=== PATIENT | male | born 1950 | race Caucasian/White ===

== ENCOUNTER 2016-10-14 19:43 | Emergency (ER) | payer MEDICARE, OTHER | END 2016-10-14 21:34 | disposition left against medical advice (07) | LOC: ED 19:43 | DX: R10.9 Unspecified abdominal pain (principal); Z53.21 Procedure and treatment not carried out due to patient leaving prior to being seen by health care provider ==

== ENCOUNTER 2017-05-28 14:59 | Inpatient (IN) | payer MEDICARE, OTHER ==
--- OUTSIDE RECORDS SUMMARY | 2017-05-28 15:23 | XMS REPORT ---
:1950 External Reference #:[id number] Author Organization [facility] Address [address] [address] Phone [phone] Care Team Providers Name Role Phone Savage Oates MD Primary Care Physician Unavailable Payers Type Date Identification Numbers Payment Provider Subscriber Medicare Primary Policy Number: [id number] Medicare Spencer Francisco PayID: [id number] [address] [place] [address] [facility] Part [facility] Policy Number: [id number] [facility] Spencer Francisco [address] [place] [address] Problems Description No Information Family History Date Family Member(s) Problem(s) Comments Father due to Lung Cancer () Mother due to Pancreatic Cancer () Siblings 1 1 sister Social History Type Date Description Comments Marital Status Lives With Occupation Retired Cigarette Use Former Cigarette Smoker Smoked 1 ppd for 20 years ETOH Use Occasionally consumes alcohol Smoking Patient is a former smoker Recreational Drug Use Denies Drug Use Daily Caffeine Consumes on average 2 cups of regular coffee per day Daily Caffeine Consumes on average 3 cups of hot tea per day Exercise Type/Frequency Exercises rarely Allergies, Adverse Reactions, Alerts Description No Information Medications Medication Date Status Form Strength Qnty SIG Indications Ordering Provider Prednisone 05/27/19 Active TBPK 10mg (21) 30units 4 tabs J20.9 Dayna 18 day#1, 3 MD Nas tabs day#2, 2 tabs day#3, 1 tab for 7 days, 1/2 tab for 10 days Cefaclor ER 05/27/19 Active Tablets ER 500mg 14tabs 1 by J20.9 Dayna 18 12HR mouth MD Nas twice a day Vital Signs Date Vital Result Comment 05/26/2017 Height 72 inches 6'0" Weight 327.00 lb Heart Rate 84 /min BP Systolic Sitting 122 mmHg BP Diastolic Sitting 70 mmHg Respiratory Rate 14 /min O2 % BldC Oximetry 95 % BMI (Body Mass Index) 44.3 kg/m2 Neck Circumference in inches 18.25 Results Test Date Test Result H/L Range Note Order 05/26/2017 6 Minute Walk <pending> Procedures Date CPT Code Description Status 05/26/2017 40217 Pulmonary Stress Test Simple Completed 04/09/2017 58374 Colonoscopy Flexible W/Biopsy Completed 04/09/2017 87952 Endoscopy Upper GI Biopsy Completed 04/09/2017 Colonoscopy Completed Plan of Care Future Appointment(s):06/04/2017 9:15 am - Dayna Lovell MD [facility]05/26/2017 - Dayna Lovell, MDR05 CoughNew Labs:Alpha 1 Antitrypsin A1aNew Xrays:Chest PA & Lat 2 VWSFollow up:2 ngnkkN06.9 Acute bronchitis, unspecifiedNew Medication:Prednisone 10 mg (21)Cefaclor ER 500 mgK21.0 Gastro-esophageal reflux disease with txqzqoscjehS47.01 Morbid (severe) obesity due to excess zmzapnlaN68.10 Acute frontal sinusitis, unspecified
[2017-05-28] MEDS ORDERED: Cefepime(*) 2 GM in NS 0.9% 50 ML* 50 ML IVPB ONE (15:34)
[2017-05-28] MEDS ORDERED: NS 0.9% 1000 ML* 1,000 ML IV ONE (15:34)
[2017-05-28 16:05] LABS: ABS Basophils 0 10^3/ul (0-0.2); ABS Eosinophils 0.1 10^3/ul (0-0.6); ABS Lymphocytes 0.5 10^3/ul (1.0-4.8); ABS Monocytes 0.5 10^3/ul (0-0.8); ABS Neutrophils 7.5 10^3/ul (1.5-7.7); ABS Nucleated RBC 0 10^3/ul; Hematocrit 41 % (42-52); Hemoglobin 13.4 g/dl (14.0-18.0); Lymphocyte % 5.7 % (25-47); Mean Corpuscular HGB Conc 33 g/dl (31-36); Mean Corpuscular Hemoglobin 28 pg (27-31); Mean Corpuscular Volume 85 fL (80-94); Mean Platelet Volume 10 um3 (7.4-10.4); Nucleated Red Blood Cells % 0; Platelet Count 157 10^3/ul (150-450); Red Blood Count 4.78 10^6/ul (4.0-5.4); Red Cell Distribution Width 16 % (10.5-15); White Blood Count 8.6 10^3/ul (3.5-10.8)
[2017-05-28] MEDS ORDERED: Cefepime 2 GM in Dextrose(*) 2 GM/50 ML BAG IV ONE (16:30)
[2017-05-28 16:33] LABS: EGFR Non-African American 72.3 (>60)
--- NOTE | 2017-05-28 17:31 | RAD ---
INDICATION: Shortness of breath. COMPARISON: Comparison is made with the prior study from May 26, 2017. TECHNIQUE: A portable view of the chest was obtained. FINDINGS: The heart is within normal limits in size. There are small patchy infiltrates present in the mid and lower lung pope. No pleural effusion is seen. IMPRESSION: SMALL BILATERAL INFILTRATES SIMILAR TO THE PRIOR STUDY.
[2017-05-28 17:46] LABS: Urine Appearance Clear; Urine Blood Negative (Negative); Urine Color Yellow; Urine Ketones Trace (Negative); Urine Protein Negative (Negative); Urine Specific Gravity 1.018 (1.010-1.030); Urine Urobilinogen Negative (Negative)
[2017-05-28] MEDS ORDERED: Dextrose 50% Syringe 50 ML* 25 GM/50 ML SYRINGE IV PUSH PRN (18:11)
[2017-05-28] MEDS ORDERED: methylPREDNISolone 125 MG* 2 ML VIAL IV ONE (18:12)
[2017-05-28] MEDS ORDERED: methylPREDNISolone 125 MG* 2 ML VIAL ONE (18:38)
[2017-05-28] MEDS ORDERED: Insulin LISPRO* 1 UNITS UNIT SUBCUT ONE (18:39)
[2017-05-28] MEDS: Insulin LISPRO* 1 UNITS UNIT SUBCUT SCH ×2 (18:40→23:02)
[2017-05-28] MEDS ORDERED: Albuterol/Ipratropium NEB.SOL* Albuterol 2.5 MG/Ipratropium 0.5 MG 3 ML ONE (20:17)
[2017-05-28] MEDS: Albuterol/Ipratropium NEB.SOL* Albuterol 2.5 MG/Ipratropium 0.5 MG 3 ML INH SCH (20:25)
[2017-05-28] MEDS: Mometasone/Formoter 100/5 MDI INH SCH (21:02)
--- NOTE | 2017-05-28 22:59 | HP ---
CC: Keon Miller MD; Savage Oates MD* ADMISSION HISTORY AND PHYSICAL: DATE OF ADMISSION: 05/28/17 PRIMARY CARE PROVIDER: Savage Oates MD MILK PROCESSING WORKER: Dayna Lovell MD ATTENDING PHYSICIAN: Keon Miller MD* (dictated by Ousmane Boland NP ). CHIEF COMPLAINT: Shortness of breath. HISTORY OF PRESENT ILLNESS: This is a very pleasant 66-year-old male patient, who has recently become a patient of Dr. Dayna Lovell for some ongoing shortness of breath. He had been seeing Dr. Oates, his primary care doctor , who had placed him on some antibiotics and did a chest x-ray for some chest congestion and cough that was persistent with intermittent shortness of breath. Based on his examination and chest x-ray at that time as is little over a month ago, he was sent to Dr. Lovell for additional treatment from Pulmonology. He saw Dr. Lovell several times, most recently just a few days ago. She placed him on cefaclor and continued him on Symbicort and albuterol for his continuing shortness of breath and it looked like he had some bilateral bibasilar infiltrates on his left chest x-ray. However, as of last 3 days, the patient's shortness of breath has been getting progressively worse and he feels that the initial treatment and antibiotics are not working and he, in his own words, is saying, "I feel pretty sick." The patient is saying he is getting winded and dyspneic with mild exertion and also has some increased work of breathing now at rest. Upon examination in the emergency department, he was found to likely be in exacerbation of COPD. He is complaining of continued shortness of breath and wheezing. He received cefepime 2 g in the ER and was referred for admission. PAST MEDICAL HISTORY: Significant for hypertension, atrial fibrillation with ablation last year, also had filter at the time of ablation, insulin dependent diabetes mellitus, hypothyroidism, hyperlipidemia, hypertension, and now with new diagnosis of COPD. PAST SURGICAL HISTORY: Lumbar laminectomy in 2012, lumbar I and D evacuation of hematoma in 2014, sinus surgery and again his ablation and filter insertion. MEDICATIONS AT HOME: Include: 1. Prednisone 20 mg daily. 2. Baby aspirin 81 mg daily. 3. Xyzal 5 mg daily. 4. Lipitor 80 mg daily. 5. Lisinopril 20 mg every other day. 6. Omeprazole 40 mg daily. 7. Levemir 20 units subcu daily. 8. Levothyroxine 100 mcg daily. 9. Cialis 5 mg as needed daily. 10. Glucophage 1000 mg p.o. daily. 11. Albuterol 2.5 mg 4 times daily inhaled. 12. Trulicity 1.5 mg subcu weekly. 13. Meloxicam 50 mg p.o. daily. 14. Symbicort 80/4.5 two times a day. 15. Also was on cefaclor 500 mg 2 times a day. ALLERGIES: He has allergies to ACETAMINOPHEN and HYDROCODONE, which causes rash. FAMILY HISTORY: Noncontributory. SOCIAL HISTORY: The patient has a remote history of smoking. He quit back in the s, but had smoked for approximately 20 years. 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 He is currently retired, lives at home with his . He denies any alcohol use or abuse. Denies any illicit drug use. REVIEW OF SYSTEMS: The patient again is complaining of some increased shortness of breath and wheeze. Denies any fever, fatigue or chills. Does state he has some general malaise, has no headache. No chest pain, no nausea or vomiting. No abdominal pains, no urinary complaints. Has chronic back pain ; however, he is at his baseline and no further constitutional complaints. PHYSICAL EXAMINATION GENERAL: The patient is awake and alert, well appearing, well nourished. VITAL SIGNS: Currently, blood pressure 157/76, heart rate 82, respiratory rate 18, O2 saturation 95% on 2 L, temperature is 98.5. HEENT: The patient is atraumatic, normocephalic. PERRLA with nonicteric sclerae. NECK: Supple, nontender. No thyromegaly appreciated. No JVD noted. LUNGS: Are very coarse throughout. He has an audible inspiratory and expiratory wheeze, coarse at the bases with some scattered rhonchi and very tight, not moving a lot of air, has a poor inspiratory effort. CARDIOVASCULAR: S1, S2 are present. Rate and rhythm are regular. No murmurs, gallops, or rubs noted. He has regular sinus rhythm on telemetry with no ectopy. ABDOMEN: Soft and nontender, very obese. Positive bowel sounds noted. : Deferred. MUSCULOSKELETAL: There is no clubbing and no cyanosis. He does have bilateral lower extremity edema at baseline. +2 distal pulses palpable and he has a steady gait unassisted. NEUROLOGIC: He is grossly intact with no focal deficits. PSYCHIATRIC: He is calm, cooperative and appropriate. IMPRESSION: This is a 66-year-old male patient with recent diagnosis of chronic obstructive pulmonary disease who has failed outpatient treatment for chronic obstructive pulmonary disease exacerbation, now presenting for inpatient management. PLAN: The patient has been admitted to inpatient medical services: 1. COPD. Failed outpatient treatment. 2. History of atrial fibrillation with ablation. 3. Hypertension. 4. Hyperlipidemia. 5. Hypothyroidism. 6. Insulin dependent diabetes mellitus with hyperglycemia. For the COPD exacerbation, the patient has already received cefepime 2 g. We will continue this q.12 hours. We have added albuterol treatments in the form of DuoNeb to be given every 6 hours. We will continue him on his Symbicort. I started him on 125 mg of Solu-Medrol. He should receive 40 mg q.8 hours thereafter and again continue with breathing treatments as needed. He is currently on 2 L of supplemental oxygen with good effect. We will keep him on this at least for the next 24 hours and then assess his respiratory function off oxygen. For his history of AFib and ablation, he is currently on baby aspirin, not on anticoagulation, because he received his filter. He will be monitored on telemetry in any case. Hypertension, we will continue his lisinopril. For his hyperlipidemia, continue his Lipitor daily, continue Synthroid at 100 mcg, his normal daily dose. We will continue his Levemir 20 mg daily; however, I added lispro sliding scale given that he will now be on steroids and his sugars will likely be elevated. For DVT prophylaxis, the patient is awake and ambulatory. I will order GILBERTO stockings and he can ambulate ad jayna. I feel the GILBERTO stockings will also help his bilateral lower extremity edema, which is his baseline. He said normally the swelling goes down when his feet are up. So, GILBERTO stocking should also help with his lower extremity edema. The patient is a full code. He can have a consistent carbohydrate diet, heart healthy. And also his , who is at the bedside, is his medical healthcare proxy. Again, the patient is full code. Rest of the patient's course is to be determined by further diagnostics, laboratories and any other input from other providers as warranted during this admission. I feel if the patient is not starting to feel better in the next 24 hours, then a Pulmonology consult with Dr. Lovell may be warranted. However, in any case, we will continue to treat him for this exacerbation and if he is continuing to get better, I would suggest having records sent to Dr. Lovell's office at discharge. So, she is informed of this current stay. TIME SPENT: I spent approximately 60 minutes on this admission, face to face with the patient and his , and also reviewing the chart and implementing the plan of care. This plan is being discussed with Dr. Miller, who is in agreement with the plan. OUSMANE BOLAND NP [id number]/[facility] #: [id number] [facility] HOSPITALEliot
[2017-05-29] MEDS: Albuterol/Ipratropium NEB.SOL* Albuterol 2.5 MG/Ipratropium 0.5 MG 3 ML INH SCH ×4 (00:35→19:31)
[2017-05-29] MEDS: methylPREDNISolone SOD 40 MG* 1 ML VIAL IV SCH ×3 (02:35→17:26)
[2017-05-29] MEDS: traMADol TAB* 50 MG PO PRN (03:00)
[2017-05-29] MEDS: Cefepime 2 GM in Dextrose(*) 2 GM/50 ML BAG IV SCH ×2 (04:29→16:40)
[2017-05-29] MEDS: Levothyroxine TAB* 100 MCG TAB PO SCH (05:04)
[2017-05-29 07:06] LABS: ABS Basophils 0 10^3/ul (0-0.2); ABS Eosinophils 0 10^3/ul (0-0.6); ABS Lymphocytes 0.5 10^3/ul (1.0-4.8); ABS Monocytes 0.2 10^3/ul (0-0.8); ABS Neutrophils 10.8 10^3/ul (1.5-7.7); ABS Nucleated RBC 0 10^3/ul; Eosinophil % 0 % (0-6); Hematocrit 41 % (42-52); Hemoglobin 13.5 g/dl (14.0-18.0); Lymphocyte % 4.5 % (25-47); Mean Corpuscular HGB Conc 33 g/dl (31-36); Mean Corpuscular Hemoglobin 28 pg (27-31); Mean Corpuscular Volume 85 fL (80-94); Mean Platelet Volume 10 um3 (7.4-10.4); Nucleated Red Blood Cells % 0; Platelet Count 158 10^3/ul (150-450); Red Blood Count 4.84 10^6/ul (4.0-5.4); Red Cell Distribution Width 16 % (10.5-15); White Blood Count 11.6 10^3/ul (3.5-10.8)
[2017-05-29 07:09] LABS: EGFR Non-African American 83.4 (>60)
[2017-05-29] MEDS: Mometasone/Formoter 100/5 MDI INH SCH ×2 (07:23→19:31)
[2017-05-29] MEDS: Atorvastatin* 80 MG TAB PO SCH (08:55)
[2017-05-29] MEDS: Omeprazole CAP* 20 MG PO SCH (08:55)
[2017-05-29] MEDS: Aspirin EC Low Dose* 81 MG TAB.EC PO SCH (08:55)
[2017-05-29] MEDS: Insulin LISPRO* 1 UNITS UNIT SUBCUT SCH ×4 (08:55→21:10)
[2017-05-29] MEDS ORDERED: Insulin GLARGINE(*) 1 UNITS UNIT SUBCUT SCH (09:00)
--- NOTE | 2017-05-29 09:32 | PN ---
Subjective Date of Service: 05/29/17 Interval History: Patient seen and examined at bedside. Denies fever, chills, N/V/D. Pt states that he continues to have shortness of breath above his baseline, but reports mild improvement since admission. Per his he has been treated with ABX and steroids x 3 outpatient in the last few weeks. Per his he has always had LE edema when traveling (this is located at his ankles) but recently he has had increased LE edema. He doesn't sleep on his back, so he isn't sure if he can lay flat. Pt noted to have some difficulty talking due to shortness of breath with talking. Tele: Sinus rhythm - sinus tach, rate 90-110's Family History: Unchanged from Admission Social History: Unchanged from Admission Past Medical History: Unchanged from Admission Objective Active Medications: Albuterol/Ipratropium (Duoneb (Albuterol 2.5 Mg/Ipratropium 0.5 Mg)) 1 neb INH Q6H GABE Aspirin (Aspirin Ec Low Dose*) 81 mg PO DAILY GABE Atorvastatin Calcium (Lipitor*) 80 mg PO DAILY GABE Dextrose (D50w Syringe 50 Ml*) 12.5 gm IV PUSH .FOR FS < 60 - SS PRN Reason: FS < 60 Cefepime HCl (Maxipime 2 Gm In Dextrose Duplex (*)) 2 gm in 50 mls @ 100 mls/ hr IV Q12H GABE Insulin Glargine (Lantus(*)) 20 units SUBCUT DAILY GABE Insulin Human Lispro (Humalog*) 0 units SUBCUT ACHS GABE Levothyroxine Sodium (Synthroid Tab*) 100 mcg PO 0600 GABE Lisinopril (Prinivil Tab*) 20 mg PO EVERY OTHER DAY GABE Methylprednisolone Sodium Succinate (Solu-Medrol 40 Mg) 40 mg IV Q8H GABE Mometasone Furoate/Formoterol Fumar (Dulera 100/5 Mdi*) 1 puff INH BID GABE Omeprazole (Prilosec Cap*) 40 mg PO DAILY GABE Tramadol HCl (Ultram*) 50 mg PO Q6H PRN Reason: PAIN Vital Signs - 8 hr 05/29/17 05/29/17 05/29/17 03:00 03:13 03:27 Temperature 97.3 F Pulse Rate 92 Respiratory 20 16 Rate Blood Pressure 160/78 145/76 (mmHg) O2 Sat by Pulse 94 Oximetry 05/29/17 05/29/17 05/29/17 07:15 07:16 07:33 Temperature 97.4 F Pulse Rate 91 90 Respiratory 20 18 Rate Blood Pressure 172/87 (mmHg) O2 Sat by Pulse 96 93 Oximetry 05/29/17 08:04 Temperature Pulse Rate 102 Respiratory Rate Blood Pressure 158/76 (mmHg) O2 Sat by Pulse Oximetry Oxygen Devices in Use Now: Nasal Cannula - 2L Appearance: NAD, sitting up on the side of the bed Respiratory: Symmetrical Chest Expansion and Respiratory Effort, Clear to Auscultation - , diminished with few crackles noted in bilateral bases Cardiovascular: NL Sounds; No Murmurs; No JVD, RRR - , tachy Abdominal: NL Sounds; No Tenderness; No Distention Extremities: - - Mild bilateral LE edema Neurological: Alert and Oriented x 3, NL Muscle Strength and Tone Lines/Tubes/Other Access: Clean, Dry and Intact Peripheral IV - site benign Nutrition: Taking PO's Result Diagrams: 05/29/17 06:40 05/29/17 06:40 Assess/Plan/Problems-Billing Assessment: Mr. Francisco is a 66 yo male with PMH significant for HTN, Afib s/p ablation, DM , hypothyroidism, HLD, and COPD who presented to the emergency room with complaints of increased shortness of breath. - Patient Problems (1) Shortness of breath Code(s): R06.02 - SHORTNESS OF BREATH SNOMED Code(s): 766552999 Comment: - Pt with crackles in bases and LE edema (will check echo to eval for possibilty of CHF) - Mild leukocytosis (suspect secondary to steroids) - Supplemental oxygen as needed - Will check a chest CT to further eval lungs (2) COPD exacerbation Code(s): J44.1 - CHRONIC OBSTRUCTIVE PULMONARY DISEASE W (ACUTE) EXACERBATION SNOMED Code(s): 862664338 Comment: - No wheezing on exam - Continue around the clock duonebs, cefepime and solu-medrol (3) History of atrial fibrillation Code(s): Z86.79 - PERSONAL HISTORY OF OTHER DISEASES OF THE CIRCULATORY SYSTEM SNOMED Code(s): 178730737 Comment: - S/P ablation - Continue ASA (4) HTN (hypertension) Code(s): I10 - ESSENTIAL (PRIMARY) HYPERTENSION SNOMED Code(s): 88505949 Comment: - SBP 130-170's - Will increase home Lisinopril to daily (from everyother day) (5) HLD (hyperlipidemia) Code(s): E78.5 - HYPERLIPIDEMIA, UNSPECIFIED SNOMED Code(s): 92347102 Comment: - Continue atorvastatin (6) Hypothyroid Code(s): E03.9 - HYPOTHYROIDISM, UNSPECIFIED SNOMED Code(s): 90097690 Comment: - Continue levothyroxine (7) Diabetes mellitus Code(s): E11.9 - TYPE 2 DIABETES MELLITUS WITHOUT COMPLICATIONS SNOMED Code(s) : 74230119 Comment: - Glucose 180-260's - Continue Lantus and Lispro SS (8) DVT prophylaxis Code(s): JAX6737 - SNOMED Code(s): 131949685 Comment: - TEDs and ambulate (9) Full code status Code(s): Z78.9 - OTHER SPECIFIED HEALTH STATUS SNOMED Code(s): 502583073 Status and Disposition: Inpatient. Discharge to home when medically stable.
--- NOTE | 2017-05-29 15:41 | RAD ---
INDICATION: Short of breath COMPARISON: Chest x-ray May 28, 2017 TECHNIQUE: Axial source images were obtained from the thoracic inlet to the hemidiaphragms. Coronal and sagittal reconstructed images were acquired. The visualized neck to include the thyroid appear normal. Chest wall: There are no acute abnormalities of the bony thorax or chest wall. There is no supraclavicular, infraclavicular, or axillary lymphadenopathy. Lungs : There are no pulmonary parenchymal masses or infiltrates. There is minimal linear change at both lung bases most consistent with platelike atelectasis. The pulmonary interstitium appears normal. There are no endobronchial lesions. Cardiomediastinal structures: The heart is normal in size. There is no pericardial effusion. There is no evidence of aortic aneurysm or dissection. There are postsurgical changes in the left atrium with history of a atrial closure device. The pulmonary vessels appear normal. There is no mediastinal or hilar adenopathy. The esophagus appears normal. Pleura : There are no pleural-based masses or effusions. Other: There are no acute or significant CT findings of the visualized upper abdomen. IMPRESSION: NO ACTIVE DISEASE. LUNGS CLEAR.
--- NOTE | 2017-05-29 16:26 | ECHO ---
Patient: JENNI HERNANDEZ [facility] Rec#: [id number] : 1950 Date: 05/29/2017 Age: 66y Weight: kg / NaN lbs Sex: M Room#: 418-02 Admit Date#: 05/28/2017 Type: Inpatient Referring: Alissa Perez NP Reading: Michele Ruiz DO Event Attendant: Afshan Kohler RN RDCS CC: Savage Oates MD CC: TIBURCIO TAYLOR Transthoracic Echocardiogram Indication: SOB, lower extremity edema BP: 158/76 HR: 88 Rhythm: NSR Findings History: A. fib S/P ablation and Watchman device, HTN, HLD, DM, hypothyroidism, COPD, obesity Technical Comments: The study quality is fair. The study is technically limited due to patient body habitus. The study is technically limited due to the patient's history of COPD. Completed at 1415. Left Ventricle: The left ventricular chamber size is normal. Mild concentric left ventricular hypertrophy is observed. Global left ventricular wall motion and contractility are within normal limits. There is normal left ventricular systolic function. The estimated ejection fraction is greater than 65%. Equivocal diastolic filling pattern. Left Atrium: The left atrium is mildly dilated. Right Ventricle: The right ventricular chamber size and systolic function are within normal limits. Right Atrium: The right atrium is mildly dilated. Aortic Valve: The aortic valve is trileaflet. The aortic valve leaflets are mildly thickened. There is aortic annular calcification.that is mild There is no evidence of aortic regurgitation. There is no evidence of aortic stenosis. Mitral Valve: Mild mitral annular calcification present. The mitral valve leaflets are mildly thickened. There is a trace of mitral regurgitation. There is no evidence of mitral stenosis. Tricuspid Valve: The tricuspid valve leaflets are normal. There is trace tricuspid regurgitation. Unable to estimate the right ventricular systolic pressure. There is no tricuspid stenosis. Pulmonic Valve: The pulmonic valve structure is not well visualized. There is a trace pulmonic regurgitation. There is no pulmonic stenosis. Pericardium: There is no significant pericardial effusion. Aorta: There is no dilatation of the ascending aorta. The aortic arch is not well visualized. There is mild dilatation of the aortic root. Pulmonary Artery: The main pulmonary artery is not well visualized. Venous: The inferior vena cava is dilated. There is a greater than 50% respiratory change in the inferior vena cava dimension. Conclusions The left ventricular chamber size is normal. Mild concentric left ventricular hypertrophy is observed. There is normal left ventricular systolic function. The estimated ejection fraction is 65-70% The left atrium is mildly dilated. The right ventricular chamber size and systolic function are within normal limits. No significant valvular abnormalities noted. Unable to estimate the right ventricular systolic pressure. No prior transthoracic echocardiogram reports available for comparison at time of interpretation. Measurements Name Value Normal Range RVDdMajor (2D) 4 cm (2.2 - 4.4) RVAW (2D) 0.9 cm (0.2 - 0.5) RAd ISD 4CH 5.5 cm (3.4 - 4.9) RA (A4C)W 4.3 cm (2.9 - 4.6) IVSd (2D) 1.3 cm (0.6 - 1) LVPWd (2D) 1.1 cm (0.6 - 1) LVIDd (2D) 4.5 cm (3.6 - 5.4) LVIDs (2D) 3 cm - LV FS (2D) 33 % (25 - 45) Aortic Annulus 2 cm (1.4 - 2.6) Ao root diameter (2D) 3.6 cm (2.1 - 3.5) Ascending Ao 3.5 cm (2.1 - 3.4) LA dimension (AP) 2D 4.5 cm (2.3 - 3.8) LAd ISD 4CH 5.7 cm (2.9 - 5.3) LA ISD 4CH W 4.1 cm (2.5 - 4.5) Name Value Normal Range LA ESV SP 4CH (A/L) 47 ml - LA ESV SP 2CH (A/L) 79 ml - LA ESV BP (A/L) 66 ml - LA ESV BP (A/L) index 25.4 ml/m2 - LA ESV SP 4CH (MOD) 44 ml - LA ESV SP 2CH (MOD) 77 ml - Name Value Normal Range MV E-wave Vmax 1.1 m/sec - MV deceleration time 220 msec - MV A-wave Vmax 0.48 m/sec - MV E:A ratio 2.3 ratio - LV septal e' Vmax 0.09 m/sec - LV lateral e' Vmax 0.1 m/sec - LV E:e' septal ratio 12.2 ratio - LV E:e' lateral ratio 11 ratio - Name Value Normal Range AV Vmax 1.8 m/sec - AV VTI 34.9 cm - AV peak gradient 12.3 mmHg - AV mean gradient 6.6 mmHg - LVOT Vmax 1.2 m/sec - LVOT VTI 25.3 cm - LVOT peak gradient 5.7 mmHg - LVOT mean gradient 2.5 mmHg - Name Value Normal Range MV Vmax 1.4 m/sec - MV VTI 31.4 cm - MV peak gradient 7.8 mmHg - MV mean gradient 4.1 mmHg - MV PHT 69 msec - MVA (PHT) 3.2 cm2 - Name Value Normal Range IVC diameter 2.4 cm - Name Value Normal Range PV Vmax 1.1 m/sec -
--- NOTE | 2017-05-29 17:48 | ED ---
Kai Garcia Angela, scribed for Shawn Rodríguez MD on 05/28/17 at 1521 . Shortness of Breath - HPI Summary HPI Summary: This pt is a 66 y/o male presenting to [facility] c/o cough and SOB for a couple of weeks now. He notes he has had a fever and chest pain from coughing. Pt reports he had a chest XR a couple of weeks ago and was diagnosed with bronchitis. Pt was placed on steroids and azithromycin for 3 days. He notes that 2 days ago he followed up with Dr. Lovell, brick catcher, and placed him on cefaclor and prednisone. Dr. Lovell called him today and told him that he might have pneumonia and should come to the ED. - History of Current Complaint Chief Complaint: EDChestPainROMI Time Seen by Provider: 05/28/17 15:15 Hx Obtained From: Patient Onset/Duration: Lasting Days, Still Present Timing: Constant Dyspnea At: Rest Aggrevating Factors: Nothing Alleviating Factors: Nothing Associated Signs & Symptoms: Cough (Productive), Chest Pain w/Cough, Fever - Allergy/Home Medications Allergies/Adverse Reactions: Allergies Allergy/AdvReac Type Severity Reaction Status Date / Time acetaminophen [From Gustine] Allergy Rash And Verified 05/08/17 12:01 Itching hydrocodone [From Gustine] Allergy Rash And Verified 05/08/17 12:01 Itching Home Medications: Home Medications Albuterol 2.5MG/3ML (0.083%)* [Ventolin 2.5 MG/3 ML NEB.GREY*] 2.5 mg INH QID [History Confirmed 05/28/17] Aspirin EC Low Dose* [Ecotrin EC Low Dose 81 MG*] 81 mg PO DAILY 05/28/17 [ History Confirmed 05/28/17] Budesonide/Formote 80/4.5(NF) [Symbicort 80/4.5 (NF)] 1 spray PO BID 05/28/17 [ History Confirmed 05/28/17] Cefaclor 500 mg PO BID 05/28/17 [History Confirmed 05/28/17] Lisinopril TAB* [Prinivil TAB*] 20 mg PO EVERY OTHER DAY 05/28/17 [History Confirmed 05/28/17] Meloxicam(NF) [Mobic(NF)] 15 mg PO DAILY 05/28/17 [History Confirmed 05/28/17] Omeprazole CAP* [Prilosec CAP* 20 MG] 40 mg PO DAILY 05/28/17 [History Confirmed 05/28/17] Tadalafil (Nf) [Cialis (NF)] 5 mg PO DAILY PRN 05/28/17 [History Confirmed 05/28] predniSONE TAB* [Deltasone TAB*] 20 mg PO DAILY 05/28/17 [History Confirmed ] PMH/Surg Hx/FS Hx/Imm Hx Endocrine/Hematology History: Reports: Hx Diabetes, Hx Thyroid Disease Cardiovascular History: Reports: Hx Hypercholesterolemia, Hx Hypertension Denies: Hx Pacemaker/ICD Respiratory History: Reports: Other Respiratory Problems/Disorders - PT HAD VIRAL INFECTION IN LUNGS IN 2004 GI History: Reports: Hx Gastroesophageal Reflux Disease History: Reports: Hx Benign Prostatic Hyperplasia Denies: Hx Renal Disease Musculoskeletal History: Reports: Hx Back Problems Sensory History: Denies: Hx Hearing Aid Neurological History: Reports: Other Neuro Impairments/Disorders - PAIN CLINIC PT Psychiatric History: Denies: Hx Panic Disorder - Cancer History Cancer Type, 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 HEART ABLASION [place] 2016. WATCHMAN FILTER (ATRIAL APPENDAGE CLOSURE DEVICE) PLACED 09/10/16- PER MRI SAFETY- CONDITIONAL 6- 3T OR LESS, MAX SPATIAL GRADIENT OF 720 GAUSS/CM. RIGHT KNEE [place] 2001 Infectious Disease History: No Infectious Disease History: Denies: Traveled Outside the [place] in Last 30 Days - Family History Family History: Father: malignant neoplasm of respiratory system. Mother: Malignant tumor of lung - Social History Alcohol Use: None Substance Use Type: Reports: None Hx Tobacco Use: Yes Smoking Status (MU): Never Smoked Tobacco Have You Smoked in the Last Year: No Review of Systems Positive: Fever Eyes: Negative ENT: Negative Positive: Chest Pain Positive: Shortness Of Breath, Cough Skin: Negative Neurological: Negative All Other Systems Reviewed And Are Negative: Yes Physical Exam - Summary Physical Exam Summary: VITAL SIGNS: Reviewed. GENERAL: Patient is a well-developed and nourished male who is lying comfortable in the stretcher. Patient is not in any acute respiratory distress. Pt looks debilitated. HEAD AND FACE: No signs of trauma. No ecchymosis, hematomas or skull depressions. No sinus tenderness. EYES: PERRLA, EOMI x 2, No injected conjunctiva, no nystagmus. EARS: Hearing grossly intact. Ear canals and tympanic membranes are within normal limits. MOUTH: Oropharynx within normal limits. Dry oral mucosa. NECK: Supple, trachea is midline, no adenopathy, no JVD, no carotid bruit, no c- spine tenderness, neck with full ROM. CHEST: Symmetric, no tenderness at palpation LUNGS: Right sided crackles. CVS: Regular rate and rhythm, S1 and S2 present, no murmurs or gallops appreciated. ABDOMEN: Soft, non-tender. No signs of distention. No rebound no guarding, and no masses palpated. Bowel sounds are normal. EXTREMITIES: FROM in all major joints, no edema, no cyanosis or clubbing. NEURO: Alert and oriented x 3. No acute neurological deficits. Speech is normal and follows commands. SKIN: Dry and warm Triage Information Reviewed: Yes Vital Signs On Initial Exam: Initial Vitals Temp Pulse Resp BP Pulse Ox 98.5 F 88 20 166/73 94 05/28/17 15:04 05/28/17 15:04 05/28/17 15:04 05/28/17 15:04 05/28/17 15:04 Vital Signs Reviewed: Yes Diagnostics - Vital Signs Vital Signs Temp Pulse Resp BP Pulse Ox 05/28/17 15:04 98.5 F 88 20 166/73 94 - Laboratory Lab Results: Lab Results 05/28/17 05/28/17 05/28/17 Range/Units 15:45 15:45 15:45 WBC 8.6 (3.5-10.8) 10^3/ul RBC 4.78 (4.0-5.4) 10^6/ul Hgb 13.4 L (14.0-18.0) g/dl Hct 41 L (42-52) % MCV 85 (80-94) fL MCH 28 (27-31) pg MCHC 33 (31-36) g/dl RDW 16 H (10.5-15) % Plt Count 157 (150-450) 10^3/ul MPV 10 (7.4-10.4) um3 Neut % (Auto) 87.5 H (38-83) % Lymph % (Auto) 5.7 L (25-47) % [place] % (Auto) 5.3 (0-7) % Eos % (Auto) 1.0 (0-6) % Baso % (Auto) 0.5 (0-2) % Absolute Neuts (auto) 7.5 (1.5-7.7) 10^3/ul Absolute Lymphs (auto) 0.5 L (1.0-4.8) 10^3/ul Absolute Monos (auto) 0.5 (0-0.8) 10^3/ul Absolute Eos (auto) 0.1 (0-0.6) 10^3/ul Absolute Basos (auto) 0 (0-0.2) 10^3/ul Absolute Nucleated RBC 0 10^3/ul Nucleated RBC % 0 Sodium 136 (133-145) mmol/L Potassium 4.5 (3.5-5.0) mmol/L Chloride 105 (101-111) mmol/L Carbon Dioxide 23 (22-32) mmol/L Anion Gap 8 (2-11) mmol/L BUN 26 H (6-24) mg/dL Creatinine 1.03 (0.67-1.17) mg/dL Est GFR ( Amer) 92.9 (>60) Est GFR (Non-Af Amer) 72.3 (>60) BUN/Creatinine Ratio 25.2 H (8-20) Glucose 243 H (70-100) mg/dL Lactic Acid (0.5-2.0) mmol/L Calcium 8.9 (8.6-10.3) mg/dL Total Bilirubin 0.40 (0.2-1.0) mg/dL AST 20 (13-39) U/L ALT 25 (7-52) U/L Alkaline Phosphatase 56 (34-104) U/L Total Creatine Kinase 175 (10-223) U/L Troponin I 0.00 (<0.04) ng/mL C-Reactive Protein 5.46 H (< 5.00) mg/L B-Natriuretic Peptide 17 ( - 100) pg/mL Total Protein 6.5 (6.4-8.9) g/dL Albumin 3.7 (3.2-5.2) g/dL Globulin 2.8 (2-4) g/dL Albumin/Globulin Ratio 1.3 (1-3) Urine Color Urine Appearance Urine pH (5-9) Ur Specific [place] (1.010-1.030) Urine Protein (Negative) Urine Ketones (Negative) Urine Blood (Negative) Urine Nitrate (Negative) Urine Bilirubin (Negative) Urine Urobilinogen (Negative) Ur Leukocyte Esterase (Negative) Urine Glucose (Negative) Urine Ascorbic Acid (Negative) 05/28/17 05/28/17 Range/Units 15:45 17:36 WBC (3.5-10.8) 10^3/ul RBC (4.0-5.4) 10^6/ul Hgb (14.0-18.0) g/dl Hct (42-52) % MCV (80-94) fL MCH (27-31) pg MCHC (31-36) g/dl RDW (10.5-15) % Plt Count (150-450) 10^3/ul MPV (7.4-10.4) um3 Neut % (Auto) (38-83) % Lymph % (Auto) (25-47) % [place] % (Auto) (0-7) % Eos % (Auto) (0-6) % Baso % (Auto) (0-2) % Absolute Neuts (auto) (1.5-7.7) 10^3/ul Absolute Lymphs (auto) (1.0-4.8) 10^3/ul Absolute Monos (auto) (0-0.8) 10^3/ul Absolute Eos (auto) (0-0.6) 10^3/ul Absolute Basos (auto) (0-0.2) 10^3/ul Absolute Nucleated RBC 10^3/ul Nucleated RBC % Sodium (133-145) mmol/L Potassium (3.5-5.0) mmol/L Chloride (101-111) mmol/L Carbon Dioxide (22-32) mmol/L Anion Gap (2-11) mmol/L BUN (6-24) mg/dL Creatinine (0.67-1.17) mg/dL Est GFR ( Amer) (>60) Est GFR (Non-Af Amer) (>60) BUN/Creatinine Ratio (8-20) Glucose (70-100) mg/dL Lactic Acid 1.8 (0.5-2.0) mmol/L Calcium (8.6-10.3) mg/dL Total Bilirubin (0.2-1.0) mg/dL AST (13-39) U/L ALT (7-52) U/L Alkaline Phosphatase (34-104) U/L Total Creatine Kinase (10-223) U/L Troponin I (<0.04) ng/mL C-Reactive Protein (< 5.00) mg/L B-Natriuretic Peptide ( - 100) pg/mL Total Protein (6.4-8.9) g/dL Albumin (3.2-5.2) g/dL Globulin (2-4) g/dL Albumin/Globulin Ratio (1-3) Urine Color Yellow Urine Appearance Clear Urine pH 6.0 (5-9) Ur Specific [place] 1.018 (1.010-1.030) Urine Protein Negative (Negative) Urine Ketones Trace A (Negative) Urine Blood Negative (Negative) Urine Nitrate Negative (Negative) Urine Bilirubin Negative (Negative) Urine Urobilinogen Negative (Negative) Ur Leukocyte Esterase Negative (Negative) Urine Glucose 3+(>=500 mg/dl) A (Negative) Urine Ascorbic Acid * A (Negative) Result Diagrams: 05/29/17 06:40 05/29/17 06:40 Lab Statement: Any lab studies that have been ordered have been reviewed, and results considered in the medical decision making process. - EKG 15:03 Cardiac Rate: NL EKG Rhythm: Sinus Rhythm - at 83 bpm EKG Interpretation: No ST elevations. Course/Dx - Course Assessment/Plan: This pt is a 66 y/o male presenting to [facility] c/o cough and SOB for a couple of weeks now. He notes he has had a fever and chest pain from coughing. Pt reports he had a chest XR a couple of weeks ago and was diagnosed with bronchitis. Pt was placed on steroids and azithromycin for 3 days. He notes that 2 days ago he followed up with Dr. Lovell, brick catcher, and placed him on cefaclor and prednisone. Dr. Lovell called him today and told him that he might have pneumonia and should come to the ED. Test results without any significant abnormalities except for slight anemia, BUN of 26, possibly secondary to dehydration, glucose of 243, CRP of 5.46. Urinalysis is negative for UTI. Chest XR was done 2 days ago. Chest XR: Mild patchy alveolar consolidation at the bilateral lung bases may represent subsegmental atelectasis of bronchopneumonia. Since the pt is failing to outpatient antibiotics x2, I discussed the pts case with Dr. Miller, hospitalist, who accepted the pt for IV antibiotics. Pt is hemodynamically stable, alert and oriented x3. I discussed all the findings and test results with the patient. Patient was instructed to return to the emergency room immediately if any of the symptoms return or worsens. Plan of care was discussed with the patient and understands and agrees. All questions were answered at patient satisfaction. There were no further complaints or concerns - Diagnoses Differential Diagnosis/HQI/PQRI: Positive: Asthma, Bronchitis, CHF, Chest Wall Pain, COPD Exacerbation, Pneumonia Provider Diagnoses: Pneumonia - Physician Notifications Discussed Care of Patient With: Keon Miller Instructed by Provider To: Other - I discussed pt care with Dr. Miller, hospitalist, who has agreed to admit the pt. Discharge - Discharge Plan Condition: Stable Disposition: ADMITTED TO [facility] The documentation as recorded by the Kai ray Angela accurately reflects the service I personally performed and the decisions made by , Shawn Rodríguez MD.
[2017-05-29] MEDS: DOXYcycline IV* 100 MG in NS 0.9% 250 ML* 250 ML IVPB SCH (21:30)
[2017-05-30] MEDS: Albuterol/Ipratropium NEB.SOL* Albuterol 2.5 MG/Ipratropium 0.5 MG 3 ML INH SCH ×4 (01:00→19:10)
[2017-05-30] MEDS: methylPREDNISolone SOD 40 MG* 1 ML VIAL IV SCH ×3 (03:03→17:03)
[2017-05-30] MEDS: Levothyroxine TAB* 100 MCG TAB PO SCH (06:29)
[2017-05-30 07:02] LABS: ABS Basophils 0 10^3/ul (0-0.2); ABS Eosinophils 0 10^3/ul (0-0.6); ABS Lymphocytes 0.6 10^3/ul (1.0-4.8); ABS Monocytes 0.7 10^3/ul (0-0.8); ABS Neutrophils 14.3 10^3/ul (1.5-7.7); ABS Nucleated RBC 0 10^3/ul; Eosinophil % 0 % (0-6); Hematocrit 41 % (42-52); Mean Corpuscular HGB Conc 34 g/dl (31-36); Mean Corpuscular Hemoglobin 28 pg (27-31); Mean Corpuscular Volume 84 fL (80-94); Mean Platelet Volume 10 um3 (7.4-10.4); Nucleated Red Blood Cells % 0; Platelet Count 185 10^3/ul (150-450); Red Blood Count 4.96 10^6/ul (4.0-5.4); Red Cell Distribution Width 16 % (10.5-15); White Blood Count 15.6 10^3/ul (3.5-10.8)
[2017-05-30] MEDS: Mometasone/Formoter 100/5 MDI INH SCH ×2 (07:23→19:11)
--- NOTE | 2017-05-30 08:21 | PN ---
Subjective Date of Service: 05/30/17 Interval History: Patient seen and examined at bedside. Denies fever, chills, chest discomfort, N/ V/D. Pt states that his shortness of breath is improving, but not yet to his baseline. Tele: Sinus rhythm, rate 80-90's. Family History: Unchanged from Admission Social History: Unchanged from Admission Past Medical History: Unchanged from Admission Objective Active Medications: Albuterol/Ipratropium (Duoneb (Albuterol 2.5 Mg/Ipratropium 0.5 Mg)) 1 neb INH Q6H GABE Aspirin (Aspirin Ec Low Dose*) 81 mg PO DAILY GABE Atorvastatin Calcium (Lipitor*) 80 mg PO DAILY GABE Dextrose (D50w Syringe 50 Ml*) 12.5 gm IV PUSH .FOR FS < 60 - SS PRN Reason: FS < 60 Doxycycline Hyclate 100 mg/ (Sodium Chloride) 250 mls @ 250 mls/hr IVPB Q12H GABE Insulin Glargine (Lantus(*)) 20 units SUBCUT DAILY GABE Insulin Human Lispro (Humalog*) 0 units SUBCUT ACHS GABE Levothyroxine Sodium (Synthroid Tab*) 100 mcg PO 0600 GABE Lisinopril (Prinivil Tab*) 20 mg PO DAILY GABE Methylprednisolone Sodium Succinate (Solu-Medrol 40 Mg) 40 mg IV Q8H GABE Mometasone Furoate/Formoterol Fumar (Dulera 100/5 Mdi*) 1 puff INH BID GABE Omeprazole (Prilosec Cap*) 40 mg PO DAILY GABE Tramadol HCl (Ultram*) 50 mg PO Q6H PRN Reason: PAIN Vital Signs - 8 hr 05/30/17 05/30/17 05/30/17 03:09 07:23 07:33 Temperature 97.6 F 98.5 F Pulse Rate 70 72 77 Respiratory 20 14 17 Rate Blood Pressure 138/72 160/75 (mmHg) O2 Sat by Pulse 95 93 94 Oximetry Oxygen Devices in Use Now: Nasal Cannula - 2 L Appearance: NAD, laying in bed Ears/Nose/Mouth/Throat: Mucous Membranes Moist Respiratory: Symmetrical Chest Expansion and Respiratory Effort, Clear to Auscultation - , diminished Cardiovascular: NL Sounds; No Murmurs; No JVD, RRR Abdominal: NL Sounds; No Tenderness; No Distention Extremities: No Edema Skin: No Rash or Ulcers Neurological: Alert and Oriented x 3, NL Muscle Strength and Tone Lines/Tubes/Other Access: Clean, Dry and Intact Peripheral IV - site benign Nutrition: Taking PO's Result Diagrams: 05/30/17 06:53 05/29/17 06:40 Additional Lab and Data: . Assess/Plan/Problems-Billing Assessment: Mr. Francisco is a 66 yo male with PMH significant for HTN, Afib s/p ablation, DM , hypothyroidism, HLD, and COPD who presented to the emergency room with complaints of increased shortness of breath. - Patient Problems (1) Shortness of breath Code(s): R06.02 - SHORTNESS OF BREATH SNOMED Code(s): 091271123 Comment: - Suspect secondary to COPD exacerbation - Echo, no signs of heart failure - CT chest, clear lungs - D dimer < 200 - Mild leukocytosis (suspect secondary to steroids) - Supplemental oxygen as needed (2) COPD exacerbation Code(s): J44.1 - CHRONIC OBSTRUCTIVE PULMONARY DISEASE W (ACUTE) EXACERBATION SNOMED Code(s): 240412540 Comment: - Afebrile, leukocytosis, continues to have shortness of breath increased above his baseline - No wheezing on exam - Continue around the clock duonebs, doxycycline and solu-medrol (consider changing to PO in the AM) (3) History of atrial fibrillation Code(s): Z86.79 - PERSONAL HISTORY OF OTHER DISEASES OF THE CIRCULATORY SYSTEM SNOMED Code(s): 456780687 Comment: - S/P ablation - Continue ASA (4) HTN (hypertension) Code(s): I10 - ESSENTIAL (PRIMARY) HYPERTENSION SNOMED Code(s): 96895703 Comment: - SBP 130-160's - Continue Lisinopril (increased to daily from everyother day) (5) HLD (hyperlipidemia) Code(s): E78.5 - HYPERLIPIDEMIA, UNSPECIFIED SNOMED Code(s): 38157514 Comment: - Continue atorvastatin (6) Hypothyroid Code(s): E03.9 - HYPOTHYROIDISM, UNSPECIFIED SNOMED Code(s): 75239024 Comment: - Continue levothyroxine (7) Diabetes mellitus Code(s): E11.9 - TYPE 2 DIABETES MELLITUS WITHOUT COMPLICATIONS SNOMED Code(s) : 94513720 Comment: - Glucose 280-340's - Continue Lantus (increase to 30 units) and Lispro SS (8) DVT prophylaxis Code(s): AYK1048 - SNOMED Code(s): 507166056 Comment: - TEDs and ambulate (9) Full code status Code(s): Z78.9 - OTHER SPECIFIED HEALTH STATUS SNOMED Code(s): 600157775 Status and Disposition: Inpatient. Discharge to home when medically stable, suspect in 1-2 days.
[2017-05-30] MEDS ORDERED: Saline NASAL SPRAY 0.65%* BTL BOTH NARES PRN (08:41)
[2017-05-30] MEDS ORDERED: Analgesic BALM* 114 GM TOPICAL PRN (08:42)
[2017-05-30] MEDS ORDERED: Lisinopril TAB* 10 MG PO SCH (09:00)
[2017-05-30] MEDS: Omeprazole CAP* 20 MG PO SCH (09:14)
[2017-05-30] MEDS: Aspirin EC Low Dose* 81 MG TAB.EC PO SCH (09:14)
[2017-05-30] MEDS: Lisinopril TAB* 10 MG PO SCH (09:14)
[2017-05-30] MEDS: Insulin LISPRO* 1 UNITS UNIT SUBCUT SCH ×4 (09:15→21:15)
[2017-05-30] MEDS: Insulin GLARGINE(*) 1 UNITS UNIT SUBCUT SCH (09:15)
[2017-05-30] MEDS: Atorvastatin* 80 MG TAB PO SCH (09:16)
[2017-05-30] MEDS: traMADol TAB* 50 MG PO PRN (09:22)
[2017-05-30] MEDS: DOXYcycline IV* 100 MG in NS 0.9% 250 ML* 250 ML IVPB SCH ×2 (09:23→21:21)
[2017-05-30] MEDS ORDERED: Polyethylene Glycol 3350* 17 GM PACKET PO PRN (11:18)
[2017-05-31] MEDS: Albuterol/Ipratropium NEB.SOL* Albuterol 2.5 MG/Ipratropium 0.5 MG 3 ML INH SCH ×4 (01:00→19:37)
[2017-05-31] MEDS: methylPREDNISolone SOD 40 MG* 1 ML VIAL IV SCH ×2 (02:01→08:28)
[2017-05-31] MEDS: Levothyroxine TAB* 100 MCG TAB PO SCH (05:40)
[2017-05-31 05:47] LABS: ABS Basophils 0 10^3/ul (0-0.2); ABS Eosinophils 0 10^3/ul (0-0.6); ABS Lymphocytes 0.9 10^3/ul (1.0-4.8); ABS Monocytes 0.8 10^3/ul (0-0.8); ABS Neutrophils 13.8 10^3/ul (1.5-7.7); ABS Nucleated RBC 0 10^3/ul; Eosinophil % 0 % (0-6); Hematocrit 40 % (42-52); Hemoglobin 13.4 g/dl (14.0-18.0); Mean Corpuscular HGB Conc 34 g/dl (31-36); Mean Corpuscular Hemoglobin 28 pg (27-31); Mean Corpuscular Volume 84 fL (80-94); Mean Platelet Volume 10 um3 (7.4-10.4); Nucleated Red Blood Cells % 0; Platelet Count 173 10^3/ul (150-450); Red Blood Count 4.75 10^6/ul (4.0-5.4); Red Cell Distribution Width 16 % (10.5-15); White Blood Count 15.5 10^3/ul (3.5-10.8)
[2017-05-31] MEDS: Mometasone/Formoter 100/5 MDI INH SCH ×2 (07:13→19:38)
[2017-05-31] MEDS: Insulin GLARGINE(*) 1 UNITS UNIT SUBCUT SCH (08:25)
[2017-05-31] MEDS: Insulin LISPRO* 1 UNITS UNIT SUBCUT SCH ×4 (08:25→20:42)
[2017-05-31] MEDS: Aspirin EC Low Dose* 81 MG TAB.EC PO SCH (08:27)
[2017-05-31] MEDS: Lisinopril TAB* 10 MG PO SCH (08:27)
[2017-05-31] MEDS: Omeprazole CAP* 20 MG PO SCH (08:27)
[2017-05-31] MEDS: Atorvastatin* 80 MG TAB PO SCH (08:28)
[2017-05-31] MEDS: DOXYcycline IV* 100 MG in NS 0.9% 250 ML* 250 ML IVPB SCH ×2 (09:25→21:01)
--- NOTE | 2017-05-31 11:32 | PN ---
Subjective Date of Service: 05/31/17 Interval History: Patient seen and examined at bedside. Denies fever, chills, chest discomfort, N/ V/D. Pt continues to have shortness of breath increased above his baseline, but over all feels like his breathing is improving slowly. He was able to ambulate in the halls without difficulty yesterday, and was encouraged to keep ambulating in the halls today. Tele: Sinus rhythm, rate 80-90's Family History: Unchanged from Admission Social History: Unchanged from Admission Past Medical History: Unchanged from Admission Objective Active Medications: Albuterol/Ipratropium (Duoneb (Albuterol 2.5 Mg/Ipratropium 0.5 Mg)) 1 neb INH Q6H GABE Aspirin (Aspirin Ec Low Dose*) 81 mg PO DAILY GABE Atorvastatin Calcium (Lipitor*) 80 mg PO DAILY GABE Dextrose (D50w Syringe 50 Ml*) 12.5 gm IV PUSH .FOR FS < 60 - SS PRN Reason: FS < 60 Doxycycline Hyclate 100 mg/ (Sodium Chloride) 250 mls @ 250 mls/hr IVPB Q12H GABE Insulin Glargine (Lantus(*)) 30 units SUBCUT DAILY GABE Insulin Human Lispro (Humalog*) 0 units SUBCUT ACHS GABE Levothyroxine Sodium (Synthroid Tab*) 100 mcg PO 0600 GABE Lisinopril (Prinivil Tab*) 20 mg PO DAILY GABE Methylprednisolone Sodium Succinate (Solu-Medrol 40 Mg) 40 mg IV Q8H GABE Mometasone Furoate/Formoterol Fumar (Dulera 100/5 Mdi*) 1 puff INH BID GABE Multi-Ingredient Liniment/Rub (Rosalio Santana*) 1 applic TOPICAL TID PRN Reason: PAIN - BACK Omeprazole (Prilosec Cap*) 40 mg PO DAILY GABE Polyethylene Glycol/Electrolytes (Miralax*) 17 gm PO DAILY PRN Reason: CONSTIPATION Sodium Chloride (Sodium Chloride 0.65% Nasal [place]*) 1 spray BOTH NARES Q4H PRN Reason: CONGESTION Tramadol HCl (Ultram*) 50 mg PO Q6H PRN Reason: PAIN Vital Signs - 8 hr 05/31/17 05/31/17 07:14 07:45 Temperature 98.1 F Pulse Rate 72 81 Respiratory 14 20 Rate Blood Pressure 150/58 (mmHg) O2 Sat by Pulse 94 92 Oximetry Oxygen Devices in Use Now: None Appearance: NAD, laying in bed Respiratory: Symmetrical Chest Expansion and Respiratory Effort, Clear to Auscultation - , diminished Cardiovascular: NL Sounds; No Murmurs; No JVD, RRR Abdominal: NL Sounds; No Tenderness; No Distention Extremities: No Edema Skin: No Rash or Ulcers Neurological: Alert and Oriented x 3, NL Muscle Strength and Tone Lines/Tubes/Other Access: Clean, Dry and Intact Peripheral IV - site benign Nutrition: Taking PO's Result Diagrams: 05/31/17 05:15 05/29/17 06:40 Additional Lab and Data: . Assess/Plan/Problems-Billing Assessment: Mr. Francisco is a 66 yo male with PMH significant for HTN, Afib s/p ablation, DM , hypothyroidism, HLD, and COPD who presented to the emergency room with complaints of increased shortness of breath. - Patient Problems (1) Shortness of breath Code(s): R06.02 - SHORTNESS OF BREATH SNOMED Code(s): 788098581 Comment: - Suspect secondary to COPD exacerbation - Echo, no signs of heart failure - CT chest, clear lungs - D dimer < 200 - Mild leukocytosis (suspect secondary to steroids) - Supplemental oxygen as needed (2) COPD exacerbation Code(s): J44.1 - CHRONIC OBSTRUCTIVE PULMONARY DISEASE W (ACUTE) EXACERBATION SNOMED Code(s): 755617988 Comment: - Afebrile, leukocytosis, continues to have shortness of breath increased above his baseline - No wheezing on exam - Continue around the clock duonebs, doxycycline and solu-medrol (change to PO in the AM) (3) History of atrial fibrillation Code(s): Z86.79 - PERSONAL HISTORY OF OTHER DISEASES OF THE CIRCULATORY SYSTEM SNOMED Code(s): 878663362 Comment: - S/P ablation - Continue ASA (4) HTN (hypertension) Code(s): I10 - ESSENTIAL (PRIMARY) HYPERTENSION SNOMED Code(s): 51722280 Comment: - SBP 140-160's - Continue Lisinopril (increased to daily from everyother day) - Will start amlodipine (5) HLD (hyperlipidemia) Code(s): E78.5 - HYPERLIPIDEMIA, UNSPECIFIED SNOMED Code(s): 56562473 Comment: - Continue atorvastatin (6) Hypothyroid Code(s): E03.9 - HYPOTHYROIDISM, UNSPECIFIED SNOMED Code(s): 43935398 Comment: - Continue levothyroxine (7) Diabetes mellitus Code(s): E11.9 - TYPE 2 DIABETES MELLITUS WITHOUT COMPLICATIONS SNOMED Code(s) : 76442150 Comment: - Glucose 180-300's - Continue Lantus (increased to 30 units) and Lispro SS (8) DVT prophylaxis Code(s): LIS6126 - SNOMED Code(s): 414300033 Comment: - TEDs and ambulate (9) Full code status Code(s): Z78.9 - OTHER SPECIFIED HEALTH STATUS SNOMED Code(s): 366276479 Status and Disposition: Inpatient. Discharge to home when medically stable, suspect in 1-2 days.
[2017-05-31] MEDS: amLODIPine TAB* 5 MG PO SCH (16:08)
[2017-06-01] MEDS: Albuterol/Ipratropium NEB.SOL* Albuterol 2.5 MG/Ipratropium 0.5 MG 3 ML INH SCH ×2 (02:53→08:01)
[2017-06-01] MEDS: Levothyroxine TAB* 100 MCG TAB PO SCH (05:08)
[2017-06-01] MEDS: Mometasone/Formoter 100/5 MDI INH SCH (08:03)
[2017-06-01] MEDS: Insulin LISPRO* 1 UNITS UNIT SUBCUT SCH (08:36)
[2017-06-01] MEDS: Insulin GLARGINE(*) 1 UNITS UNIT SUBCUT SCH (08:36)
[2017-06-01] MEDS: Atorvastatin* 80 MG TAB PO SCH (08:37)
[2017-06-01] MEDS: Omeprazole CAP* 20 MG PO SCH (08:37)
[2017-06-01] MEDS: Lisinopril TAB* 10 MG PO SCH (08:37)
[2017-06-01] MEDS: amLODIPine TAB* 5 MG PO SCH (08:37)
[2017-06-01] MEDS: Aspirin EC Low Dose* 81 MG TAB.EC PO SCH (08:37)
[2017-06-01] MEDS: DOXYcycline IV* 100 MG in NS 0.9% 250 ML* 250 ML IVPB SCH (08:57)
[2017-06-01] MEDS ORDERED: predniSONE TAB* 50 MG PO SCH (09:00)
--- NOTE | 2017-06-01 09:47 | PN ---
Subjective Date of Service: 06/01/17 Interval History: Patient seen and examined at bedside. Denies fever, chills, shortness of breath (above baseline), chest discomfort, N/V/D. Family History: Unchanged from Admission Social History: Unchanged from Admission Past Medical History: Unchanged from Admission Objective Active Medications: Albuterol/Ipratropium (Duoneb (Albuterol 2.5 Mg/Ipratropium 0.5 Mg)) 1 neb INH Q6H [facility] Amlodipine Besylate (Norvasc Tab*) 5 mg PO DAILY [facility] Aspirin (Aspirin Ec Low Dose*) 81 mg PO DAILY [facility] Atorvastatin Calcium (Lipitor*) 80 mg PO DAILY [facility] Dextrose (D50w Syringe 50 Ml*) 12.5 gm IV PUSH .FOR FS < 60 - SS PRN Reason: FS < 60 Doxycycline Hyclate 100 mg/ (Sodium Chloride) 250 mls @ 250 mls/hr IVPB Q12H [facility] Insulin Glargine (Lantus(*)) 30 units SUBCUT DAILY [facility] Insulin Human Lispro (Humalog*) 0 units SUBCUT ACHS [facility] Levothyroxine Sodium (Synthroid Tab*) 100 mcg PO 0600 [facility] Lisinopril (Prinivil Tab*) 20 mg PO DAILY [facility] Mometasone Furoate/Formoterol Fumar (Dulera 100/5 Mdi*) 1 puff INH BID [facility] Multi-Ingredient Liniment/Rub (Rosalio Santana*) 1 applic TOPICAL TID PRN Reason: PAIN - BACK Omeprazole (Prilosec Cap*) 40 mg PO DAILY [facility] Polyethylene Glycol/Electrolytes (Miralax*) 17 gm PO DAILY PRN Reason: CONSTIPATION Prednisone (Deltasone Tab*) 50 mg PO DAILY [facility] Sodium Chloride (Sodium Chloride 0.65% Nasal [place]*) 1 spray BOTH NARES Q4H PRN Reason: CONGESTION Tramadol HCl (Ultram*) 50 mg PO Q6H PRN Reason: PAIN Vital Signs - 8 hr 06/01/17 06/01/17 06/01/17 03:14 07:21 08:00 Temperature 97.8 F 98.0 F Pulse Rate 67 67 66 Respiratory 16 18 Rate Blood Pressure 139/68 154/78 (mmHg) O2 Sat by Pulse 97 94 94 Oximetry Oxygen Devices in Use Now: None Appearance: NAD, laying in bed Ears/Nose/Mouth/Throat: Mucous Membranes Moist Respiratory: Symmetrical Chest Expansion and Respiratory Effort, - - Lung sounds with few scattered rhonchi and minimal exp wheezing Cardiovascular: NL Sounds; No Murmurs; No JVD, RRR Abdominal: NL Sounds; No Tenderness; No Distention Extremities: - - Trace bilateral LE edema Skin: No Rash or Ulcers Neurological: Alert and Oriented x 3, NL Muscle Strength and Tone Lines/Tubes/Other Access: Clean, Dry and Intact Peripheral IV - site benign Nutrition: Taking PO's Result Diagrams: 05/31/17 05:15 05/29/17 06:40 Additional Lab and Data: . Microbiology and Other Data: Microbiology 05/31/17 13:55 Gram Stain - Final Sputum Expectorated Assess/Plan/Problems-Billing Assessment: Mr. Francisco is a 66 yo male with PMH significant for HTN, Afib s/p ablation, DM , hypothyroidism, HLD, and COPD who presented to the emergency room with complaints of increased shortness of breath. - Patient Problems (1) Shortness of breath Code(s): R06.02 - SHORTNESS OF BREATH SNOMED Code(s): 104849252 Comment: - Suspect secondary to COPD exacerbation - Echo, no signs of heart failure - CT chest, clear lungs - D dimer < 200 - Mild leukocytosis (suspect secondary to steroids) (2) COPD exacerbation Code(s): J44.1 - CHRONIC OBSTRUCTIVE PULMONARY DISEASE W (ACUTE) EXACERBATION SNOMED Code(s): 498123736 Comment: - Afebrile, leukocytosis, continues to have shortness of breath increased above his baseline - No wheezing on exam - Continue duonebs, doxycycline and prednisone (3) History of atrial fibrillation Code(s): Z86.79 - PERSONAL HISTORY OF OTHER DISEASES OF THE CIRCULATORY SYSTEM SNOMED Code(s): 871260844 Comment: - S/P ablation - Continue ASA (4) HTN (hypertension) Code(s): I10 - ESSENTIAL (PRIMARY) HYPERTENSION SNOMED Code(s): 88664718 Comment: - SBP 130-150's - Continue Lisinopril (increased to daily from everyother day) and amlodipine (5) HLD (hyperlipidemia) Code(s): E78.5 - HYPERLIPIDEMIA, UNSPECIFIED SNOMED Code(s): 58587620 Comment: - Continue atorvastatin (6) Hypothyroid Code(s): E03.9 - HYPOTHYROIDISM, UNSPECIFIED SNOMED Code(s): 80834961 Comment: - Continue levothyroxine (7) Diabetes mellitus Code(s): E11.9 - TYPE 2 DIABETES MELLITUS WITHOUT COMPLICATIONS SNOMED Code(s) : 17633045 Comment: - Glucose 140-320's - Continue Lantus, resume Trulicity and metformin (8) DVT prophylaxis Code(s): ZAQ1878 - SNOMED Code(s): 749620588 Comment: - TEDs and ambulate (9) Full code status Code(s): Z78.9 - OTHER SPECIFIED HEALTH STATUS SNOMED Code(s): 577022989 Status and Disposition: Inpatient. Stable for discharge to home.
[2017-06-01 11:38] VITALS: BP 142/81
--- NOTE | 2017-06-02 17:02 | DS ---
CC: Savage Oates MD; Dayna Lovell MD * DISCHARGE SUMMARY: DATE OF ADMISSION: 05/28/17 DATE OF DISCHARGE: 06/01/17 ATTENDING PHYSICIAN: Ulices Jason MD * (dictated by Riley Carias NP) PRIMARY CARE PROVIDER: Savage Oates MD PRIMARY DIAGNOSES: 1. Chronic obstructive pulmonary disease exacerbation. 2. Hypertension. 3. Shortness of breath, improved. 4. Acute respiratory failure with hypoxia, resolved. SECONDARY DIAGNOSES: 1. Atrial fibrillation. 2. Hyperlipidemia. 3. Hypothyroidism. 4. Diabetes mellitus. STUDIES WHILE IN THE HOSPITAL: Chest x-ray on 05/28/17. Radiologist Impression : Small bilateral infiltrates similar to prior study. Chest CT on 05/29/17. Radiologist Impression: No active disease. Lungs clear. Transthoracic echocardiogram on 05/29/17. [employer]'s conclusion: The left ventricular chamber size is normal. Mild concentric left ventricular hypertrophy is observed. There is normal left ventricular systolic function. The estimated ejection fraction is 65% to 70%. The left atrium is mildly dilated. The right ventricular chamber size and systolic function are within normal limits. No significant valvular abnormalities noted. Unable to estimate the right ventricular systolic pressure. No prior transthoracic echocardiogram reports available for comparison at the time of interpretation. DISCHARGE MEDICATIONS: New home medications: 1. Doxycycline 100 mg oral twice daily for 4 more days to complete a 7-day course. 2. Amlodipine 5 mg oral daily. Continued home medications: 1. Trulicity 1.5 mg subcutaneous weekly. 2. Metformin 1000 mg oral daily. 3. Levothyroxine 100 mcg oral daily. 4. Levemir insulin 28 units subcutaneous daily. 5. Xyzal 5 mg oral daily. 6. Atorvastatin 80 mg oral daily. 7. Meloxicam 15 mg oral daily. 8. Cialis 5 mg oral daily as needed for erectile dysfunction. 9. Omeprazole 40 mg oral daily. 10. Lisinopril 20 mg oral daily. 11. Aspirin 81 mg oral daily. 12. Symbicort 80/4.5 mg 1 puff inhalation twice daily. Changed home medication: Prednisone. The patient placed back on a taper of 50 mg oral daily for 2 days, followed by 40 mg oral daily for 3 days, followed by 30 mg oral for 3 days, followed by 20 mg oral daily for 3 days, followed by 10 mg oral daily for 3 days and then stop. Discontinued home medication: Cefaclor. HISTORY OF PRESENT ILLNESS/HOSPITAL COURSE: Mr. Francisco is a 66-year-old male with past medical history significant for hypertension, atrial fibrillation, status post ablation and filter placement at the time of ablation, diabetes mellitus, hypothyroidism, hyperlipidemia, new diagnosis of COPD who has been following Dr. Oates, his primary care provider and Dr. Lovell with Pulmonology. The patient had recently been on several courses of antibiotics and steroids. After he had a chest x-ray showing concern for chest congestion and a cough that was persistent with intermittent shortness of breath, the patient was then referred to Dr. Lovell for additional pulmonary treatment. The patient was seen in followup and placed him on cefaclor and continued on Symbicort and albuterol for shortness of breath. It looks like he had small bilateral bibasilar infiltrates on his chest x-ray. Over the 3 days prior to the patient's presentation his shortness of breath had been progressively worse and the patient was "feeling pretty sick." He was getting winded and feeling dyspneic with minimal exertion and had increased work of breathing at rest, so he presented to the emergency room for further evaluation. While in the emergency room, the patient continued to have shortness of breath, was noted to have expiratory wheezing, he was started on cefepime 2 g. He had a chest x-ray showing small bilateral infiltrates and the hospitalists were asked to evaluate the patient for admission. During the patient's hospitalization, he was treated for COPD exacerbation initially with cefepime. This was changed to doxycycline. He received 3 days of doxycycline IV. He initially was requiring oxygen supplement and was able to be weaned off from oxygen. Due to his complaints of shortness of breath, he underwent a CT of his chest that showed clear lungs. He had a D-dimer that was less than 200 and it was felt that there was a low likelihood of him having PE. He had an echo as his reported that he was having lower extremity swelling in addition to his shortness of breath. There were no significant findings with this. He was noted to be hypertensive. It was unclear whether he was actually hypertensive or if an ill fitting blood pressure cuff was being used. He had his lisinopril increased from every other day at home to daily and will have the addition of amlodipine added. During his stay, he had his Trulicity and metformin held, and his Lantus was adjusted to better control his glucoses. The patient was ambulating and feeling much better. Mr. Francisco is stable for discharge to home. Vital signs are as follows: Temperature 97.8, heart rate 80, respiratory rate 18, O2 sat 94% on room air, blood pressure 142/81. DISCHARGE PLAN: Mr. Francisco will be discharged to home. Activity as tolerated. He should be on a consistent carb, heart-healthy diet. In regards to his COPD exacerbation, he has been continued on a prednisone taper. He has been asked to take 50 mg for 2 days, followed by 40 mg for 3 days , 30 mg for 3 days, 20 mg for 3 days, 10 mg for 3 days and then stop. He will be continued on doxycycline for 4 more days to complete a 7-day course. He has been asked to follow up with Dr. Lovell. He already has an appointment on at 06/04/17 at 9:15 a.m. He has been asked to follow up with his primary care provider, Dr. Oates. His office was not open today and the patient has been asked to call tomorrow to set up a followup appointment in the next 3 to 5 days. In regards to his hypertension, his lisinopril has been increased from every other day to daily and he has been initiated on amlodipine. The patient's glucoses have been elevated during his stay. I suspect this is secondary to his steroid use. I have adjusted him back to his home medications and I have asked him to call Dr. Oates's office if his glucoses are persistently greater than 250 as he may need his Levemir further increased. We continued on nebulizers as needed and been encouraged to call Dr. Lovell or Dr. Oates's office if he is needing them more than every 4 to 6 hours. The patient has been asked to return to the emergency room for any chest pain, shortness of breath. This is a summarized report of a complex medical history and hospital stay. For further details, please see the entire medical record. Time for this discharge was approximately 50 minutes, greater than half of that was spent with the patient and on speaker phone with his discussing discharge plans and instructions. CONDITION ON DISCHARGE: Stable. RILEY HENRY, FUEL YARD OPERATOR [id number]/[facility] #: [id number] [facility]ot
== END 2017-06-01 11:40 | disposition home or self-care (01) | DRG 189 ==
LOC: ED 14:59 → MED 18:04
PROVIDERS: ADMIT Internal Medicine; ATTEND Internal Medicine
DX: J96.01 Acute respiratory failure with hypoxia (principal); E11.65 Type 2 diabetes mellitus with hyperglycemia; I48.91 Unspecified atrial fibrillation; J44.1 Chronic obstructive pulmonary disease with (acute) exacerbation; Z68.41 Body mass index [BMI] 40.0-44.9, adult; I10 Essential (primary) hypertension; E78.5 Hyperlipidemia, unspecified; E03.9 Hypothyroidism, unspecified; E66.01 Morbid (severe) obesity due to excess calories; R60.0 Localized edema; D72.828 Other elevated white blood cell count; Z79.84 Long term (current) use of oral hypoglycemic drugs; Z79.82 Long term (current) use of aspirin; Z79.4 Long term (current) use of insulin; Z79.899 Other long term (current) drug therapy; Z88.6 Allergy status to analgesic agent; Z88.5 Allergy status to narcotic agent; Z87.891 Personal history of nicotine dependence
CPT/HCPCS: 36415; 71045; 71046; 71250; 80048; 80053; 81003; 82550; 82947; 83605; 83880; 84484; 85025; 85379; 86140; 87040; 87070; 87205; 93005; 93306; 94640; 94760; 99284; A9270-GY; J0692; J2920; J2930; J7512

== ENCOUNTER 2017-12-17 09:41 | Observation (INO) | payer MEDICARE, OTHER ==
[~2017-12-17 09:41] MED LIST: Buffered Lidocaine 0.9% SYRIN* 5 ML/SYR SYRINGE INTRADERM ONE; Famotidine IV* 10 MG/ML 2 ML (20 mg) IV ONE; Vancomycin per Pharmacy* NOTE FOLLOW UP PRN; Vancomycin(*) 2,000 MG in NS 0.9% 500 ML* 500 ML IVPB ONE
[2017-12-17] MEDS ORDERED: Dexamethasone IV* 4 MG/ML 1 ML (4 MG) ONE (09:50)
[2017-12-17] MEDS ORDERED: KETAMINE HCL* 50 MG/ML 10 ML VIAL ONE (09:50)
[2017-12-17] MEDS ORDERED: Cisatracurium* 2 MG/ML MDV 5 ML ONE (09:50)
[2017-12-17] MEDS ORDERED: Phenylephrine INJ* 10 MG/ML 1 ML VIAL (10 MG) ONE (09:50)
[2017-12-17] MEDS ORDERED: Ondansetron INJ* 2 MG/ML VIAL ONE ×2 (09:50→18:37)
[2017-12-17] MEDS ORDERED: Lidocaine 2% PF * 5 ML VIAL ONE (09:50)
[2017-12-17] MEDS ORDERED: Midazolam* 1 MG/ML 5 ML VIAL (5 MG) ONE (09:50)
[2017-12-17] MEDS ORDERED: fentaNYL* 50 MCG/ML 5 ML VIAL (250 MCG VIAL) ONE (09:50)
[2017-12-17] MEDS ORDERED: Propofol* 10 MG/ML 20 ML BTL IV PUSH ONE (09:50)
[2017-12-17] MEDS ORDERED: Buffered Lidocaine 0.9% SYRIN* 5 ML/SYR SYRINGE ONE (09:56)
[2017-12-17] MEDS ORDERED: Famotidine IV* 10 MG/ML 2 ML (20 mg) ONE (09:56)
[2017-12-17] MEDS ORDERED: ceFAZolin 2 GM in NS PREMIX(*) 2 GM/100 ML BAG IVPB ONE (09:57)
[2017-12-17] MEDS ORDERED: Thrombin 5,000 UNITS* 1 APPLIC KIT - topical use - TOPICAL ONE ×2 (11:38→11:44)
[2017-12-17] MEDS ORDERED: Bacitracin IV* 50,000 UNITS INJ ONE (11:38)
[2017-12-17] MEDS ORDERED: Lidocaine 1% MPF wEPI 200,000* 30 ML SDV ONE (11:38)
[2017-12-17] MEDS ORDERED: VASOPRESSIN 20 UNITS/ML 1 ML VIAL ONE (13:05)
[2017-12-17] MEDS ORDERED: Rocuronium* 10 MG/ML VIAL ONE (13:23)
[2017-12-17] MEDS ORDERED: fentaNYL* 50 MCG/ML 2 ML VIAL (100 MCG VIAL) ONE ×2 (15:00→16:49)
[2017-12-17] MEDS ORDERED: Esmolol* 10 MG/ML 10 ML (100 mg) ONE (15:09)
[2017-12-17] MEDS ORDERED: Ondansetron INJ* 2 MG/ML VIAL IV PRN ×2 (15:11→15:50)
[2017-12-17] MEDS ORDERED: Naloxone* 0.4 MG/ML 1 ML VIAL IV PRN (15:11)
[2017-12-17] MEDS ORDERED: Magnesium Hydroxide LIQ* 30 ML UDC PO PRN (15:50)
[2017-12-17] MEDS: fentaNYL* 50 MCG/ML 2 ML VIAL (100 MCG VIAL) IV PRN ×2 (16:50→17:11)
[2017-12-17] MEDS: Insulin LISPRO* 1 UNITS UNIT SUBCUT SCH ×2 (20:16→22:01)
[2017-12-17] MEDS: Atorvastatin* 80 MG TAB PO SCH (20:35)
[2017-12-17] MEDS: Terazosin CAP* 5 MG PO SCH (20:35)
[2017-12-17] MEDS: Omeprazole CAP* 20 MG PO SCH (20:36)
[2017-12-17] MEDS: oxyCODONE TAB* 5 MG TAB PO PRN (20:51)
[2017-12-17] MEDS ORDERED: Insulin GLARGINE(*) 1 UNITS UNIT SUBCUT SCH (21:00)
--- NOTE | 2017-12-17 21:13 | RAD ---
INDICATION: Right L3-L4 decompressive lumbar laminectomy COMPARISONS: None relevant TECHNIQUE: Fluoroscopy was provided for a surgical procedure. Total fluoroscopy time is: 20.6 seconds FINDINGS: Spot images demonstrate metallic probe over L3 and L4 counting from L5 as the last lumbar type vertebral body. IMPRESSION: FLUOROSCOPY WAS PROVIDED FOR A SURGICAL PROCEDURE CPT II Codes: G9500
--- NOTE | 2017-12-17 22:30 | CONS ---
CC: Dr. Oates * CONSULTATION REPORT: DATE OF CONSULT: 12/17/17 PRIMARY CARE PHYSICIAN: Dr. Oates. CONSULTATION REQUESTED BY: Dr. Ta, Neurosurgery. REASON FOR CONSULT: Medical co-management. SOURCE OF INFORMATION: History obtained from interview with the patient, review of past medical records including medical clearance note from Dr. Ruiz. RELIABILITY: Excellent. HISTORY OF PRESENT ILLNESS: This is a 67-year-old gentleman with past medical history includes insulin-dependent type 2 diabetes; atrial fibrillation, status post ablation and WATCHMAN device in 2017, underwent a L3-L4 decompression on the right today with Dr. Ta, was uncomplicated per report. The patient was seen in the PACU. He was interactive; however, still lethargic postprocedure. He is able to interact with this author, confirmed his medication list. We did correct his Lantus to be taken in the evening and he confirmed he takes Trulicity weekly on Saturdays. He denies any shortness of breath, chest pain, nausea, vomiting at this time. He does have pain in his back, although it is not inhibiting him from falling asleep, which he wakes from easily. The patient is obese. Denies any past medical history of obstructive sleep apnea and has never used a CPAP. PAST MEDICAL HISTORY: Includes hypothyroidism; hypertension; hyperlipidemia; GERD; type 2 diabetes, on insulin; back pain; does have history of an abnormal EKG; atrial fibrillation, status post ablation and WATCHMAN filter. PAST SURGICAL HISTORY: He has history of tonsillectomy, sinus surgery, laminectomy in 2012, drainage for hematoma, skin cancer of his left nose, atrial fibrillation in 2016 as well as the WATCHMAN device in 2017. MEDICATIONS: Home medications confirmed: 1. Levothyroxine 100 mcg daily. 2. Lisinopril 20 mg daily. 3. Atorvastatin 80 mg daily. 4. Omeprazole 40 mg daily. 5. Levemir 20 units at night. 6. Trulicity 1.5 mg weekly on Thursday. 7. Metformin 1000 mg daily. 8. Terazosin 5 mg daily. 9. Amlodipine 5 mg daily. ALLERGIES: To ACETAMINOPHEN, HYDROCODONE, and METOPROLOL. FAMILY HISTORY: Father, lung cancer and mother, pancreatic cancer. SOCIAL HISTORY: He is retired. He is a former smoker, smoked 1 pack a day for 20 years. Alcohol is occasional. REVIEW OF SYSTEMS: Negative for all systems reviewed except for back pain as indicated above. PHYSICAL EXAM: Blood pressure when seen by this author 113/86, heart rate is 91 , respiratory rate is 13, and he is 96% on 3 L oxygen. Obese, lying at 20 degrees, wakes easily, falls back asleep easily. His oropharynx is clear. He has moist mucous membranes. Sclerae are anicteric. He has non-elevated JVD. He has irregularly irregular heart rate. No murmurs, rubs, or gallops. His lungs are clear. His abdomen is soft, nontender, and nondistended. Extremities were warm and well perfused. No clubbing, cyanosis, or edema. He is alert and oriented x3. His cranial nerves II through XII were intact. DIAGNOSTIC STUDIES/LAB DATA: Data reviewed. No labs from today for review. ASSESSMENT AND PLAN: This is a 67-year-old man postop day 0 L3-L4 decompression on the right with past medical history of type 2 diabetes, hypertension, atrial fibrillation. 1. Postop day 0 L3-L4 decompression. Care per primary team. DVT prophylaxis per primary team. Pain management per primary team. 2. Type 2 diabetes. We will initiate half dose Lantus this evening at 10 units. Fingerstick glucose q.a.c. and h.s. We will increase Lantus tomorrow based on preprandial fingerstick in the morning as well as food consumption. Maintain sliding scale insulin for coverage and tight control in the hospital. Based on BMP in the morning which I will check, we will start metformin assuming kidney function is unchanged. 3. Hypertension. Restarting lisinopril. Holding amlodipine, we will restart as able tomorrow. 4. Atrial fibrillation. Currently in atrial fibrillation. Has WATCHMAN device. Takes aspirin. Aspirin held for procedure. We will restart when okay by Neurosurgery. 5. Hyperlipidemia. Continue atorvastatin. 6. DVT prophylaxis: Per primary team. We will continue to follow. [id number]/[facility] #: [id number] [facility]ot
[2017-12-18] MEDS: oxyCODONE TAB* 5 MG TAB PO PRN ×3 (03:18→14:02)
[2017-12-18 05:48] LABS: EGFR Non-African American 38.6 (>60)
[2017-12-18] MEDS ORDERED: Levothyroxine TAB* 100 MCG TAB PO SCH (06:00)
--- NOTE | 2017-12-18 08:32 | OP ---
DATE OF OPERATION: 12/17/17 DATE OF : 50 SURGEON: Salma Ta MD SENIOR BIOSTATISTICIAN: JEFFREY Hooker. Case was done with the assistance of a surgical PA because of the complexity of the case. ANESTHESIA: General. 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 OPERATIVE PROCEDURE: The patient underwent a minimally invasive right-sided approach L3-4 minimally invasive bilateral decompressive laminectomy. ESTIMATED BLOOD LOSS: 75 cc. COMPLICATIONS: None. 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 The patient was found to have MRI finding consistent with disease at L3-4 with significant stenosis. After failing conservative modalities, he was offered the option of surgical intervention. After explaining expectations, limitations, possible complications of the procedure with complications including, but not limited to bleeding, infection, risk of injury to adjacent structures, coma, paralysis, , need for additional procedures, anesthesia risks, stroke, blindness, cancer, instability, hardware failure, spinal fluid leak, anesthesia risk, need for additional procedures in the future, the patient was agreeable to proceed with surgery. Informed consent was obtained. The same was discussed with his , who also was in agreement. It was understood that his condition may not improve, in fact, can get worse after surgery and he may need to have additional procedure in the future. They also understood that operative plan may be modified according to the intraoperative findings and conditions. DESCRIPTION OF PROCEDURE: The patient was brought to the operating room and was placed under general anesthesia by the anesthesia team. He was carefully positioned prone on Leo frame on the Nolan table and all bony prominences were meticulously padded. His skin was prepped and draped in a standard fashion. After appropriate surgical pause and patient identification, a small right paramedian incision was marked in the skin over the L3-4 disk space with the use of intraoperative fluoroscopic imaging. The skin incision site was infiltrated with local anesthetic and a #10 surgical blade was used to incise the skin. The incision was carried down to the dorsal fascia with Bovie cautery and the dorsal fascia was gently divided until it was divided in the midline. Over a series of dilators, the tubular METRx retractor system was introduced into the field and after meticulous dissection, the removal of abundant scar tissue in right amairani- lamina of L3, the pars as well as the spinous process was identified. Bilateral laminectomy of L3 was performed with the use of high-speed drill and Kerrison punches after carefully dissecting the inferior edge of the L3 lamina from the previous surgical site and the existing scar tissue, significant amount of stenosis was identified as expected from the preoperative imaging. After careful dissection, the ligamentum flavum was gently dissected with the use of Kerrison punches. Attention was brought to the lower part of the L3-4 disk space. Significant amount of scar tissue was encountered and was carefully dissected from the mid bony edges and a partial medial facetectomy was performed bilaterally in order to decompress the thecal sac. At the end of the procedure, thecal sac was found to be free of any pressure phenomenon, while the foramina was found to be extremely patent as assessed by Mart instrument. Foraminotomy was well performed on the right side at the L3 and L4 nerve roots and at the end of the procedure, the foramina was found to be patent, as well as they were noted to be free of any . After copious irrigation and confirmation of meticulous hemostasis and meticulous inspection, the tubular retractor was gently removed and the wound was closed by layers with 0 interrupted Vicryl sutures to approximate the dorsal fascia and 2-0 inverted interrupted Vicryl sutures were used to approximate the subcutaneous tissue while the skin was covered with Dermabond. The patient was then turned supine, was extubated and was transferred to the Recovery in excellent condition. The case was done with assistance of surgical PA because of the complexity of the case. [id number]/[facility] #: [id number] ERINN
[2017-12-18] MEDS ORDERED: Lisinopril TAB* 10 MG PO SCH ×3 (09:00→21:00)
[2017-12-18] MEDS ORDERED: Atenolol TAB* 25 MG PO SCH (09:00)
[2017-12-18] MEDS: Insulin LISPRO* 1 UNITS UNIT SUBCUT SCH ×3 (10:13→17:50)
[2017-12-18 12:24] VITALS: BP 108/52
--- NOTE | 2017-12-18 13:28 | PN ---
Progress Note - Progress Note Date of Service: 12/18/17 SOAP: Subjective: []Patient was seen earlier. No events ON. Tolerated procedure well yesterday. Tolerates po well, ambulates, voids. Preop RLE pain resolved, preop LLE numbness resolved, preop Rt L5 distribution numbness resolved, Rt S1 distribution numbness is 50% improved. Wants to go home. Objective: []VSS, Afebrile Wound s,c,d AAOx3, INGRID, CN II-XII grossly intact Motor 5/5 all extremities Sensory grossly intact to light touch except decreased sensation Rt S1 ( improved c/w preop per patient) Assessment: []67 yom POD#1 Rt MIS L3-4 decopressive laminectomy Plan: []Monitor VS, Neurochecks Encourage ambulation. Dc today DC instructions were given. Diane Ta MD
--- NOTE | 2017-12-18 15:34 | PN ---
Subjective Date of Service: 12/18/17 Interval History: Feels well. No CP, SOB, N/V, pain Objective Active Medications: Atenolol (Tenormin Tab*) 25 mg PO QAM [facility] Last Admin: 12/18/17 10:13 Dose: 25 mg Atorvastatin Calcium (Lipitor*) 80 mg PO QPM [facility] Last Admin: 12/17/17 20:35 Dose: 80 mg Lactated Ringer's (Lactated Ringers 1000 Ml Bag*) 1,000 mls @ 200 mls/hr IV PER RATE [facility] Last Admin: 12/18/17 14:07 Dose: 200 mls/hr Insulin Glargine (Lantus(*)) 10 units SUBCUT Q24H [facility] Last Admin: 12/17/17 22:02 Dose: 10 unit Insulin Human Lispro (Humalog*) 0 units SUBCUT ACHS [facility]; Protocol Last Admin: 12/18/17 14:03 Dose: 3 unit Levothyroxine Sodium (Synthroid Tab*) 100 mcg PO 0600 [facility] Last Admin: 12/18/17 05:57 Dose: 100 mcg Lisinopril (Prinivil Tab*) 20 mg PO BEDTIME [facility] Magnesium Hydroxide (Milk Of Magnesia Liq*) 30 ml PO DAILY PRN PRN Reason: CONSTIPATION Omeprazole (Prilosec Cap*) 40 mg PO QPM [facility] Last Admin: 12/17/17 20:36 Dose: 40 mg Ondansetron HCl (Zofran Inj*) 4 mg IV Q6H PRN PRN Reason: NAUSEA/VOMITING Oxycodone HCl (Roxycodone Tab*) 10 mg PO Q4H PRN PRN Reason: marked pain Last Admin: 12/18/17 14:02 Dose: 10 mg Terazosin HCl (Hytrin Cap*) 5 mg PO QPM [facility] Last Admin: 12/17/17 20:35 Dose: 5 mg Vital Signs - 8 hr 12/18/17 12/18/17 12/18/17 10:12 11:16 12:20 Temperature 97.7 F Pulse Rate 101 Respiratory 16 16 16 Rate Blood Pressure 108/52 (mmHg) O2 Sat by Pulse 95 Oximetry 12/18/17 14:02 Temperature Pulse Rate Respiratory 16 Rate Blood Pressure (mmHg) O2 Sat by Pulse Oximetry Oxygen Devices in Use Now: None Appearance: sitting in chair, NAD Eyes: No Scleral Icterus, PERRLA Ears/Nose/Mouth/Throat: NL Teeth, Lips, Gums Respiratory: Symmetrical Chest Expansion and Respiratory Effort Cardiovascular: RRR Abdominal: NL Sounds; No Tenderness; No Distention Neurological: Alert and Oriented x 3 Result Diagrams: 12/18/17 05:11 Assess/Plan/Problems-Billing Assessment: 67 yo M POD 1 L3-4 decompression - Patient Problems (1) Acute kidney injury Comment: Bolus 1 L LR prior to discharge BMP in 1 week (ordered) hold ACEi (updated) low dose lantus (ordered) (2) Atrial fibrillation Comment: resume ASA when approved by primary team (3) Diabetes mellitus Comment: discharge on lower dose lantus hold metformin with ESA (4) HTN (hypertension) Comment: hold ACEi on d/c with ESA
[2017-12-18] MEDS: Atorvastatin* 80 MG TAB PO SCH (17:50)
[2017-12-18] MEDS: Terazosin CAP* 5 MG PO SCH (17:50)
[2017-12-18] MEDS: Omeprazole CAP* 20 MG PO SCH (17:50)
--- NOTE | 2017-12-19 05:56 | DS ---
DISCHARGE SUMMARY: DATE OF ADMISSION: 12/17/17 DATE OF DISCHARGE: 12/18/17 ADMISSION DIAGNOSES: 1. Degenerative disk disease. 2. Lumbar stenosis. DISCHARGE DIAGNOSES: 1. Degenerative disk disease. 2. Lumbar stenosis. PROCEDURE: The patient underwent minimally invasive right-sided approach L3-4 bilateral decompressive laminectomy. DISPOSITION: Home. CONDITION AT THE TIME OF DISCHARGE: Good. SUMMARY: The patient is a pleasant 67-year-old gentleman with history of prior laminectomies, complicated with wound infection with MRSA in [place], requiring Hemovac placement, with recurrent complaints of back pain radiating to the right lower extremity and episodes of neurogenic claudication. The patient was found to have adjacent level disease at L3-4 with significant stenosis. After failing conservative treatment options, he was offered the option of surgical intervention for a minimally invasive L3-4 decompressive laminectomy from right side approach. The patient underwent the above procedure. He tolerated the procedure well and was able to be transferred to the floor. On the first post-operative day, he reported that his back pain has significantly improved. He had complete resolution of his preoperative right lower extremity pain while his preoperative left lower extremity numbness had completely resolved and preoperative right lower extremity numbness was significantly improved. The patient was able to tolerate p.o. well. He was ambulating, voiding, and he was felt to be ready to be discharged home. The patient was also followed by Internal Medicine because of history of heart problems and comorbidities such as morbid obesity. Full instructions given to the patient. [id number] #: [id number] MTDD
== END 2017-12-18 17:49 | disposition home or self-care (01) ==
LOC: OR 09:41 → SSU 18:46
PROVIDERS: ADMIT Neurological Surgery; ATTEND Internal Medicine
PROC: 01NB0ZZ Release Lumbar Nerve, Open Approach (ICD-10-PCS; principal; 2017-12-17 11:00)
DX: M51.16 Intervertebral disc disorders with radiculopathy, lumbar region (principal); M48.061 Spinal stenosis, lumbar region without neurogenic claudication; Z88.8 Allergy status to other drugs, medicaments and biological substances; N17.9 Acute kidney failure, unspecified; E78.5 Hyperlipidemia, unspecified; I10 Essential (primary) hypertension; E11.9 Type 2 diabetes mellitus without complications; Z79.4 Long term (current) use of insulin; Z79.899 Other long term (current) drug therapy
CPT/HCPCS: 36415; 76001; 80048; 96374; 96375; A9270-GY; G0378; J0690; J1100; J2001; J2250; J2405; J2704; J3010; J3370

== ENCOUNTER 2018-01-23 00:02 | Emergency (ER) | payer MEDICARE, OTHER ==
--- OUTSIDE RECORDS SUMMARY | 2018-01-23 00:13 | XMS REPORT ---
:1950 External Reference #:[id number] Author Organization [facility] Address [address] [place] [address] [place] [address] Phone [phone] Care Team Providers Name Role Phone Savage Oates MD Primary Care Physician Unavailable Payers Type Date Identification Numbers Payment Provider Subscriber Medicare Primary Policy Number: [id number] Medicare Spencer Francisco PayID: [id number] [address] [place] [address] Medigap Part B Expires: 2017 Policy Number: [id number] Medicare Spencer Francisco PayID: [id number] [address] [place] [address] Medigap Part B Policy Number: [id number] [facility] Spencer Francisco [address] [place] [address] Problems Date Description Provider Status Onset: 08/11/2017 Lumbosacral spondylosis without Salma Ta MD Active myelopathy Onset: 08/11/2017 Low back pain Salma Ta MD Active Onset: 08/26/2017 Obesity Salma Ta MD Active Onset: 10/06/2017 Neurogenic claudication Salma Ta MD Active co-occurrent and due to spinal stenosis of lumbar region Family History Date Family Member(s) Problem(s) Comments [...] of regular coffee per day Daily Caffeine Couple Cold Tea Daily Caffeine Consumes on average 1 cup of hot tea per day Exercise Type/Frequency Exercises rarely Allergies, Adverse Reactions, Alerts Date Description Reaction Status Severity Comments 06/04/2017 [place] rash active 10/30/2017 Metoprolol rash and difficulty breathing active Medications Medication Date Status Form Strength Qnty SIG Indications Ordering Provider Oxycodone-Acetam 12/29 Active Tablets 5-325mg 30tab 1-2 by Z48.89 Vassilios inophen s mouth every Dimopoulos 4-6 hours , as needed for pain. Atenolol 10/22 Active Tablets 25mg 30tab 1/2 by I48.0 Michele S. /2017 s mouth every Ruiz, day FACC Furosemide 10/22 Active Tablets 20mg 90tab Take a I48.0 Michele S. /2017 s water pill DO Joseph (furosemide FACC or lasix) today, tomorrow and then start taking, Thursday, Thursday and Thursday. Levothyroxine Active Tablets 100mcg 1 by mouth Unknown Sodium /0000 every day Atorvastatin Active Tablets 80mg 1 by mouth Unknown Calcium /0000 every day Omeprazole Active Capsules 40mg 1 by mouth Unknown /0000 DR every day Levemir Active Solution 100Unit/M 12 units Unknown /0000 L once daily Trulicity Active Solution 1.5mg/0.5 inject Unknown /0000 Pen-Inject ML subcutaneou sly weekly Terazosin HCL Active Capsules 5mg Take 1 Unknown /0000 Capsule By Mouth Every Day Sudafed Active Tablets 30mg 1 by mouth Unknown Congestion /0000 twice a day Ibuprofen Active Tablets 200mg 4 by mouth Unknown /0000 every 8 hours as needed Sinus Pressure + Active Tablets 5-325mg as needed Unknown Pain /0000 Loratadine Active Capsules 10mg once a day Unknown /0000 for allergies as needed Metoprolol 10/22 Hx Tablets ER 25mg 90tab 1 by mouth I48.0 Michele S. Succinate ER /2017 24HR s every day DO Joseph - FACC 10/14 Atenolol 10/21 Hx Tablets 25mg 30tab 1 by mouth I48.0 Michele S. /2018 s every day DO Modesto Ruiz [facility] 10/22 Metoprolol 10/05 Hx Tablets ER 25mg 30tab 1 by mouth I48.0 Michele S. Succinate 24HR s every day DO Modesto Ruiz [facility] 10/21 Prednisone 05/26 Hx TBPK 10mg (21) 30uni 4 tabs J20.9 ts day#1, 3 MD Nas - tabs day#2, 08/11 2 tabs /2017 day#3, 1 tab for 7 days, 1/2 tab for 10 days (will be finnished 06/15) Cefaclor ER 05/26 Hx Tablets ER 500mg 14tab 1 by mouth J20.9 12HR s twice a day MD Nas - 07/19 Aspirin Low Dose Hx Tablets DR 81mg 1 by mouth Unknown /0000 every day - 10/04 Lisinopril Hx Tablets 20mg 1 by mouth Unknown /0000 every day - 12/29 Cialis Hx Tablets 5mg 1 by mouth Unknown /0000 every day - 07/19 Levocetirizine Hx Tablets 5mg 1 by mouth Unknown Dihydrochloride /0000 every day - 10/04 Metoprolol Hx Tablets 50mg 1 by mouth Unknown Tartrate /0000 twice a day - 07/19 Meloxicam Hx Tablets 15mg 1 by mouth Unknown /0000 every day - 10/04 Metformin HCL Hx Tablets 1000mg 1 by mouth Unknown /0000 a day - 12/29 Albuterol Hx Nebulizer (2.5mg/3M 1 vial via Unknown Sulfate /0000 L) 0.083% nebulizer 4 - times daily 07/19 as needed Ventolin HFA Hx Aerosol 108(90Bas 2 puffs by Unknown /0000 e) mouth four - mcg/Act times a day 08/11 as needed Doxycycline Hx Capsules 100mg Take 1 Unknown Hyclate /0000 Capsule By - Mouth Two 08/11 Times Daily Amlodipine Hx Tablets 5mg Take 1 Unknown Besylate /0000 Tablet By - Mouth Every /2017 Amlodipine 00 Hx Tablets 5mg Take 1 Unknown Besylate /0000 Tablet By - Mouth Every Medications Administered in Office Medication Date Status Form Strength Qnty SIG Indications Ordering Provider Inj, Administered Injection Libby Regadenoson, 018 [place], 0.1 MG M.D. Technetium TC Administered Injection Michele S. 99M 018 Ruiz, DO Tetrofosmin, FACC Per Unit Dose Up To 40 Millicuries Technetium TC Administered Injection Michele S. 99M 018 Ruiz, DO Tetrofosmin, FACC Per Unit Dose Up To 40 Millicuries Vital Signs Date Vital Result Comment 12/29/2017 Height 72 inches 6'0" Weight 320.00 lb BP Systolic Sitting 130 mmHg BP Diastolic Sitting 78 mmHg Body Temperature 98.0 F Pain Level 5 BMI (Body Mass Index) 43.4 kg/m2 11/24/2017 Height 72 inches 6'0" Weight 320.00 lb BP Systolic Sitting 136 mmHg BP Diastolic Sitting 84 mmHg Pain Level 8 BMI (Body Mass Index) 43.4 kg/m2 10/30/2017 Height 72 inches 6'0" Weight 326.00 lb w/ shoes Heart Rate 72 /min BP Systolic Sitting 118 mmHg lue lg cuff BP Diastolic Sitting 72 mmHg lue lg cuff BP Systolic Standing 101 mmHg lue lg cuff BP Diastolic Standing 62 mmHg lue lg cuff Respiratory Rate 20 /min BMI (Body Mass Index) 44.2 kg/m2 Ejection Fraction >65% echo 05/29/17 10/22/2017 Height 72 inches 6'0" Weight 331.00 lb Heart Rate 104 /min BP Systolic Sitting 124 mmHg Lue large cuff BP Diastolic Sitting 84 mmHg Lue large cuff BP Systolic Standing 118 mmHg Lue BP Diastolic Standing 84 mmHg Lue Respiratory Rate 18 /min BMI (Body Mass Index) 44.9 kg/m2 Ejection Fraction 65% 05/29/17 10/06/2017 Height 72 inches 6'0" Weight 337.00 lb BP Systolic Sitting 138 mmHg BP Diastolic Sitting 82 mmHg Pain Level 8 BMI (Body Mass Index) 45.7 kg/m2 2017 Height 72 inches 6'0" Weight 337.00 lb w/ shoes Heart Rate 78 /min BP Systolic Sitting 124 mmHg rue lrg cuff BP Diastolic Sitting 78 mmHg rue lrg cuff BP Systolic Standing 128 mmHg rue lrg cuff BP Diastolic Standing 86 mmHg rue lrg cuff Respiratory Rate 24 /min BMI (Body Mass Index) 45.7 kg/m2 Ejection Fraction 65-70% Echo 05/29/17 08/26/2017 Height 72 inches 6'0" Weight 323.00 lb BP Systolic Sitting 140 mmHg lg BP Diastolic Sitting 70 mmHg lg Pain Level 7 BMI (Body Mass Index) 43.8 kg/m2 08/11/2017 Height 72 inches 6'0" Weight 323.00 lb BP Systolic Sitting 140 mmHg BP Diastolic Sitting 78 mmHg Pain Level 6 BMI (Body Mass Index) 43.8 kg/m2 07/20/2017 Height 72 inches 6'0" Weight 323.38 lb Heart Rate 72 /min BP Systolic Sitting 130 mmHg Lue large cuff BP Diastolic Sitting 70 mmHg Lue large cuff Respiratory Rate 12 /min O2 % BldC Oximetry 96 % On Ra BMI (Body Mass Index) 43.9 kg/m2 06/04/2017 Height 72 inches 6'0" Heart Rate 84 /min BP Systolic Sitting 122 mmHg BP Diastolic Sitting 70 mmHg Respiratory Rate 14 /min O2 % BldC Oximetry 94 % 05/26/2017 Height 72 inches 6'0" Weight 327.00 lb Heart Rate 84 /min BP Systolic Sitting 122 mmHg BP Diastolic Sitting 70 mmHg Respiratory Rate 14 /min O2 % BldC Oximetry 95 % BMI (Body Mass Index) 44.3 kg/m2 Neck Circumference in inches 18.25 Results Test Date Test Result H/L Range Note Laboratory test finding 12/17/2017 Point of Care 164 mg/dL High 70-100 1 Glucose Laboratory test finding 12/17/2017 Point of Care 113 mg/dL High 70-100 2 Glucose CBC No Diff 12/10/2017 White Blood Count 9.6 10^3/uL 3.5-10.8 Red Blood Count 5.03 10^6/uL 4.00-5.40 Hemoglobin 14.4 g/dL 14.0-18.0 Hematocrit 43 % 42-52 Mean Corpuscular Volume 85 fL 80-94 Mean Corpuscular Hemoglobin 29 pg 27-31 Mean Corpuscular HGB Conc 34 g/dL 31-36 Red Cell Distribution Width 15 % 10.5-15 Platelet Count 167 10^3/uL 150-450 Mean Platelet Volume 10.0 um3 7.4-10.4 Inr/Protime 12/10/2017 Inr 1.06 High 0.77-1.02 Laboratory test finding 12/10/2017 Partial Thrombo Time 31.8 seconds 26.0 -36.3 PTT Basic Metabolic Panel 12/10/2017 Sodium 139 mmol/L 135-145 Potassium 4.5 mmol/L 3.5-5.0 Chloride 107 mmol/L 101-111 Co2 Carbon Dioxide 26 mmol/L 22-32 Anion Gap 6 mmol/L 2-11 Glucose 121 mg/dL High 70-100 Blood Urea Nitrogen 24 mg/dL 6-24 Creatinine 1.01 mg/dL 0.67-1.17 BUN/Creatinine Ratio 23.8 High 8-20 Calcium 9.0 mg/dL 8.6-10.3 Egfr Non- 73.7 >60 Egfr 89.2 >60 3 Type & Screen 12/10/2017 Patient Blood Type A Positive Antibody Screen NEGATIVE Urinalysis Profile 12/10/2017 Urine Color Yellow Urine Appearance Clear Urine Specific [place] 1.014 1.010-1.030 Urine pH 6.0 5-9 Urine Urobilinogen Negative Negative Urine Ketones Negative Negative Urine Protein Negative Negative Urine Leukocytes Negative Negative Urine Blood Negative Negative * * Negative 4 Urine Nitrite Negative Negative Urine Bilirubin Negative Negative Urine Glucose Negative Negative Basic Metabolic Panel 10/28/2017 Sodium 141 mmol/L 135-145 Potassium 4.4 mmol/L 3.5-5.0 Chloride 107 mmol/L 101-111 Co2 Carbon Dioxide 28 mmol/L 22-32 Anion Gap 6 mmol/L 2-11 Glucose 115 mg/dL High 70-100 Blood Urea Nitrogen 26 mg/dL High 6-24 Creatinine 1.17 mg/dL 0.67-1.17 BUN/Creatinine Ratio 22.2 High 8-20 Calcium 8.6 mg/dL 8.6-10.3 Egfr Non- 62.2 >60 Egfr 75.2 >60 5 Urinalysis Profile 10/08/2017 Urine Color Yellow Urine Appearance Clear Urine Specific [place] 1.027 1.010-1.030 Urine pH 5.0 5-9 Urine Urobilinogen Negative Negative Urine Ketones Negative Negative Urine Protein Negative Negative Urine Leukocytes Negative Negative Urine Blood Negative Negative * * Negative 6 Urine Nitrite Negative Negative Urine Bilirubin Negative Negative Urine Glucose Negative Negative Type & Screen 10/08/2017 Patient Blood Type A Positive 7 Antibody Screen NEGATIVE 7 Laboratory test finding 10/08/2017 TSH (Thyroid Stim 1.55 mcIU/mL 0.34- 5.60 7, 8 Horm) Basic Metabolic Panel 10/08/2017 Sodium 141 mmol/L 135-145 7 Potassium 4.3 mmol/L 3.5-5.0 7 Chloride 108 mmol/L 101-111 7 Co2 Carbon Dioxide 25 mmol/L 22-32 7 Anion Gap 8 mmol/L 2-11 7 Glucose 115 mg/dL High 70-100 7 Blood Urea Nitrogen 23 mg/dL 6-24 7 Creatinine 1.05 mg/dL 0.67-1.17 7 BUN/Creatinine Ratio 21.9 High 8-20 7 Calcium 9.0 mg/dL 8.6-10.3 7 Egfr Non- 70.5 >60 7 Egfr 85.2 >60 7, 9 CBC No Diff 10/08/2017 White Blood Count 8.9 10^3/uL 3.5-10.8 7 Red Blood Count 4.59 10^6/uL 4.00-5.40 7 Hemoglobin 13.2 g/dL Low 14.0-18.0 7 Hematocrit 40 % Low 42-52 7 Mean Corpuscular Volume 86 fL 80-94 7 Mean Corpuscular Hemoglobin 29 pg 27-31 7 Mean Corpuscular HGB Conc 33 g/dL 31-36 7 Red Cell Distribution Width 15 % 10.5-15 7 Platelet Count 161 10^3/uL 150-450 7 Mean Platelet Volume 10.3 um3 7.4-10.4 7 Laboratory test 10/08/2017 Partial Thrombo 32.9 seconds 26.0-36.3 7, 10 finding Time PTT Inr/Protime 10/08/2017 Inr 1.05 High 0.77-1.02 7 Order 05/26/2017 6 Minute Walk <pending> 1 Community Engagement Leader: [id number] 2 Community Engagement Leader: [id number] 3 Because ethnic data is not always readily available, this report includes an eGFR for both -Americans and non- Americans. The National Kidney Disease Education Program (NKDEP) does not endorse the use of the MDRD equation for patients that are not between the ages of 18 and 70, are , have extremes of body size, muscle mass, or nutritional status, or are non- or non-. According to the National Kidney Foundation, irrespective of diagnosis, the stage of the disease is based on the level of kidney function: Stage Description GFR(mL/min/1.73 m(2)) 1 Kidney damage with normal or decreased GFR 90 2 Kidney damage with mild decrease in GFR 60-89 3 Moderate decrease in GFR 30-59 4 Severe decrease in GFR 15-29 5 Kidney failure <15 (or dialysis) 4 *Ascorbic acid is present which may interfere with detection of blood. 5 Because ethnic data is not always readily available, this report includes an eGFR for both -Americans and non- Americans. The National Kidney Disease Education Program (NKDEP) does not endorse the use of the MDRD equation for patients that are not between the ages of 18 and 70, are , have extremes of body size, muscle mass, or nutritional status, or are non- or non-. According to the National Kidney Foundation, irrespective of diagnosis, the stage of the disease is based on the level of kidney function: Stage Description GFR(mL/min/1.73 m(2)) 1 Kidney damage with normal or decreased GFR 90 2 Kidney damage with mild decrease in GFR 60-89 3 Moderate decrease in GFR 30-59 4 Severe decrease in GFR 15-29 5 Kidney failure <15 (or dialysis) 6 *Ascorbic acid is present which may interfere with detection of blood. 7 AA 10/15 8 10/15 9 Because ethnic data is not always readily available, this report includes an eGFR for both -Americans and non- Americans. The National Kidney Disease Education Program (NKDEP) does not endorse the use of the MDRD equation for patients that are not between the ages of 18 and 70, are , have extremes of body size, muscle mass, or nutritional status, or are non- or non-. According to the National Kidney Foundation, irrespective of diagnosis, the stage of the disease is based on the level of kidney function: Stage Description GFR(mL/min/1.73 m(2)) 1 Kidney damage with normal or decreased GFR 90 2 Kidney damage with mild decrease in GFR 60-89 3 Moderate decrease in GFR 30-59 4 Severe decrease in GFR 15-29 5 Kidney failure <15 (or dialysis) 10 AA 8/2 Procedures Date CPT Code Description Status 12/17/2017 11758 Garcia/Facet/Foraminotomy;Vertebral Segment; Lumbar Completed 12/17/2017 32552 Garcia/Facet/Foraminotomy;Vertebral Segment; Lumbar Completed 10/27/2017 70536 Holter Monitor Review (24 hr)dr christina & interp only Completed 10/26/2017 10803 ECG Monitor/Recording W/Visual Superimposition Scanning Completed 10/22/2017 77499 EKG Tracing & Interpretation Completed 10/08/2017 78832 Myocardial Perfusion Imaging Tomographic (Spect) Completed Multiple Studies 10/06/2017 62390 Stress Test Completed 10/06/2017 39372 Myocardial Perfusion Imaging Tomographic (Spect) Completed Multiple Studies 05/29/2017 62798 ECHO Transthorasic Realtime 2D W Doppler & Color Flow Completed Hosp 05/26/2017 61073 Pulmonary Stress Test Simple Completed 05/26/2017 60860 Pulmonary Stress Testing, Inc Measurement Heart Rate, Completed Oximetry 04/09/2017 51290 Colonoscopy Flexible W/Biopsy Completed 04/09/2017 65617 Endoscopy Upper GI Biopsy Completed 04/09/2017 Colonoscopy Completed Encounters Type Date Location Provider CPT E/M Dx Office Visit 11/24/2017 [facility] 8[address]34 M48.062 11:30a Of Timoteo Ta MD Office Visit 10/30/2017 [facility] [place] [address] I50.32 11:40a [employer] AT [facility] I48.0 Z01.810 E66.8 I10 E78.5 F17.201 E11.9 Office Visit 10/22/2017 2:20p [facility] [place] [address] I48.0 [facility] I50.9 E66.8 I10 J45.998 F17.201 E78.5 E11.9 Office Visit 2017 2:20p [facility] Michele Ruiz, 76173 Z01.810 [facility] I10 E11.9 E78.5 I48.0 E66.8 F17.201 J44.9 M48.062 Office Visit 08/26/2017 9:00a [facility] 51950 M47.26 Of Timoteo Ta MD E66.8 M48.061 Office Visit 08/11/2017 11:30a [facility] [address]70 M47.26 Of [facility] MD [place] M54.5 M48.061 Office Visit 07/20/2017 10:45a [facility] [place] [address] J41.0 Services Of [facility] J32.9 E66.01 K21.0 Office Visit 06/04/2017 9:15a [facility] [place] [address] J20.9 Services [facility] J01.90 R49.0 E66.01 K21.0 Office Visit 06/01/2017 11:10a [facility] Alissaantonia Williamson, 52654 J44.1 [facility] I10 E11.9 Z79.4 Office Visit 05/31/2017 11:08a [facility] Alissa Teri, 06286 J44.1 [facility] E11.9 I10 Z79.4 Office Visit 05/30/2017 11:08a [facility] Alissa Teri, 85497 J44.1 [facility] E11.9 I10 Z79.4 Office Visit 05/29/2017 11:07a [facility] Alissa Teri, 28895 J44.1 [facility] E11.9 I10 Z79.4 Office Visit 05/28/2017 11:06a [facility] Emely Chavez 81185 J44.1 Hospitalists [facility] E11.9 I10 Z79.4 Office Visit 05/26/2017 7:00a [facility] [place] [address] R05 Services [facility] J20.9 K21.0 E66.01 J01.10 Plan of Care Future Appointment(s):02/02/2018 2:30 pm - Salma Ta MD at [facility]02/02/2018 8:20 am - Michele Ruiz DO [facility] at [facility]07/21/2018 9:15 am - Dayna Lovell MD at [facility]12/29/2017 - Salma Ta MDZ48.89 Encounter for other specified surgical aftercareNew Medication:Oxycodone-Acetaminophen 5- 325 mgFollow up:RV in one weekM48.062 Spinal stenosis, lumbar region with neurogenic claudication
[2018-01-23] MEDS ORDERED: Ondansetron INJ* 2 MG/ML VIAL IV ONE (01:09)
[2018-01-23] MEDS ORDERED: NS 0.9% 1000 ML* 1,000 ML IV ONE (01:09)
[2018-01-23] MEDS ORDERED: Morphine VIAL* 4 MG/ML VIAL (1 ml vial) IV PRN (01:09)
--- NOTE | 2018-01-23 01:13 | ED ---
Abdominal Pain/Male - HPI Summary HPI Summary: This patient is a 67 year old M presenting to [facility] accompanied by with a chief complaint of constant LUQ abd pain radiating across abdomen that began upon waking prior to arrival. The patient rates the pain 10/10 in severity. Symptoms aggravated by nothing. Symptoms alleviated by nothing. Patient denies back pain. - History of Current Complaint Chief Complaint: EDAbdPain Stated Complaint: LF ABD PAIN Time Seen by Provider: 01/23/18 00:48 Hx Obtained From: Patient Onset/Duration: Sudden Onset, Lasting Hours, Still Present Timing: Constant Severity Initially: Severe Severity Currently: Severe Pain Intensity: 10 Pain Scale Used: 0-10 Numeric Location: Discrete At: LUQ Radiates: Yes Radiates to: Other - Across abdomen Aggravating Factor(s): Nothing Alleviating Factor(s): Nothing Associated Signs And Symptoms: Negative: Back Pain - Allergies/Home Medications Allergies/Adverse Reactions: Allergies Allergy/AdvReac Type Severity Reaction Status Date / Time acetaminophen [From [facility]] Allergy Severe Rash And Verified 12/17/17 10:07 Itching hydrocodone [From [facility]] Allergy Severe Rash And Verified 12/17/17 10:07 Itching metoprolol Allergy DIFFICULTY Verified 12/17/17 10:07 BREATHING, RASH, FEET SWELLING PMH/Surg Hx/FS Hx/Imm Hx Previously Healthy: No Endocrine/Hematology History: Reports: Hx Diabetes, Hx Thyroid Disease Denies: Hx Bone Marrow Disease, Hx Sickle Cell Disease, Hx Anemia Cardiovascular History: Reports: Hx Hypercholesterolemia, Hx Hypertension, Other Cardiovascular Problems/Disorders - HX OF A-FIB, CARDIAC ABLATION 2016, FOLLOWED BY DR IBARRA Denies: Hx Pacemaker/ICD Respiratory History: Reports: Hx Asthma - when little and then went away, Other Respiratory Problems/Disorders - PT HAD VIRAL INFECTION IN LUNGS IN 2004 Denies: Hx Chronic Obstructive Pulmonary Disease (COPD) - never told copd or emphysema GI History: Reports: Hx Gastroesophageal Reflux Disease, Other GI Disorders - OBESITY History: Reports: Hx Benign Prostatic Hyperplasia Denies: Hx Renal Disease Musculoskeletal History: Reports: Hx Back Problems, Other Musculoskeletal History - SPONDYLOSIS WITH RADICULOPATHY, CHRONIC LUMBAR PAIN Denies: Hx Scoliosis Sensory History: Reports: Hx Contacts or Glasses Denies: Hx Cataracts, Hx Glaucoma, Hx Hearing Aid Opthamlomology History: Reports: Hx Contacts or Glasses Denies: Hx Cataracts, Hx Glaucoma Neurological History: Reports: Other Neuro Impairments/Disorders - PAIN CLINIC PT Psychiatric History: Denies: Hx Panic Disorder - Cancer History Cancer Type, 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 HEART ABLASION [place] 2016. WATCHMAN FILTER (ATRIAL APPENDAGE CLOSURE DEVICE) PLACED 09/10/16- PER MRI SAFETY- CONDITIONAL 6- 3T OR LESS, MAX SPATIAL GRADIENT OF 720 GAUSS/CM. RIGHT KNEE [place] 2001 Hx Anesthesia Reactions: No Infectious Disease History: No Infectious Disease History: Denies: Traveled Outside the [place] in Last 30 Days - Family History Known Family History: Positive: Other Family History: Father: malignant neoplasm of respiratory system. Mother: Malignant tumor of lung - Social History Occupation: Retired Lives: With Family Alcohol Use: None Alcohol Amount: 1 DRINK PER MONTH Hx Substance Use: No Substance Use Type: Reports: None Hx Tobacco Use: Yes Smoking Status (MU): Unknown if Ever Smoked Type: Cigarettes Amount Used/How Often: 1 PPD FOR 25 YRS Length of Time of Smoking/Using Tobacco: 25 YRS Have You Smoked in the Last Year: No Review of Systems Positive: Abdominal Pain Positive: Other - Negative back pain All Other Systems Reviewed And Are Negative: Yes Physical Exam - Summary Physical Exam Summary: VITAL SIGNS: Reviewed. GENERAL: Patient is a well-developed and nourished male who is lying comfortable in the stretcher. Patient is not in any acute respiratory distress. HEAD AND FACE: No signs of trauma. No ecchymosis, hematomas or skull depressions. No sinus tenderness. EYES: PERRLA, EOMI x 2, No injected conjunctiva, no nystagmus. EARS: Hearing grossly intact. Ear canals and tympanic membranes are within normal limits. MOUTH: Oropharynx within normal limits. NECK: Supple, trachea is midline, no adenopathy, no JVD, no carotid bruit, no c- spine tenderness, neck with full ROM. CHEST: Symmetric, no tenderness at palpation LUNGS: Clear to auscultation bilaterally. No wheezing or crackles. CVS: Regular rate and rhythm, S1 and S2 present, no murmurs or gallops appreciated. ABDOMEN: Soft. Tenderness over the LUQ. No signs of distention. No rebound no guarding, and no masses palpated. Bowel sounds are normal. EXTREMITIES: FROM in all major joints, no edema, no cyanosis or clubbing. NEURO: Alert and oriented x 3. No acute neurological deficits. Speech is normal and follows commands. SKIN: Dry and warm Triage Information Reviewed: Yes Vital Signs On Initial Exam: Initial Vitals Temp Pulse Resp BP Pulse Ox 97 F 86 20 136/92 95 01/23/18 00:03 01/23/18 00:03 01/23/18 00:03 01/23/18 00:03 01/23/18 00:03 Vital Signs Reviewed: Yes Diagnostics - Vital Signs Vital Signs Temp Pulse Resp BP Pulse Ox 01/23/18 00:28 92 96 01/23/18 00:03 97 F 86 20 136/92 95 - Laboratory Result Diagrams: 01/23/18 01:18 01/23/18 01:18 Lab Statement: Any lab studies that have been ordered have been reviewed, and results considered in the medical decision making process. - CT CT Abdomen and Pelvis CT Interpretation Completed By: Radiologist Summary of CT Findings: CT abdomen and pelvis reveals, per radiologist, no acute findings. ED physician has reviewed this radiology report. Re-Evaluation - Re-Evaluation First Eval Re-Evaluation Time: 03:30 Change: Unchanged Comment: Discussed results and plan of care with patient Second Eval Re-Evaluation Time: 04:41 Change: Improved Abdominal Pain Fem Course/Dx - Course Course Of Treatment: This patient is a 67 year old M [place] [facility] [place] by with a chief complaint of constant LUQ abd pain radiating across abdomen that began upon waking prior to arrival. Physical Exam Findings: Tenderness over the LUQ. CT abdomen and pelvis reveals, per radiologist, no acute findings. Bloodwork and UA obtained. In the ED course the patient was given contrast, morphine, fluids, and Zofran. Did review lab and CT results with him. They do seem to be normal. Pt still has LUQ tenderness, not as bad as when he came in. I am not sure what the reason for his pain. It could be musculoskeletal. Patient has been advised to return to the emergency department for new or worsening symptoms .Patient will be discharged with follow up from PCP. The patient is agreeable with this plan. - Diagnoses Provider Diagnoses: Abdominal pain Discharge - Sign-Out/Discharge Documenting (check all that apply): Patient Departure - Discharge home - Discharge Plan Condition: Stable Disposition: HOME Patient Education Materials: Abdominal Pain (ED) Referrals: Savage Oates MD [Primary Care Provider] - 3 Days Additional Instructions: RETURN TO THE EMERGENCY DEPARTMENT FOR NEW OR WORSENING SYMPTOMS - Attestation Statements Document Initiated by Scribe: Yes Documenting Scribe: Mary Ellen Donaldson Provider For Whom Scribe is Documenting (Include Credential): Dr. Bossman Garnica MD Scribe Attestation: IMary Ellen, scribed for Dr. Bossman Garnica MD on 01/23/18 at 0445.
[2018-01-23 01:30] LABS: ABS Basophils 0.1 10^3/ul (0-0.2); ABS Eosinophils 0.3 10^3/ul (0-0.6); ABS Lymphocytes 2.1 10^3/ul (1.0-4.8); ABS Monocytes 0.7 10^3/ul (0-0.8); ABS Neutrophils 6.7 10^3/ul (1.5-7.7); ABS Nucleated RBC 0 10^3/ul; Eosinophil % 2.6 % (0-6); Hematocrit 40 % (42-52); Hemoglobin 13.4 g/dl (14.0-18.0); Lymphocyte % 21.7 % (25-47); Mean Corpuscular HGB Conc 34 g/dl (31-36); Mean Corpuscular Hemoglobin 29 pg (27-31); Mean Corpuscular Volume 85 fL (80-94); Mean Platelet Volume 9.8 fL (7.4-10.4); Nucleated Red Blood Cells % 0.1; Platelet Count 149 10^3/ul (150-450); Red Blood Count 4.66 10^6/ul (4.00-5.40); Red Cell Distribution Width 15 % (10.5-15); White Blood Count 9.9 10^3/ul (3.5-10.8)
[2018-01-23 01:39] LABS: INR 1.05 (0.77-1.02)
[2018-01-23 01:48] LABS: EGFR Non-African American 58.7 (>60)
[2018-01-23] MEDS ORDERED: Iodixanol* (CONTRAST) 320 MG/ML 100 ML SDV IV ONE (01:57)
[2018-01-23 03:47] LABS: Urine Appearance Cloudy; Urine Blood Negative (Negative); Urine Color Yellow; Urine Ketones Negative (Negative); Urine Protein Negative (Negative); Urine Specific Gravity 1.025 (1.010-1.030); Urine Urobilinogen Negative (Negative)
[2018-01-23 05:13] VITALS: BP 124/94
== END 2018-01-23 05:10 | disposition home or self-care (01) ==
LOC: ED 00:02
DX: R10.12 Left upper quadrant pain (principal); Z88.6 Allergy status to analgesic agent; Z88.5 Allergy status to narcotic agent; Z88.8 Allergy status to other drugs, medicaments and biological substances; Z87.891 Personal history of nicotine dependence
CPT/HCPCS: 36415; 74177; 80053; 81003; 82150; 83605; 83690; 83735; 85025; 85610; 85730; 86140; 96374; 96375; 99283; J2270; J2405; Q9967

== ENCOUNTER 2018-04-26 13:43 | Emergency (ER) | payer MEDICARE, OTHER ==
--- OUTSIDE RECORDS SUMMARY | 2018-04-26 13:49 | XMS REPORT | Continuity of Care Document ---
:1950 External Reference #:[id number] Author Name Ronny Jimenez DO Address [address] [place] [address] [place] [address] Care Team Providers Name Role Phone Savage Oates MD Care Team Information Dial Polisher Unavailable Savage Oates MD Primary Care Physician Unavailable Payers Type Date Identification Numbers Payment Provider Subscriber Policy Number: [id number] Medicare Jenni Francisco PayID: [id number] [facility] [address] [place] [address] Policy Number: [id number] [facility] Alicia Jenni Francisco PayID: [id number] Advance Directives Description No Information Available Problems Date Description Provider Status Onset: 03/31/2018 Srinivasan's esophagus Sheree Caldera PA-C Active Onset: 01/22/2017 Long-term current use of insulin LAKSHMI Bolaños Active Onset: 01/22/2017 Atrial fibrillation Sheree Caldera PA-C Active Onset: 01/22/2017 Family history of malignant Sheree Caldera PA-C Active neoplasm of gastrointestinal tract Onset: 01/22/2017 History of polyp of colon Sheree Caldera PA-C Active Onset: 01/22/2017 Screening for malignant neoplasm LAKSHMI Bolaños Active of colon Family History Date Family Member(s) Problem(s) Comments Father Colon Cancer Mother Colon Cancer Maternal Grandmother Colon Cancer Aunt Colon Cancer Social History Type Date Description Comments Sex Unknown ETOH Use Occasionally consumes alcohol Tobacco Use Start: Unknown Patient has never smoked Smoking Status Reviewed: 03/31/18 Patient has never smoked Allergies, Adverse Reactions, Alerts Description No Known Drug Allergies Medications Medication Date Status Form Strength Qnty SIG Indications Ordering Provider Cialis 0000/ Active Tablets 5mg Unknown 0000 Omeprazole / Active Capsules DR 40mg 1 cap by Unknown 0000 mouth daily 30 minutes before a meal Atenolol / Active Tablets 25mg Take 1/2 Unknown 0000 Tablet By Mouth Every Day Atorvastatin / Active Tablets 80mg Take 1 Unknown Calcium 0000 Tablet By Mouth Every Day Levemir / Active Solution 100Unit/M Inject 10 Unknown Flextouch 0000 Pen-Inject L Units Under The Skin Every Morning Levothyroxine / Active Tablets 100mcg Take 1 Unknown Sodium 0000 Tablet By Mouth Every Day Terazosin HCL / Active Capsules 5mg Take 1 Unknown 0000 Capsule By Mouth Every Day Tadalafil / Active Tablets 5mg Take 1 Unknown 0000 Tablet By Mouth Every Day as Needed Ozempic / Active Solution 0.25or start Unknown 0000 Pen-Inject 0.5 0.25mg mg/Dose once weekly for 2 weeks, then increase to 0.5mg once weekly Flonase Allergy / Active Suspension 50mcg/Act 2 sprays Unknown Relief 0000 twice a day until better. Peg 01/22/ Hx Solution Rec 240gm 4000m use as Sheree 3350/Electrolyt 2016 - l directed L. es 03/31/ Verenice 2019 , FACUNDO Clopidogrel / Hx Tablets 75mg Unknown Bisulfate 0000 - 2016 Invokamet XR / Hx Tablets ER 150-1000m Unknown 0000 - 24HR g 2018 Trulicity / Hx Solution 1.5mg/0.5 Unknown 0000 - Pen-Inject ML 2018 Clopidogrel 00/ Hx Tablets 75mg Unknown Bisulfate 0000 - 2016 Clopidogrel /00/ Hx Tablets 75mg Unknown Bisulfate 0000 - 2018 Toujeo Solostar / Hx Solution 300Unit/M Unknown 0000 - Pen-Inject L 2018 Proctozone-HC / Hx Cream 2.5% Apply A Unknown 0000 - Thin Layer To The 2019 Affected Area(S) Topically 2 To 4 Times A Day Immunizations Description No Information Available Vital Signs Date Vital Result Comment 03/31/2018 11:19am Height 71 inches 5'11" Weight 323.00 lb BP Systolic 148 mmHg BP Diastolic 90 mmHg Heart Rate 101 /min BMI (Body Mass Index) 45.0 kg/m2 01/22/2017 9:36am Height 71 inches 5'11" Weight 308.00 lb BP Systolic 126 mmHg BP Diastolic 90 mmHg Heart Rate 74 /min BMI (Body Mass Index) 43.0 kg/m2 Results Test Date Facility Test Result H/L Range Note Laboratory [place] 04/06/2018 [facility] [place]ULT 1 finding Interface Order BELOW Laboratory test 04/06/2018 [facility] 120 mg/dL High 70-100 2 finding Glucose Laboratory test 04/09/2017 [facility] [place] SEE RESULT 3 finding BELOW Laboratory test 04/09/2017 [facility] SEE RESULT 4 finding Interface Order BELOW 1 SEE RESULT BELOW Name: JENNI FRANCISCO : [address]: Ronny Jimenez DO Acct: [id number] Unit: [id number] AGE: 67 Location: ENDO Re04/06/18 SEX: M Status: DEP REF SPEC: [id number] BHUPENDRA: 04/06/18- SUBM DR: Ronny Jimenez DO REQ: [id number] RECD: 04/06/180 STATUS: KENNETH DINH DR: Savage Oates MD PC _ ORDERED: LEVEL 4/3 FINAL DIAGNOSIS 1. Stomach, biopsy: -- Fundic gland polyp. 2. Esophagus, at 45 cm, biopsy: -- Benign columnar-type mucosa with chronic inflammation. -- Intestinal metaplasia is absent. -- Dysplasia is absent. 3. Esophagus, at 44 cm, biopsy: -- Benign columnar-type mucosa with chronic inflammation. -- Intestinal metaplasia is absent. -- Dysplasia is absent. 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 The specimen is received in formalin labeled, Biopsy Gastric Polyps, and consists of a 0.5 x 0.2 by up to 0.2 cm bowman-pink irregular soft tissue fragment which is submitted entirely in one cassette. CONTINUED ON NEXT PAGE DEPARTMENT OF PATHOLOGY, [address] [place] [address] Jasmeet Ann M.D. Director [facility] # [id number] RUN DATE: 04/07/18 [facility] LAB LIVE PAGE 2 Patient: JENNI FRANCISCO [id number] (Continued) GROSS DESCRIPTION (Continued) 2. The specimen is received in formalin labeled, Biopsy Srinivasan's at 45 cm , and consists of a 0.7 x 0.5 by up to 0.2 cm aggregate of bowman-pink irregular soft tissue fragments which is submitted entirely in one cassette. 3. The specimen is received in formalin labeled, Biopsy Srinivasan's at 44 cm , and consists of a 0.3 x 0.2 x 0.1 cm bowman-pink irregular soft tissue fragment which is submitted entirely in one cassette. Signed by and Reported on: Sera Merino MD 04/07/18 1058 END OF REPORT DEPARTMENT OF PATHOLOGY, [address] [place] [address] Jasmeet Ann M.D. Director [facility] # [id number] 2 Capsule Filling Machine Operator: [id number] 3 SEE RESULT BELOW Name: JENNI FRANCISCO : [address]: Jennifer Whitfield DO Acct: [id number] Unit: [id number] AGE: 66 Location: [facility] Re04/09/17 SEX: M Status: REG REF SPEC: [id number] BHUPENDRA: 04/09/[address] [facility] [address]: Jennifer Whitfield DO REQ: [id number] RECD: 04/09/17 STATUS: BREN DINH DR: Savage Oates MD PC _ SOURCE: GAS ANTRUM SPDESC: ORDERED: Clotest Procedure Result Reported Site Clotest Final 04/10/17746 ML Clotest Negative * ML - MAIN LAB ([facility]) . END OF REPORT * ML=Testing performed at Main Lab DEPARTMENT OF PATHOLOGY, [address] [place] [address] Jasmeet Ann M.D. Director [facility] # [id number] 4 SEE RESULT BELOW Name: JENNI FRANCISCO : [address]: Jennifer Whitfield DO Acct: [id number] Unit: [id number] AGE: 66 Location: ENDO Re04/09/17 SEX: M Status: REG REF SPEC: [id number] BHUPENDRA: 04/09/17-[address] [facility] [address]: Jennifer Whitfield DO REQ: [id number] RECD: 04/09/17 STATUS: KENNETH DINH DR: Savage Oates MD PC _ ORDERED: LEVEL 4/4 FINAL DIAGNOSIS 1. Duodenum, biopsy: -- Benign small intestinal mucosa with no significant pathologic abnormalities. -- No evidence of villous blunting or increased intraepithelial lymphocytes. 2. Stomach, antrum and body, biopsy: -- Body-type gastric mucosa with mild chronic gastritis; see comment. 3. Gastroesophageal junction, biopsy: -- Squamous and columnar mucosa with chronic inflammation and intestinal metaplasia. -- Dysplasia is absent. 4. Colon, sigmoid, biopsy: -- Hyperplastic polyp. COMMENT: An H. pylori immunohistochemical stain is pending for specimen 2 and the results will be reported in an addendum. CLINICAL HISTORY Screening/Surveillance for malignancy in asymptomatic patient. 66 year old male with family history of colon cancer (mother and father, paternal); personal history of several tubular adenomas POST-OPERATIVE DIAGNOSIS Irregular Z-line at 45 cm with biopsy; minimal antral gastric tissue with biopsy; normal duodenum with biopsy; normal mid and proximal with biopsy. EGD ? fair prep ( less than 5 mm polyps may have been missed); four 3 mm sessile sigmoid polyps; sigmoid diverticulosis; small non-bleeding internal hemorrhoids. Conclusions/Plan: Follow-up pathology; on proton pump inhibitor daily; enhanced prep on next visit CONTINUED ON NEXT PAGE * ML=Testing performed at Main Lab DEPARTMENT OF PATHOLOGY, [address] [place] [address] Jasmeet Ann M.D. Director [facility] # [id number] RUN DATE: 04/10/17 [facility] LAB LIVE PAGE 2 Patient: JENNI FRANCISCO [id number] (Continued) GROSS DESCRIPTION (Continued) GROSS DESCRIPTION 1. The specimen is received in formalin labeled, Duodenal Biopsies, and consists of two bowman-pink irregular soft tissue fragments measuring 0.3 x 0.2 x 0.1 cm and 0.8 x 0.1 x 0.1 cm which are submitted entirely in one cassette. 2. The specimen is received in formalin labeled, Gastric Antrum/Body, and consists of two obwman irregular soft tissue fragments averaging 0.5 x 0.2 x 0.1 cm which are submitted entirely in one cassette. 3. The specimen is received in formalin labeled, Esophagogastric Junction, and consists of two bowman-pink irregular soft tissue fragments averaging 0.3 x 0.2 x 0.1 cm which are submitted entirely in one cassette. 4. The specimen is received in formalin labeled, Sigmoid Colon Polyp, and consists of a 0.8 x 0.6 by up to 0.2 cm aggregate of bowman-pink irregular to polypoid soft tissue fragments which is submitted entirely in one cassette. Signed (signature on file) Sera Merino MD 1356 END OF REPORT * ML=Testing performed at Main Lab DEPARTMENT OF PATHOLOGY, [address] [place] [address] Jasmeet Ann M.D. Director [facility] # [id number] SEE RESULT BELOW Name: JENNI FRANCISCO : [address]: Jennifer Whitfield DO Acct: [id number] Unit: [id number] AGE: 66 Location: ENDO Re04/09/17 SEX: M Status: REG REF SPEC: [id number] BHUPENDRA: 04/09/17-[address] [facility] [address]: Jennifer Whitfield DO REQ: [id number] RECD: 04/09/17 STATUS: KENNETH DINH DR: Savage Oates MD PC _ ORDERED: LEVEL 4/4, IMMUNO-FIRST Addendum: An immunohistochemical stain for Helicobacter pylori-like organisms was performed with appropriate controls on parts 2 and is negative. Addendum Signed (signature on file) Jasmeet Ann MD 1602 FINAL DIAGNOSIS 1. Duodenum, biopsy: -- Benign small intestinal mucosa with no significant pathologic abnormalities. -- No evidence of villous blunting or increased intraepithelial lymphocytes. 2. Stomach, antrum and body, biopsy: -- Body-type gastric mucosa with mild chronic gastritis; see comment. 3. Gastroesophageal junction, biopsy: -- Squamous and columnar mucosa with chronic inflammation and intestinal metaplasia. -- Dysplasia is absent. 4. Colon, sigmoid, biopsy: -- Hyperplastic polyp. COMMENT: An H. pylori immunohistochemical stain is pending for specimen 2 and the results will be reported in an addendum. CLINICAL HISTORY Screening/Surveillance for malignancy in asymptomatic patient. 66 year old male with family history of colon cancer (mother and father, paternal); personal history of several tubular adenomas CONTINUED ON NEXT PAGE * ML=Testing performed at Main Lab DEPARTMENT OF PATHOLOGY, [address] [place] [address] Jasmeet Ann M.D. Director [facility] # [id number] RUN DATE: 04/13/17 [facility] LAB LIVE PAGE 2 Patient: JENNI FRANCISCO [id number] (Continued) POST-OPERATIVE DIAGNOSIS (Continued) POST-OPERATIVE DIAGNOSIS Irregular Z-line at 45 cm with biopsy; minimal antral gastric tissue with biopsy; normal duodenum with biopsy; normal mid and proximal with biopsy. EGD ? fair prep ( less than 5 mm polyps may have been missed); four 3 mm sessile sigmoid polyps; sigmoid diverticulosis; small non-bleeding internal hemorrhoids. Conclusions/Plan: Follow-up pathology; on proton pump inhibitor daily; enhanced prep on next visit GROSS DESCRIPTION 1. The specimen is received in formalin labeled, Duodenal Biopsies, and consists of two bowman-pink irregular soft tissue fragments measuring 0.3 x 0.2 x 0.1 cm and 0.8 x 0.1 x 0.1 cm which are submitted entirely in one cassette. 2. The specimen is received in formalin labeled, Gastric Antrum/Body, and consists of two bowman irregular soft tissue fragments averaging 0.5 x 0.2 x 0.1 cm which are submitted entirely in one cassette. 3. The specimen is received in formalin labeled, Esophagogastric Junction, and consists of two bowman-pink irregular soft tissue fragments averaging 0.3 x 0.2 x 0.1 cm which are submitted entirely in one cassette. 4. The specimen is received in formalin labeled, Sigmoid Colon Polyp, and consists of a 0.8 x 0.6 by up to 0.2 cm aggregate of bowman-pink irregular to polypoid soft tissue fragments which is submitted entirely in one cassette. Signed (signature on file) Sera Merino MD 1356 END OF REPORT * ML=Testing performed at Main Lab DEPARTMENT OF PATHOLOGY, [address] [place] [address] Jasmeet Ann M.D. Director [facility] # [id number] Procedures Description No Information Available Encounters Type Date Location Provider Dx Diagnosis Office Visit 01/22/2017 Gastroenterology Sheree Tolentino K21.9 Gastro- esophageal 9:[facility] FACUNDO Caldera reflux disease without esophagitis Z12.11 Encounter for screening for malignant neoplasm of colon E11.9 Type 2 diabetes mellitus without complications Z86.010 Personal history of colonic polyps Z80.0 Family history of malignant neoplasm of digestive organs I48.91 Unspecified atrial fibrillation Z79.4 group home (current) use of insulin Plan of Treatment No Information Available
--- OUTSIDE RECORDS SUMMARY | 2018-04-26 13:49 | XMS REPORT | Continuity of Care Document ---
:1950 External Reference #:[id number] Author Name Sheree Caldera PA-C Address [address] [place] [address] Unavailable [place] [id number] Care Team Providers Name Role Phone Savage Oates MD Care Team Information Senior Controller Unavailable Savage Oates MD Primary Care Physician Unavailable Payers Type Date Identification Numbers Payment Provider Subscriber Policy Number: [id number] Medicare Spencer Francisco PayID: [id number] [facility] [address] [place] [address] Policy Number: [id number] [facility] Spencer Francisco PayID: [id number] Advance Directives Description No Information Available Problems [...] Form Strength Qnty SIG Indications Ordering Provider Radha 00/00/ Active Tablets 5mg Unknown 0000 Omeprazole / [...] Unknown 0000 - Pen-Inject ML 2018 Clopidogrel /00/ Hx Tablets 75mg Unknown Bisulfate [...] Test Result H/L Range Note Laboratory test 04/09/2017 [facility] [place]otest SEE RESULT 1 finding BELOW Laboratory test 04/09/2017 [facility] Surgical SEE RESULT 2 finding Interface Order BELOW 1 SEE RESULT BELOW Name: SPENCER FRANCISCO : [address]: Jennifer Whitfield DO Acct: [id number] Unit: [id number] AGE: 66 Location: ENDO Re04/09/17 SEX: M Status: REG REF SPEC: [id number] BHUPENDRA: 04/09/[address] [facility] [address]: Jennifer Whitfield DO REQ: [id number] RECD: 04/09/17 STATUS: BREN DINH DR: Savage Oates MD PC _ SOURCE: GAS ANTRUM SPDESC: ORDERED: Clotest Procedure Result Reported Site Clotest Final 04/10/17- 47 ML Clotest Negative * ML - MAIN LAB ([facility]) . END OF REPORT * ML=Testing performed at Main Lab DEPARTMENT OF PATHOLOGY, [address] [place] [address] Jasmeet Ann M.D. Director [facility] # [id number] 2 SEE RESULT BELOW Name: SPENCER FRANCISCO : [address]: Jennifer Whitfield DO Acct: [id number] Unit: [id number] AGE: 66 Location: ENDO Re04/09/17 SEX: M Status: REG REF SPEC: [id number] BHUPENDRA: 04/09/17-[address] [facility] [address]: Jennifer Whitfield DO REQ: [id number] RECD: 04/09/17483 STATUS: KENNETH DINH DR: Savage Oates MD [...] performed at Main Lab DEPARTMENT OF PATHOLOGY, [address] [place] [address] Jasmeet Ann M.D. Director [facility] # [id number] RUN DATE: 04/10/17 [facility] LAB LIVE PAGE 2 Patient: SPENCER FRANCISCO [id number] (Continued) GROSS DESCRIPTION (Continued) GROSS DESCRIPTION 1. [...] performed at Main Lab DEPARTMENT OF PATHOLOGY, [address] [place] [address] Jasmeet Ann M.D. Director [facility] # [id number] SEE RESULT BELOW Name: MARYSPENCER : [address]: Jennifer Whitfield DO Acct: [id number] Unit: [id number] AGE: 66 Location: ENDO Re04/09/17 SEX: M Status: REG REF SPEC: [id number] BHUPENDRA: 04/09/17-[address] [facility] [address]: Jennifer Whitfield DO REQ: [id number] RECD: 04/09/17667 STATUS: KENNETH DINH DR: Savage Oates MD [...] performed at Main Lab DEPARTMENT OF PATHOLOGY, [address] [place] [address] Jasmeet Ann M.D. Director [facility] # [id number] RUN DATE: 04/13/17 [facility] LAB LIVE PAGE 2 Patient: SPENCER FRANCISCO [id number] (Continued) POST-OPERATIVE DIAGNOSIS (Continued) POST-OPERATIVE DIAGNOSIS Irregular [...] performed at Main Lab DEPARTMENT OF PATHOLOGY, [address] [place] [address] Jasmeet Ann M.D. 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
--- OUTSIDE RECORDS SUMMARY | 2018-04-26 13:49 | XMS REPORT | Continuity of Care Document ---
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 Savage Oates MD Primary Care Physician Unavailable Payers Type Date Identification Numbers Payment Provider Subscriber Policy Number: [id number] Medicare Jenni Francisco PayID: [id number] [facility] [address] [place] [address] Policy Number: [id number] [facility] [place] Jenni Francisco PayID: [id number] Advance Directives Description No Information Available Problems [...] Result H/L Range Note Laboratory test 04/06/2018 [facility] [place] SEE RESULT 1 finding Interface Order BELOW Laboratory test 04/06/2018 [facility] Point of Care 120 mg/dL High 70-100 2 finding Glucose Laboratory test 04/09/2017 [facility] Clotest SEE RESULT 3 finding BELOW Laboratory test 04/09/2017 [facility] [place] SEE RESULT 4 finding Interface Order BELOW 1 SEE RESULT BELOW Name: JENNI FRANCISCO : [address]: Ronny Jimenez DO Acct: [id number] Unit: [id number] AGE: 67 Location: ENDO Re04/06/18 SEX: M Status: DEP REF SPEC: [id number] BHUPENDRA: 04/06/18- SUBM DR: Ronny Jimenez DO REQ: [id number] RECD: 04/06/180 STATUS: KENNETH DINH DR: Savage [...] CONTINUED ON NEXT PAGE DEPARTMENT OF PATHOLOGY, [address] [place] [address] Jasmeet Ann M.D. Director [facility] # [id number] RUN DATE: 04/07/18 [facility] LAB LIVE PAGE 2 Patient: JENNI FRANCISCO [id number] (Continued) GROSS DESCRIPTION (Continued) 2. The specimen [...] 1058 END OF REPORT DEPARTMENT OF PATHOLOGY, [address] [place] [address] Jasmeet Ann M.D. Director [facility] # [id number] 2 [employer]: [id number] SEE RESULT BELOW Name: JENNI FRANCISCO : [address]: Jennifer Whitfield DO Acct: [id number] Unit: [id number] AGE: 66 Location: [facility] Re04/09/17 SEX: M Status: REG REF SPEC: [id number] BHUPENDRA: 04/09/[address] [facility] [address]: Jennifer Whitfield DO REQ: [id number] RECD: 04/09/17 STATUS: BREN DINH DR: Savage Oates MD PC _ SOURCE: GAS ANTRUM SPDESC: ORDERED: Clotest Procedure Result Reported Site Clotest Final 04/10/17746 ML Clotest Negative * ML - MAIN LAB ([facility]) . END OF REPORT * ML=Testing performed at Main Lab DEPARTMENT OF PATHOLOGY, [address] [place] [address] Jasmeet Ann M.D. Director [facility] # [id number] 4 SEE RESULT BELOW Name: JENNI FRANCISCO : [address]: Jennifer Whitfield DO Acct: [id number] Unit: [id number] AGE: 66 Location: ENDO Re04/09/17 SEX: M Status: REG REF SPEC: [id number] BHUPENDRA: 04/09/17-[address] [facility] [address]: Jennifer Whitfield DO REQ: [id number] RECD: 04/09/17 STATUS: KENNETH DINH DR: Savage [...] performed at Main Lab DEPARTMENT OF PATHOLOGY, [address] [place] [address] Jasmeet Ann M.D. Director [facility] # [id number] RUN DATE: 04/10/17 [facility] LAB LIVE PAGE 2 Patient: JENNI FRANCISCO [id number] (Continued) GROSS DESCRIPTION (Continued) GROSS DESCRIPTION 1. [...] performed at Main Lab DEPARTMENT OF PATHOLOGY, [address] [place] [address] Jasmeet Ann M.D. Director [facility] # [id number] SEE RESULT BELOW Name: JENNI FRANCISCO : [address]: Jennifer Whitfield DO Acct: [id number] Unit: [id number] AGE: 66 Location: ENDO Re04/09/17 SEX: M Status: REG REF SPEC: [id number] BHUPENDRA: 04/09/17-[address] [facility] [address]: Jennifer Whitfield DO REQ: [id number] RECD: 04/09/17 STATUS: KENNETH DINH DR: Savage [...] performed at Main Lab DEPARTMENT OF PATHOLOGY, [address] [place] [address] Jasmeet Ann M.D. Director [facility] # [id number] RUN DATE: 04/13/17 [facility] LAB LIVE PAGE 2 Patient: EJNNI FRANCISCO [id number] (Continued) POST-OPERATIVE DIAGNOSIS (Continued) POST-OPERATIVE DIAGNOSIS Irregular [...] performed at Main Lab DEPARTMENT OF PATHOLOGY, [address] [place] [address] Jasmeet Ann M.D. Director [facility] # [id number] Procedures Description No Information Available Encounters Type Date Location Provider Dx Diagnosis Office Visit 01/22/2017 Gastroenterology Sheree Tolentino K21.9 Gastro- esophageal 9:45a [facility] FACUNDO Caldera reflux disease without esophagitis Z12.11 Encounter for screening for malignant neoplasm of colon E11.9 Type 2 diabetes mellitus without complications Z86.010 Personal history of colonic polyps Z80.0 Family history of malignant neoplasm of digestive organs I48.91 Unspecified atrial fibrillation Z79.4 [facility] (current) use of insulin Plan of Treatment No Information Available
--- OUTSIDE RECORDS SUMMARY | 2018-04-26 13:49 | XMS REPORT | Continuity of Care Document ---
:1950 External Reference #:[id number] Author Name Prasad Whalen MD Address [address] [place] [address] Care Team Providers Name Role Phone Savage Oates M.D. Care Team Information Second Steward Unavailable Savage Oates M.D. Primary Care Physician Unavailable Payers Type Date Identification Numbers Payment Provider Subscriber Policy Number: [id number] [facility] Spencer Francisco PayID: [id number] [facility] [place] [address] Policy Number: [id number] [facility] [employer] Reyna Francisco Group Name: [employer] [address] PayID: [id number] Advance Directives Description No Information Available Problems Date Description Provider Status Onset: 07/09/2017 Essential hypertension Prasad Whalen MD Active Onset: 07/09/2017 Chronic rhinitis Prasad Whalen MD Active Onset: 07/09/2017 Chronic sinusitis Prasad Whalen MD Active Family History Date Family Member(s) Problem(s) Comments General Diabetes General Vertigo Social History Type Date Description Comments Sex Unknown Occupation Retired Tobacco Use Start: Unknown End: Unknown Former Cigarette Smoker 1 Pack Daily Tobacco Use Start: Unknown Never Smoked Cigars Tobacco Use Start: Unknown Never Smoked A Pipe Smokeless Tobacco Never Used Smokeless Tobacco ETOH Use Never used alcohol Allergies, Adverse Reactions, Alerts Date Description Reaction Status Severity Comments 07/09/2017 [place] Active Medications Medication Date Status Form Strength Qnty SIG Indications Ordering Provider Budesonide Active Suspension 0.5mg/2ML 30units 2ml in J32.9 Prasad 018 saline elkin Whalen MD wash twice a day H69.82 Levothyroxine Active Tablets 100mcg Take 1 Unknown Sodium Tablet By Mouth Every Day Ipratropium Active Solution 0.06% [place] 2 Unknown Pegram Sprays Into Each Nostril Two Times Daily Omeprazole Active Capsules DR 40mg Take 1 Unknown Capsule By Mouth Every Day Levemir Flextouch Active Solution 100Unit/M Stevanovi PenSavage Mcdonald M.D. Levocetirizine Active Tablets 5mg Take 1 Unknown Dihydrochloride Tablet By Mouth Every Day as Needed Atorvastatin Active Tablets 80mg Take 1 Unknown Calcium Tablet By Mouth Every Day Amlodipine Active Tablets 5mg Take 1 Unknown Besylate Tablet By Mouth Every Day Aspirin 81 Low Active Chewtabs 81mg daily Unknown Dose Tadalafil Active Tablets 5mg Take 1 Unknown Tablet By Mouth Every Day as Needed Atenolol Active Tablets 25mg Take 1/2 Unknown Tablet By Mouth Every Day Fluticasone Active Suspension 50mcg/Act [place] 2 Unknown Propionate Sprays Into Each Nostril One Time Daily Budesonide 08/13/2017 - Hx Suspension 0.5mg/2ML 30u 2ml in J32 Prasad 09/24/2017 nit saline .9 Marlee campbell nasal wash MD twice a day H69.82 Cialis - Hx Tablets 5mg Take 1 Tablet Unknown 04/01/2018 By Mouth Every Day as Needed Fluticasone - Hx Suspension 50mcg/A Use 1 [place] Unknown Propionate 09/24/2017 ct In Each Nostril Two Times Daily Levocetirizine - Hx Tablets 5mg Take 1 Tablet Unknown Dihydrochloride 04/01/2018 By Mouth Every Day as Needed Albuterol Sulfate - Hx Nebulizer (2.5mg/ Inhale The Unknown 04/01/2018 3ML) Contents Of 1 0.083% Vial Via Nebulizer Three Times Daily Metformin HCL - Hx Tablets 1000mg Take 1 Tablet Unknown 04/01/2018 By Mouth Every Day as Directed Meloxicam - Hx Tablets 15mg daily Unknown 04/01/2018 Trulicity - Hx Solution 0.75mg/ weekly Unknown 04/01/2018 Pen-Inject 0.5ML Ipratropium Pegram - Hx Solution 0.06% Иван, 09/24/2017 Anh Wan Immunizations Description No Information Available Vital Signs Date Vital Result Comment 04/01/2018 8:50am Weight 322.00 lb Weight 146.059 kg Height 72 inches 6'0" Height in cm's 182.9 cm BMI (Body Mass Index) 43.7 kg/m2 09/24/2017 9:05am Weight 325.00 lb Weight 147.420 kg Height 72 inches 6'0" Height in cm's 182.9 cm BMI (Body Mass Index) 44.1 kg/m2 08/13/2017 12:17pm Weight 325.00 lb Weight 147.420 kg Height 72 inches 6'0" Height in cm's 182.9 cm BMI (Body Mass Index) 44.1 kg/m2 07/09/2017 8:43am Weight 325.00 lb Weight 147.420 kg Height 72 inches 6'0" Height in cm's 182.9 cm BMI (Body Mass Index) 44.1 kg/m2 Results Description No Information Available Procedures Date Code Description Status 04/01/2018 62919 Tympanometry Completed 04/01/2018 00151 Comprehensive Audiogram Completed 07/09/2017 13226 Nasal Endoscopy, Diagnostic Completed Encounters Type Date Location Provider Dx Diagnosis Office Visit 04/01/2018 [place] Prasad Whalen H81.10 Benign paroxysmal 8:45a 03/16/07 vertigo, unspecified ear J31.0 Chronic rhinitis Office Visit 09/24/2017 [place] Juan Hare32.9 Chronic 9:15a 03/16/07 sinusitis, unspecified H69.82 Other specified disorders of Eustachian tube, left ear J31.0 Chronic rhinitis Office Visit 08/13/2017 10:30a [place],After 03/16/07 Prasad Ruparelia, J31.0 Chronic MD rhinitis J32.9 Chronic sinusitis, unspecified Office Visit 07/09/2017 9:00a [place],After 03/16/07 Prasad Whalen, J31.0 Chronic MD rhinitis J32.9 Chronic sinusitis, unspecified Plan of Treatment 04/01/2018 - Prasad Whalen MDH81.10 Benign paroxysmal vertigo, unspecified earComments:Presently the patient does not have any evidence of significant symptoms presently. No evidence of vertigo on examination. My suspicion is benign positional vertigo. I think this is resolved in the future if he has a recurrence of symptoms I think he would be a candidate for Cook Cawthorne exercises. No evidence of retrocochlear pathology.J31.0 Chronic rhinitis
--- OUTSIDE RECORDS SUMMARY | 2018-04-26 13:49 | XMS REPORT | Continuity of Care Document ---
:1950 External Reference #:[id number] Author Name Ronny Jimenez DO Address [address] [place] [address] [place] [address] Care Team Providers Name Role Phone Savage Oates MD Care Team Information Log Loader Unavailable Savage Oates MD Primary Care Physician Unavailable Payers Type Date Identification Numbers Payment Provider Subscriber Policy Number: [id number] Medicare Jenni Francisco PayID: [id number] [facility] [address] [place] [address] Policy Number: [id number] [facility] [place] Jenni Francisco PayID: [id number] Advance Directives Description No Information Available Problems Date Description Provider Status Onset: 03/31/2018 Srinivasan's esophagus Sheree Caldera PA-C Active Onset: 01/22/2017 Long-term current use of insulin LAKSHMI Bolaños Active Onset: 01/22/2017 Atrial fibrillation Sheree Caldera PA-C Active Onset: 01/22/2017 Family history of malignant Sehree Caldera PA-C Active neoplasm of gastrointestinal tract [...] Result H/L Range Note Laboratory test 04/06/2018 [facility] Surgical SEE RESULT 1 finding Interface Order BELOW Laboratory test 04/06/2018 [facility] Point of Care 120 mg/dL High 70-100 2 finding Glucose Laboratory test 04/09/2017 [facility] Clotest SEE RESULT 3 finding BELOW Laboratory test 04/09/2017 [facility] Surgical SEE RESULT 4 finding Interface Order BELOW 1 SEE RESULT BELOW Name: JENNI FRANCISCO : [address]: Ronny Jimenez DO Acct: [id number] Unit: [id number] AGE: 67 Location: ENDO Re04/06/18 SEX: M Status: DEP REF SPEC: [id number] BHUPENDRA: 04/06/18- SUBM DR: Ronny Jimenez DO REQ: [id number] RECD: 04/06/180 STATUS: KENNETH DINH DR: Savage [...] CONTINUED ON NEXT PAGE DEPARTMENT OF PATHOLOGY, [address] [place] [address] Jasmeet Ann M.D. Director [facility] # [id number] RUN DATE: 04/07/18 [facility] LAB LIVE PAGE 2 Patient: JENNI FRANCISCO [id number] (Continued) GROSS DESCRIPTION (Continued) 2. The specimen [...] 1058 END OF REPORT DEPARTMENT OF PATHOLOGY, [address] [place] [address] Jasmeet Ann M.D. Director [facility] # [id number] 2 Supervisor [employer]: [id number] SEE RESULT BELOW Name: JENNI FRANCISCO : [address]: Jennifer Whitfield DO Acct: [id number] Unit: [id number] AGE: 66 Location: [facility] Re04/09/17 SEX: M Status: REG REF SPEC: [id number] BHUPENDRA: 04/09/1757 [facility] DR: Jennifer Whitfield DO REQ: [id number] RECD: 04/09/17 STATUS: BREN DINH DR: Savage Oates MD PC _ SOURCE: GAS ANTRUM SPDESC: ORDERED: Clotest Procedure Result Reported Site Clotest Final 04/10/17746 ML Clotest Negative * ML - MAIN LAB ([facility]) . END OF REPORT * ML=Testing performed at Main Lab DEPARTMENT OF PATHOLOGY, [address] [place] [address] Jasmeet Ann M.D. Director [facility] # [id number] 4 SEE RESULT BELOW Name: JENNI FRANCISCO : [address]: Jennifer Whitfield DO Acct: [id number] Unit: [id number] AGE: 66 Location: ENDO Re04/09/17 SEX: M Status: REG REF SPEC: [id number] BHUPENDRA: 04/09/17-0855 [facility] DR: Jennifer Whitfield DO REQ: [id number] RECD: 04/09/17 STATUS: KENNETH DINH DR: Savage [...] performed at Main Lab DEPARTMENT OF PATHOLOGY, [address] [place] [address] Jasmeet Ann M.D. Director [facility] # [id number] RUN DATE: 04/10/17 [facility] LAB LIVE PAGE 2 Patient: JENNI FRANCISCO [id number] (Continued) GROSS DESCRIPTION (Continued) GROSS DESCRIPTION 1. [...] performed at Main Lab DEPARTMENT OF PATHOLOGY, [address] [place] [address] Jasmeet Ann M.D. Director [facility] # [id number] SEE RESULT BELOW Name: JENNI FRANCISCO : [address]: Jennifer Whitfield DO Acct: [id number] Unit: [id number] AGE: 66 Location: ENDO Re04/09/17 SEX: M Status: REG REF SPEC: [id number] BHUPENDRA: 04/09/17-0855 [facility] DR: Jennifer Whitfield DO REQ: [id number] RECD: 04/09/17 STATUS: KENNETH DINH DR: Savage [...] performed at Main Lab DEPARTMENT OF PATHOLOGY, [address] [place] [address] Jasmeet Ann M.D. Director [facility] # [id number] RUN DATE: 04/13/17 [facility] LAB LIVE PAGE 2 Patient: JENNI FRANCISCO [id number] (Continued) POST-OPERATIVE DIAGNOSIS (Continued) POST-OPERATIVE DIAGNOSIS Irregular [...] by up to 0.2 cm aggregate of bowmna-pink irregular to polypoid soft tissue fragments which is submitted entirely in one cassette. Signed (signature on file) Sera Merino MD [id number] END OF REPORT * ML=Testing performed at Main Lab DEPARTMENT OF PATHOLOGY, [address] [place] [address] Jasmeet Ann M.D. Director [facility] # [id number] Procedures Description No Information Available Encounters Type Date Location Provider Dx Diagnosis Office Visit 01/22/2017 Gastroenterology Sheree Tolentino K21.9 Gastro- esophageal 9:45a [facility] FACUNDO Caldera reflux disease without esophagitis Z12.11 Encounter for screening for malignant neoplasm of colon E11.9 Type 2 diabetes mellitus without complications Z86.010 Personal history of colonic polyps Z80.0 Family history of malignant neoplasm of digestive organs I48.91 Unspecified atrial fibrillation Z79.4 [facility] (current) use of insulin Plan of Treatment No Information Available
--- OUTSIDE RECORDS SUMMARY | 2018-04-26 13:49 | XMS REPORT | Continuity of Care Document ---
:1950 External Reference #:[id number] Author Name Duyen Rogers Care Team Providers Name Role Phone Savage Oates MD Primary Care Physician Unavailable Payers Type Date Identification Numbers Payment Provider Subscriber Policy Number: [id number] Medicare Spencer Francisco PayID: [id number] [address] [place] [address] Expires: 2017 Policy Number: [id number] Medicare Spencer Francisco PayID: [id number] [address] [place] [address] Policy Number: [id number] [facility] Spencer Francisco Group Name: aka colonial stephanie [address] [facility] [place] [address] Advance Directives Description No Information Available Problems Date Description Provider Status Onset: 08/11/2017 Lumbosacral spondylosis without Salma Ta MD Active myelopathy Onset: 08/11/2017 Low back pain Salma Ta MD Active Onset: 08/26/2017 Obesity Salma Ta MD Active Onset: 10/06/2017 Neurogenic claudication Salma Ta MD Active Onset: 12/17/2017 Atrial fibrillation Keon Miller M.D. Active Onset: 12/17/2017 Type 2 diabetes mellitus Keon Miller M.D. Active Onset: 12/17/2017 Essential hypertension Keon Miller M.D. Active Onset: 12/17/2017 Hyperlipidemia Keon Miller M.D. Active Onset: 12/18/2017 Acute renal failure syndrome Keon Miller M.D. Active Family History Date Family Member(s) Problem(s) Comments Father due to Lung Cancer () Mother due to Pancreatic Cancer () Siblings 1 1 sister Social History Type Date Description Comments Sex Unknown Marital Status Lives With Occupation Retired Tobacco Use Start: Unknown End: Former Cigarette Smoker Smoked 1 ppd for 20 Unknown years Smoking Status Reviewed: 02/12/18 Former Cigarette Smoker Smoked 1 ppd for 20 years ETOH Use Occasionally consumes alcohol Tobacco Use Start: Unknown End: Patient is a former Unknown smoker Recreational Drug Use Denies Drug Use Exercise Type/Frequency Exercises rarely Allergies, Adverse Reactions, Alerts Date Description Reaction Status Severity Comments 06/04/2017 [place] rash Active 10/30/2017 Metoprolol rash and difficulty breathing Active Medications Medication Date Status Form Strength Qnty SIG Indications Ordering Provider Oxycodone-Acetam 12/29 Active Tablets 5-325mg 30tab 1-2 by Z48.89 Vassilios ino s mouth every Dimopoulos 4-6 hours , as needed for pain. Atenolol 10/22 Active Tablets 25mg 30tab 1/2 by I48.0 Michele S. s mouth every Ruiz, DO day FACC Furosemide 10/22 Active Tablets 20mg 90tab Take a I48.0 Michele S. /2017 s water pill , DO (furosemide FACC or lasix) today, tomorrow and [...] day Unknown /0000 for allergies as needed Tadalafil Active Tablets 5mg Take 1 Unknown /0000 Tablet By Mouth Every Day as Needed Gabapentin 00/00 Active Capsules 100mg Take 1 Unknown /0000 Capsule By Mouth Three Times Daily Metoprolol 10/22 Hx Tablets ER 25mg 90tab 1 by mouth I48.0 Michele S. Succinate ER /2017 24HR s every day Ruiz, DO [facility] 10/14 Atenolol 10/21 Hx Tablets 25mg 30tab 1 by mouth I48.0 Michele S. /2018 s every day Ruiz, DO [facility] 10/22 Metoprolol 10/05 Hx Tablets ER 25mg 30tab 1 by mouth I48.0 Michele S. Succinate ER /2017 24HR s every day Ruiz, DO [facility] 10/21 Prednisone 05/26 Hx TBPK 10mg (21) 30uni 4 tabs J20.9 ts day#1, 3 MD Nas - tabs day#2, 08/11 2 tabs /2017 day#3, 1 tab for 7 days, 1/2 tab for 10 days (will be finnished 06/15) Cefaclor ER 05/26 Hx Tablets ER 500mg 14tab 1 by mouth J20.9 Dayna /2018 12HR s twice a day MD Nas [...] 4 - times daily 07/19 as needed /2017 Ventolin HFA Hx Aerosol 108(90Bas 2 puffs by Unknown /0000 e) mouth four - mcg/Act times a day 08/11 as needed Doxycycline Hx Capsules 100mg Take 1 Unknown Hyclate /0000 Capsule By - Mouth Two 08/11 Times Daily Amlodipine Hx Tablets 5mg Take 1 Unknown Besylate /0000 Tablet By - Mouth Every Amlodipine Hx Tablets 5mg Take 1 Unknown Besylate /0000 Tablet By - Mouth Every Medications Administered in Office Medication Date Status Form Strength Qnty SIG Indications Ordering Provider Inj, Administered Injection Michele S. Regadenoson, 018 Ruiz, DO 0.1 MG FACC Technetium TC Administered Injection Michele S. 99M 018 Ruiz, DO Tetrofosmin, FACC Per Unit Dose Up To 40 Millicuries Immunizations Description No Information Available Vital Signs Date Vital Result Comment 04/02/2018 9:50am Height 72 inches 6'0" Weight 320.00 lb BP Systolic Sitting 124 mmHg BP Diastolic Sitting 88 mmHg Pain Level 7 BMI (Body Mass Index) 43.4 kg/m2 02/12/2018 8:26am Height 72 inches 6'0" Weight 320.00 lb BP Systolic Sitting 130 mmHg BP Diastolic Sitting 80 mmHg Pain Level 0 BMI (Body Mass Index) 43.4 kg/m2 12/29/2017 10:19am Height 72 inches 6'0" Weight 320.00 lb BP Systolic Sitting 130 mmHg BP Diastolic Sitting 78 mmHg Body Temperature 98.0 F Pain Level 5 BMI (Body Mass Index) 43.4 kg/m2 11/24/2017 11:26am Height 72 inches 6'0" Weight 320.00 lb BP Systolic Sitting 136 mmHg BP Diastolic Sitting 84 mmHg Pain Level 8 BMI (Body Mass Index) 43.4 kg/m2 10/30/2017 11:30am Height 72 inches 6'0" Weight 326.00 lb w/ shoes Heart Rate 72 /min BP Systolic Sitting 118 mmHg lue lg cuff BP Diastolic Sitting 72 mmHg lue lg cuff BP Systolic Standing 101 mmHg lue lg cuff BP Diastolic Standing 62 mmHg lue lg cuff Respiratory Rate 20 /min BMI (Body Mass Index) 44.2 kg/m2 Ejection Fraction >65% echo 05/29/17 10/22/2017 2:01pm Height 72 inches 6'0" Weight 331.00 lb Heart Rate 104 /min BP Systolic Sitting 124 mmHg Lue large cuff BP Diastolic Sitting 84 mmHg Lue large cuff BP Systolic Standing 118 mmHg Lue BP Diastolic Standing 84 mmHg Lue Respiratory Rate 18 /min BMI (Body Mass Index) 44.9 kg/m2 Ejection Fraction 65% 05/29/17 10/06/2017 4:23pm Height 72 inches 6'0" Weight 337.00 lb BP Systolic Sitting 138 mmHg BP Diastolic Sitting 82 mmHg Pain Level 8 BMI (Body Mass Index) 45.7 kg/m2 2017 1:42pm Height 72 inches 6'0" Weight 337.00 lb w/ shoes Heart Rate 78 /min BP Systolic Sitting 124 mmHg rue lrg cuff BP Diastolic Sitting 78 mmHg rue lrg cuff BP Systolic Standing 128 mmHg rue lrg cuff BP Diastolic Standing 86 mmHg rue lrg cuff Respiratory Rate 24 /min BMI (Body Mass Index) 45.7 kg/m2 Ejection Fraction 65-70% Echo 05/29/17 08/26/2017 8:51am Height 72 inches 6'0" Weight 323.00 lb BP Systolic Sitting 140 mmHg lg BP Diastolic Sitting 70 mmHg lg Pain Level 7 BMI (Body Mass Index) 43.8 kg/m2 08/11/2017 11:28am Height 72 inches 6'0" Weight 323.00 lb BP Systolic Sitting 140 mmHg BP Diastolic Sitting 78 mmHg Pain Level 6 BMI (Body Mass Index) 43.8 kg/m2 07/20/2017 10:24am Height 72 inches 6'0" Weight 323.38 lb Heart Rate 72 /min BP Systolic Sitting 130 mmHg Lue large cuff BP Diastolic Sitting 70 mmHg Lue large cuff Respiratory Rate 12 /min O2 % BldC Oximetry 96 % On Ra BMI (Body Mass Index) 43.9 kg/m2 06/04/2017 8:51am Height 72 inches 6'0" Heart Rate 84 /min BP Systolic Sitting 122 mmHg BP Diastolic Sitting 70 mmHg Respiratory Rate 14 /min O2 % BldC Oximetry 94 % 05/26/2017 7:11am Height 72 inches 6'0" Weight 327.00 lb Heart Rate 84 /min BP Systolic Sitting 122 mmHg BP Diastolic Sitting 70 mmHg Respiratory Rate 14 /min O2 % BldC Oximetry 95 % BMI (Body Mass Index) 44.3 kg/m2 Neck Circumference in inches 18.25 Results Test Date Facility Test Result H/L Range Note Laboratory test 12/17/2017 [facility] Point of Care 113 mg/dL High 70-100 1 finding [address] [facility] [place] [address] [phone] Laboratory test 12/17/2017 [facility] Point of Care 164 mg/dL High 70-100 2 finding [facility] [place] [address] [phone] Basic Metabolic 12/10/2017 [facility] Sodium 139 mmol/L N 135- [address] [place] [address] [phone] Potassium 4.5 mmol/L N 3.5-5.0 Chloride 107 mmol/L N 101-111 Co2 Carbon Dioxide 26 mmol/L N 22-32 Anion Gap 6 mmol/L N 2-11 Glucose 121 mg/dL High 70-100 Blood Urea Nitrogen 24 mg/dL N 6-24 Creatinine 1.01 mg/dL N 0.67-1.17 BUN/Creatinine Ratio 23.8 High 8-20 Calcium 9.0 mg/dL N 8.6-10.3 Egfr Non- 73.7 >60 Egfr 89.2 >60 3 Type & Screen 12/10/2017 [facility] Patient Blood Type A Positive [address] [place] [address] [phone] Antibody Screen NEGATIVE Urinalysis Profile 12/10/2017 [facility] Urine Color Yellow [address] [place] [address] [phone] Urine Appearance Clear Urine Specific [place] 1.014 N 1.010-1.030 Urine pH 6.0 N 5-9 Urine Urobilinogen Negative Negative Urine Ketones Negative Negative Urine Protein Negative Negative Urine Leukocytes Negative Negative Urine Blood Negative Negative * * Abnormal Negative 4 Urine Nitrite Negative Negative Urine Bilirubin Negative Negative Urine Glucose Negative Negative Laboratory test 12/10/2017 [facility] Partial 31.8 N 26.0- 36.3 finding [address] [facility] Th[place] [address] PTT [phone] Inr/Protime 12/10/2017 [facility] Inr 1.06 High 0.77-1.02 [address] [place], [place] [id number] [phone] CBC No Diff 12/10/2017 [facility] White Blood 9.6 10^3/uL N 3.5-10.[address] [place] [address] [phone] Red Blood Count 5.03 10^6/uL N 4.00-5.40 Hemoglobin 14.4 g/dL N 14.0-18.0 Hematocrit 43 % N 42-52 Mean Corpuscular Volume 85 fL N 80-94 Mean Corpuscular Hemoglobin 29 pg N 27-31 Mean Corpuscular HGB Conc 34 g/dL N 31-36 Red Cell Distribution Width 15 % N 10.5-15 Platelet Count 167 10^3/uL N 150-450 Mean Platelet Volume 10.0 um3 N 7.4-10.4 Basic Metabolic Panel 10/28/2017 [facility] Sodium 141 mmol/L N 135-145 [address] [place] [address] [phone] Potassium 4.4 mmol/L N 3.5-5.0 Chloride 107 mmol/L N 101-111 Co2 Carbon Dioxide 28 mmol/L N 22-32 Anion Gap 6 mmol/L N 2-11 Glucose 115 mg/dL High 70-100 Blood Urea Nitrogen 26 mg/dL High 6-24 Creatinine 1.17 mg/dL N 0.67-1.17 BUN/Creatinine Ratio 22.2 High 8-20 Calcium 8.6 mg/dL N 8.6-10.3 Egfr Non- 62.2 >60 Egfr 75.2 >60 5 Urinalysis Profile 10/08/2017 [facility] Urine Color Yellow [address] [place] [address] [phone] Urine Appearance Clear Urine Specific [place] 1.027 N 1.010-1.030 Urine pH 5.0 N 5-9 Urine Urobilinogen Negative Negative Urine Ketones Negative Negative Urine Protein Negative Negative Urine Leukocytes Negative Negative Urine Blood Negative Negative * * Abnormal Negative 6 Urine Nitrite Negative Negative Urine Bilirubin Negative Negative Urine Glucose Negative Negative Type & Screen 10/08/2017 [facility] Patient Blood Type A Positive 7 [address] [place] [address] [phone] Antibody Screen NEGATIVE Laboratory test 10/08/2017 [facility] TSH (Thyroid 1.55 mcIU/mL N 0.34-5.[address] Stim Horm) [place] [address] [phone] Basic Metabolic 10/08/2017 [facility] Sodium 141 mmol/L N 135- [address] [place] [address] [phone] Potassium 4.3 mmol/L N 3.5-5.0 Chloride 108 mmol/L N 101-111 Co2 Carbon Dioxide 25 mmol/L N 22-32 Anion Gap 8 mmol/L N 2-11 Glucose 115 mg/dL High 70-100 Blood Urea Nitrogen 23 mg/dL N 6-24 Creatinine 1.05 mg/dL N 0.67-1.17 BUN/Creatinine Ratio 21.9 High 8-20 Calcium 9.0 mg/dL N 8.6-10.3 Egfr Non- 70.5 >60 Egfr 85.2 >60 9 CBC No Diff 10/08/2017 [facility] White Blood 8.9 10^3/uL N 3.5-10.8 [place] [address] [phone] Red Blood Count 4.59 10^6/uL N 4.00-5.40 Hemoglobin 13.2 g/dL Low 14.0-18.0 Hematocrit 40 % Low 42-52 Mean Corpuscular Volume 86 fL N 80-94 Mean Corpuscular Hemoglobin 29 pg N 27-31 Mean Corpuscular HGB Conc 33 g/dL N 31-36 Red Cell Distribution Width 15 % N 10.5-15 Platelet Count 161 10^3/uL N 150-450 Mean Platelet Volume 10.3 um3 N 7.4-10.4 Laboratory test 10/08/2017 [facility] Partial 32.9 N 26.0- 36.3 10 finding 101 [facility] [place] [address] Time PTT [phone] Inr/Protime 10/08/2017 [facility] Inr 1.05 High 0.77-1.[address] [place] [address] [phone] Order 05/26/2017 Director Financial Analysis In-House 6 Minute <pending> Walk 1 Cabin Outfitter: [id number] 2 Cabin Outfitter: [id number] 3 Because ethnic data is not always [...] interfere with detection of blood. 7 AA 8/2 8 AA 8/2 9 Because ethnic data is not always [...] Kidney failure <15 (or dialysis) 10 AA 8/ Procedures Date Code Description Status 12/17/2017 02479 Garcia/Facet/Foraminotomy;Vertebral Segment; Lumbar Completed 12/17/2017 21094 Garcia/Facet/Foraminotomy;Vertebral Segment; Lumbar Completed 10/27/2017 00543 Holter Monitor Review (24 hr)dr review & interp only Completed 10/26/2017 32545 ECG Monitor/Recording W/Visual Superimposition Scanning Completed 10/22/2017 46935 EKG Tracing & Interpretation Completed 10/08/2017 45204 Myocardial Perfusion Imaging Tomographic (Spect) Completed Multiple Studies 10/06/2017 67531 Stress Test Completed 10/06/2017 39050 Myocardial Perfusion Imaging Tomographic (Spect) Completed Multiple Studies 2017 68036 EKG Tracing & Interpretation Completed 05/29/2017 59750 ECHO Transthorasic Realtime 2D W Doppler & Color Flow Completed Hosp 05/26/2017 64406 Pulmonary Stress Test Simple Completed 05/26/2017 87578 Pulmonary Stress Testing[facility] Measurement Heart Rate, Completed Oximetry 04/09/2017 02559 Colonoscopy Flexible W/Biopsy Completed 04/09/2017 15723 Endoscopy Upper GI Biopsy Completed 04/09/2017 [id number] Colonoscopy Completed Encounters Type Date Location Provider Dx Diagnosis Office Visit 12/17/2017 [facility], I48.91 Unspecified atrial 10:22a Assochayden M.D. fibrillation Hospitalists E11.9 Type 2 diabetes mellitus without complications I10 Essential (primary) hypertension E78.5 Hyperlipidemia, unspecified Office Visit 11/24/2017 Neurosurgery Vassilios M48.062 Spinal stenosis, 11:30a Services Of Timoteo Ta MD lumbar region with neurogenic claudication Office Visit 10/30/2017 [facility] Michele Ruiz, I50.32 Chronic diastolic 11:40a Of [place] [facility] [place] [facility] (congestive) heart failure I48.0 Paroxysmal atrial fibrillation Z01.810 Encounter for preprocedural cardiovascular examination E66.8 Other obesity I10 Essential (primary) hypertension E78.5 Hyperlipidemia, unspecified F17.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, unspecified, in remission E11.9 Type 2 diabetes mellitus without complications Office Visit 10/22/2017 2:20p [facility] Michele Caal I48.0 Paroxysmal atrial Of Timoteo Ruiz DO fibrillation FAC I50.9 Heart failure, unspecified E66.8 Other obesity I10 Essential (primary) hypertension J45.998 Other asthma F17.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, unspecified, in remission E78.5 Hyperlipidemia, unspecified E11.9 Type 2 diabetes mellitus without complications Office 08/26/2017 Neurosurgery Vassilios M47.26 Other spondylosis Visit 9:00a Services Of Timoteo Ta MD with radiculopathy, lumbar region E66.8 Other obesity M48.061 Spinal stenosis, lumbar region without neurogenic trang Office 08/11/2017 Neurosurgery Vassilios M47.26 Other spondylosis Visit 11:30a Services Of Timoteo Ta MD with radiculopathy, lumbar region M54.5 Low back pain M48.061 Spinal stenosis, lumbar region without neurogenic trang Office Visit 07/20/2017 10:45a Pulmonology And Dayna J41.0 Simple chronic Sleep Services Of MD Nas bronchitis Director Financial Analysis J32.9 Chronic sinusitis, unspecified E66.01 Morbid (severe) obesity due to excess calories K21.0 Gastro-esophageal reflux disease with esophagitis Office Visit 06/04/2017 9:15a Pulmonology And Dayna J20.9 Acute bronchitis, Sleep Services Of MD Nas unspecified Director Financial Analysis J01.90 Acute sinusitis, unspecified R49.0 Dysphonia E66.01 Morbid (severe) obesity due to excess calories K21.0 Gastro-esophageal reflux disease with esophagitis Office Visit 06/01/2017 [facility] Alissa Jaeger J44.1 Chronic 11:10a Assoc,hayden Carias NP obstructive Hospitalists pulmonary disease w (acute) exacerbation I10 Essential (primary) hypertension E11.9 Type 2 diabetes mellitus without complications Z79.4 halfway (current) use of insulin Office Visit 05/31/2017 [facility] Alissa Jaeger J44.1 Chronic 11:08a Assoc,hayden Carias NP obstructive Hospitalists pulmonary disease w (acute) exacerbation E11.9 Type 2 diabetes mellitus without complications I10 Essential (primary) hypertension Z79.4 intermediate project manager (current) use of insulin Office Visit 05/30/2017 [facility] J44.1 Chronic 11:08a Markosochayden LEAD TELLER obstructive Hospitalists pulmonary disease w (acute) exacerbation E11.9 Type 2 diabetes mellitus without complications I10 Essential (primary) hypertension Z79.4 intermediate project manager (current) use of insulin Office Visit 05/29/2017 [facility] J44.1 Chronic 11:07a hayden Edouard, LEAD TELLER obstructive Hospitalists pulmonary disease w (acute) exacerbation E11.9 Type 2 diabetes mellitus without complications I10 Essential (primary) hypertension Z79.4 halfway (current) use of insulin Office Visit 05/28/2017 [facility] J44.1 Chronic 11:06a Assochayden, obstructive Hospitalists LEAD TELLER pulmonary disease w (acute) exacerbation E11.9 Type 2 diabetes mellitus without complications I10 Essential (primary) hypertension Z79.4 halfway (current) use of insulin Office Visit 05/26/2017 7:00a Pulmonology And Sleep Dayna Lovell MD R05 Cough [facility] Of [facility] J20.9 Acute bronchitis, unspecified K21.0 Gastro-esophageal reflux disease with esophagitis E66.01 Morbid (severe) obesity due to excess calories J01.10 Acute frontal sinusitis, unspecified Plan of Treatment Future Appointment(s):05/31/2018 3:00 pm - Salma Ta MD at Neurosurgery Services [facility]07/21/2018 9:15 am - Dayna Lovell MD at Pulmonology And Sleep [facility]04/02/2018 - Salma Ta, MDM48.062 Spinal stenosis, lumbar region with neurogenic claudicationNew Therapy :Physical TherapyReferral:Alissa Joseph MD, Surgery,Ortho Adult ReconFollow up: RV in 2 months
--- NOTE | 2018-04-26 14:21 | UC ---
Respiratory Complaint HPI - HPI Summary HPI Summary: 67-year-old male whose had upper respiratory tract infection symptoms for 5 days now. Does have a little bit of runny nose and slight sore throat primarily he's got chest congestion feel short of breath. His rhinorrhea is thick and creamy. Patient reports a year ago he was ill and he got admitted for similar illness. He has been using an albuterol inhaler at home which does help with the breathing. Denies any pedal edema denies any chest pain. - History of Current Complaint Chief Complaint: UCRespiratory Stated Complaint: FLU LIKE SYMPTOMS Time Seen by Provider: 04/26/18 14:08 Pain Intensity: 3 - Allergies/Home Medications Allergies/Adverse Reactions: Allergies Allergy/AdvReac Type Severity Reaction Status Date / Time acetaminophen [From [place]] Allergy Severe Rash And Verified 04/26/18 14:01 Itching hydrocodone [From [place]] Allergy Severe Rash And Verified 04/26/18 14:01 Itching metoprolol Allergy DIFFICULTY Verified 04/26/18 14:01 BREATHING, RASH, FEET SWELLING Home Medications: Home Medications Semaglutide [Ozempic] 0.5 mg SQ WEEKLY 04/26/18 [History Confirmed 04/26/18] Zinc 50 mg PO ONCE PRN 04/26/18 [History Confirmed 04/26/18] PMH/Surg Hx/FS Hx/Imm Hx Previously Healthy: Yes Endocrine History: Diabetes, Dyslipidemia Cardiovascular History: Hypertension Respiratory History: COPD - Surgical History Surgical History: Yes Surgery Procedure, Year, and Place: 2 LOWER BACK SURGERIES [place] 2013/ 2014. HEART ABLASION [place] 2016. WATCHMAN FILTER (ATRIAL APPENDAGE CLOSURE DEVICE) PLACED 09/10/16- PER MRI SAFETY- CONDITIONAL 6- 3T OR LESS, MAX SPATIAL GRADIENT OF 720 GAUSS/CM. RIGHT KNEE [place] 2001. LSP SURGERY 2017 [facility] [place] - Family History Known Family History: Positive: Other Family History: Father: malignant neoplasm of respiratory system. Mother: Malignant tumor of lung - Social History Alcohol Use: Occasionally Alcohol Amount: 1 DRINK PER MONTH Substance Use Type: None Smoking Status (MU): Former Smoker Type: Cigarettes Amount Used/How Often: 1 PPD FOR 25 YRS Length of Time of Smoking/Using Tobacco: 25 YRS Have You Smoked in the Last Year: No When Did the Patient Quit Smoking/Using Tobacco: 1989 - Immunization History Most Recent Influenza Vaccination: two years ago Most Recent Pneumonia Vaccination: 10/19/15 Review of Systems All Other Systems Reviewed And Are Negative: Yes Constitutional: Positive: Negative Skin: Positive: Negative Eyes: Positive: Negative ENT: Positive: Sore Throat, Nasal Discharge, Sinus Congestion Respiratory: Positive: Shortness Of Breath, Cough, Other Cardiovascular: Positive: Negative Gastrointestinal: Positive: Negative Motor: Positive: Negative Neurovascular: Positive: Negative Musculoskeletal: Positive: Negative. Negative: Calf Tenderness, Edema Neurological: Positive: Negative Psychological: Positive: Negative Is Patient Immunocompromised?: No Physical Exam Triage Information Reviewed: Yes Appearance: No Pain Distress, Well-Nourished, Ill-Appearing - MILD Vital Signs: Initial Vital Signs Temp 97.3 F 04/26/18 13:55 Pulse 108 04/26/18 13:55 Resp 28 04/26/18 13:55 BP 137/73 04/26/18 13:55 Pulse Ox 94 04/26/18 13:55 Vital Signs Reviewed: Yes Eye Exam: Normal Eyes: Positive: Conjunctiva Clear ENT: Positive: Pharynx normal, Nasal congestion, Nasal drainage, TMs normal Neck exam: Normal Neck: Positive: Supple, Nontender Respiratory Exam: Normal Respiratory: Positive: Lungs clear, Normal breath sounds, No respiratory distress Cardiovascular: Positive: RRR Musculoskeletal Exam: Normal Musculoskeletal: Positive: Strength Intact, ROM Intact Neurological Exam: Normal Neurological: Positive: Alert, Muscle Tone Normal Psychological Exam: Normal Psychological: Positive: Age Appropriate Behavior Skin Exam: Normal UC Diagnostic Evaluation - Laboratory O2 Sat by Pulse Oximetry: 94 - EKG Cardiac Rate: Tachycardia - AT 1434 Cardiac Rhythm: AFib: Normal - 132BPM Ectopy: None ST Segment: Normal Respiratory Course/Dx - Course Course Of Treatment: Patient Name: JENNI HERNANDEZ Medical Record#: [id number]. Ordering Physician: Oscar Lares MD Acct.#: [id number]. : 1950 Age: 67 Sex: M Location: [facility]. Exam Date: 02/01 ADM Status: REG ER. Order Information: CHEST PA LAT 2 VWS. Accession Number: [id number]. CPT: 67229. INDICATION: Shortness of breath. COMPARISON: Most recent comparison chest x-rays dated October 08, 2017. TECHNIQUE : PA and lateral views of the chest were obtained. FINDINGS: The heart and mediastinum are normal in size and contour. There is a surgical device. overlying the expected location of the atrial septum, presumably an atrial septal defect. plug. There is mildly increased diffuse density overlying both lungs that appears worse when. compared to the most recent chest x-ray. There is no focal or lobar consolidation. The. costophrenic angles are adequately defined. Visualized bones are normal for the patient's age. There is no radiographic evidence of free air beneath the diaphragm. IMPRESSION: VAGUELY INCREASED DENSITY OVERLYING THE BILATERAL LUNG PARENCHYMA COULD BE DUE TO. PULMONARY EDEMA OR VIRAL PNEUMONIA DEPENDING ON THE PATIENT'S CLINICAL PRESENTATION. . < Electronically signed by Eder Agarwal MD in OV> 04/26/18 7243. I discussed the x-ray report and EKG with the patient. Upon arrival patient's O2 sat was 95% on room air. He was slightly tachycardic. Chest x-ray shows the possibility of pneumonia versus congestive heart failure. On the EKGs heart rate was 132 bpm. Recheck of oxygen saturation was 92-93%. I recommended further evaluation and treatment in the emergency department. Discussed transport by ambulance. Patient preferred to go by POV. His is going to give him a ride to the hospital. - Differential Dx/Diagnosis Provider Diagnosis: Shortness of breath, Rapid atrial fibrillation, COPD (chronic obstructive pulmonary disease) Discharge - Sign-Out/Discharge Documenting (check all that apply): Patient Departure All imaging exams completed and their final reports reviewed: Yes - Discharge Plan Condition: Stable Disposition: HOME-RECOMMEND TO ED Patient Education Materials: A-fib (Atrial Fibrillation) (ED), COPD (Chronic Obstructive Pulmonary Disease) (ED), Shortness of Breath (ED) Referrals: Savage Oates MD [Primary Care Provider] - Additional Instructions: GO DIRECTLY TO THE EMERGENCY DEPARTMENT FOR FURTHER EVALUATION. - Billing Disposition and Condition Condition: STABLE Disposition: Home-Recommend to ED
[2018-04-26 14:24] LABS: Influenza A Molecular NEGATIVE (Negative); Influenza B Molecular NEGATIVE (Negative)
[2018-04-26 15:05] VITALS: BP 117/84
== END 2018-04-26 15:38 | disposition home health service (06) ==
LOC: UCEAST 13:43
DX: R06.02 Shortness of breath (principal); I48.91 Unspecified atrial fibrillation; J44.9 Chronic obstructive pulmonary disease, unspecified; E11.9 Type 2 diabetes mellitus without complications; I10 Essential (primary) hypertension; Z88.8 Allergy status to other drugs, medicaments and biological substances; Z87.891 Personal history of nicotine dependence; Z88.5 Allergy status to narcotic agent; Z79.899 Other long term (current) drug therapy; Z79.51 Long term (current) use of inhaled steroids
CPT/HCPCS: 71046; 93005; 99212; G0463

== ENCOUNTER 2018-04-26 16:02 | Inpatient (IN) | payer MEDICARE, OTHER ==
--- NOTE | 2018-04-26 16:48 | ED ---
Shortness of Breath - HPI Summary HPI Summary: Pt is a 67 y/o M presenting to the ED with a chief complaint of shortness of breath and cough onset 04/21/18. [facility], they gave him a breathing treatment which helped for a couple of hours, and they sent him here for his heart rate. Pt has a hx of a-fib with cardiac ablation surgery in the past, and is hypertensive and on medication for that. - History of Current Complaint Chief Complaint: EDChestPainROMI Time Seen by Provider: 04/26/18 16:30 Hx Obtained From: Patient Onset/Duration: Sudden Onset, Lasting Hours, Still Present Timing: Constant Current Severity: Moderate Dyspnea At: Orthopena Aggrevating Factors: Movement Alleviating Factors: Bronchodilators Associated Signs & Symptoms: Cough (Nonproductive), Edema Related History: Obesity - Allergy/Home Medications Allergies/Adverse Reactions: Allergies Allergy/AdvReac Type Severity Reaction Status Date / Time hydrocodone [From [place]] Allergy Severe Rash And Verified 04/26/18 16:19 Itching metoprolol Allergy DIFFICULTY Verified 04/26/18 16:19 BREATHING, RASH, FEET SWELLING PMH/Surg Hx/FS Hx/Imm Hx Previously Healthy: No Endocrine/Hematology History: Reports: Hx Diabetes, Hx Thyroid Disease Denies: Hx Bone Marrow Disease, Hx Sickle Cell Disease, Hx Anemia Cardiovascular History: Reports: Hx Hypercholesterolemia, Hx Hypertension, Other Cardiovascular Problems/Disorders - HX OF A-FIB, CARDIAC ABLATION 2016, FOLLOWED BY DR IBARRA Denies: Hx Pacemaker/ICD Respiratory History: Reports: Hx Asthma - when little and then went away, Other Respiratory Problems/Disorders - PT HAD VIRAL INFECTION IN LUNGS IN 2004 Denies: Hx Chronic Obstructive Pulmonary Disease (COPD) - never told copd or emphysema GI History: Reports: Hx Gastroesophageal Reflux Disease, Other GI Disorders - OBESITY History: Reports: Hx Benign Prostatic Hyperplasia Denies: Hx Renal Disease Musculoskeletal History: Reports: Hx Back Problems, Other Musculoskeletal History - SPONDYLOSIS WITH RADICULOPATHY, CHRONIC LUMBAR PAIN Denies: Hx Scoliosis Sensory History: Reports: Hx Contacts or Glasses Denies: Hx Cataracts, Hx Glaucoma, Hx Hearing Aid Opthamlomology History: Reports: Hx Contacts or Glasses Denies: Hx Cataracts, Hx Glaucoma Neurological History: Reports: Other Neuro Impairments/Disorders - PAIN CLINIC PT Psychiatric History: Denies: Hx Panic Disorder - Cancer History Cancer Type, 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 HEART ABLASION [place] 2016. WATCHMAN FILTER (ATRIAL APPENDAGE CLOSURE DEVICE) PLACED 09/10/16- PER MRI SAFETY- CONDITIONAL 6- 3T OR LESS, MAX SPATIAL GRADIENT OF 720 GAUSS/CM. RIGHT KNEE [place] 2001. LSP SURGERY 2017 [facility] Hx Anesthesia Reactions: No Infectious Disease History: No Infectious Disease History: Denies: Traveled Outside the [place] in Last 30 Days - Family History Known Family History: Positive: Other Family History: Father: malignant neoplasm of respiratory system. Mother: Malignant tumor of lung - Social History Alcohol Use: Occasionally Alcohol Amount: 1 DRINK PER MONTH Hx Substance Use: No Substance Use Type: Reports: None Hx Tobacco Use: Yes Smoking Status (MU): Former Smoker Type: Cigarettes Amount Used/How Often: 1 PPD FOR 25 YRS Length of Time of Smoking/Using Tobacco: 25 YRS Have You Smoked in the Last Year: No Review of Systems Negative: Fever Positive: Shortness Of Breath, Cough All Other Systems Reviewed And Are Negative: Yes Physical Exam - Summary Physical Exam Summary: Appearance: The patient is obese, in no acute distress and in no acute pain. Skin: The skin is warm and dry and skin color reflects adequate perfusion. HEENT: The head is normocephalic and atraumatic. The pupils are equal and reactive. The conjunctivae are clear and without drainage. Nares are patent and without drainage. Mouth reveals moist mucous membranes and the throat is without erythema and exudate. The external ears are intact. The ear canals are patent and without drainage. The tympanic membranes are intact. Neck: The neck is supple with full range of motion and non-tender. There are no carotid bruits. There is no neck vein distension. Respiratory: Chest is non-tender. There are crackles way up on the R lung and way up on the L lung. Cardiovascular: Heart is regularly irregular. There is no murmur or rub auscultated. There is no peripheral edema and pulses are symmetrical and equal. Abdomen: The abdomen is soft and non-tender. There are normal bowel sounds heard in all four quadrants and there is no organomegaly palpated. Musculoskeletal: There is no back tenderness noted. Extremities are non-tender with full range of motion. There is good capillary refill. There is pitting edema bilaterally. Neurological: Patient is alert and oriented to person, place and time. The patient has symmetrical motor strength in all four extremities. Cranial nerves are grossly intact. Deep tendon reflexes are symmetrical and equal in all four extremities. Psychiatric: The patient has an appropriate affect and does not exhibit any anxiety or depression. Triage Information Reviewed: Yes Vital Signs On Initial Exam: Initial Vitals Temp Pulse Resp BP Pulse Ox 98.2 F 105 18 154/127 93 04/26/18 16:15 04/26/18 16:15 04/26/18 16:15 04/26/18 16:15 04/26/18 16:15 Vital Signs Reviewed: Yes Diagnostics - Vital Signs Vital Signs Temp Pulse Resp BP Pulse Ox 04/26/18 16:25 103 94 04/26/18 16:15 98.2 F 105 18 154/127 93 - Laboratory Result Diagrams: 04/26/18 17:19 04/26/18 17:19 Lab Statement: Any lab studies that have been ordered have been reviewed, and results considered in the medical decision making process. - EKG 1623 Cardiac Rate: Tachycardia - 113 EKG Rhythm: Atrial Fibrillation ST Segment: Normal Ectopy: None Summary of EKG Findings: Atrial fibrillation with RVR. Course/Dx - Course Course Of Treatment: Mr. Francisco went to the community health care today with a concern for shortness of breath. He has been gradually finding it harder to exert himself or lie flat. He also has increased peripheral edema although this varies for him. Chest x-ray was obtained there and read as viral pneumonia versus mild pulmonary edema. Influenza swab was negative. He was sent over to the emergency department and we placed him on a monitor and obtained in the ECG. Labs revealed a mild leukocytosis with a normal troponin and BNP. I asked the hospitalist to evaluate him for admission. He technically met the criteria for sepsis when his white blood cell count returned at 12.5 and he was very slightly tachycardic. I was concerned that we' re dealing with congestive heart failure at that point and was reticent to give him too much fluid too fast. - Diagnoses Provider Diagnoses: Pneumonia, Sepsis Discharge - Sign-Out/Discharge Documenting (check all that apply): Patient Departure - Discharge Plan Condition: Stable Disposition: ADMITTED TO [facility] - Billing Disposition and Condition Condition: STABLE Disposition: Admitted to [facility] - Attestation Statements Document Initiated by Scribe: Yes Documenting Scribe: Barbara Hair Provider For Whom Amalia is Documenting (Include Credential): Spencer Parra MD. Scribe Attestation: Barbara Garcia, scribed for Spencer Parra MD. on 04/26/18 at 2130. Scribe Documentation Reviewed: Yes Provider Attestation: The documentation as recorded by the scribe, Barbara Hair accurately reflects the service I personally performed and the decisions made by me, Spencer Parra MD. Status of Scribe Document: Viewed
[2018-04-26 17:32] LABS: ABS Basophils 0.1 10^3/ul (0-0.2); ABS Eosinophils 0.3 10^3/ul (0-0.6); ABS Lymphocytes 2.3 10^3/ul (1.0-4.8); ABS Monocytes 0.9 10^3/ul (0-0.8); ABS Nucleated RBC 0 10^3/ul; Hematocrit 43 % (42-52); Hemoglobin 14.2 g/dl (14.0-18.0); Lymphocyte % 18.1 %; Mean Corpuscular HGB Conc 33 g/dl (31-36); Mean Corpuscular Hemoglobin 29 pg (27-31); Mean Corpuscular Volume 87 fL (80-94); Nucleated Red Blood Cells % 0; Platelet Count 198 10^3/ul (150-450); Red Blood Count 4.93 10^6/ul (4.00-5.40); Red Cell Distribution Width 15 % (10.5-15); White Blood Count 12.5 10^3/ul (3.5-10.8)
[2018-04-26 17:39] LABS: INR 1.11 (0.77-1.02)
[2018-04-26 17:56] LABS: Albumin 3.8 g/dL (3.2-5.2); Albumin/Globulin Ratio 1.4 (1-3); C Reactive Protein 47.24 mg/L (<8.01); EGFR African American 90.2 (>60); EGFR Non-African American 74.5 (>60); Globulin 2.7 g/dL (2-4); Potassium 4.1 mmol/L (3.5-5.0); Total Bilirubin 0.5 mg/dL (0.2-1.0); Total Protein 6.5 g/dL (6.4-8.9)
[2018-04-26] MEDS ORDERED: Levofloxacin 750 MG IVPREMIX(* 750 MG/150 ML BAG IVPB ONE (18:21)
[2018-04-26] MEDS: NS 0.9% 1000 ML** 2,000 ML IV ONE (18:30)
[2018-04-26] MEDS ORDERED: Azithromycin IV(*) 500 MG in NS 0.9% 250 ML* 250 ML IVPB ONE (19:44)
[2018-04-26] MEDS ORDERED: Albuterol 2.5 MG/3 ML NEB.SOL* (0.083%) INH PRN (19:49)
[2018-04-26] MEDS ORDERED: Albuterol/Ipratropium NEB.SOL* Albuterol 2.5 MG/Ipratropium 0.5 MG 3 ML INH SCH (20:00)
[2018-04-26] MEDS ORDERED: Dextrose 50% Syringe 50 ML* 25 GM/50 ML SYRINGE IV PUSH PRN (20:03)
[2018-04-26] MEDS ORDERED: Iodixanol* (CONTRAST) 320 MG/ML 100 ML SDV IV ONE (20:14)
--- NOTE | 2018-04-26 22:07 | HP ---
ADMITTING HISTORY AND PHYSICAL: DATE OF ADMISSION: 04/26/18 CHIEF COMPLAINT: Shortness of breath and cough since 04/21/18. HISTORY OF PRESENT ILLNESS: The patient is a 67-year-old gentleman with history of hypertension, AFib with history of cardiac ablation back in 2016 , status post Watchman filter placement as well diabetes, who had been having some shortness of breath and coughing since 04/21/18. He also relates a history of waking up in the middle of the night while he is asleep and nebulizes himself frequently and then goes right back to sleep with 1 pillow. He also complains of some dyspnea on exertion during this time. Persistence of his signs and symptoms led to his presentation at Urgent Care today at around 2 p.m. where they performed chest x-ray and performed a rapid flu screen. The flu screen was found to be negative and the chest x-ray showed some possibility of pneumonia versus congestion. Given this and his sinus tachycardia on EKG, he was advised to go to the ER and hence this presentation. PAST MEDICAL AND SURGICAL HISTORY: 1. Hypertension. 2. AFib with ablation, status post Watchman filter placement. 3. Insulin-dependent diabetes mellitus. 4. Hypothyroidism. 5. Hyperlipidemia. 6. COPD. 7. Status post lumbar laminectomy in 2012 as well as last year at the level of L3 and L4. 8. Lumbar I and D, evacuation of hematoma in 2014. 9. Sinus surgery. MEDICATIONS: His home medications are as follows: 1. Fluticasone nasal spray. 2. Tadalafil. 3. Ozempic. 4. Insulin detemir. 5. Omeprazole. 6. Levothyroxine. 7. Atorvastatin. 8. Atenolol. ALLERGIES: He mentions that he actually does not have allergies to Tylenol/ acetaminophen, but he does have allergies to NORCO and its HYDROCODONE COMPONENT. FAMILY HISTORY: He mentions that his paternal aunt had history of colon cancer. His father had history of lung cancer and his mother had history of pancreatic cancer. SOCIAL HISTORY: The patient has a remote history of smoking. He quit back in and smoked approximately 20 years. 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 He is currently retired, lives at home with his and denies any history of alcohol or drug abuse. REVIEW OF SYSTEMS: The patient mentions that he felt more colder than usual during the past few days. Denied any documented nor subjective fever, but does complain of some sputum production, slightly greenish in color for the last 5 days. Mentions that he has had 2 grandsons, ages 10 and 14 that recently went to the doctor and was diagnosed with "cold." Mentions some arthralgias, but not severe and no myalgias. He denied any headaches, dizziness, nausea, vomiting, chest pain, abdominal pain, diarrhea, constipation, pain and/or increased frequency of urination. The rest of the 14-point review of systems is otherwise unremarkable other than what is described above. PHYSICAL EXAMINATION VITAL SIGNS: Shows the most recent vital signs of records with blood pressure of 132/88, 110 per minute heart rate from previous of 99, 24 per minute respiratory rate from 23 and 19, saturating at 94% on room air. GENERAL APPEARANCE: The patient is awake, alert, and oriented x3, not in acute distress during my visit. NECK: Soft, supple with no cervical lymphadenopathy. Difficult to assess JVD given his obesity as this goes for hepatojugular reflux as well. CHEST: Clear to auscultation bilaterally. I could not appreciate any wheezes, rales, or rhonchi at this point. HEART: S1, S2, slightly tachycardic. No murmurs, rubs, or gallops. ABDOMEN: Soft, nondistended, nontender. Normoactive bowel sounds x4 quadrants. EXTREMITIES: No cyanosis, clubbing with 1 to 2+ bilateral lower extremity edema , which mentions is chronic and usually happens at the end of the day. LABORATORY DATA: Most recent and pertinent laboratories drawn showed CBC with a WBC of 12.5, H and H of 14.2 and 43, platelets of 198. Sodium and potassium were found to be normal. BUN and creatinine were normal. Lactic acid is normal. Troponin is normal. CRP of 47.24. BNP of 30. ASSESSMENT AND PLAN: The patient is a 67-year-old gentleman with a history of diabetes mellitus; AFib, status post Watchman filter, not on any anticoagulation; as well as COPD, being admitted for shortness of breath, likely secondary to community-acquired pneumonia. 1. Shortness of breath, likely secondary to community-acquired pneumonia. I agree that it is very difficult to diagnose him with CHF given his body habitus and symptoms that are common with both pneumonia and CHF. However, given his BNP is normal at 30 as well as a history of coughing and sputum production with yellowish sputum and on my review of the chest x-ray, it appears that he might have bilateral bibasal infiltrates that it is more consistent with pneumonia. However, I cannot exclude mild CHF at this point. He does have some lower extremity edema which the mentions to be chronic. So, at this point, we will order a CT angio of the chest given he was tachycardic when he came in and not on anticoagulation, to rule out PE and to better evaluate his lung parenchyma as well and lung volume status. At this point, I will stop the bolus of IV fluids given in the ER given the vascular congestion that was shown in chest x-ray. I have signed out with Dr. Patel to check CT angio of the chest. We will place the patient on Rocephin and azithromycin and we will await cultures drawn in the ER. 2. Diabetes mellitus. We will hold off Ozempic, continue insulin detemir, and we will place the patient on insulin sliding scale. We will place the patient on heart healthy consistent carbohydrate diet and we will continue watchful waiting. 3. Atrial fibrillation. Continue atenolol. The patient as mentioned has a Watchman filter. 4. Hypothyroidism. Continue levothyroxine. We will check TSH in a.m. 5. DVT prophylaxis. We will place the patient on heparin subcu; CT angio as mentioned is pending to rule out PE. DISPOSITION: As above. [id number]/[facility] #: [id number] ERINN
[2018-04-26] MEDS: Insulin LISPRO* 1 UNITS UNIT SUBCUT SCH (23:08)
[2018-04-26] MEDS: Albuterol/Ipratropium NEB.SOL* Albuterol 2.5 MG/Ipratropium 0.5 MG 3 ML INH SCH (23:15)
[2018-04-26] MEDS: Heparin VIAL(*) 5000 UNITS/ML VIAL (FIVE THOUSAND) SUBCUT SCH (23:17)
[2018-04-26] MEDS: Insulin GLARGINE(*) 1 UNITS UNIT SUBCUT SCH (23:17)
[2018-04-26] MEDS: cefTRIAXone(*) 1 GM in NS 0.9% 50 ML* 50 ML IVPB SCH (23:26)
[2018-04-27] MEDS ORDERED: Atenolol TAB* 25 MG PO ONE (00:02)
[2018-04-27] MEDS: Acetylcysteine CAP (RENAL)* 600 MG PO SCH ×2 (00:28→09:03)
[2018-04-27] MEDS ORDERED: Diltiazem IV* 5 MG/ML 5 ML VIAL (for loading dose/IV Push) (25 MG) IV SLOW PU ONE (01:01)
[2018-04-27] MEDS: Albuterol/Ipratropium NEB.SOL* Albuterol 2.5 MG/Ipratropium 0.5 MG 3 ML INH SCH ×3 (01:22→12:32)
[2018-04-27] MEDS ORDERED: Diltiazem IV VIAL* 125 MG in NS 0.9% 100 ML* 100 ML IV SCH ×4 (02:00→18:00)
--- NOTE | 2018-04-27 04:57 | PN ---
Hospitalist Progress Note Date of Service: 04/27/18 Patient was having atrial fibrillation with RVR, extra dose of atenolol given, 10mg IV cardizem given and then started on cardizem drip.
[2018-04-27] MEDS: Levothyroxine TAB* 100 MCG TAB PO SCH (06:02)
[2018-04-27] MEDS: Heparin VIAL(*) 5000 UNITS/ML VIAL (FIVE THOUSAND) SUBCUT SCH ×3 (06:03→21:36)
[2018-04-27 06:52] LABS: Albumin 3.6 g/dL (3.2-5.2); Magnesium 1.7 mg/dL (1.9-2.7); Potassium 4.2 mmol/L (3.5-5.0); Total Bilirubin 0.8 mg/dL (0.2-1.0)
[2018-04-27 06:58] LABS: Albumin/Globulin Ratio 1.3 (1-3); BUN/Creatinine Ratio 18.9 (8-20); EGFR African American 95.7 (>60); EGFR Non-African American 79.1 (>60); Globulin 2.8 g/dL (2-4); Phosphorus 3.6 mg/dL (2.5-5.0); Total Protein 6.4 g/dL (6.4-8.9)
[2018-04-27 07:04] LABS: ABS Basophils 0 10^3/ul (0-0.2); ABS Eosinophils 0.2 10^3/ul (0-0.6); ABS Lymphocytes 1.8 10^3/ul (1.0-4.8); ABS Monocytes 0.9 10^3/ul (0-0.8); ABS Neutrophils 9.5 10^3/ul (1.5-7.7); ABS Nucleated RBC 0 10^3/ul; Eosinophil % 1.7 %; Hematocrit 40 % (42-52); Hemoglobin 13.4 g/dl (14.0-18.0); Lymphocyte % 14.3 %; Mean Corpuscular HGB Conc 34 g/dl (31-36); Mean Corpuscular Hemoglobin 29 pg (27-31); Mean Corpuscular Volume 86 fL (80-94); Mean Platelet Volume 10.4 fL (7.4-10.4); Nucleated Red Blood Cells % 0; Platelet Count 165 10^3/ul (150-450); Red Blood Count 4.59 10^6/ul (4.00-5.40); Red Cell Distribution Width 15 % (10.5-15); White Blood Count 12.5 10^3/ul (3.5-10.8)
[2018-04-27 07:18] LABS: TSH (Thyroid Stimulating Horm) 1.7 mcIU/mL (0.34-5.60)
[2018-04-27] MEDS: Insulin LISPRO* 1 UNITS UNIT SUBCUT SCH ×4 (09:03→21:35)
[2018-04-27] MEDS: Azithromycin IV(*) 250 MG in NS 0.9% 250 ML* 250 ML IVPB SCH (09:03)
[2018-04-27] MEDS: Fluticasone NASAL SPRAY 50MCG* 16 gm SPRAY BTL BOTH NARES SCH (09:03)
[2018-04-27] MEDS: Insulin GLARGINE(*) 1 UNITS UNIT SUBCUT SCH ×2 (09:04→21:37)
[2018-04-27] MEDS: Atenolol TAB* 25 MG PO SCH (09:04)
[2018-04-27] MEDS ORDERED: Magnesium Sulfate 2 GM IV* 2 GM/50 ML BAG IVPB ONE (10:12)
[2018-04-27] MEDS: Diltiazem TAB* 30 MG PO SCH (16:31)
[2018-04-27] MEDS: Atorvastatin* 80 MG TAB PO SCH (16:31)
[2018-04-27] MEDS: Pantoprazole TAB * 40 MG TAB PO SCH (16:31)
--- NOTE | 2018-04-27 18:11 | PN ---
Subjective Date of Service: 04/27/18 Interval History: HOSPITALIST PROGRESS NOTE Patient seen and examined at bedside. Care reviewed and d/w Yanci Matthews RN. He feels a little better today. Very tired as he could not sleep last night due to his room mate (delirious patient). Feels SOB with exertion. Denies CP or palpitations. Dry cough persists. Family History: Unchanged from Admission Social History: Unchanged from Admission Past Medical History: Unchanged from Admission Objective Active Medications: Acetylcysteine (Acetylcysteine Cap (Renal)*) 1,200 mg PO BID [facility] Stop: 04/28/18 09:01 Last Admin: 04/27/18 09:03 Dose: 1,200 mg Albuterol (Ventolin 2.5 Mg/3 Ml Neb.Liliana*) 2.5 mg INH Q2H PRN PRN Reason: SOB/WHEEZING Atenolol (Tenormin Tab*) 12.5 mg PO QAM [facility] Last Admin: 04/27/18 09:04 Dose: 12.5 mg Atorvastatin Calcium (Lipitor*) 80 mg PO QPM [facility] Last Admin: 04/27/18 16:31 Dose: 80 mg Dextrose (D50w Syringe 50 Ml*) 12.5 gm IV PUSH .FOR FS < 60 - SS PRN PRN Reason: FS < 60 Diltiazem HCl (Cardizem Tab*) 30 mg PO Q6HR [facility] Last Admin: 04/27/18 16:31 Dose: 30 mg Fluticasone Propionate (Flonase Nasal [place] 50mcg*) 2 spray BOTH NARES DAILY [facility] Last Admin: 04/27/18 09:03 Dose: 2 spray Heparin Sodium (Porcine) (Heparin Vial(*)) 5,000 units SUBCUT Q8HR [facility] Last Admin: 04/27/18 13:04 Dose: 5,000 units Ceftriaxone Sodium 1 gm/ (Sodium Chloride) 50 mls @ 200 mls/hr IVPB Q24H [facility] Last Admin: 04/26/18 23:26 Dose: 200 mls/hr Azithromycin 250 mg/ Sodium (Chloride) 250 mls @ 250 mls/hr IVPB Q24H [facility] Stop: 05/01/18 08:59 Last Admin: 04/27/18 09:03 Dose: 250 mls/hr Diltiazem HCl 125 mg/ Sodium (Chloride) 125 mls @ 2.5 mls/hr IV Q24H [facility]; Protocol Last Admin: 04/27/18 17:47 Dose: 2.5 mls/hr Insulin Glargine (Lantus(*)) 8 units SUBCUT BID [facility] Last Admin: 04/27/18 09:04 Dose: 8 units Insulin Human Lispro (Humalog*) 0 units SUBCUT ACHS [facility]; Protocol Last Admin: 04/27/18 16:46 Dose: Not Given Levothyroxine Sodium (Synthroid Tab*) 100 mcg PO QAM@0600 [facility] Last Admin: 04/27/18 06:02 Dose: 100 mcg Pantoprazole Sodium (Protonix Tab*) 40 mg PO QPM [facility] Last Admin: 04/27/18 16:31 Dose: 40 mg Vital Signs - 8 hr 04/27/18 04/27/18 04/27/18 10:09 10:24 10:39 Temperature Pulse Rate Respiratory 25 23 26 Rate Blood Pressure 148/74 147/65 147/73 (mmHg) O2 Sat by Pulse Oximetry 04/27/18 04/27/18 04/27/18 11:00 11:09 11:14 Temperature Pulse Rate Respiratory 25 25 20 Rate Blood Pressure 139/76 127/69 (mmHg) O2 Sat by Pulse Oximetry 04/27/18 04/27/18 04/27/18 11:17 11:24 12:00 Temperature 98.0 F Pulse Rate 95 Respiratory 14 22 Rate Blood Pressure 112/60 (mmHg) O2 Sat by Pulse 98 Oximetry 04/27/18 04/27/18 04/27/18 12:09 12:30 12:39 Temperature Pulse Rate 77 Respiratory 24 18 40 Rate Blood Pressure 139/76 143/77 (mmHg) O2 Sat by Pulse 97 Oximetry 04/27/18 04/27/18 04/27/18 13:00 13:09 13:39 Temperature Pulse Rate Respiratory 18 24 22 Rate Blood Pressure 138/79 118/74 (mmHg) O2 Sat by Pulse Oximetry 04/27/18 04/27/18 04/27/18 14:00 14:09 15:00 Temperature Pulse Rate Respiratory 17 26 25 Rate Blood Pressure 106/62 (mmHg) O2 Sat by Pulse Oximetry 04/27/18 04/27/18 04/27/18 15:09 15:39 15:40 Temperature 98.5 F 97.1 F Pulse Rate Respiratory 9 24 Rate Blood Pressure 107/71 (mmHg) O2 Sat by Pulse Oximetry 04/27/18 04/27/18 04/27/18 15:45 16:00 16:14 Temperature Pulse Rate Respiratory 29 31 19 Rate Blood Pressure 116/95 124/65 (mmHg) O2 Sat by Pulse Oximetry 04/27/18 04/27/18 04/27/18 16:16 16:29 16:44 Temperature Pulse Rate Respiratory 23 30 15 Rate Blood Pressure 117/64 133/88 143/78 (mmHg) O2 Sat by Pulse Oximetry 04/27/18 04/27/18 16:59 17:00 Temperature Pulse Rate Respiratory 24 17 Rate Blood Pressure 132/80 (mmHg) O2 Sat by Pulse Oximetry Oxygen Devices in Use Now: None Appearance: Morbid obese gentleman lying in bed in NAD. Eyes: No Scleral Icterus Ears/Nose/Mouth/Throat: Mucous Membranes Moist Neck: Trachea Midline Respiratory: Symmetrical Chest Expansion and Respiratory Effort, - - BS+ bilaterally, coarse, no added sounds Cardiovascular: - - Normal S1 and S2, irregularly irregular Neurological: Alert and Oriented x 3, NL Muscle Strength and Tone Result Diagrams: 04/27/18 06:12 04/27/18 06:12 Assess/Plan/Problems-Billing Assessment: Mr Francisco is a 67yo M with PMH of morbid obesity with BMI 43, hypothyroidism, HTN, HLD, GERD, type 2 DM, GERD, type 2 DM, back pain/spinal stenosis, Afib s/p ablation and Watchman device in 2017, who presented to ED with c/o shortness of breath and cough, found to have community acquired pneumonia. - Patient Problems (1) Sepsis Comment: - Met sepsis criteria with tachycardia and leukocytosis. - Source is pneumonia. (2) Community acquired bacterial pneumonia Comment: - Flu test was negative, blood cultures show no growth. - Will check Legionella and pneumococcal Ag. - Continue Ceftriaxone and Zithromax. (3) Atrial fibrillation with RVR Comment: - Tachycardia in the setting of infection. - Titrate Cardizem drip and add PO Cardizem. - Anticoagulation not indicated as patient has Watchman device. - Continue Atenolol. (4) Hypomagnesemia Comment: - Replete. (5) Diabetes mellitus Comment: - Continue Lantus and Lispro SS. (6) Hypothyroid Comment: - Continue levothyroxine (7) DVT prophylaxis Comment: - SQ heparin. (8) Full code status Status and Disposition: Inpatient for management of Pneumonia and Afib RVR.
[2018-04-27] MEDS: cefTRIAXone(*) 1 GM in NS 0.9% 50 ML* 50 ML IVPB SCH (21:37)
[2018-04-27] MEDS: Acetaminophen TAB* 325 MG PO PRN (23:07)
[2018-04-28] MEDS: Diltiazem TAB* 30 MG PO SCH ×5 (00:56→23:58)
[2018-04-28] MEDS: Heparin VIAL(*) 5000 UNITS/ML VIAL (FIVE THOUSAND) SUBCUT SCH ×3 (05:42→22:07)
[2018-04-28] MEDS: Levothyroxine TAB* 100 MCG TAB PO SCH (05:48)
[2018-04-28 05:57] LABS: Calcium 9.1 mg/dL (8.6-10.3); Potassium 3.9 mmol/L (3.5-5.0)
[2018-04-28 06:02] LABS: BUN/Creatinine Ratio 20.4 (8-20); EGFR African American 87.2 (>60)
[2018-04-28] MEDS: Acetaminophen TAB* 325 MG PO PRN (08:59)
[2018-04-28] MEDS: Azithromycin IV(*) 250 MG in NS 0.9% 250 ML* 250 ML IVPB SCH (08:59)
[2018-04-28] MEDS: Atenolol TAB* 25 MG PO SCH (09:00)
[2018-04-28] MEDS: Insulin GLARGINE(*) 1 UNITS UNIT SUBCUT SCH (09:01)
[2018-04-28] MEDS: Insulin LISPRO* 1 UNITS UNIT SUBCUT SCH ×4 (09:01→20:42)
[2018-04-28] MEDS: Fluticasone NASAL SPRAY 50MCG* 16 gm SPRAY BTL BOTH NARES SCH (09:09)
[2018-04-28] MEDS: Atorvastatin* 80 MG TAB PO SCH (18:26)
[2018-04-28] MEDS: Pantoprazole TAB * 40 MG TAB PO SCH (18:26)
--- NOTE | 2018-04-28 19:17 | PN ---
Subjective Date of Service: 04/28/18 Interval History: HOSPITALIST PROGRESS NOTE Patient seen and examined at bedside. Care reviewed and d/w Yanci Matthews RN. He feels better today. Was able to rest last night. Still has dyspnea, especially with exertion, and dry cough. Family History: Unchanged from Admission Social History: Unchanged from Admission Past Medical History: Unchanged from Admission Objective Active Medications: Acetaminophen (Tylenol Tab*) 650 mg PO Q6H PRN PRN Reason: FEVER/PAIN Last Admin: 04/28/18 08:59 Dose: 650 mg Albuterol (Ventolin 2.5 Mg/3 Ml Neb.Liliana*) 2.5 mg INH Q2H PRN PRN Reason: SOB/WHEEZING Atenolol (Tenormin Tab*) 12.5 mg PO QAM [facility] Last Admin: 04/28/18 09:00 Dose: 12.5 mg Atorvastatin Calcium (Lipitor*) 80 mg PO QPM [facility] Last Admin: 04/28/18 18:26 Dose: 80 mg Dextrose (D50w Syringe 50 Ml*) 12.5 gm IV PUSH .FOR FS < 60 - SS PRN PRN Reason: FS < 60 Diltiazem HCl (Cardizem Tab*) 30 mg PO Q6HR [facility] Last Admin: 04/28/18 18:26 Dose: 30 mg Fluticasone Propionate (Flonase Nasal [place] 50mcg*) 2 spray BOTH NARES DAILY [facility] Last Admin: 04/28/18 09:09 Dose: 2 spray Heparin Sodium (Porcine) (Heparin Vial(*)) 5,000 units SUBCUT Q8HR [facility] Last Admin: 04/28/18 13:38 Dose: 5,000 units Ceftriaxone Sodium 1 gm/ (Sodium Chloride) 50 mls @ 200 mls/hr IVPB Q24H [facility] Last Admin: 04/27/18 21:37 Dose: 200 mls/hr Azithromycin 250 mg/ Sodium (Chloride) 250 mls @ 250 mls/hr IVPB Q24H [facility] Stop: 05/01/18 08:59 Last Admin: 04/28/18 08:59 Dose: 250 mls/hr Insulin Glargine (Lantus(*)) 5 units SUBCUT DAILY [facility] Insulin Human Lispro (Humalog*) 0 units SUBCUT ACHS [facility]; Protocol Last Admin: 04/28/18 16:31 Dose: Not Given Levothyroxine Sodium (Synthroid Tab*) 100 mcg PO QAM@0600 [facility] Last Admin: 04/28/18 05:48 Dose: 100 mcg Pantoprazole Sodium (Protonix Tab*) 40 mg PO QPM [facility] Last Admin: 04/28/18 18:26 Dose: 40 mg Vital Signs - 8 hr 04/28/18 04/28/18 11:51 15:21 Temperature 97.8 F 98.1 F Pulse Rate 101 97 Respiratory 24 18 Rate Blood Pressure 115/72 147/75 (mmHg) O2 Sat by Pulse 92 94 Oximetry Oxygen Devices in Use Now: None Appearance: Morbid obese gentleman sitting up in bed in NAD. Eyes: No Scleral Icterus Ears/Nose/Mouth/Throat: Mucous Membranes Moist Neck: Trachea Midline Respiratory: Symmetrical Chest Expansion and Respiratory Effort, - - BS+ bilaterally with faint crackles on the right Cardiovascular: - - Normal S1 and S2, irregularly irregular Neurological: Alert and Oriented x 3, NL Muscle Strength and Tone Result Diagrams: 04/27/18 06:12 04/28/18 05:26 Microbiology and Other Data: Microbiology 04/26/18 17:19 Aerobic Blood Culture - Preliminary Blood Venous No Growth Day 2 Anaerobic Blood Culture - Preliminary No Growth Day 2 04/26/18 17:19 Aerobic Blood Culture - Preliminary Blood Venous No Growth Day 2 Anaerobic Blood Culture - Preliminary No Growth Day 2 04/27/18 20:28 Legionella Urinary Antigen - Final Urine Negative Legionella Antigen Streptococcus pneumoniae Ag Screen - Final Negative S. pneumo Antigen Assess/Plan/Problems-Billing Assessment: Mr Francisco is a 67yo M with PMH of morbid obesity with BMI 43, hypothyroidism, HTN, HLD, GERD, type 2 DM, GERD, type 2 DM, back pain/spinal stenosis, Afib s/p ablation and Watchman device in 2017, who presented to ED with c/o shortness of breath and cough, found to have community acquired pneumonia. - Patient Problems (1) Sepsis Comment: - Met sepsis criteria with tachycardia and leukocytosis. - Source is pneumonia. (2) Community acquired bacterial pneumonia Comment: - Flu test was negative, blood cultures show no growth. - Legionella and pneumococcal Ag are negative. - Continue Ceftriaxone and Zithromax. (3) Atrial fibrillation with RVR Comment: - Tachycardia in the setting of infection. - Off Cardizem drip and continue PO Cardizem. - Anticoagulation not indicated as patient has Watchman device. - Continue Atenolol. (4) Diabetes mellitus Comment: - Continue Lantus and Lispro SS. (5) Hypothyroid Comment: - Continue levothyroxine (6) DVT prophylaxis Comment: - SQ heparin. (7) Full code status Status and Disposition: Inpatient for management of Pneumonia and Afib RVR.
[2018-04-28] MEDS: cefTRIAXone(*) 1 GM in NS 0.9% 50 ML* 50 ML IVPB SCH (22:04)
[2018-04-29] MEDS: Levothyroxine TAB* 100 MCG TAB PO SCH (06:09)
[2018-04-29] MEDS: Diltiazem TAB* 30 MG PO SCH (06:09)
[2018-04-29] MEDS: Heparin VIAL(*) 5000 UNITS/ML VIAL (FIVE THOUSAND) SUBCUT SCH ×3 (06:10→21:04)
[2018-04-29] MEDS ORDERED: Insulin GLARGINE(*) 1 UNITS UNIT SUBCUT SCH (09:00)
[2018-04-29] MEDS: Azithromycin IV(*) 250 MG in NS 0.9% 250 ML* 250 ML IVPB SCH (09:05)
[2018-04-29] MEDS: Atenolol TAB* 25 MG PO SCH (09:06)
[2018-04-29] MEDS: Insulin LISPRO* 1 UNITS UNIT SUBCUT SCH ×4 (09:06→21:05)
[2018-04-29] MEDS: Fluticasone NASAL SPRAY 50MCG* 16 gm SPRAY BTL BOTH NARES SCH (09:06)
[2018-04-29] MEDS: Diltiazem CD CAP* 120 MG PO SCH (09:06)
[2018-04-29] MEDS ORDERED: Benzocaine/Menthol LOZ* 1 LOZENGE MT PRN (12:31)
[2018-04-29] MEDS ORDERED: Benzonatate CAP* 100 MG PO PRN (12:31)
--- NOTE | 2018-04-29 16:43 | PN ---
Subjective Date of Service: 04/29/18 Interval History: HOSPITALIST PROGRESS NOTE Patient seen and examined at bedside. Care reviewed and d/w Jaqui Edgar RN. He feels better today. Still has some dyspnea with exertion, but less intense. Very tachycardic when walking on hallways, up to 140-150s. He's not aware of his tachycardia, state he "never was". Family History: Unchanged from Admission Social History: Unchanged from Admission Past Medical History: Unchanged from Admission Objective Active Medications: Acetaminophen (Tylenol Tab*) 650 mg PO Q6H PRN PRN Reason: FEVER/PAIN Last Admin: 04/28/18 08:59 Dose: 650 mg Albuterol (Ventolin 2.5 Mg/3 Ml Neb.Liliana*) 2.5 mg INH Q2H PRN PRN Reason: SOB/WHEEZING Atenolol (Tenormin Tab*) 12.5 mg PO QAM [facility] Last Admin: 04/29/18 09:06 Dose: 12.5 mg Atorvastatin Calcium (Lipitor*) 80 mg PO QPM [facility] Last Admin: 04/28/18 18:26 Dose: 80 mg Benzonatate (Tessalon Cap*) 100 mg PO TID PRN PRN Reason: COUGH Last Admin: 04/29/18 13:09 Dose: 100 mg Dextrose (D50w Syringe 50 Ml*) 12.5 gm IV PUSH .FOR FS < 60 - SS PRN PRN Reason: FS < 60 Diltiazem HCl (Cardizem Cd Cap*) 120 mg PO DAILY [facility] Last Admin: 04/29/18 09:06 Dose: 120 mg Fluticasone Propionate (Flonase Nasal [place] 50mcg*) 2 spray BOTH NARES DAILY [facility] Last Admin: 04/29/18 09:06 Dose: 2 spray Heparin Sodium (Porcine) (Heparin Vial(*)) 5,000 units SUBCUT Q8HR [facility] Last Admin: 04/29/18 13:09 Dose: 5,000 units Ceftriaxone Sodium 1 gm/ (Sodium Chloride) 50 mls @ 200 mls/hr IVPB Q24H [facility] Last Admin: 04/28/18 22:04 Dose: 200 mls/hr Azithromycin 250 mg/ Sodium (Chloride) 250 mls @ 250 mls/hr IVPB Q24H [facility] Stop: 05/01/18 08:59 Last Admin: 04/29/18 09:05 Dose: 250 mls/hr Insulin Human Lispro (Humalog*) 0 units SUBCUT ACHS [facility]; Protocol Last Admin: 04/29/18 12:00 Dose: Not Given Levothyroxine Sodium (Synthroid Tab*) 100 mcg PO QAM@0600 [facility] Last Admin: 04/29/18 06:09 Dose: 100 mcg Pantoprazole Sodium (Protonix Tab*) 40 mg PO QPM [facility] Last Admin: 04/28/18 18:26 Dose: 40 mg Throat Lozenges (Chloraseptic [place]*) 1 forrest MT Q4H PRN PRN Reason: COUGH Last Admin: 04/29/18 13:09 Dose: 1 forrest Vital Signs - 8 hr 04/29/18 04/29/18 11:44 15:12 Temperature 97.8 F 97.5 F Pulse Rate 94 84 Respiratory 16 18 Rate Blood Pressure 124/70 129/64 (mmHg) O2 Sat by Pulse 94 93 Oximetry Oxygen Devices in Use Now: None Appearance: Pleasant morbid obese gentleman sitting up in a chair in [facility]. Eyes: No Scleral Icterus Ears/Nose/Mouth/Throat: Mucous Membranes Moist Neck: Trachea Midline Respiratory: Symmetrical Chest Expansion and Respiratory Effort, Clear to Auscultation Cardiovascular: - - Normal S1 and S2, irregularly irregular Neurological: Alert and Oriented x 3, NL Muscle Strength and Tone Result Diagrams: 04/27/18 06:12 04/28/18 05:26 Assess/Plan/Problems-Billing Assessment: Mr Francisco is a 67yo M with PMH of morbid obesity with BMI 43, hypothyroidism, HTN, HLD, GERD, type 2 DM, GERD, type 2 DM, back pain/spinal stenosis, Afib s/p ablation and Watchman device in 2017, who presented to ED with c/o shortness of breath and cough, found to have community acquired pneumonia. - Patient Problems (1) Sepsis Comment: - Met sepsis criteria with tachycardia and leukocytosis. - Source is pneumonia. (2) Community acquired bacterial pneumonia Comment: - Flu test was negative, blood cultures show no growth. - Legionella and pneumococcal Ag are negative. - Continue Ceftriaxone and Zithromax. (3) Atrial fibrillation with RVR Comment: - Tachycardia in the setting of infection. - Off Cardizem drip and change PO Cardizem to long acting. - Anticoagulation not indicated as patient has Watchman device. - Continue Atenolol. (4) Diabetes mellitus Comment: - Continue Lantus and Lispro SS. (5) Hypothyroid Comment: - Continue levothyroxine (6) DVT prophylaxis Comment: - SQ heparin. (7) Full code status Status and Disposition: Inpatient for management of Pneumonia and Afib RVR. Anticipate d/c in AM if Afib controlled.
[2018-04-29] MEDS: Pantoprazole TAB * 40 MG TAB PO SCH (17:40)
[2018-04-29] MEDS: Atorvastatin* 80 MG TAB PO SCH (17:40)
[2018-04-29] MEDS: cefTRIAXone(*) 1 GM in NS 0.9% 50 ML* 50 ML IVPB SCH (21:06)
[2018-04-30] MEDS: Heparin VIAL(*) 5000 UNITS/ML VIAL (FIVE THOUSAND) SUBCUT SCH ×2 (05:46→14:17)
[2018-04-30] MEDS: Levothyroxine TAB* 100 MCG TAB PO SCH (05:46)
[2018-04-30] MEDS: Insulin LISPRO* 1 UNITS UNIT SUBCUT SCH ×2 (09:15→11:40)
[2018-04-30] MEDS: Atenolol TAB* 25 MG PO SCH (09:15)
[2018-04-30] MEDS: Azithromycin IV(*) 250 MG in NS 0.9% 250 ML* 250 ML IVPB SCH (09:15)
[2018-04-30] MEDS: Fluticasone NASAL SPRAY 50MCG* 16 gm SPRAY BTL BOTH NARES SCH (09:15)
[2018-04-30] MEDS: Diltiazem CD CAP* 120 MG PO SCH (09:15)
[2018-04-30 11:49] VITALS: BP 133/85
--- NOTE | 2018-05-01 00:07 | DS ---
CC: Dr. Oates; Dr. Ruiz DISCHARGE SUMMARY: DATE OF ADMISSION: 04/26/18 DATE OF DISCHARGE: 04/30/18 PRIMARY CARE PROVIDER: Dr. Oates. ATTENDING PATHOLOGIST: Dr. Ruiz. DISCHARGE DIAGNOSES: 1. Sepsis, present on admission. 2. Community-acquired pneumonia. 3. Atrial fibrillation with rapid ventricular rate. SECONDARY DIAGNOSES: 1. Morbid obesity with a BMI of 43. 2. Hypothyroidism. 3. Hypertension. 4. Hyperlipidemia. 5. Gastroesophageal reflux disease. 6. Type 2 diabetes. 7. Back pain/spinal stenosis. 8. Atrial fibrillation, status post ablation and Watchman device. MEDICATION LIST: 1. Atenolol 12.5 mg p.o. at bedtime. 2. Atorvastatin 80 mg p.o. at bedtime. 3. Fluticasone nasal spray, 2 sprays both nares daily. 4. Levothyroxine 100 mcg p.o. daily. 5. Omeprazole 40 mg p.o. at bedtime. 6. Ozempic 0.5 mg subcutaneously weekly. 7. Tadalafil 5 mg p.o. daily. 8. Ceftin 500 mg p.o. b.i.d. for 3 more days. New Medications: 1. Benzonatate 100 mg p.o. t.i.d. as needed for cough. 2. Cardizem CD 120 mg p.o. daily. Insulin Levemir was discontinued for now. HOSPITAL COURSE: Mr. Francisco is a 67-year-old male who has past medical history as stated above that presented to the emergency room with complaints of shortness of breath and cough. For more details about his presentation, I refer you to his history and physical. The patient had a CTA of the chest that was negative for pulmonary embolism and showed patchy infiltr ates in the periphery of the lungs with more involvement of the upper lungs. The patient was admitted to telemetry floor as he was also in atrial fibrillation with rapid ventricu lar rate. The patient was started on antibiotics and he needed Cardizem drip for rate control. As his symptoms improved, he was able to be weaned off for diltiazem drip and transition to oral Cardizem. The jose j ent had improvement of his symptoms. The patient had good rate control with Cardizem CD and the plan is for him to be on atenolol and Cardizem and as he continues to improve, maybe the Cardizem could b e weaned off. Regarding his diabetes, the patient did not require long-acting insulin while in the hospital and his glucose was usually below 150 with even 1 episode when he was below 70, so he received education abo ut diabetes diet and the plan is for him to continue his Ozempic for now but not use his Levemir. He was advised to continue to check his sugar and if his sugars go above 200, then he would resume his usual insulin. The patient is medically stable, should be discharged home today, to follow up with Dr. Oates. PHYSICAL EXAMINATION: Vital Signs: Temperature 96.8, heart rate is 81, respiratory rate is 16, oxyg en saturation 95% on room air, blood pressure is 133/85. General: The patient is a pleasant, morbid ly obese gentleman, sitting up in a chair, in no acute distress. CVS: Normal S1, S2. Irregularly i rregular. Chest: Breath sounds bilaterally with no added sounds. Neuro: He is alert and oriented x 3. Able to move all 4 extremities. DIET: Heart healthy, consistent carb diet. ACTIVITIES: As tolerated. DISPOSITION: To home. STATUS WHILE IN THE HOSPITAL: Inpatient. CONDITION ON DISCHARGE: Stable. Please keep in mind this is a summarized version of this patient's hospital stay. If you need more in formation, please feel free to call me at [phone] or please obtain full medical records. TIME SPENT: Approximately 45 minutes was spent to complete this discharge. [id number]/[facility] #: [id number]
== END 2018-04-30 16:42 | disposition home or self-care (01) | DRG 871 ==
LOC: ED 16:02 → MEDTELE 19:39
PROVIDERS: ADMIT Student in an Organized Health Care Education/Training Program; ATTEND Internal Medicine
DX: A41.9 Sepsis, unspecified organism (principal); J18.9 Pneumonia, unspecified organism; Z68.41 Body mass index [BMI] 40.0-44.9, adult; I48.91 Unspecified atrial fibrillation; E66.01 Morbid (severe) obesity due to excess calories; E83.42 Hypomagnesemia; E03.9 Hypothyroidism, unspecified; I10 Essential (primary) hypertension; E78.5 Hyperlipidemia, unspecified; K21.9 Gastro-esophageal reflux disease without esophagitis; E11.9 Type 2 diabetes mellitus without complications; M48.00 Spinal stenosis, site unspecified; M54.9 Dorsalgia, unspecified; Z79.4 Long term (current) use of insulin; Z79.899 Other long term (current) drug therapy; Z88.8 Allergy status to other drugs, medicaments and biological substances; Z80.0 Family history of malignant neoplasm of digestive organs; Z80.1 Family history of malignant neoplasm of trachea, bronchus and lung; Z87.891 Personal history of nicotine dependence
CPT/HCPCS: 36415; 71275; 80048; 80053; 83605; 83735; 83880; 84100; 84443; 84484; 85025; 85610; 86140; 87040; 87899; 94640; 99284; A9270-GY; J0456; J0696; J1644; J3475; Q9967

== ENCOUNTER 2018-05-29 07:13 | Emergency (ER) | payer MEDICARE, OTHER ==
--- OUTSIDE RECORDS SUMMARY | 2018-05-29 07:27 | XMS REPORT | Continuity of Care Document ---
:1950 External Reference #:[id number] Author Name Olimpiaisabella Harmony Care Team Providers Name Role Phone Savage Oates MD Primary Care Physician Unavailable Payers Date Identification Numbers Payment Provider Subscriber Policy Number: [id number] Medicare Spencer Francisco PayID: [id number] [address] [place] [address] Expires: 2017 Policy Number: [id number] Medicare Spencer Francisco PayID: [id number] [address] [place] [address] Policy Number: [id number] [employer] [facility] Spencer Francisco Group Name: aka colonial stephanie [address] [place] [address] Advance Directives Description No Information Available Problems [...] M.D. Active Family History Date Family Member(s) Observation Comments Father due to Lung Cancer () Mother due to Pancreatic Cancer () Siblings 1 1 sister Social History Type Date Description Comments Sex Unknown Marital Status Lives With Occupation Retired Tobacco Use Start: Unknown End: Former Cigarette Smoker Smoked 1 ppd for 20 Unknown years Smoking Status Reviewed: 05/14/18 Former Cigarette Smoker Smoked 1 ppd for 20 years ETOH Use Occasionally consumes alcohol Tobacco Use Start: Unknown End: Patient is a former Unknown smoker Recreational Drug Use Denies Drug Use Exercise Type/Frequency Exercises rarely Allergies, Adverse Reactions, Alerts Date Description Reaction Status Severity Comments 06/04/2017 [place] rash Active 10/30/2017 Metoprolol rash and difficulty breathing Active Medications Medication Date Status Form Strength Qnty SIG Indications Ordering Provider Prednisone 05/14 Active Tablets 5mg 21tab 2 tab J18.9 s daily for David, 1 week, [employer] then 1 tab daily for 1 week Xopenex 05/14 Active Nebulizer 1.25mg/3M 36ml Use every L 4-6 hours David, as needed [employer] Atenolol 10/22 Active Tablets 25mg 30tab 1/2 by I48.0 Michele S. s mouth Ruiz, DO every day FACC Levothyroxine Active Tablets 100mcg 1 by mouth Unknown Sodium /0000 every day Atorvastatin Active Tablets 80mg 1 by mouth Unknown Calcium /0000 every day Omeprazole Active Capsules DR 40mg 1 by mouth Unknown /0000 every day Trulicity Active Solution 1.5mg/0.5 inject Unknown /0000 Pen-Inject ML subcutaneo usly weekly (alternati ng with Ozempic) Terazosin HCL Active Capsules 5mg Take 1 Unknown /0000 Capsule By Mouth Every Day Tadalafil Active Tablets 5mg Take 1 Unknown /0000 Tablet By Mouth Every Day as Needed Gabapentin Active Capsules 100mg Take 1 Unknown /0000 Capsule By Mouth Three Times Daily as needed Fluticasone Active Suspension 50mcg/Act [place] 2 Unknown Propionate /0000 Sprays Into Each Nostril One Time Daily Ventolin HFA Active Aerosol 108(90Bas 2 puffs by Unknown /0000 e) mouth four mcg/Act times a day as needed Oxycodone-Acetam 12/29 Hx Tablets 5-325mg 30tab 1-2 by Z48.89 Vassilios inophen s mouth Dimopoulos - every 4-6 , 05/13 hours needed for pain. Metoprolol 10/22 Hx Tablets ER 25mg 90tab 1 by mouth I48.0 Michele S. Succinate ER /2017 24HR s every day DO [facility] Furosemide 10/22 Hx Tablets 20mg 90tab Take a I48.0 Michele S. /2018 s water pill DO Modesto Ruiz (furosemid [facility] 05/13 e lasix) today, tomorrow and then start taking, Thursday, Thursday and Thursday. Atenolol 10/21 Hx Tablets 25mg 30tab 1 by mouth I48.0 Michele S. /2017 s every day DO Modesto Ruiz [facility] 10/22 Metoprolol 10/05 Hx Tablets ER 25mg 30tab 1 by mouth I48.0 Michele S. Succinate 24HR s every day DO Modesto Ruiz [facility] 10/21 Prednisone 05/26 Hx TBPK 10mg (21) 30uni 4 tabs J20.9 ts day#1, 3 MD Nas - tabs 08/11 day#2, tabs day#3, 1 tab for 7 days, 1/2 tab for 10 days (will be finnished 06/15) Cefaclor ER 05/26 Hx Tablets ER 500mg 14tab 1 by mouth J20.9 12HR s twice a MD Nas - day 07/19 Aspirin Low Dose Hx Tablets DR 81mg 1 by mouth Unknown /0000 every day - 10/04 Lisinopril Hx Tablets 20mg 1 by mouth Unknown /0000 every day - 12/29 Cialis 00 Hx Tablets 5mg 1 by mouth Unknown /0000 every day - 07/19 Levocetirizine Hx Tablets 5mg 1 by mouth Unknown Dihydrochloride /0000 every day - 10/04 Metoprolol Hx Tablets 50mg 1 by mouth Unknown Tartrate /0000 twice a - day 07/19 Meloxicam Hx Tablets 15mg 1 by mouth Unknown /0000 every day - 10/04 Levemir 00 Hx Solution 100Unit/M 12 units Unknown /0000 L once daily - 05/04 Metformin HCL Hx Tablets 1000mg 1 by mouth Unknown /0000 a day - 12/29 Albuterol Hx Nebulizer (2.5mg/3M 1 vial via Unknown Sulfate /0000 L) 0.083% nebulizer - 4 times 07/19 daily as needed Ventolin HFA Hx Aerosol 108(90Bas 2 puffs by Unknown /0000 e) mouth four - mcg/Act times a 08/11 day as needed Doxycycline Hx Capsules 100mg Take 1 Unknown Hyclate /0000 Capsule By - Mouth Two 08/11 Daily Amlodipine Hx Tablets 5mg Take 1 Unknown Besylate /0000 Tablet By - Mouth 08/11 Amlodipine Hx Tablets 5mg Take 1 Unknown Besylate /0000 Tablet By - Mouth 10/22 Sudafed Hx Tablets 30mg 1 by mouth Unknown Congestion /0000 twice a - day 05/13 Ibuprofen Hx Tablets 200mg 4 by mouth Unknown /0000 every 8 - hours as 05/13 needed /2018 Sinus Pressure + Hx Tablets 5-325mg as needed Unknown Pain /0000 - 05/13 Loratadine Hx Capsules 10mg once a day Unknown /0000 for - allergies 05/13 as needed /2018 Albuterol Hx Nebulizer (2.5mg/3M 1 Unknown Sulfate /0000 L) 0.083% applicatio - n every 4 05/14 hours as needed Medications Administered in Office Medication Date Status Form Strength Qnty SIG Indications Ordering Provider Inj, Administered Injection Michele S. Regadenoson, 018 Ruiz, DO 0.1 MG FACC Technetium TC Administered Injection Michele S. 99M 018 Ruiz, DO Tetrofosmin, FACC Per Unit Dose Up To 40 Millicuries Immunizations Description No Information Available Vital Signs Date Vital Result Comment 05/14/2018 10:00am Height 72 inches 6'0" Weight 315.25 lb Heart Rate 80 /min BP Systolic Sitting 120 mmHg Lue large cuff BP Diastolic Sitting 78 mmHg Lue large cuff Respiratory Rate 16 /min O2 % BldC Oximetry 94 % On Ra BMI (Body Mass Index) 42.8 kg/m2 05/04/2018 12:52pm Height 72 inches 6'0" Weight 316.00 lb BP Systolic Sitting 124 mmHg BP Diastolic Sitting 80 mmHg Pain Level 6 BMI (Body Mass Index) 42.9 kg/m2 04/02/2018 9:50am Height 72 inches 6'0" Weight [...] Date Facility Test Result H/L Range Note BUN/Creat/GFR 04/16/2018 [facility] Poc Blood Urea 21 mg/dL N 8-[address] [place] [address] [phone] Poc Creatinine 1.1 mg/dL N 0.6-1.3 1 Poc BUN/Creatinine Ratio 19.1 N 8-20 Egfr Non- 66.8 >60 Egfr 80.8 >60 2 Laboratory test 12/17/2017 [facility] Point of 164 mg/dL High 70-100 [address] [place] [address] [phone] Laboratory test 12/17/2017 [facility] Point of 113 mg/dL High 70-100 4 finding [address] [facility] [place] [address] [phone] CBC No Diff 12/10/2017 [facility] White Blood 9.6 N 3.5-10.8 [address] [facility] Count 10^3/[place] [address] [phone] Red Blood Count 5.03 10^6/uL N 4.00-5.40 Hemoglobin 14.4 g/dL N 14.0-18.0 Hematocrit 43 % N 42-52 Mean Corpuscular Volume 85 fL N 80-94 Mean Corpuscular Hemoglobin 29 pg N 27-31 Mean Corpuscular HGB Conc 34 g/dL N 31-36 Red Cell Distribution Width 15 % N 10.5-15 Platelet Count 167 10^3/uL N 150-450 Mean Platelet Volume 10.0 um3 N 7.4-10.4 Urinalysis Profile 12/10/2017 [facility] Urine Color Yellow [address] [place] [address] [phone] Urine Appearance Clear Urine Specific [place] 1.014 N 1.010-1.030 Urine pH 6.0 N 5-9 Urine Urobilinogen Negative Negative Urine Ketones Negative Negative Urine Protein Negative Negative Urine Leukocytes Negative Negative Urine Blood Negative Negative * * Abnormal Negative 5 Urine Nitrite Negative Negative Urine Bilirubin Negative Negative Urine Glucose Negative Negative Type & Screen 12/10/2017 [facility] Patient Blood Type A Positive [address] [place] [address] [phone] Antibody Screen NEGATIVE Basic Metabolic Panel 12/10/2017 [facility] Sodium 139 mmol/L N 135-145 [address] [place] [address] [phone] Potassium 4.5 mmol/L N 3.5-5.0 Chloride 107 mmol/L N 101-111 Co2 Carbon Dioxide 26 mmol/L N 22-32 Anion Gap 6 mmol/L N 2-11 Glucose 121 mg/dL High 70-100 Blood Urea Nitrogen 24 mg/dL N 6-24 Creatinine 1.01 mg/dL N 0.67-1.17 BUN/Creatinine Ratio 23.8 High 8-20 Calcium 9.0 mg/dL N 8.6-10.3 Egfr Non- 73.7 >60 Egfr 89.2 >60 6 Laboratory test 12/10/2017 [facility] Partial 31.8 N 26.0- 36.3 finding [address] [facility] [place] [address] PTT [phone] Inr/Protime 12/10/2017 [facility] Inr 1.06 High 0.77-1.[address] [place] [address] [phone] Basic Metabolic 10/28/2017 [facility] Sodium 141 mmol/L N 135- 145 Panel [address] [place] [address] [phone] Potassium 4.4 mmol/L N 3.5-5.0 Chloride 107 mmol/L N 101-111 Co2 Carbon Dioxide 28 mmol/L N 22-32 Anion Gap 6 mmol/L N 2-11 Glucose 115 mg/dL High 70-100 Blood Urea Nitrogen 26 mg/dL High 6-24 Creatinine 1.17 mg/dL N 0.67-1.17 BUN/Creatinine Ratio 22.2 High 8-20 Calcium 8.6 mg/dL N 8.6-10.3 Egfr Non- 62.2 >60 Egfr 75.2 >60 7 Urinalysis Profile 10/08/2017 [facility] Urine Color Yellow [address] [place] [address] [phone] Urine Appearance Clear Urine Specific [place] 1.027 N 1.010-1.030 Urine pH 5.0 N 5-9 Urine Urobilinogen Negative Negative Urine Ketones Negative Negative Urine Protein Negative Negative Urine Leukocytes Negative Negative Urine Blood Negative Negative * * Abnormal Negative 8 Urine Nitrite Negative Negative Urine Bilirubin Negative Negative Urine Glucose Negative Negative Type & Screen 10/08/2017 [facility] Patient Blood Type A Positive 9 [address] [place] [address] [phone] Antibody Screen NEGATIVE Laboratory test 10/08/2017 [facility] TSH (Thyroid 1.55 mcIU/mL N 0.34-5.60 10 finding 101 [facility] Stim [place]orm) [place] [address] [phone] Basic Metabolic 10/08/2017 [facility] Sodium 141 mmol/L N 135- 145 Panel [address] [place] [address] [phone] Potassium 4.3 mmol/L N 3.5-5.0 Chloride 108 mmol/L N 101-111 Co2 Carbon Dioxide 25 mmol/L N 22-32 Anion Gap 8 mmol/L N 2-11 Glucose 115 mg/dL High 70-100 Blood Urea Nitrogen 23 mg/dL N 6-24 Creatinine 1.05 mg/dL N 0.67-1.17 BUN/Creatinine Ratio 21.9 High 8-20 Calcium 9.0 mg/dL N 8.6-10.3 Egfr Non- 70.5 >60 Egfr 85.2 >60 11 CBC No Diff 10/08/2017 [facility] White Blood 8.9 10^3/uL N 3.5-10.8 [address] [facility] [place] [address] [phone] Red Blood Count 4.59 10^6/uL N 4.00-5.40 Hemoglobin 13.2 g/dL Low 14.0-18.0 Hematocrit 40 % Low 42-52 Mean Corpuscular Volume 86 fL N 80-94 Mean Corpuscular Hemoglobin 29 pg N 27-31 Mean Corpuscular HGB Conc 33 g/dL N 31-36 Red Cell Distribution Width 15 % N 10.5-15 Platelet Count 161 10^3/uL N 150-450 Mean Platelet Volume 10.3 um3 N 7.4-10.4 Laboratory test 10/08/2017 [facility] Partial 32.9 N 26.0- 36.3 12 finding [address] [facility] [place] [address] Time PTT [phone] Inr/Protime 10/08/2017 [facility] Inr 1.05 High 0.77-1.02 [address] [place] [address] [phone] Order 05/26/2017 Director Trial In-House 6 Minute <pending> Walk 1 Oil Winterizer: [id number] 2 Because ethnic data is not always readily [...] 15-29 5 Kidney failure <15 (or dialysis) 3 Oil Winterizer: [id number] 4 Oil Winterizer: [id number] 5 *Ascorbic acid is present which may interfere with detection of blood. 6 Because ethnic data is not always readily [...] 15-29 5 Kidney failure <15 (or dialysis) 7 Because ethnic data is not always readily [...] 15-29 5 Kidney failure <15 (or dialysis) 8 *Ascorbic acid is present which may interfere with detection of blood. 9 AA 10/15 10 10/15 11 Because ethnic data is not always readily [...] 15-29 5 Kidney failure <15 (or dialysis) 12 10/15 Procedures Date Code Description Status 12/17/2017 69822 Garcia/Facet/Foraminotomy;Vertebral Segment; Lumbar Completed 12/17/2017 94547 Garcia/Facet/Foraminotomy;Vertebral Segment; Lumbar Completed 10/27/2017 53872 Holter Monitor Review (24 hr)dr carri & interp only Completed 10/26/2017 65881 ECG Monitor/Recording W/Visual Superimposition Scanning Completed 10/22/2017 67589 EKG Tracing & Interpretation Completed 10/08/2017 68237 Myocardial Perfusion Imaging Tomographic (Spect) Completed Multiple Studies 10/06/2017 88534 Stress Test Completed 10/06/2017 75090 Myocardial Perfusion Imaging Tomographic (Spect) Completed Multiple Studies 2017 59007 EKG Tracing & Interpretation Completed 05/29/2017 54844 ECHO Transthorasic Realtime 2D W Doppler & Color Flow Completed Hosp 05/26/2017 00529 Pulmonary Stress Test Simple Completed 05/26/2017 72973 Pulmonary Stress Testing[facility] Inc Measurement Heart Rate, Completed Oximetry 04/09/2017 12741 Colonoscopy Flexible W/Biopsy Completed 04/09/2017 19214 Endoscopy Upper GI Biopsy Completed 04/09/2017 [id number] Colonoscopy Completed Encounters Type Date Location Provider Dx Diagnosis Office Visit 04/30/2018 [facility] Dayan Rand, A41.9 Sepsis, 11:40a Assoc,pc M.D. unspecified Hospitalists organism J18.9 Pneumonia, unspecified organism I48.0 Paroxysmal atrial fibrillation E66.01 Morbid (severe) obesity due to excess calories Z68.41 Body mass index (BMI) 40.0-44.9, adult E03.9 Hypothyroidism, unspecified I10 Essential (primary) hypertension E78.5 Hyperlipidemia, unspecified K21.9 Gastro-esophageal reflux disease without esophagitis [facility], Assoc,hayden Rand M.D. unspecified Hospitalists organism J18.9 Pneumonia, unspecified organism I48.0 Paroxysmal atrial fibrillation E11.9 Type 2 diabetes mellitus without complications E03.9 Hypothyroidism, unspecified I10 Essential (primary) hypertension E78.5 Hyperlipidemia, unspecified Office Visit 04/28/2018 11[facility] A[facility].9 Sepsis, Assoc,hayden Rand M.D. unspecified Hospitalists organism J18.9 Pneumonia, unspecified organism I48.0 Paroxysmal atrial fibrillation E11.9 Type 2 diabetes mellitus without complications E03.9 Hypothyroidism, unspecified I10 Essential (primary) hypertension E78.5 Hyperlipidemia, unspecified Office Visit 04/27/2018 11:39[facility] A[facility].9 Sepsis, Assoc,hayden Rand M.D. unspecified Hospitalists organism J18.9 Pneumonia, unspecified organism I48.0 Paroxysmal atrial fibrillation E83.42 Hypomagnesemia E11.9 Type 2 diabetes mellitus without complications E03.9 Hypothyroidism, unspecified I10 Essential (primary) hypertension E78.5 Hyperlipidemia, unspecified Office Visit 04/26/2018 [facility] Martín Pineda J18.9 Pneumonia, 11:37a Assoc,hayden Talley MD unspecified Hospitalists organism R06.02 Shortness of breath E11.9 Type 2 diabetes mellitus without complications I48.91 Unspecified atrial fibrillation E03.9 Hypothyroidism, unspecified Office Visit 04/02/2018 10:30a Neurosurgery Vassilios M54.5 Low back Services Of [facility]o Ta MD pain M25.551 Pain in right hip Office Visit 12/17/2017 [facility] [place] I48.91 Unspecified atrial 10:22a Assoc,hayden Miller M.D. fibrillation Hospitalists E11.9 Type 2 diabetes mellitus without complications I10 Essential (primary) hypertension E78.5 Hyperlipidemia, unspecified Office Visit 11/24/2017 Neuro[facility] M48.062 Spinal stenosis, 11:30a Services Of Timoteo Ta MD lumbar region with neurogenic claudication Office Visit 10/30/2017 [facility] Michele Ruiz, I50.32 Chronic diastolic 11:40a [facility] DO FAC (congestive) heart failure I48.0 Paroxysmal atrial fibrillation Z01.810 Encounter for preprocedural cardiovascular examination E66.8 Other obesity I10 Essential (primary) hypertension E78.5 Hyperlipidemia, unspecified F17.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, unspecified, in remission E11.9 Type 2 diabetes mellitus without complications Office Visit 10/22/2017 2:20p [facility] Michele Caal I48.0 Paroxysmal atrial [facility] DO Joseph fibrillation FACC I50.9 Heart failure, unspecified E66.8 Other obesity I10 Essential (primary) hypertension J45.998 Other asthma F17.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, unspecified, in remission E78.5 Hyperlipidemia, unspecified E11.9 Type 2 diabetes mellitus without complications Office Visit 2017 [place] Michele Caal Z01.810 Encounter for 2:20p Cardiology Of DO Joseph preprocedural [facility] cardiovascular examination I10 Essential (primary) hypertension E11.9 Type 2 diabetes mellitus without complications E78.5 Hyperlipidemia, unspecified I48.0 Paroxysmal atrial fibrillation E66.8 Other obesity F17.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, unspecified, in remission J44.9 Chronic obstructive pulmonary disease, unspecified M48.062 Spinal stenosis, lumbar region with neurogenic claudication Office 08/26/2017 Neurosurgery Vassilios M47.26 Other spondylosis [...] Sleep Services Of MD Nas bronchitis Director Trial J32.9 Chronic sinusitis, unspecified E66.01 Morbid (severe) obesity due to excess calories K21.0 Gastro-esophageal reflux disease with esophagitis Office Visit 06/04/2017 9:15a Pulmonology And Dayna J20.9 Acute bronchitis, Sleep Services Of MD Nas unspecified Director Trial J01.90 Acute sinusitis, unspecified R49.0 Dysphonia E66.01 Morbid (severe) obesity due to excess calories K21.0 Gastro-esophageal reflux disease with esophagitis Office Visit 06/01/2017 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 Alissa Heide J44.1 Chronic 11:08a hayden Edouard [employer] obstructive Hospitalists pulmonary disease w (acute) exacerbation E11.9 Type 2 diabetes mellitus without complications I10 Essential (primary) hypertension Z79.4 senior living (current) use of insulin Office Visit 05/29/2017 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 at [facility]06/01/2018 2:00 pm - Salma Ta MD at [facility]surgery [facility]07/21/2018 9:15 am - Dayna Lovell MD at [facility]05/14/2018 - Dayna Lovell MDJ18.9 Pneumonia, unspecified organismNew Medication:Prednisone 5 mg - 2 tab daily for 1 week, then 1 tab daily for 1 weekFollow up:1 month, PFTs prior, with [facility]41.0 Simple chronic bronchitis
[2018-05-29] MEDS ORDERED: NS 0.9% 1000 ML** 1,000 ML IV ONE (07:45)
[2018-05-29] MEDS ORDERED: Gabapentin CAP(*) 300 MG PO ONE (07:46)
[2018-05-29] MEDS ORDERED: Ketorolac INJ* 30 MG/ML 1 ML VIAL IV PUSH ONE (07:46)
--- NOTE | 2018-05-29 07:48 | ED ---
Back Pain - HPI Summary HPI Summary: This patient is a 67 year [facility] by with a chief complaint of back pain that began on the night of 05/27/2018. The patient rates the pain 10/10 in severity. Symptoms aggravated by ambulation. Symptoms alleviated by nothing. Patient reports L leg and L hip numbness, L leg and L hip weakness, and left foot tingling. Patient denies bowel symptoms and urinary symptoms. Patient states he had back surgery in December,. Patient states he had an MRI performed the day before his pain began. - History of Current Complaint Chief Complaint: EDBackInjuryPain Stated Complaint: LOWER BACK PAIN/LEFT LEG GOING NUMB PER PT Time Seen by Provider: 05/29/18 07:30 Hx Obtained From: Patient Onset/Duration: Sudden Onset, Lasting Days, Still Present Onset/Duration: Started Days Ago Timing: Constant Severity Initially: Severe Severity Currently: Severe Pain Intensity: 10 Pain Scale Used: 0-10 Numeric Aggravating Symptom(s): Walking Alleviating Symptom(s): Nothing Associated Signs And Symptoms: Positive: Other - Positive L leg and L hip numbness, L leg and L hip weakness, and left foot tingling. Negative bowel symptoms and urinary symptoms. - Allergies/Home Medications Allergies/Adverse Reactions: Allergies Allergy/AdvReac Type Severity Reaction Status Date / Time hydrocodone [From [place]] Allergy Severe Rash And Verified 05/07/18 11:37 Itching metoprolol Allergy DIFFICULTY Verified 05/07/18 11:37 BREATHING, RASH, FEET SWELLING PMH/Surg Hx/FS Hx/Imm Hx Previously Healthy: No Endocrine/Hematology History: Reports: Hx Diabetes, Hx Thyroid Disease Denies: Hx Bone Marrow Disease, Hx Sickle Cell Disease, Hx Anemia Cardiovascular History: Reports: Hx Hypercholesterolemia, Hx Hypertension, Other Cardiovascular Problems/Disorders - HX OF A-FIB, CARDIAC ABLATION 2016, FOLLOWED BY DR IBARRA Denies: Hx Pacemaker/ICD Respiratory History: Reports: Hx Asthma - when little and then went away, Other Respiratory Problems/Disorders - PT HAD VIRAL INFECTION IN LUNGS IN 2004 Denies: Hx Chronic Obstructive Pulmonary Disease (COPD) - never told copd or emphysema GI History: Reports: Hx Gastroesophageal Reflux Disease, Other GI Disorders - OBESITY History: Reports: Hx Benign Prostatic Hyperplasia Denies: Hx Renal Disease Musculoskeletal History: Reports: Hx Back Problems, Other Musculoskeletal History - SPONDYLOSIS WITH RADICULOPATHY, CHRONIC LUMBAR PAIN Denies: Hx Scoliosis Sensory History: Reports: Hx Contacts or Glasses Denies: Hx Cataracts, Hx Glaucoma, Hx Hearing Aid Opthamlomology History: Reports: Hx Contacts or Glasses Denies: Hx Cataracts, Hx Glaucoma Neurological History: Reports: Other Neuro Impairments/Disorders - PAIN CLINIC PT Psychiatric History: Denies: Hx Panic Disorder - Cancer History Cancer Type, Location and Year: SQUAMOUS CELL ON NOSE REMOVED Hx Chemotherapy: No - Surgical History Surgery Procedure, Year, and Place: 2 LOWER BACK SURGERIES [place] 2014. HEART ABLASION [place] 2016. WATCHMAN FILTER (ATRIAL APPENDAGE CLOSURE DEVICE) PLACED 09/10/16- PER MRI SAFETY- CONDITIONAL 6- 3T OR LESS, MAX SPATIAL GRADIENT OF 720 GAUSS/CM. RIGHT KNEE [place] 2001. LSP SURGERY 2017 [facility] Hx Anesthesia Reactions: No Infectious Disease History: No Infectious Disease History: Denies: Traveled Outside the [place] in Last 30 Days - Family History Known Family History: Positive: Other Family History: Father: malignant neoplasm of respiratory system. Mother: Malignant tumor of lung - Social History Occupation: Retired Lives: With Family Alcohol Use: Occasionally Alcohol Amount: 1 DRINK PER MONTH Hx Substance Use: No Substance Use Type: Reports: None Hx Tobacco Use: Yes Smoking Status (MU): Former Smoker Type: Cigarettes Amount Used/How Often: 1 PPD FOR 25 YRS Length of Time of Smoking/Using Tobacco: 25 YRS Have You Smoked in the Last Year: No Review of Systems Gastrointestinal: Negative Genitourinary: Negative Positive: Other - Positive back pain Neurological: Other - Positive L leg and L hip numbness, L leg and L hip weakness, and left foot tingling All Other Systems Reviewed And Are Negative: Yes Physical Exam - Summary Physical Exam Summary: Appearance: Well appearing, no pain distress Skin: warm, dry, reflects adequate perfusion. Lumbar surgical scar is clean. Head/face: normal Eyes: EOMI, INGRID ENT: mucous membranes moist Neck: supple, non-tender Respiratory: CTA, breath sounds present Cardiovascular: Heart is tachycardic and irregular rhythm, pulses symmetrical Abdomen: non-tender, soft Bowel Sounds: present Musculoskeletal: normal, strength/ROM intact Neuro: normal, sensory motor intact, A&Ox3 Triage Information Reviewed: Yes Vital Signs On Initial Exam: Initial Vitals Temp Pulse Resp BP Pulse Ox 98.9 F 99 20 139/78 94 05/29/18 07:17 05/29/18 07:17 05/29/18 07:17 05/29/18 07:17 05/29/18 07:17 Vital Signs Reviewed: Yes Diagnostics - Vital Signs Vital Signs Temp Pulse Resp BP Pulse Ox 05/29/18 07:17 98.9 F 99 20 139/78 94 - Laboratory Result Diagrams: 05/29/18 08:13 05/29/18 08:13 Lab Statement: Any lab studies that have been ordered have been reviewed, and results considered in the medical decision making process. Re-Evaluation - Re-Evaluation First Eval Re-Evaluation Time: 09:03 Change: Improved Comment: Patient reports his pain is gone. Back Pain Course/Dx - Course Course Of Treatment: Nurse's notes reviewed. Patient with a history of recent lumbar surgery in December with usual radicular pain in the right side, now having similar symptoms in his left. He had an MRI on which showed only a small residual fluid near the surgical site that is felt to be seroma. There is no evidence for osteomyelitis/discitis. The patient is neurologically intact but limited by discomfort in the left side. He is given gabapentin, Toradol here with significant improvement. He was up and walking. I discussed the case with his neurosurgery team who will follow him up on Thursday. They wish to have the patient discharged. His gabapentin dose was adjusted and he will be placed on Mobic. - Diagnoses Differential Diagnosis/HQI/PQRI: Positive: Fracture, Herniated Disc, Osteomyelitis, Osteoporosis Provider Diagnoses: Lumbar radiculopathy, Postoperative pain after spinal surgery - Provider Notifications Instructed by Provider To: Other - Consult with a PA from Dr. Thurman's office at 0915. Communicated the patient's case and plan of care. The PA communicated that they will follow up with the patient on 06/01/2018. Discharge - Sign-Out/Discharge Documenting (check all that apply): Patient Departure - Discharge home Patient Received Moderate/Deep Sedation with Procedure: No - Discharge Plan Condition: Improved Disposition: HOME Prescriptions: Gabapentin CAP(*) [Neurontin 300 CAP(*)] 300 mg PO BID #60 cap Meloxicam [Mobic] 7.5 mg PO DAILY #30 tablet Patient Education Materials: Lumbar Radiculopathy (ED) Referrals: Savage Oates MD [Primary Care Provider] - Salma Ta MD [Medical Doctor] - Additional Instructions: Continue your pain medication oxycodone as needed. Take 300 mg of gabapentin in the morning and 300 mg at bedtime. If pain is not controlled you can increased to 600 mg at bedtime. Be very careful when walking as gabapentin plus oxycodone can cause drowsiness. Do not drive while taking. Call your neurosurgeon on Thursday to schedule prompt follow-up. Return with high fever, increased pain, unable to walk, worse or other concerns. - Billing Disposition and Condition Condition: IMPROVED Disposition: Home - Attestation Statements Document Initiated by Amalia: Yes Documenting Scribe: Mary Ellen Donaldson Provider For Whom Amalia is Documenting (Include Credential): Dr. Kenneth Rodriguez MD Scribe Attestation: Mary Ellen Garcia, scribed for Dr. Kenneth Rodriguez MD on 05/29/18 at 1108. Scribe Documentation Reviewed: Yes Provider Attestation: The documentation as recorded by the Mary Ellen ray accurately reflects the service I personally performed and the decisions made by me, Dr. Kenneth Rodriguez MD Status of Scribe Document: Viewed
[2018-05-29 08:26] LABS: ABS Basophils 0.1 10^3/ul (0-0.2); ABS Eosinophils 0.3 10^3/ul (0-0.6); ABS Lymphocytes 2.1 10^3/ul (1.0-4.8); ABS Monocytes 0.5 10^3/ul (0-0.8); ABS Neutrophils 5.4 10^3/ul (1.5-7.7); ABS Nucleated RBC 0 10^3/ul; Eosinophil % 3.9 %; Hematocrit 41 % (36-46); Hemoglobin 13.7 g/dL (14.0-18.0); Mean Corpuscular HGB Conc 33 g/dL (31-36); Mean Corpuscular Hemoglobin 29 pg (27-31); Mean Corpuscular Volume 88 fL (80-94); Mean Platelet Volume 9.8 fL (7.4-10.4); Nucleated Red Blood Cells % 0; Platelet Count 144 10^3/uL (150-450); Red Blood Count 4.72 10^6 /uL (4.18-5.48); Red Cell Distribution Width 15 % (10.5-15); White Blood Count 8.4 10^3/uL (3.5-10.8)
[2018-05-29 08:28] LABS: INR 1.02 (0.77-1.02)
[2018-05-29 08:40] LABS: Albumin 3.6 g/dL (3.2-5.2); Albumin/Globulin Ratio 1.4 (1-3); BUN/Creatinine Ratio 23.5 (8-20); C Reactive Protein 11.28 mg/L (<8.01); Calcium 8.7 mg/dL (8.6-10.3); EGFR African American 92.3 (>60); EGFR Non-African American 76.3 (>60); Globulin 2.6 g/dL (2-4); Potassium 3.9 mmol/L (3.5-5.0); Total Bilirubin 0.6 mg/dL (0.2-1.0); Total Protein 6.2 g/dL (6.4-8.9)
[2018-05-29 10:47] LABS: Urine Appearance Cloudy; Urine Bilirubin Negative (Negative); Urine Blood Negative (Negative); Urine Color Amber; Urine Glucose Negative (Negative); Urine Ketones Negative (Negative); Urine Nitrite Negative (Negative); Urine Protein Negative (Negative); Urine Specific Gravity 1.027 (1.010-1.030); Urine Urobilinogen Negative (Negative)
[2018-05-29 11:19] VITALS: BP 131/84
== END 2018-05-29 11:23 | disposition home or self-care (01) ==
LOC: ED 07:13
DX: M54.16 Radiculopathy, lumbar region (principal); G89.18 Other acute postprocedural pain; Z98.890 Other specified postprocedural states; M54.5 Low back pain; E11.9 Type 2 diabetes mellitus without complications; I10 Essential (primary) hypertension; Z86.79 Personal history of other diseases of the circulatory system; Z87.891 Personal history of nicotine dependence
CPT/HCPCS: 36415; 80053; 81003; 83605; 85025; 85610; 86140; 87040; 96361; 96374; 99283; A9270-GY; J1885

== ENCOUNTER 2018-06-01 15:18 | Emergency (ER) | payer MEDICARE, OTHER ==
--- NOTE | 2018-06-01 16:22 | ED ---
Lower Extremity - HPI Summary HPI Summary: A 67 y/o M referred by Dr. Ta, neuro surgery, presents to ED with c/o lower midline back pain that radiates to his hip and sometimes down to his L knee onset today. Associated sx: sudden-onset LLE numbness and weakness. He had back surgery with Dr. Ta. The patient says his back pain usually causes issues with his RLE. Medications reviewed. - History of Current Complaint Chief Complaint: EDExtremityLower Stated Complaint: MY DOCTOR SENT ME HERE FOR SOME ORDERS PER PT Time Seen by Provider: 06/01/18 16:10 Hx Obtained From: Patient, Family/Coronary Care Unit Nurse - present Onset/Duration: Still Present Severity Currently: Moderate Pain Intensity: 7 - out of 10 Pain Scale Used: 0-10 Numeric Timing: Constant Location: Is Discrete @ - lower midline back pain and radiates to his hip, occ to L knee Associated Signs And Symptoms: Positive: Weakness - LLE, Other - pos: LLE numbness - Allergies/Home Medications Allergies/Adverse Reactions: Allergies Allergy/AdvReac Type Severity Reaction Status Date / Time hydrocodone [From [place]] Allergy Severe Rash And Verified 05/07/18 11:37 Itching metoprolol Allergy DIFFICULTY Verified 05/07/18 11:37 BREATHING, RASH, FEET SWELLING PMH/Surg Hx/FS Hx/Imm Hx Previously Healthy: No Endocrine/Hematology History: Reports: Hx Diabetes, Hx Thyroid Disease Denies: Hx Bone Marrow Disease, Hx Sickle Cell Disease, Hx Anemia Cardiovascular History: Reports: Hx Hypercholesterolemia, Hx Hypertension, Other Cardiovascular Problems/Disorders - HX OF A-FIB, CARDIAC ABLATION 2016, FOLLOWED BY DR IBARRA Denies: Hx Pacemaker/ICD Respiratory History: Reports: Hx Asthma - when little and then went away, Other Respiratory Problems/Disorders - PT HAD VIRAL INFECTION IN LUNGS IN 2004 Denies: Hx Chronic Obstructive Pulmonary Disease (COPD) - never told copd or emphysema GI History: Reports: Hx Gastroesophageal Reflux Disease, Other GI Disorders - OBESITY History: Reports: Hx Benign Prostatic Hyperplasia Denies: Hx Renal Disease Musculoskeletal History: Reports: Hx Back Problems, Other Musculoskeletal History - SPONDYLOSIS WITH RADICULOPATHY, CHRONIC LUMBAR PAIN Denies: Hx Scoliosis Sensory History: Reports: Hx Contacts or Glasses Denies: Hx Cataracts, Hx Glaucoma, Hx Hearing Aid Opthamlomology History: Reports: Hx Contacts or Glasses Denies: Hx Cataracts, Hx Glaucoma Neurological History: Reports: Other Neuro Impairments/Disorders - PAIN CLINIC PT Psychiatric History: Denies: Hx Panic Disorder - Cancer History Cancer Type, Location and Year: SQUAMOUS CELL ON NOSE REMOVED Hx Chemotherapy: No - Surgical History Surgery Procedure, Year, and Place: 2 LOWER BACK SURGERIES [place] 2014. HEART ABLASION [place] 2016. WATCHMAN FILTER (ATRIAL APPENDAGE CLOSURE DEVICE) PLACED 09/10/16- PER MRI SAFETY- CONDITIONAL 6- 3T OR LESS, MAX SPATIAL GRADIENT OF 720 GAUSS/CM. RIGHT KNEE [place] 2001. LSP SURGERY 2017 [facility] [place] Hx Anesthesia Reactions: No Infectious Disease History: No Infectious Disease History: Denies: Traveled Outside the [place] in Last 30 Days - Family History Known Family History: Positive: Other Family History: Father: malignant neoplasm of respiratory system. Mother: Malignant tumor of lung - Social History Occupation: Retired Lives: With Family Alcohol Use: Occasionally Alcohol Amount: 1 DRINK PER MONTH Hx Substance Use: No Substance Use Type: Reports: None Hx Tobacco Use: Yes Smoking Status (MU): Former Smoker Type: Cigarettes Amount Used/How Often: 1 PPD FOR 25 YRS Length of Time of Smoking/Using Tobacco: 25 YRS Have You Smoked in the Last Year: No Review of Systems Negative: Fever Musculoskeletal: Other - pos: lower back pain radiating to hip, occ L knee Positive: Weakness - LLE, Numbness - LLE All Other Systems Reviewed And Are Negative: Yes Physical Exam - Summary Physical Exam Summary: Constitutional: Well-developed, Well-nourished, Alert. (-) Distressed Skin: Warm, Dry HENT: Normocephalic; Atraumatic Eyes: Conjunctiva normal Neck: Musculoskeletal ROM normal neck. (-) JVD, (-) Stridor, (-) Tracheal deviation Cardio: Rhythm regular, rate normal, Heart sounds normal; Intact distal pulses; The pedal pulses are 2+ and symmetric. Radial pulses are 2+ and symmetric. (-) Murmur Pulmonary/Chest wall: Effort normal. (-) Respiratory distress, (-) Wheezes, (-) Rales Abd: Soft, (-) tenderness, (-) Distension, (-) Guarding, (-) Rebound Musculoskeletal: (-) Edema. LLE shows dorsal flexion weakness, plantar flexion is mildly weak, weakness when raising LLE, no pain to passive leg extension. Other major joints and limbs are unremarkable. Lymph: (-) Cervical adenopathy Neuro: Alert, Oriented x3 Psych: Mood and affect Normal Triage Information Reviewed: Yes Vital Signs On Initial Exam: Initial Vitals Temp Pulse Resp BP Pulse Ox 97.8 F 86 18 148/101 94 06/01/18 15:47 06/01/18 15:47 06/01/18 15:47 06/01/18 15:47 06/01/18 15:47 Vital Signs Reviewed: Yes Diagnostics - Vital Signs Vital Signs Temp Pulse Resp BP Pulse Ox 06/01/18 15:47 97.8 F 86 18 148/101 94 - Laboratory Lab Statement: Any lab studies that have been ordered have been reviewed, and results considered in the medical decision making process. - Radiology L SPINE XR Summary of Radiographic Findings: Pending official report. See [employer]. - CT L-SPINE CT Interpretation Completed By: Radiologist Summary of CT Findings: IMPRESSION: #. Multilevel acquired spinal stenosis as described level by level. No significant interval change compared with the May 27, 2018 MRI exam accounting for differences in technique. ED provider has reviewed this report. - Additional Comments Diagnostic Additional Comments: L-SPINE MRI as read by radiologist shows: IMPRESSION: #. No significant interval change compared with the recent MRI exam of May as described level by level. #. No evidence for an interval traumatic injury or worsening spinal stenosis. ED provider has reviewed this report. Re-Evaluation - Re-Evaluation 1 Re-Evaluation Time: 18:50 Change: Unchanged Comment: Providing brief update, still awaiting radiology read on imaging. 2 Re-Evaluation Time: 19:35 Lower Extremity Course/Dx - Course Course Of Treatment: Pt is a 67 y/o M s/p back surgery and referred by Dr. Ta, neuro surgery, presents with c/o lower midline back pain that radiates to his hip. Associated sx: sudden-onset LLE numbness and weakness. L- SPINE CT shows "Multilevel acquired spinal stenosis as described level by level. No significant interval change compared with the May 27, 2018 MRI exam accounting for differences in technique.". L-SPINE MRI shows "No significant interval change compared with the recent MRI exam of May 27, 2018 as. described level by level. No evidence for an interval traumatic injury or worsening spinal stenosis." - Diagnoses Differential Diagnosis/HQI/PQRI: Positive: Arthritis - spinal stenosis, arthritis Provider Diagnoses: Spinal stenosis - Physician Notifications Discussed Care Of Patient With: Salma Ta Time Discussed With Above Provider: 19:24 Instructed by Provider To: Have Pt Call For Appt. - Discussing case. Will have Dr. Ta call. Admit/Transition Orders Completed By ED Provider: No Discharge - Sign-Out/Discharge Documenting (check all that apply): Patient Departure - D/C Patient Received Moderate/Deep Sedation with Procedure: No - Discharge Plan Condition: Stable Disposition: HOME Patient Education Materials: Lumbar Radiculopathy (ED) Print Language: KOSOVAN Referrals: Savage Oates MD [Primary Care Provider] - Salma Ta MD [Medical Doctor] - - Billing Disposition and Condition Condition: STABLE Disposition: Home - Attestation Statements Document Initiated by Scribe: Yes Documenting Scribe: Martin Llamas Provider For Whom Scribe is Documenting (Include Credential): Dr. Shawanda Lucia MD Scribe Attestation: I, Martin Llamas, scribed for Dr. Shawanda Lucia MD on at 2335. Scribe Documentation Reviewed: Yes Provider Attestation: The documentation as recorded by the Martin ray accurately reflects the service I personally performed and the decisions made by me, Dr. Shawanda Lucia MD Status of Scribe Document: Viewed Consult Consult: 1940: Consulted with Dr. Ta, Neuro surgery Recommends out-patient follow-up.
[2018-06-01] MEDS ORDERED: oxyCODONE/Acetamin 5/325 MG* TAB PO ONE (18:18)
[2018-06-01 20:30] VITALS: BP 141/96
== END 2018-06-01 20:29 | disposition home or self-care (01) ==
LOC: ED 15:18
DX: M48.061 Spinal stenosis, lumbar region without neurogenic claudication (principal); M43.16 Spondylolisthesis, lumbar region; R53.1 Weakness; Z88.5 Allergy status to narcotic agent; Z88.8 Allergy status to other drugs, medicaments and biological substances; Z87.891 Personal history of nicotine dependence
CPT/HCPCS: 72100; 72131; 72148; 99281; A9270-GY

== ENCOUNTER 2018-09-14 07:30 | Inpatient (IN) | payer MEDICARE, OTHER ==
[2018-09-20] MEDS ORDERED: Buffered Lidocaine 1% SYRIN* 1 ML/SYRINGE INTRADERM ONE (14:11)
--- OUTSIDE RECORDS SUMMARY | 2018-09-21 05:44 | XMS REPORT | Continuity of Care Document ---
:1950 External Reference #:[id number] Author Name Roxy Abebe Care Team Providers Name Role Phone Savage Oates MD Care Team Information Post Doc Fellowship Unavailable Savage Oates MD Primary Care Physician Unavailable Payers Date Identification Numbers Payment Provider Subscriber Policy Number: [id number] [place] PayID: [id number] [address] [place] [address] Policy Number: [id number] [facility] [place] PayID: [id number] Problems Active Problems Provider Date Essential hypertension Shady Bates MD Onset: 01/23/2017 Pure hypercholesterolemia Shady Bates MD Onset: 01/23/2017 Allergic rhinitis due to pollen Shady Bates MD Onset: 01/23/2017 Allergic rhinitis Shady Bates MD Onset: 01/23/2017 Family History Date Family Member(s) Observation Comments General No Current Problems Social History Type Date Description Comments Sex Unknown Home Environment Has central air Home Environment Does not use a dehumidifier Home Environment There are no draperies in the home Home Environment The floors are wood Home Environment The floors are carpeted Home Environment Uses forced air heating Smoke-Free Home is smoke-free Pets None Pets 1 dog dog at daughter's house. Tobacco Use Start: Unknown Patient has never smoked Tobacco Use Start: Unknown No Second Hand Smoke Exposure Smoking Status Reviewed: 02/22/18 No Second Hand Smoke Exposure Allergies, Adverse Reactions, Alerts Active Allergies Reaction Severity Comments Date [place] 01/23/2017 Tramadol 02/22/2018 Metoprolol 02/22/2018 Medications Active Medications SIG Qnty Indications Ordering Provider Date Fluticasone Propionate Joffre 2 sprays 16gm J30.89 Shady Cedeno 2017 in each nostril MD Paulo 50mcg/Act Suspension once daily Atorvastatin Calcium 1x a day Unknown 80mg Tablets Plavix Unknown Omeprazole 1 by mouth every Unknown 40mg Capsules day DR Garcia Unknown 5mg Tablets BD Pen Use When Unknown Needle/Short/Ultra-Fin Injecting e/31G X 8mm Levemir 31G X 8 mm Misc Atenolol Take 1 Tablet By Unknown 25mg Tablets Mouth Every Day BD Pen Иван, Needle/Short/Ultra-Fin MD tez Foy/31G X 8mm 31G X 8 mm Misc Onetouch Verio Use To Test Unknown Strips Blood Sugar Two Times Daily Levothyroxine Sodium Take 1 Tablet By Unknown Mouth Every Day 100mcg Tablets BD Pen Иван, Needle/Short/Ultra-Fin MD tez Foy/31G X 8mm 31G X 8 mm Misc Levocetirizine Take 1 Tablet By 30tabs Shady Torres. Dihydrochloride Mouth AT Bedtime MD Paulo 5mg Tablets Albuterol Sulfate Inhale The Unknown Contents Of 1 (2.5mg/3ML) 0.083% Vial Via Nebulizer Nebulizer Three Times Daily Ventolin HFA Inhale 2 Puffs Unknown 108(90Base) By Mouth Every 6 mcg/Act Aerosol Hours BD Pen Use When Unknown Needle/Short/Ultra-Fin Injecting e/31G X 8mm Levemir 31G X 8 mm Misc Grape Seed Extract Max Unknown History Medications Dymista 1 puff each 69gm MIGUE Lr 02/18/2017 - 137-50mcg/Act nostril twice a 02/22/2018 Suspension day, as needed, for breakthrough nasal allergy and throat congestion symptoms. Nasonex 2 intranasal puffs 17gm J30.1 Shady Cedeno 01/23/2017 - 50mcg/Act Suspension every day MD Paulo 02/18/2017 Xyzal Allergy 24HR take 1 tablet (5 30tabs J30.1 Sylvestermaria elena Cedeno 2016 - 5mg mg) by oral route MD Paulo 02/22/2018 Tablets once daily as needed Meloxicam Unknown - 15mg Tablets 02/22/2018 Methylprednisolone Darioanovane, - 4mg TBPK Savage Mccabe MD 02/22/2018 Azithromycin Take 1 Tablet By Unknown - 500mg Tablets Mouth Every Day 02/22/2018 For 3 Days Cefaclor ER Nas, Dayna, - 500mg Tablets ER 02/22/2018 12HR Doxycycline Hyclate Take 1 Capsule By Unknown - 100mg Mouth Two Times 02/22/2018 Capsules Daily Prednisone Take 5 Tablets By Unknown - 10mg Tablets Mouth Daily For 2 02/22/2018 Days, Then Take 4 Tablets Daily For 3 Days, Then Take 3 Tablets Daily For 3 Days, Then Take 2 Tablets Da Ipratropium Mary D Иван, - 0.06% Savage Mccabe MD 02/22/2018 Solution Fluticasone Propionate Use 1 Joffre In Unknown - Each Nostril Two 02/22/2018 50mcg/Act Suspension Times Daily Terazosin HCL Take 1 Capsule By Unknown - 2mg Capsules Mouth Every Day 02/22/2018 Cyclobenzaprine HCL Take 1 Tablet By Unknown - 10mg Mouth Three Times 02/22/2018 Tablets Daily Meloxicam Take 1 Tablet By Unknown - 7.5mg Tablets Mouth Every Day 02/22/2018 Amlodipine Besylate Take 1 Tablet By Unknown - 5mg Mouth Every Day 02/22/2018 Tablets Metoprolol Succinate ER Take 1 Tablet By Unknown - 25mg Mouth Every Day 02/22/2018 Tablets ER 24HR Furosemide Unknown - 20mg Tablets 02/22/2018 Metformin HCL Take 1 Tablet By Unknown - 1000mg Tablets Mouth Every Day as 02/22/2018 Directed Terazosin HCL Take 1 Capsule By Unknown - 5mg Capsules Mouth Every Day 02/22/2018 Oxycodone HCL Unknown - 5mg Tablets 02/22/2018 Oxycodone-Acetaminophen Take 1 To 2 Unknown - Tablets By Mouth 02/22/2018 5-325mg Tablets Every 4 To 6 Hours as Needed For Pain Maximum Daily Dose Of 6 Per Day Basil Boston, - 100Unit/ML 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 09/13/2018 Solution Pen-Inject Proctozone-HC Иван, - 2.5% Cream Savage Mccabe MD 02/22/2018 Valacyclovir HCL Take 1 Tablet By Unknown - 1gm Tablets Mouth Every 8 02/22/2018 Hours For 7 Days Tramadol HCL Take 2 Tablets By Unknown - 50mg Tablets Mouth Two Times 02/22/2018 Daily For 10 Days Trulicity Unknown - 1.5mg/0.5ML 02/22/2018 Solution Pen-Inject Toujeo Solostar 100 units once Unknown - 300Unit/ML daily 02/22/2018 Solution Pen-Inject Invokamet XR Unknown - 02/22/2018 Lisinopril Unknown - 20mg Tablets 02/22/2018 Meclizine HCL prn Unknown - 35mg 02/22/2018 Vital Signs Date Vital Result Comment 09/13/2018 10:42am BP Systolic 133 mmHg BP Diastolic 83 mmHg Height 71 inches 5'11" Weight 299.00 lb BMI (Body Mass Index) 41.7 kg/m2 Heart Rate 84 /min Respiratory Rate 18 /min Body Temperature 98.0 F O2 % BldC Oximetry 96 % 02/22/2018 8:27am BP Systolic 160 mmHg BP Diastolic 90 mmHg Height 71 inches 5'11" Weight 319.25 lb BMI (Body Mass Index) 44.5 kg/m2 Heart Rate 100 /min Respiratory Rate 18 /min Body Temperature 98.0 F O2 % BldC Oximetry 97 % 02/18/2017 9:50am BP Systolic 122 mmHg BP Diastolic 80 mmHg Height 71 inches 5'11" Weight 316.00 lb BMI (Body Mass Index) 44.1 kg/m2 Heart Rate 77 /min Respiratory Rate 16 /min Body Temperature 96.4 F O2 % BldC Oximetry 93 % 01/23/2017 2:06pm BP Systolic 130 mmHg BP Diastolic 72 mmHg Height 71 inches 5'11" Weight 316.00 lb BMI (Body Mass Index) 44.1 kg/m2 Heart Rate 85 /min Respiratory Rate 2013 /min Body Temperature 97.1 F O2 % BldC Oximetry 95 % Procedures Date Code Description Status 01/23/2017 31509 Allergy Tests Percutaneous W/ Allergenic Extracts Completed Encounters Type Date Location Provider Dx Diagnosis Office Visit 02/22/2018 Rene Caal J30.89 Other allergic 8:30a MAURO Saleh rhinitis J30.1 Allergic rhinitis due to pollen Office Visit 02/18/2017 9:45a MIGUE Aguilera J30.89 Other allergic rhinitis J30.1 Allergic rhinitis due to pollen Office Visit 01/23/2017 2:00p Rene Bates J30.1 Allergic rhinitis MD due to pollen J30.89 Other allergic rhinitis Plan of Treatment 02/22/2018 - Sara Saleh RPA-CJ30.89 Other allergic rhinitisNew Medication:Fluticasone Propionate 50 mcg/Act - Joffre 2 sprays in each nostril once dailyComments:Patient with chronic rhinitis, recurrent sinusitis and history of nasal polyps. I will start Fluticasone nasal spray and have discussed the importance of using a nasal steroid medication daily to maximize efficacy. Continue Levocetirizine as directed. I have cautioned Spencer against using Sudafed, due to his history of hypertension.Patient is not interested in restarting immunotherapy at this time. He previously completed 18 months of allergy injections without improvement in symptoms. I would recommend follow-up with Dr. Whalen regarding his recurrent sinus infections and history of nasal polyps. I do not feel Spencer is immune deficient, but we can always screen his immune system if he continues to have infections. Singulair and/or Budesonide rinses may also be a good option. Will wait to see his response to Fluticasone and see patient back in 6 months.Follow up:6 months.J30.1 Allergic rhinitis due to pollenComments:Continue Levocetirizine as directed.Follow up:6 months.
--- OUTSIDE RECORDS SUMMARY | 2018-09-21 05:44 | XMS REPORT | Continuity of Care Document ---
:1950 External Reference #:[id number] Author Name Shady Bates MD Address [address] [place] [address] Care Team Providers Name Role Phone Savage Oates MD Care Team Information Thread Weaver Unavailable Savage Oates MD Primary Care Physician Unavailable Payers Date Identification Numbers Payment Provider Subscriber Policy Number: [id number] [place] PayID: [id number] [address] [place] [address] Policy Number: [id number] [facility] [place] PayID: [id number] Problems Active Problems Provider Date Essential hypertension [...] Second Hand Smoke Exposure Smoking Status Reviewed: 09/14/18 No Second Hand Smoke Exposure Allergies, Adverse Reactions, Alerts Active Allergies Reaction Severity Comments Date [place] 01/23/2017 Tramadol 02/22/2018 Metoprolol 02/22/2018 Medications Active Medications SIG Qnty Indications Ordering Provider Date Fluticasone Propionate spray 2 sprays 16gm J30.89 Shady Cedeno 2017 [...] Levocetirizine Take 1 Tablet By 30tabs Shady Cedeno Dihydrochloride Mouth AT Bedtime MD Paulo 5mg [...] 24HR take 1 tablet (5 30tabs J30.1 Shady TorresMerlin 2016 - 5mg mg) by oral route MD Paulo 02/22/2018 Tablets once daily as needed Meloxicam Unknown - 15mg Tablets 02/22/2018 Methylprednisolone Darioanovane, - 4mg TBPK Savage Mccabe MD 02/22/2018 Azithromycin Take 1 Tablet By Unknown - 500mg Tablets Mouth Every Day 02/22/2018 For 3 Days Cefaclor ER NasSueDayna, - 500mg Tablets HALEIGH BABB 02/22/2018 12HR Doxycycline Hyclate Take 1 Capsule By Unknown - 100mg Mouth Two Times 02/22/2018 Capsules Daily Prednisone Take 5 Tablets By Unknown - 10mg Tablets Mouth Daily For 2 02/22/2018 Days, Then Take 4 Tablets Daily For 3 Days, Then Take 3 Tablets Daily For 3 Days, Then Take 2 Tablets Da Ipratropium [place] Иван, - 0.06% Savage Mccabe MD 02/22/2018 Solution Fluticasone Propionate Use 1 [place] In Unknown - Each Nostril Two 02/22/2018 [...] 6 Per Day Basil Boston, - 100Unit/ML 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[employer]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 [employer]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 09/13/2018 Solution Pen-Inject Proctozone-HC Иван, - 2.5% [...] % Procedures Date Code Description Status 01/23/2017 57540 Allergy Tests Percutaneous W/ Allergenic Extracts Completed Encounters Type Date Location Provider Dx Diagnosis Office Visit 09/13/2018 10:30a JEFFREY Abdullahi J30.89 Other allergic rhinitis J30.1 Allergic rhinitis due to pollen Office Visit 02/22/2018 8:30a Rene Saleh J30.89 Other allergic RPA-C rhinitis J30.1 Allergic rhinitis due to pollen Office Visit 02/18/2017 9:45a MIGUE Aguilera J30.89 Other allergic rhinitis J30.1 Allergic rhinitis due to pollen Office Visit 01/23/2017 2:00p Rene Bates J30.1 Allergic rhinitis MD due to pollen J30.89 Other allergic rhinitis Plan of Treatment Future Appointment(s):09/14/2019 10:00 am - JEFFREY Jaramillo at [id number]/13/2018 - JEFFREY JaramilloJ30.89 Other allergic rhinitisComments:Patient to continue Flonase for prophylaxis of his nose and Xyzal for breakthrough nasal symptoms. Patient to use nebulizer every 4 hours as needed. Patient can continue grapeseed extract as prescribed.Follow up:6 elxurfN31.1 Allergic rhinitis due to pollen
--- OUTSIDE RECORDS SUMMARY | 2018-09-21 05:44 | XMS REPORT | Continuity of Care Document ---
:1950 External Reference #:[id number] Author Name Frankie Chikis Care Team Providers Name Role Phone Savage Oates MD Primary Care Physician Unavailable Payers Date Identification Numbers Payment Provider Subscriber Policy Number: [id number] Medicare Spencer Francisco PayID: [id number] [address] [place] [address] Expires: 2017 Policy Number: [id number] Medicare Spencer Francisco PayID: [id number] [address] [place] [address] Policy Number: [id number] [facility] Spencer Francisco Group Name: aka colonial stephanie [address] [place] [address] Problems Active Problems Provider Date Lumbosacral spondylosis without myelopathy Salma Ta MD Onset: Low back pain Salma Ta MD Onset: 08/11/2017 Obesity Salma Ta MD Onset: 08/26/2017 Neurogenic claudication Salma Ta MD Onset: 10/06/2017 Atrial fibrillation Keon Miller M.D. Onset: 12/17/2017 Type 2 diabetes mellitus Keon Miller M.D. Onset: 12/17/2017 Essential hypertension Keon Miller M.D. Onset: 12/17/2017 Hyperlipidemia Keon Miller M.D. Onset: 12/17/2017 Acute renal failure syndrome Keon Miller M.D. Onset: 12/18/2017 Localized, primary osteoarthritis of the Alissa Joseph M.D. Onset: 05/21/2018 pelvic region and thigh Sciatic nerve lesion Alissa Joseph M.D. Onset: 05/21/2018 Lumbar spondylolisthesis Salma Ta MD Onset: 07/26/2018 Family History Date Family Member(s) Observation Comments Father due to Lung Cancer () Mother due to Pancreatic Cancer () Siblings 1 1 sister Social History Type Date Description Comments Sex Unknown Marital Status Lives With Occupation Retired Tobacco Use Start: Unknown End: Former Cigarette Smoker Smoked 1 ppd for 20 Unknown years Smoking Status Reviewed: 09/08/18 Former Cigarette Smoker Smoked 1 ppd for 20 years ETOH Use Occasionally consumes alcohol Tobacco Use Start: Unknown End: Patient is a former Unknown smoker Recreational Drug Use Denies Drug Use Exercise Type/Frequency Exercises rarely Allergies, Adverse Reactions, Alerts Active Allergies Reaction Severity Comments Date Minter rash 06/04/2017 Metoprolol rash and difficulty breathing 10/30/2017 Tramadol rash 06/07/2018 Medications Active Medications SIG Qnty Indications Ordering Date Provider Oxycodone-Acetaminoph 1-2 by mouth every 30tabs M54.5 Vassilios 06/01/2018 en 4-6 hours as needed MD Keyon 5-325mg Tablets for pain. Atenolol 1/2 by mouth every 30tabs I48.0 Michele Caal 10/22/2017 25mg Tablets day Ruiz, DO FACC Levocetirizine 1 every day as Unknown Dihydrochloride needed 5mg Tablets Duloxetine HCL One capsule by mouth Unknown 30mg daily Caps DR Jenniffer Joyner HFA 2 puffs by mouth Unknown four times a day as 108(90Base) mcg/Act needed Aerosol Fluticasone Tyro 2 Sprays Into Unknown Propionate Each Nostril One 50mcg/Act Time Daily Suspension Gabapentin Take 600 mg hs Unknown 100mg Capsules Tadalafil Take 1 Tablet By Unknown 5mg Tablets Mouth Every Day as Needed Trulicity inject Unknown 1.5mg/0.5ML subcutaneously Solution Pen-Inject weekly (alternating with Ozempic) Omeprazole 1 by mouth every day Unknown 40mg Capsules DR Atorvastatin Calcium 1 by mouth every day Unknown 80mg Tablets Levothyroxine Sodium 1 by mouth every day Unknown 100mcg Tablets History Medications Percocet 1 tab by mouth 30tabs M51.16 Vassilios 06/11/2018 - 5-325mg every 6 hours as MD Keyon 07/26/2018 Tablets needed pain. hold if not fully awake. Oxycodone HCL take 1 tab by 24tabs Salma 05/30/2018 - 5mg mouth every 4-6 MD Keyon 06/06/2018 Tablets hours as needed for pain Prednisone 2 tab daily for 1 21tabs J18.9 Samira 05/14/2018 - 5mg Tablets week, then 1 tab DOUG Hernandez 06/06/2018 daily for 1 week Xopenex use every 4-6 36ml Samira 05/14/2018 - 1.25mg/3ML hours as needed DOUG Hernandez 06/06/2018 Nebulizer Dx code J18.9, J41. 0 Oxycodone-Acetaminoph 1-2 by mouth 30tabs Z48.89 Salma 12/29/2017 - en every 4-6 hours MD Keyon 05/13/2018 5-325mg Tablets as needed for pain. Metoprolol Succinate 1 by mouth every 90tabs I48.0 Michele Ruiz, 2017 - ER day DO [facility] 10/14/2017 25mg Tablets ER 24HR Furosemide Take a water pill 90tabs I48.0 Michele Ruiz, 10/22/2017 - 20mg Tablets (furosemide or DO [facility] 05/13/2018 lasix) today, tomorrow and then start taking, Thursday, Thursday and Thursday. Atenolol 1 by mouth every 30tabs I48.0 Michele Ruiz, 10/21/2017 - 25mg Tablets day DO [facility] 10/22/2017 Metoprolol Succinate 1 by mouth every 30tabs I48.0 Michele Ruiz, 2017 - ER day DO [facility] 10/21/2017 25mg Tablets ER 24HR Cefaclor ER 1 by mouth twice 14tabs J20.9 Dayna Lovell, 05/26/2017 - 500mg a day 07/19/2017 Tablets ER 12HR Prednisone 4 tabs day#1, 3 30units J20.9 Dayna Lovell, 05/26/2017 - 10mg (21) tabs day#2, 2 08/11/2017 TBPK tabs day#3, 1 tab for 7 days, 1/2 tab for 10 days (will be finnished 06/15) Meloxicam Take 1 Tablet By Unknown - 7.5mg Tablets Mouth Every Day 09/07/2018 Albuterol Sulfate 1 application Unknown - every 4 hours as 05/14/2018 (2.5mg/3ML) 0.083% needed Nebulizer Loratadine once a day for Unknown - 10mg allergies as 05/13/2018 Capsules needed Sinus Pressure + Pain as needed Unknown - 05/13/2018 5-325mg Tablets Ibuprofen 4 by mouth every Unknown - 200mg Tablets 8 hours as needed 05/13/2018 Sudafed Congestion 1 by mouth twice Unknown - 30mg a day 05/13/2018 Tablets Amlodipine Besylate Take 1 Tablet By Unknown - 5mg Mouth Every Day 10/22/2017 Tablets Terazosin HCL Take 1 Capsule By Unknown - 5mg Mouth Every Day 06/06/2018 Capsules Amlodipine Besylate Take 1 Tablet By Unknown - 5mg Mouth Every Day 08/11/2017 Tablets Doxycycline Hyclate Take 1 Capsule By Unknown - Mouth Two Times 08/11/2017 100mg Capsules Daily Ventolin HFA 2 puffs by mouth Unknown - four times a day 08/11/2017 108(90Base) mcg/Act as needed Aerosol Albuterol Sulfate 1 vial via Unknown - nebulizer 4 times 07/19/2017 (2.5mg/3ML) 0.083% daily as needed Nebulizer Metformin HCL 1 by mouth a day Unknown - 1000mg 12/29/2017 Tablets Levemir 12 units once Unknown - 100Unit/ML daily 05/04/2018 Solution Meloxicam 1 by mouth every Unknown - 15mg Tablets day 10/04/2017 Metoprolol Tartrate 1 by mouth twice Unknown - a day 07/19/2017 50mg Tablets Levocetirizine 1 by mouth every Unknown - Dihydrochloride day 10/04/2017 5mg Tablets Cialis 1 by mouth every Unknown - 5mg Tablets day 07/19/2017 Lisinopril 1 by mouth every Unknown - 20mg Tablets day 12/29/2017 Aspirin Low Dose 1 by mouth every Unknown - 81mg day 10/04/[address] Medications Administered in Office Medication SIG Qnty Indications Ordering Provider Date Inj, Regadenoson, 0.1 MG Michele Ruiz, DO FAC 10/06/2017 Injection Technetium TC 99M Michele Ruiz, DO FAC 10/06/2017 Tetrofosmin, Per Unit Dose Up To 40 Millicuries Injection Vital Signs Date Vital Result Comment 09/08/2018 8:09am Height 72 inches 6'0" Weight 301.00 lb with shoes BP Systolic Sitting 124 mmHg lue reg cuff BP Diastolic Sitting 78 mmHg lue reg cuff BP Systolic Standing 126 mmHg lue reg cuff BP Diastolic Standing 78 mmHg lue reg cuff Respiratory Rate 14 /min BMI (Body Mass Index) 40.8 kg/m2 Ejection Fraction >65% echo. 05/29/17 08/23/2018 2:27pm Height 72 inches 6'0" Weight 298.00 lb BP Systolic Sitting 140 mmHg BP Diastolic Sitting 80 mmHg Pain Level 8 BMI (Body Mass Index) 40.4 kg/m2 07/26/2018 11:16am Weight 295.00 lb Heart Rate 80 /min BP Systolic Sitting 130 mmHg BP Diastolic Sitting 80 mmHg Body Temperature 97.5 F O2 % BldC Oximetry 97 % 06/11/2018 10:36am Height 72 inches 6'0" Weight 322.00 lb BP Systolic Sitting 124 mmHg BP Diastolic Sitting 84 mmHg Pain Level 10 BMI (Body Mass Index) 43.7 kg/m2 06/07/2018 1:22pm Height 72 inches 6'0" Weight 322.00 lb Heart Rate 60 /min BP Systolic Sitting 140 mmHg Lue large cuff BP Diastolic Sitting 88 mmHg Lue large cuff Respiratory Rate 20 /min O2 % BldC Oximetry 94 % BMI (Body Mass Index) 43.7 kg/m2 06/01/2018 1:49pm Height 72 inches 6'0" Weight 315.00 lb BP Systolic Sitting 140 mmHg BP Diastolic Sitting 90 mmHg Pain Level 8 BMI (Body Mass Index) 42.7 kg/m2 05/21/2018 10:57am Height 72 inches 6'0" Weight 315.00 lb BP Systolic 111 mmHg BP Diastolic 66 mmHg Respiratory Rate 15 /min Pain Level 8 BMI (Body Mass Index) 42.7 kg/m2 05/14/2018 10:00am Height 72 inches 6'0" Weight [...] Test Result H/L Range Note Laboratory test 07/22/2018 [facility] [place] C Reactive 1.26 mg/L N < 8.[address] [place] [address] [phone] CBC Auto Diff 07/22/2018 [facility] White Blood 9.3 10^3/uL N 3.5-10.[address] [place] [address] [phone] Red Blood Count 5.32 10^6/uL N 4.18-5.48 Hemoglobin 15.0 g/dL N 14.0-18.0 Hematocrit 46 % N 42-52 Mean Corpuscular Volume 86 fL N 80-94 Mean Corpuscular Hemoglobin 28 pg N 27-31 Mean Corpuscular HGB Conc 33 g/dL N 31-36 Red Cell Distribution Width 15 % N 10.5-15 Platelet Count 182 10^3/uL N 150-450 Mean Platelet Volume 10.6 fL High 7.4-10.4 Abs Neutrophils 6.4 10^3/uL N 1.5-7.7 Abs Lymphocytes 2.1 10^3/uL N 1.0-4.8 Abs Monocytes 0.6 10^3/uL N 0-0.8 Abs Eosinophils 0.2 10^3/uL N 0-0.6 Abs Basophils 0.0 10^3/uL N 0-0.2 Abs Nucleated RBC 0.0 10^3/uL Granulocyte % 68.4 % Lymphocyte % 22.7 % Monocyte % 6.5 % Eosinophil % 2.1 % Basophil % 0.3 % Nucleated Red Blood Cells % 0.0 Laboratory test 07/22/2018 [facility] [place] Erythrocyte Sed 5 mm/Hr N 0-[address] [place] [address] [phone] Laboratory test 05/22/2018 [facility] [place] Erythrocyte Sed 12 mm/Hr N 0-20 [address] [place] [address] [phone] C Reactive Protein 4.24 mg/L N <8.01 BUN/Creat/GFR 04/16/2018 [facility] Poc Blood Urea 21 mg/dL N 8-[address] [place] [address] [phone] Poc Creatinine 1.1 mg/dL N 0.6-1.3 2 Poc BUN/Creatinine Ratio 19.1 N 8-20 Egfr Non- 66.8 >60 Egfr 80.8 >60 3 Laboratory test 12/17/2017 [facility] Point of 164 mg/dL High 70-100 4 finding 101 [facility] [place] [address] [phone] Laboratory test 12/17/2017 [facility] Point of 113 mg/dL High 70-100 5 finding 101 [facility] [place] [address] [phone] CBC No Diff 12/10/2017 [facility] White Blood 9.6 N 3.5-10.8 101 [facility] Count 10^3/[place] [address] [phone] Red Blood Count 5.03 10^6/uL N 4.00-5.40 Hemoglobin 14.4 g/dL N 14.0-18.0 Hematocrit 43 % N 42-52 Mean Corpuscular Volume 85 fL N 80-94 Mean Corpuscular Hemoglobin 29 pg N 27-31 Mean Corpuscular HGB Conc 34 g/dL N 31-36 Red Cell Distribution Width 15 % N 10.5-15 Platelet Count 167 10^3/uL N 150-450 Mean Platelet Volume 10.0 um3 N 7.4-10.4 Inr/Protime 12/10/2017 [facility] Inr 1.06 High 0.77-1.02 [address] [place] [address] [phone] Laboratory test 12/10/2017 [facility] Partial 31.8 N 26.0- 36.3 finding 101 [facility] [place] [address] Time PTT [phone] Urinalysis 12/10/2017 [facility] Urine Color Yellow Profile [address] [place] [address] [phone] Urine Appearance Clear Urine Specific Lulu 1.014 N 1.010-1.030 Urine pH 6.0 N 5-9 Urine Urobilinogen Negative Negative Urine Ketones Negative Negative Urine Protein Negative Negative Urine Leukocytes Negative Negative Urine Blood Negative Negative * * Abnormal Negative 6 Urine Nitrite Negative Negative Urine Bilirubin Negative Negative Urine Glucose Negative Negative Type & Screen 12/10/2017 [facility] [place] Patient Blood Type A Positive [address] [place] [address] [phone] Antibody Screen NEGATIVE Basic Metabolic Panel 12/10/2017 [facility] Sodium 139 mmol/L N 135-145 [address] [place] [address] [phone] Potassium 4.5 mmol/L N 3.5-5.0 Chloride 107 mmol/L N 101-111 Co2 Carbon Dioxide 26 mmol/L N 22-32 Anion Gap 6 mmol/L N 2-11 Glucose 121 mg/dL High 70-100 Blood Urea Nitrogen 24 mg/dL N 6-24 Creatinine 1.01 mg/dL N 0.67-1.17 BUN/Creatinine Ratio 23.8 High 8-20 Calcium 9.0 mg/dL N 8.6-10.3 Egfr Non- 73.7 >60 Egfr 89.2 >60 7 Basic Metabolic Panel 10/28/2017 [facility] [place] Sodium 141 mmol/L N 135-145 [address] [place] [address] [phone] Potassium 4.4 mmol/L N 3.5-5.0 Chloride 107 mmol/L N 101-111 Co2 Carbon Dioxide 28 mmol/L N 22-32 Anion Gap 6 mmol/L N 2-11 Glucose 115 mg/dL High 70-100 Blood Urea Nitrogen 26 mg/dL High 6-24 Creatinine 1.17 mg/dL N 0.67-1.17 BUN/Creatinine Ratio 22.2 High 8-20 Calcium 8.6 mg/dL N 8.6-10.3 Egfr Non- 62.2 >60 Egfr 75.2 >60 8 Urinalysis Profile 10/08/2017 [facility] [place] Urine Color Yellow [address] [place] [address] [phone] Urine Appearance Clear Urine Specific Lulu 1.027 N 1.010-1.030 Urine pH 5.0 N 5-9 Urine Urobilinogen Negative Negative Urine Ketones Negative Negative Urine Protein Negative Negative Urine Leukocytes Negative Negative Urine Blood Negative Negative * * Abnormal Negative 9 Urine Nitrite Negative Negative Urine Bilirubin Negative Negative Urine Glucose Negative Negative Type & Screen 10/08/2017 [facility] [place] Patient Blood Type A Positive 10 [address] [place] [address] [phone] Antibody Screen NEGATIVE Laboratory test 10/08/2017 [facility] [place] TSH (Thyroid 1.55 mcIU/mL N 0.34-5.[address] Stim Horm) [place] [address] [phone] Basic Metabolic 10/08/2017 [facility] Sodium 141 mmol/L N 135- [address] [place] [address] [phone] Potassium 4.3 mmol/L N 3.5-5.0 Chloride 108 mmol/L N 101-111 Co2 Carbon Dioxide 25 mmol/L N 22-32 Anion Gap 8 mmol/L N 2-11 Glucose 115 mg/dL High 70-100 Blood Urea Nitrogen 23 mg/dL N 6-24 Creatinine 1.05 mg/dL N 0.67-1.17 BUN/Creatinine Ratio 21.9 High 8-20 Calcium 9.0 mg/dL N 8.6-10.3 Egfr Non- 70.5 >60 Egfr 85.2 >60 12 CBC No Diff 10/08/2017 [facility] White Blood 8.9 10^3/uL N 3.5-10.8 [place] [address] [phone] Red Blood Count 4.59 10^6/uL N 4.00-5.40 Hemoglobin 13.2 g/dL Low 14.0-18.0 Hematocrit 40 % Low 42-52 Mean Corpuscular Volume 86 fL N 80-94 Mean Corpuscular Hemoglobin 29 pg N 27-31 Mean Corpuscular HGB Conc 33 g/dL N 31-36 Red Cell Distribution Width 15 % N 10.5-15 Platelet Count 161 10^3/uL N 150-450 Mean Platelet Volume 10.3 um3 N 7.4-10.4 Laboratory test 10/08/2017 [facility] Partial 32.9 N 26.0- 36.3 13 finding 101 [facility] [place] [address] Time PTT [phone] Inr/Protime 10/08/2017 [facility] Inr 1.05 High 0.77-1.[address] [place] [address] [phone] Order 05/26/2017 Care Director In-House 6 Minute <pending> Walk 1 Test Performed by: [facility] [address] [place], [place] [address] Jasmeet Ann M.D. Director of Laboratory 2 General Maintenance Engineer: [id number] 3 Because ethnic data is not always [...] 5 Kidney failure <15 (or dialysis) 4 General Maintenance Engineer: [id number] 5 General Maintenance Engineer: [id number] 6 *Ascorbic acid is present which may interfere with detection of blood. 7 Because ethnic data is not always [...] 5 Kidney failure <15 (or dialysis) 8 Because ethnic data is not always readily [...] 15-29 5 Kidney failure <15 (or dialysis) 9 *Ascorbic acid is present which may interfere with detection of blood. 10 10/15 11 10/15 12 Because ethnic data is not always readily [...] 15-29 5 Kidney failure <15 (or dialysis) 13 10/15 Procedures Date Code Description Status 09/08/2018 44458 EKG Tracing & Interpretation Completed 08/12/2018 [id number] Bone Mineral Density Test Completed 06/08/2018 43170 Nerve Conduction 05-06 Studies Completed 06/08/2018 39423 Needle Electromyography Complete, Five Or More Muscles Completed Studied 06/03/2018 79229 Diffusing Capacity Completed 06/03/2018 63170 Plethysmography Determination Lung Volumes & Per Completed Airway Resist 06/03/2018 60735 Pulmonary Function><Bronchodil Completed 12/17/2017 44490 Garcia/Facet/Foraminotomy;Vertebral Segment; Lumbar Completed 12/17/2017 86773 Garcia/Facet/Foraminotomy;Vertebral Segment; Lumbar Completed 10/27/2017 62055 Holter Monitor Review (24 hr)dr review & interp only Completed 10/26/2017 50183 ECG Monitor/Recording W/Visual Superimposition Completed Scanning 10/22/2017 77715 EKG Tracing & Interpretation Completed 10/08/2017 96379 Myocardial Perfusion Imaging Tomographic (Spect) Completed Multiple Studies 10/06/2017 30784 Stress Test Completed 10/06/2017 11167 Myocardial Perfusion Imaging Tomographic (Spect) Completed Multiple Studies 2017 17901 EKG Tracing & Interpretation Completed 05/29/2017 40065 ECHO Transthorasic Realtime 2D W Doppler & Color Flow Completed Hosp 05/26/2017 72291 Pulmonary Stress Test Simple Completed 05/26/2017 07373 Pulmonary Stress Testing[facility] Measurement Heart Rate, Completed Oximetry 04/09/2017 78127 Colonoscopy Flexible W/Biopsy Completed 04/09/2017 22817 Endoscopy Upper GI Biopsy Completed 04/09/2017 [id number] Colonoscopy Completed Encounters Type Date Location Provider Dx Diagnosis Office Visit 08/16/2018 [facility] Dermatology Tito Blake MD L57.0 Actinic keratosis 8:30a L82.1 Other seborrheic keratosis D22.9 Melanocytic nevi, unspecified Z08 Encntr for follow-up exam after trtmt for malignant neoplasm Z85.828 Personal history of other malignant neoplasm of skin Office Visit 07/26/2018 Neurosurgery Vassilios M48.062 Spinal stenosis, 11:00a Services Of Timoteo Ta MD lumbar region with neurogenic claudication M43.16 Spondylolisthesis, lumbar region M71.38 Other bursal cyst, other site Office 06/11/2018 Neurosurgery Vassilios M51.16 Intervertebral disc Visit 10:30a Services Of Timoteo Ta MD disorders w radiculopathy, lumbar region M48.062 Spinal stenosis, lumbar region with neurogenic claudication Office Visit 06/07/2018 Pulmonology And Samira J45.909 Unspecified 1:30p Sleep Services Of DOUG Hernandez asthma, [facility] uncomplicated J41.0 Simple chronic bronchitis Office Visit 06/01/2018 2:00p Neurosurgery Vassilios M54.5 Low back Services Of Timoteo Ta MD pain M48.062 Spinal stenosis, lumbar region with neurogenic claudication Office Visit 05/21/2018 10:30a Orthopedic Services Alissa Joseph, M25.551 Pain in right Of C.M.A. M.D. hip M16.11 Unilateral primary osteoarthritis, right hip M54.5 Low back pain G57.01 Lesion of sciatic nerve, right lower limb Office Visit 05/14/2018 10:15a Pulmonology And Dayna J18.9 Pneumonia, Sleep Services Of MD Nas unspecified [facility] organism J41.0 Simple chronic bronchitis Z87.891 Personal history of nicotine dependence Office Visit 05/04/2018 Neurosurgery Vassilios M48.062 Spinal stenosis, 1:00p Services Of Timoteo Ta MD lumbar region with neurogenic claudication M54.5 Low back pain Office Visit 04/30/2018 11:40a [facility] A41.9 Sepsis, Assochayden M.D. unspecified Hospitalists organism J18.9 Pneumonia, unspecified organism I48.0 Paroxysmal atrial fibrillation E66.01 Morbid (severe) obesity due to excess calories Z68.41 Body mass index (BMI) 40.0-44.9, adult E03.9 Hypothyroidism, unspecified I10 Essential (primary) hypertension E78.5 Hyperlipidemia, unspecified K21.9 Gastro-esophageal reflux disease without esophagitis Office Visit 04/29/2018 11:39a [facility] A41.9 Sepsis, Assochayden M.D. unspecified Hospitalists organism J18.9 Pneumonia, unspecified organism I48.0 Paroxysmal atrial fibrillation E11.9 Type 2 diabetes mellitus without complications E03.9 Hypothyroidism, unspecified I10 Essential (primary) hypertension E78.5 Hyperlipidemia, unspecified Office Visit 04/28/2018 11:39a [facility] A41.9 Sepsis, Assochayden M.D. unspecified Hospitalists organism J18.9 Pneumonia, unspecified organism I48.0 Paroxysmal atrial fibrillation E11.9 Type 2 diabetes mellitus without complications E03.9 Hypothyroidism, unspecified I10 Essential (primary) hypertension E78.5 Hyperlipidemia, unspecified Office Visit 04/27/2018 11:39a [facility] A41.9 Sepsis, Assochayden M.D. unspecified Hospitalists organism J18.9 Pneumonia, unspecified organism I48.0 Paroxysmal atrial fibrillation E83.42 Hypomagnesemia E11.9 Type 2 diabetes mellitus without complications E03.9 Hypothyroidism, unspecified I10 Essential (primary) hypertension E78.5 Hyperlipidemia, unspecified Office Visit 04/26/2018 [facility] Martín Pineda J18.9 Pneumonia, 11:37a Assoc,hayden Talley MD unspecified Hospitalists organism R06.02 Shortness of breath E11.9 Type 2 diabetes mellitus without complications I48.91 Unspecified atrial fibrillation E03.9 Hypothyroidism, unspecified Office Visit 04/02/2018 10:30a Neurosurgery Vassilios M54.5 Low back Services Of Timoteo Ta MD pain M25.551 Pain in right hip Office Visit 12/17/2017 [facility] Keon I48.91 Unspecified atrial 10:22a Assoc,hayden Miller M.D. fibrillation Hospitalists E11.9 Type 2 diabetes mellitus without complications I10 Essential (primary) hypertension E78.5 Hyperlipidemia, unspecified Office Visit 11/24/2017 Neurosurgery Vassilios M48.062 Spinal stenosis, 11:30a Services Of Timoteo Ta MD lumbar region with neurogenic claudication Office Visit 10/30/2017 [facility] Michele Ruiz, I50.32 Chronic diastolic 11:40a Of [facility] [place] FAC (congestive) heart failure I48.0 Paroxysmal atrial fibrillation Z01.810 Encounter for preprocedural cardiovascular examination E66.8 Other obesity I10 Essential (primary) hypertension E78.5 Hyperlipidemia, unspecified F17.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, unspecified, in remission E11.9 Type 2 diabetes mellitus without complications Office Visit 10/22/2017 2:20p [facility] Michele Caal I48.0 Paroxysmal atrial Of [facility] DO Joseph fibrillation FACC I50.9 Heart failure, unspecified E66.8 Other obesity I10 Essential (primary) hypertension J45.998 Other asthma F17.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, unspecified, in remission E78.5 Hyperlipidemia, unspecified E11.9 Type 2 diabetes mellitus without complications Office Visit 2017 [facility] Michele Caal Z01.810 Encounter for 2:20p Cardiology Rogers Ruiz DO preprocedural [facility] cardiovascular examination I10 Essential (primary) hypertension [...] chronic Sleep Services Of MD Nas bronchitis Care Director J32.9 Chronic sinusitis, unspecified E66.01 Morbid (severe) obesity due to excess calories K21.0 Gastro-esophageal reflux disease with esophagitis Office Visit 06/04/2017 9:15a Pulmonology And Dayna J20.9 Acute bronchitis, Sleep Services Of MD Nas unspecified Care Director J01.90 Acute sinusitis, unspecified R49.0 Dysphonia E66.01 Morbid (severe) obesity due to excess calories K21.0 Gastro-esophageal reflux disease with esophagitis Office Visit 06/01/2017 [facility] Alissa Jaeger J44.1 Chronic 11:10a hayden Edouard, SECURITY CONSULTANT obstructive Hospitalists pulmonary disease w (acute) exacerbation I10 Essential (primary) hypertension E11.9 Type 2 diabetes mellitus without complications Z79.4 [facility] (current) use of insulin Office Visit 05/31/2017 [facility] Alissa Jaeger J44.1 Chronic 11:08a hayden Edouard NP obstructive Hospitalists pulmonary disease w (acute) exacerbation E11.9 Type 2 diabetes mellitus without complications I10 Essential (primary) hypertension Z79.4 [facility] (current) use of insulin Office Visit 05/30/2017 [facility] Alissa Jaeger J44.1 Chronic 11:08a hayden Edouard, SECURITY CONSULTANT obstructive Hospitalists pulmonary disease w (acute) exacerbation E11.9 Type 2 diabetes mellitus without complications I10 Essential (primary) hypertension Z79.4 FCI (current) use of insulin Office Visit 05/29/2017 [facility] Alissa Jaeger J44.1 Chronic 11:07a Assoc,hayden Carias SECURITY CONSULTANT obstructive Hospitalists pulmonary disease w (acute) exacerbation E11.9 Type 2 diabetes mellitus without complications I10 Essential (primary) hypertension 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 Office Visit 05/28/2017 [place] Darleen Han J44.1 Chronic 11:06a Assoc,pc Scott Boland, obstructive Hospitalists SECURITY CONSULTANT pulmonary disease w (acute) exacerbation E11.9 Type 2 diabetes mellitus without complications I10 Essential (primary) hypertension 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 Office Visit 05/26/2017 7:00a Pulmonology And Sleep Dayna Lovell MD R05 [facility] J20.9 Acute bronchitis, unspecified K21.0 Gastro-esophageal reflux disease with esophagitis E66.01 Morbid (severe) obesity due to excess calories J01.10 Acute frontal sinusitis, unspecified Plan of Treatment Future Appointment(s):12/22/2018 10:00 am - Salma Ta MD at [facility]10/22/2018 9:30 am - JEFFREY Najera at [facility]09/29/2018 9:30 am - Salma Ta MD at [facility]09/21/2018 7:30 am - JEFFREY Najera at [facility]09/21/2018 7:30 am - Salma Ta MD at [facility]09/08/2018 - Michele Ruiz DO FACCI48.91 Unspecified atrial fibrillationFollow up:PRNZ01.810 Encounter for preprocedural cardiovascular examination
--- OUTSIDE RECORDS SUMMARY | 2018-09-21 05:44 | XMS REPORT | Continuity of Care Document ---
:1950 External Reference #:[id number] Author Name Duyen Rogers Care Team Providers Name Role Phone Savage Oates MD Primary Care Physician Unavailable Payers Date Identification Numbers Payment Provider Subscriber Policy Number: [id number] Medicare Spencer Francisco PayID: [id number] [address] [place] [address] Expires: 2017 Policy Number: [id number] Medicare Spencer Francisco PayID: [id number] [address] [place] [address] Policy Number: [id number] [facility] Spencer Francisco Group Name: aka colonial stephanie [address] [place] [address] Problems Active Problems Provider Date Lumbosacral spondylosis without myelopathy Salma Ta MD Onset: Low back pain Salma Ta MD Onset: 08/11/2017 Obesity Salma Ta MD Onset: 08/26/2017 Neurogenic claudication Salma Ta MD Onset: 10/06/2017 Atrial fibrillation Keon Miller M.D. Onset: 12/17/2017 Type 2 diabetes mellitus Keon Miller M.D. Onset: 12/17/2017 Essential hypertension Keon Miller M.D. Onset: 12/17/2017 Hyperlipidemia Keon Millre M.D. Onset: 12/17/2017 Acute renal failure syndrome [...] Alerts Active Allergies Reaction Severity Comments Date [place] rash 06/04/2017 Metoprolol rash and difficulty breathing [...] day as 108(90Base) mcg/Act needed Aerosol Fluticasone [place] 2 Sprays Into Unknown Propionate Each Nostril [...] Succinate 1 by mouth every 90tabs I48.0 Mcihele Ruiz, 2017 - ER day DO [facility] 10/14/2017 25mg Tablets ER 24HR Furosemide Take a water pill 90tabs I48.0 Michele Ruiz, 10/22/2017 - 20mg Tablets (furosemide or DO [facility] 05/13/2018 lasix) today, tomorrow and then start taking, Thursday, Thursday and Thursday. Atenolol 1 by mouth every 30tabs I48.0 Michele Ruiz, 10/21/2017 - 25mg Tablets day DO [facility] 10/22/2017 Metoprolol Succinate 1 by mouth every 30tabs I48.0 Michele Ruiz, 2017 - ER day DO [facility] 10/21/2017 25mg Tablets ER 24HR Cefaclor ER [...] Result H/L Range Note Laboratory test 07/22/2018 [facility] C Reactive 1.26 mg/L N < 8.[address] [place] [address] [phone] CBC Auto Diff 07/22/2018 [facility] White Blood 9.3 10^3/uL N 3.5-10.[address] [place] [address] [phone] Red Blood Count 5.32 10^6/uL N 4.18-5.48 [...] Blood Cells % 0.0 Laboratory test 07/22/2018 [facility] Erythrocyte Sed 5 mm/Hr N 0-[address] [place] [address] [phone] Laboratory test 05/22/2018 [facility] Erythrocyte Sed 12 mm/Hr N 0-20 [address] [place] [address] [phone] C Reactive Protein 4.24 mg/L N <8.01 BUN/Creat/GFR 04/16/2018 [facility] Poc Blood Urea 21 mg/dL N 8-[address] [place] [address] [phone] Poc Creatinine 1.1 mg/dL N 0.6-1.3 2 Poc BUN/Creatinine Ratio 19.1 N 8-20 Egfr Non- 66.8 >60 Egfr 80.8 >60 3 Laboratory test 12/17/2017 [facility] Point of 164 mg/dL High 70-100 4 finding 101 [facility] [place] [place] [address] [phone] Laboratory test 12/17/2017 [facility] Point of 113 mg/dL High 70-100 5 finding 101 [facility] [place] [place] [address] [phone] CBC No Diff 12/10/2017 [facility] White Blood 9.6 N 3.5-10.8 [address] [facility] Count 10^3/[place] [address] [phone] Red Blood Count 5.03 10^6/uL N 4.00-5.40 Hemoglobin 14.4 g/dL N 14.0-18.0 Hematocrit 43 % N 42-52 Mean Corpuscular Volume 85 fL N 80-94 Mean Corpuscular Hemoglobin 29 pg N 27-31 Mean Corpuscular HGB Conc 34 g/dL N 31-36 Red Cell Distribution Width 15 % N 10.5-15 Platelet Count 167 10^3/uL N 150-450 Mean Platelet Volume 10.0 um3 N 7.4-10.4 Inr/Protime 12/10/2017 [facility] Inr 1.06 High 0.77-1.02 [address] [place] [address] [phone] Laboratory test 12/10/2017 [facility] Partial 31.8 N 26.0- 36.3 finding [address] [facility] [place] [address] Time PTT [phone] Urinalysis 12/10/2017 [facility] Urine Color Yellow Profile [address] [place] [address] [phone] Urine Appearance Clear Urine Specific Cassandra 1.014 N 1.010-1.030 Urine pH 6.0 N 5-9 Urine Urobilinogen Negative Negative Urine Ketones Negative Negative Urine Protein Negative Negative Urine Leukocytes Negative Negative Urine Blood Negative Negative * * Abnormal Negative 6 Urine Nitrite Negative Negative Urine Bilirubin Negative Negative Urine Glucose Negative Negative Type & Screen 12/10/2017 [facility] Patient Blood Type A Positive [address] [place] [address] [phone] Antibody Screen NEGATIVE Basic Metabolic Panel 12/10/2017 [facility] Sodium 139 mmol/L N 135-145 [address] [place] [address] [phone] Potassium 4.5 mmol/L N 3.5-5.0 Chloride 107 mmol/L N 101-111 Co2 Carbon Dioxide 26 mmol/L N 22-32 Anion Gap 6 mmol/L N 2-11 Glucose 121 mg/dL High 70-100 Blood Urea Nitrogen 24 mg/dL N 6-24 Creatinine 1.01 mg/dL N 0.67-1.17 BUN/Creatinine Ratio 23.8 High 8-20 Calcium 9.0 mg/dL N 8.6-10.3 Egfr Non- 73.7 >60 Egfr 89.2 >60 7 Basic Metabolic Panel 10/28/2017 [facility] Sodium 141 mmol/L N 135-145 [address] [place] [address] [phone] Potassium 4.4 mmol/L N 3.5-5.0 Chloride 107 mmol/L N 101-111 Co2 Carbon Dioxide 28 mmol/L N 22-32 Anion Gap 6 mmol/L N 2-11 Glucose 115 mg/dL High 70-100 Blood Urea Nitrogen 26 mg/dL High 6-24 Creatinine 1.17 mg/dL N 0.67-1.17 BUN/Creatinine Ratio 22.2 High 8-20 Calcium 8.6 mg/dL N 8.6-10.3 Egfr Non- 62.2 >60 Egfr 75.2 >60 8 Urinalysis Profile 10/08/2017 [facility] Urine Color Yellow [address] [place] [address] [phone] Urine Appearance Clear Urine Specific Cassandra 1.027 N 1.010-1.030 Urine pH 5.0 N 5-9 Urine Urobilinogen Negative Negative Urine Ketones Negative Negative Urine Protein Negative Negative Urine Leukocytes Negative Negative Urine Blood Negative Negative * * Abnormal Negative 9 Urine Nitrite Negative Negative Urine Bilirubin Negative Negative Urine Glucose Negative Negative Type & Screen 10/08/2017 [facility] Patient Blood Type A Positive 10 [address] [place] [address] [phone] Antibody Screen NEGATIVE Laboratory test 10/08/2017 [facility] TSH (Thyroid 1.55 mcIU/mL N 0.34-5.[address] [place]) [place] [address] [phone] Basic Metabolic 10/08/2017 [facility] Sodium 141 mmol/L N 135- [address] [place] [address] [phone] Potassium 4.3 mmol/L N 3.5-5.0 Chloride 108 mmol/L N 101-111 Co2 Carbon Dioxide 25 mmol/L N 22-32 Anion Gap 8 mmol/L N 2-11 Glucose 115 mg/dL High 70-100 Blood Urea Nitrogen 23 mg/dL N 6-24 Creatinine 1.05 mg/dL N 0.67-1.17 BUN/Creatinine Ratio 21.9 High 8-20 Calcium 9.0 mg/dL N 8.6-10.3 Egfr Non- 70.5 >60 Egfr 85.2 >60 12 CBC No Diff 10/08/2017 [facility] White Blood 8.9 10^3/uL N 3.5-10.8 [place] [address] [phone] Red Blood Count 4.59 10^6/uL N 4.00-5.40 Hemoglobin 13.2 g/dL Low 14.0-18.0 Hematocrit 40 % Low 42-52 Mean Corpuscular Volume 86 fL N 80-94 Mean Corpuscular Hemoglobin 29 pg N 27-31 Mean Corpuscular HGB Conc 33 g/dL N 31-36 Red Cell Distribution Width 15 % N 10.5-15 Platelet Count 161 10^3/uL N 150-450 Mean Platelet Volume 10.3 um3 N 7.4-10.4 Laboratory test 10/08/2017 [facility] Partial 32.9 N 26.0- 36.3 13 finding 101 [facility] [place] [place] [address] Time PTT [phone] Inr/Protime 10/08/2017 [facility] Inr 1.05 High 0.77-1.[address] [place] [address] [phone] Order 05/26/2017 Claim Clinician In-House 6 Minute <pending> Walk 1 Test Performed by: [facility] [address] [place], [place] [address] Jasmeet Ann M.D. Director of Laboratory 2 Grade Recorder: [id number] 3 Because ethnic data is not always [...] 5 Kidney failure <15 (or dialysis) 4 Grade Recorder: [id number] 5 Grade Recorder: [id number] 6 *Ascorbic acid is present which may [...] 10/15 Procedures Date Code Description Status 09/08/2018 81861 EKG Tracing & Interpretation Completed 08/12/2018 [id number] Bone Mineral Density Test Completed 06/08/2018 88344 Nerve Conduction 05-06 Studies Completed 06/08/2018 39638 Needle Electromyography Complete, Five Or More Muscles Completed Studied 06/03/2018 27706 Diffusing Capacity Completed 06/03/2018 92730 Plethysmography Determination Lung Volumes & Per Completed Airway Resist 06/03/2018 80363 Pulmonary Function><Bronchodil Completed 12/17/2017 40271 Garcia/Facet/Foraminotomy;Vertebral Segment; Lumbar Completed 12/17/2017 30972 Garcia/Facet/Foraminotomy;Vertebral Segment; Lumbar Completed 10/27/2017 89709 Holter Monitor Review (24 hr)dr review & interp only Completed 10/26/2017 90338 ECG Monitor/Recording W/Visual Superimposition Completed Scanning 10/22/2017 40285 EKG Tracing & Interpretation Completed 10/08/2017 02996 Myocardial Perfusion Imaging Tomographic (Spect) Completed Multiple Studies 10/06/2017 48051 Stress Test Completed 10/06/2017 77648 Myocardial Perfusion Imaging Tomographic (Spect) Completed Multiple Studies 2017 72268 EKG Tracing & Interpretation Completed 05/29/2017 88722 ECHO Transthorasic Realtime 2D W Doppler & Color Flow Completed Hosp 05/26/2017 24226 Pulmonary Stress Test Simple Completed 05/26/2017 42948 Pulmonary Stress [facility] Measurement Heart Rate, Completed Oximetry 04/09/2017 72490 Colonoscopy Flexible W/Biopsy Completed 04/09/2017 49212 Endoscopy Upper GI Biopsy Completed 04/09/2017 69501651 Colonoscopy Completed Encounters Type Date Location Provider Dx Diagnosis Office Visit 08/16/2018 [facility] Dermatology Tito Blake MD L57.0 Actinic keratosis [...] neurogenic claudication Office Visit 06/07/2018 Pulmonology [facility] J45.909 Unspecified 1:30p Sleep Services Of [facility] Hernandez asthma, [facility] uncomplicated J41.0 Simple chronic bronchitis Office Visit [...] Pneumonia, Sleep Services Of MD Nas unspecified [facility] organism J41.0 Simple chronic bronchitis Z87.891 Personal history of nicotine dependence Office Visit 05/04/2018 Neurosurgery [facility] M48.062 Spinal stenosis, 1:00p Services Of Timoteo Ta MD lumbar region with neurogenic claudication M54.5 Low back pain Office Visit 04/30/2018 11:40a [facility] A41.9 Sepsis, Assochayden M.D. unspecified Hospitalists organism J18.9 Pneumonia, unspecified organism I48.0 Paroxysmal atrial fibrillation E66.01 Morbid (severe) obesity due to excess calories Z68.41 Body mass index (BMI) 40.0-44.9, adult E03.9 Hypothyroidism, unspecified I10 Essential (primary) hypertension E78.5 Hyperlipidemia, unspecified K21.9 Gastro-esophageal reflux disease without esophagitis Office Visit 04/29/2018 11:39a [facility] A41.9 Sepsis, Assochayden M.D. unspecified Hospitalists organism J18.9 Pneumonia, unspecified organism I48.0 Paroxysmal atrial fibrillation E11.9 Type 2 diabetes mellitus without complications E03.9 Hypothyroidism, unspecified I10 Essential (primary) hypertension E78.5 Hyperlipidemia, unspecified Office Visit 04[facility]28[facility]2018 [facility] A[facility].9 Sepsis, Assochayden M.D. unspecified Hospitalists organism J18.9 Pneumonia, unspecified organism I48.0 Paroxysmal atrial fibrillation E11.9 Type 2 diabetes mellitus without complications E03.9 Hypothyroidism, unspecified I10 Essential (primary) hypertension E78.5 Hyperlipidemia, unspecified Office Visit 04/27/2018 11:39a [facility] A41.9 Sepsis, Assochayden M.D. unspecified Hospitalists organism J18.9 Pneumonia, unspecified organism I48.0 Paroxysmal atrial fibrillation E83.42 Hypomagnesemia E11.9 Type 2 diabetes mellitus without complications E03.9 Hypothyroidism, unspecified I10 Essential (primary) hypertension E78.5 Hyperlipidemia, unspecified Office Visit 04/26/2018 [facility] Martín Pineda J18.9 Pneumonia, 11:37a Assoc,hayden Talley MD unspecified Hospitalists organism R06.02 Shortness of breath E11.9 Type 2 diabetes mellitus without complications I48.91 Unspecified atrial fibrillation E03.9 Hypothyroidism, unspecified Office Visit 04/02/2018 10:30a Neurosurgery [facility] M54.5 Low back Services Of Timoteo Ta MD pain M25.551 Pain in right hip Office Visit 12/17/2017 [facility] Keon I48.91 Unspecified atrial 10:22a Assoc,hayden Miller M.D. fibrillation Hospitalists E11.9 Type 2 diabetes mellitus without complications I10 Essential (primary) hypertension E78.5 Hyperlipidemia, unspecified Office Visit 11/24/2017 [facility] M48.062 Spinal stenosis, 11:30a Services Of Timoteo Ta MD lumbar region with neurogenic claudication Office Visit 10/30/2017 [facility] Michele Ruiz, I50.32 Chronic diastolic 11:40a Of [facility] AT [facility] DO FAC (congestive) heart failure I48.0 Paroxysmal atrial fibrillation Z01.810 Encounter for preprocedural cardiovascular examination E66.8 Other obesity I10 Essential (primary) hypertension E78.5 Hyperlipidemia, unspecified F17.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, unspecified, in remission E11.9 Type 2 diabetes mellitus without complications Office Visit 10/22/2017 2:20p [facility] Michele Caal I48.0 Paroxysmal atrial Of [facility] DO Joseph fibrillation FACC I50.9 Heart failure, unspecified E66.8 Other obesity I10 Essential (primary) hypertension J45.998 Other asthma F17.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, unspecified, in remission E78.5 Hyperlipidemia, unspecified E11.9 Type 2 diabetes mellitus without complications Office Visit 2017 [facility] Michele Caal Z01.810 Encounter for 2:20p Cardiology Rogers Ruiz DO preprocedural [facility] cardiovascular examination I10 Essential (primary) hypertension E11.9 [...] chronic Sleep Services Of MD Nas bronchitis Claim Clinician J32.9 Chronic sinusitis, unspecified E66.01 Morbid (severe) obesity due to excess calories K21.0 Gastro-esophageal reflux disease with esophagitis Office Visit 06/04/2017 9:15a Pulmonology And Dayna J20.9 Acute bronchitis, Sleep Services Of MD Nas unspecified Claim Clinician J01.90 Acute sinusitis, unspecified R49.0 Dysphonia E66.01 Morbid (severe) obesity due to excess calories K21.0 Gastro-esophageal reflux disease with esophagitis Office Visit 06/01/2017 [facility] Alissa Jaeger J44.1 Chronic 11:10a hayden Edouard, HEEL DIPPER obstructive Hospitalists pulmonary disease w (acute) exacerbation I10 Essential (primary) hypertension E11.9 Type 2 diabetes mellitus without complications 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 Office Visit 05/31/2017 [facility] Alissa Jaeger J44.1 Chronic 11:08a hayden Edouard NP obstructive Hospitalists pulmonary disease w (acute) exacerbation E11.9 Type 2 diabetes mellitus without complications I10 Essential (primary) hypertension 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 Office Visit 05/30/2017 [facility] Alissa Jaeger J44.1 Chronic 11:08a hayden Edouard, HEEL DIPPER obstructive Hospitalists pulmonary disease w (acute) exacerbation E11.9 Type 2 diabetes mellitus without complications I10 Essential (primary) hypertension Z79.4 USP (current) use of insulin Office Visit 05/29/2017 [facility] Alissa Jaeger J44.1 Chronic 11:07a Assoc,hayden Carias HEEL DIPPER obstructive Hospitalists pulmonary disease w (acute) exacerbation E11.9 Type 2 diabetes mellitus without complications I10 Essential (primary) hypertension Z79.4 USP (current) use of insulin Office Visit 05/28/2017 [place] Darleen Han J44.1 Chronic 11:06a Assoc,pc Scott Kya, obstructive Hospitalists HEEL DIPPER pulmonary disease w (acute) exacerbation E11.9 Type 2 diabetes mellitus without complications I10 Essential (primary) hypertension 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 Office Visit 05/26/2017 7:00a Pulmonology And Sleep Dayna Lovell MD R05 Cough Services [facility] J20.9 Acute bronchitis, unspecified K21.0 Gastro-esophageal reflux disease with esophagitis E66.01 Morbid (severe) obesity due to excess calories J01.10 Acute frontal sinusitis, unspecified Plan of Treatment Future Appointment(s):12/22/2018 10:00 am - Salma Ta MD at [facility]10/22/2018 9:30 am - JEFFREY Najera at [facility]09/29/2018 9:30 am - Salma Ta MD at [facility]09/21/2018 7:30 am - JEFFREY Najera at [facility]09/21/2018 7:30 am - Salma Ta MD at [facility]08/23/2018 - Kiley Dinero, PAM48.062 Spinal stenosis, lumbar region with neurogenic cdaxrvyusajxY33.16 Spondylolisthesis, lumbar usjipuA21.062 Spinal stenosis, lumbar region with neurogenic xsgybcnrawowS56.16 Spondylolisthesis, lumbar region
[2018-09-21] MEDS ORDERED: Famotidine IV* 10 MG/ML 2 ML (20 mg) IV ONE (06:00)
[2018-09-21] MEDS ORDERED: Lactated Ringers 1000 ML Bag* 1,000 ML IV SCH ×2 (06:00→19:00)
[2018-09-21] MEDS ORDERED: Buffered Lidocaine 1% SYRIN* 1 ML/SYRINGE INTRADERM ONE (06:17)
[2018-09-21] MEDS ORDERED: ceFAZolin 2 GM in NS PREMIX(*) 2 GM/100 ML BAG IVPB ONE ×3 (06:17→16:47)
[2018-09-21] MEDS ORDERED: Famotidine IV* 10 MG/ML 2 ML (20 mg) ONE (06:17)
[2018-09-21] MEDS ORDERED: ceFAZolin 1 GM ADVAN(*) 1 GM ADDV.VIAL IVPB ONE ×3 (06:18→16:47)
[2018-09-21] MEDS ORDERED: Bacitracin INJECTION* 50,000 UNITS ONE (06:46)
[2018-09-21] MEDS ORDERED: Lidocaine 1% w EPI 1:200,000* 30 ML VIAL ONE (06:46)
[2018-09-21] MEDS ORDERED: Thrombin 5,000 UNITS* 1 APPLIC KIT - topical use - TOPICAL ONE (06:46)
[2018-09-21] MEDS ORDERED: Midazolam* 1 MG/ML 5 ML VIAL (5 MG) ONE (07:27)
[2018-09-21] MEDS ORDERED: fentaNYL* 50 MCG/ML 2 ML VIAL (100 MCG VIAL) ONE ×3 (07:27→15:13)
[2018-09-21] MEDS ORDERED: fentaNYL* 50 MCG/ML 5 ML VIAL (250 MCG VIAL) ONE (08:37)
[2018-09-21] MEDS ORDERED: Midazolam* 1 MG/ML 2 ML VIAL (2 MG) ONE (08:52)
[2018-09-21] MEDS ORDERED: Succinylcholine* 20 MG/ML 10 ML VIAL ONE (11:32)
[2018-09-21] MEDS ORDERED: Propofol* 10 MG/ML 20 ML BTL ONE ×4 (11:32→16:42)
[2018-09-21] MEDS ORDERED: Ondansetron INJ* 2 MG/ML VIAL ONE (11:32)
[2018-09-21] MEDS ORDERED: Dexamethasone IV* 4 MG/ML 1 ML (4 MG) ONE (11:32)
[2018-09-21] MEDS ORDERED: Phenylephrine 40 MCG/ML SYRINGE ONE (11:33)
[2018-09-21] MEDS ORDERED: Propofol* 500 MG/50 ML BTL ONE ×2 (11:33→11:58)
[2018-09-21] MEDS ORDERED: Lidocaine 2% PF * 5 ML VIAL ONE (11:33)
[2018-09-21] MEDS ORDERED: Metoprolol Tartrate IV* 1 MG/ML 5 ML VIAL ONE ×2 (12:49→16:38)
[2018-09-21] MEDS ORDERED: Propofol* 1,000 MG/100 ML BTL ONE (13:17)
[2018-09-21] MEDS ORDERED: Propofol* 0 ML ONE (14:46)
[2018-09-21] MEDS ORDERED: Naloxone* 0.4 MG/ML 1 ML VIAL IV PRN (16:31)
[2018-09-21] MEDS ORDERED: DiMENhydriNATE IV* 50 MG/ML VIAL IV PUSH PRN (16:31)
[2018-09-21] MEDS ORDERED: Acetaminophen IV 1GM/100ML * 100 ML ONE (16:35)
[2018-09-21] MEDS ORDERED: Vancomycin(*) 1,000 MG VIAL ONE (16:55)
[2018-09-21] MEDS ORDERED: Magnesium Hydroxide LIQ* 30 ML UDC PO PRN (18:03)
[2018-09-21] MEDS ORDERED: Ondansetron INJ* 2 MG/ML VIAL IV PRN (18:03)
[2018-09-21] MEDS ORDERED: HYDROmorphone INJ1* 1 MG/ML SYRINGE ONE ×2 (18:12→18:30)
[2018-09-21] MEDS: HYDROmorphone INJ1* 1 MG/ML SYRINGE IV PRN ×10 (18:14→21:19)
[2018-09-21] MEDS ORDERED: oxyCODONE TAB* 5 MG TAB ONE ×2 (18:30→19:14)
[2018-09-21] MEDS: oxyCODONE TAB* 5 MG TAB PO PRN ×2 (18:31→19:16)
[2018-09-21] MEDS ORDERED: oxyCODONE/Acetamin 5/325 MG* TAB PO PRN (18:31)
[2018-09-21] MEDS ORDERED: Labetalol IV* 5 MG/ML 20 ML VIAL IV PUSH ONE ×2 (18:44→22:30)
[2018-09-21] MEDS ORDERED: Dextrose 50% Syringe 50 ML* 25 GM/50 ML SYRINGE IV PUSH PRN (18:48)
[2018-09-21] MEDS ORDERED: Labetalol IV* 5 MG/ML 20 ML VIAL ONE (19:15)
--- NOTE | 2018-09-21 20:22 | CONSULT ---
Consult Consult: INPATIENT PAIN CONSULTATION Spencer Francisco is a 67 year old male with a medical history significant for atrial fibrillation. He had a Watchman device implanted in [place] obviating the need for anticoagulation. He has a history of low back pain and has been a patient in the Pain Clinic since December. Briefly, the patient had a L4/5 laminectomy in 2012 but had back pain on and off prior to that. He had a hematoma in his back in 2014. He had ongoing issues with back pain. He moved to the [place] area in 2016 to be closer to his son who works at [employer]. He had ongoing pain in his back down his right leg. In the fall of 2017, he had a minimally invasive right L3/4 decompression. Post op he did ok at first but then the pain returned. He saw Dr. Ta, he had a new MRI of his lumbar spine. He was sent back to the Pain Clinic in the spring. He had injections with Dr. Sosa that did not alleviate his pain. He was taking Percocet 7.5/325 1/2 tab in morning and a whole tablet in the evening. He was also on gabapentin. He was admitted to the hospital today and underwent a right L3/4, L4/5, L5/S1 arthrodesis. I am asked to see him for pain management. PAST MEDICAL HISTORY: Atrial fibrillation, Watchman device, diabetes, HTN, previous back surgery Allergies Allergy/AdvReac Type Severity Reaction Status Date / Time hydrocodone [From [place]] Allergy Severe Rash And Verified 09/21/18 06:26 Itching metoprolol Allergy DIFFICULTY Verified 09/21/18 06:26 BREATHING, RASH, FEET SWELLING tramadol AdvReac Rash Verified 09/21/18 06:26 Current Medications Atenolol (Tenormin Tab*) 12.5 mg PO BEDTIME GABE Atorvastatin Calcium (Lipitor*) 80 mg PO QAM GABE Dextrose (D50w Syringe 50 Ml*) 12.5 gm IV PUSH .FOR FS < 60 - SS PRN PRN Reason: FS < 60 Dimenhydrinate (Dramamine Iv*) 12.5 mg IV PUSH ONCE PRN PRN Reason: NAUSEA/VOMITING Docusate Sodium (Colace Cap*) 100 mg PO BID GABE Duloxetine HCl (Cymbalta Cap*) 30 mg PO QPM GABE Famotidine (Pepcid Iv*) 20 mg IV ONCE ONE Stop: 09/21/18 06:01 Last Admin: 09/21/18 06:49 Dose: 20 mg Fluticasone Propionate (Flonase Nasal [place] 50mcg*) 2 spray BOTH NARES QAM [facility] Gabapentin (Neurontin Tab(Nf)) 600 mg PO BEDTIME GABE Hydromorphone HCl (Dilaudid Inj1s*) 0.2 mg IV Q5M PRN PRN Reason: PAIN - SEVERE Last Admin: 09/21/18 20:30 Dose: 0.2 mg Hydromorphone HCl (Dilaudid Inj*) 0.5 mg IV SLOW PU Q6H PRN PRN Reason: PAIN - UNCONTROLLED Stop: 09/22/18 18:00 Lactated Ringer's (Lactated Ringers 1000 Ml Bag*) 1,000 mls @ 125 mls/hr IV PER RATE GABE Last Admin: 09/21/18 06:49 Dose: 125 mls/hr Lactated Ringer's (Lactated Ringers 1000 Ml Bag*) 1,000 mls @ 75 mls/hr IV .per rate [facility] Insulin Human Lispro (Humalog*) 0 units SUBCUT ACHS [facility]; Protocol Labetalol HCl (Trandate Iv*) 5 mg IV PUSH ONCE ONE Stop: 09/21/18 18:45 Last Admin: 09/21/18 19:15 Dose: 5 mg Levocetirizine (Xyzal Tab (Nf)) 5 mg PO QAM [facility] Levothyroxine Sodium (Synthroid Tab*) 100 mcg PO QAM [facility] Lidocaine/Sodium Bicarbonate (Buffered Lidocaine 1% Syrin*) 0.2 ml INTRADERM ONCE ONE Stop: 09/20/18 14:12 Last Admin: 09/21/18 06:49 Dose: 0.2 ml Magnesium Hydroxide (Milk Of Magnesia Liq*) 30 ml PO Q6H PRN PRN Reason: CONSTIPATION Naloxone HCl (Narcan*) 0.08 mg IV Q2M PRN PRN Reason: severe induced resp depression Non-Formulary Medication (Grape Seed Extract) 2 cap PO BID [facility] Non-Formulary Medication (Multivitamin) 1 cap PO QPM [facility] Non-Formulary Medication (Semaglutide [Ozempic]) 0.5 mg SQ WEEKLY GABE Omeprazole (Prilosec Cap* (Nf)) 40 mg PO QPM GABE Ondansetron HCl (Zofran Inj*) 4 mg IV Q6H PRN PRN Reason: NAUSEA/VOMITING Oxycodone HCl (Roxycodone Tab*) 5 mg PO ONCE PRN PRN Reason: PAIN - MODERATE Last Admin: 09/21/18 19:16 Dose: 5 mg Oxycodone HCl (Roxycodone Tab*) 10 mg PO Q4H PRN PRN Reason: PAIN - MODERATE TO SEVERE Oxycodone HCl (Roxycodone Tab*) 15 mg PO Q4H PRN PRN Reason: PAIN - SEVERE Senna (Senokot Tab*) 2 tab PO BEDTIME GABE SOCIAL HISTORY: Non smoker, non drinker, lives with ROS: Constipation, last BM 2 days ago. No CP or SOB VITAL SIGNS Temp Pulse Resp BP Pulse Ox 97.2 F 105 14 128/88 97 09/21/18 20:21 09/21/18 20:04 09/21/18 20:30 09/21/18 20:04 09/21/18 20:04 EXAM: LUNGS: Clear HEART: Irreg S1, S2 ABDOMEN: Soft EXTREMITIES: Normal tone NEUROLOGIC: alert, oriented, can move 4 extremities ASSESSMENT: 1. Right L3/4, L4/5, L5/S1 Arthrodesis PLAN: I have adjusted his pain medications as he has a history of previous opioid use. I have taken the liberty of ordering bowel medications. I will follow.
--- NOTE | 2018-09-21 20:37 | CONS ---
CONSULTATION REPORT: DATE OF CONSULTATION: 09/21/18 REQUESTING PHYSICIAN: Dr. Ta. REASON FOR CONSULTATION: Management of medical problems which includes atrial fibrillation, hypothyroidism. HISTORY OF PRESENT ILLNESS: This is a 67-year-old male with past medical history of atrial fibrillation, hypothyroidism with numerous back issues, who underwent lumbar fusion today. Medical consultation has been requested for the management of his atrial fibrillation, and diabetes. The patient reports that he was at one point diagnosed with congestive heart failure; however, the biofuels manager told him that this is not the case and he does not have congestive heart failure. He also has a history of atrial fibrillation, diabetes, however , not on insulin. He has a Watchman, and report he was told no need for "blood thinner". He also has a history of hypothyroidism. This morning, the patient underwent lumbar fusion. Currently, the patient is having back pain and no other complaints. On telemetry, the patient has been noted to have elevated blood pressure as well as elevated heart rate. The patient reports that he is having 10/10 back pain at the surgical site. He does not have any chest pain, no palpitations, no shortness of breath. PAST MEDICAL HISTORY: 1. Atrial fibrillation. 2. Diabetes. 3. Hypothyroidism. 4. Numerous back issues. PAST SURGICAL HISTORY: 1. Arthroscopy. 2. 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 3. Multiple back surgeries. One of his back surgery was complicated by development of a hematoma, which then required evacuation. MEDICATIONS: Home medications include: 1. Cialis 5 mg at bedtime. 2. Ozempic 0.5 mg subcutaneous weekly. 3. MiraLAX 17 g in the morning. 4. Oxycodone 7.5 mg at bedtime. 5. Oxycodone 10 mg in the morning. 6. Prilosec 40 mg at bedtime. 7. Levothyroxine 100 mcg in the morning. 8. Xyzal 5 mg in the morning. 9. Neurontin 600 mg at bedtime. 10. Fluticasone 2 sprays both nares in the morning. 11. Duloxetine 30 mg at bedtime. 12. Atorvastatin 80 mg at bedtime. 13. Atenolol 12.5 mg at bedtime. ALLERGIES: Include HYDROCODONE, METOPROLOL, TRAMADOL. FAMILY HISTORY: Both his parents had cancer. Sister had mitral valve prolapse. SOCIAL HISTORY: The patient lives at home with his , does not smoke, no alcohol use. His 's name is Simran, phone number is [phone]. REVIEW OF SYSTEMS: Full review of systems was done. Otherwise, as dictated in the HPI. The patient is having back pain; however, no fevers, no chills, no changes in his hearing, no chest pain, no shortness of breath, no palpitations, no abdominal pain, no nausea, no vomiting, no diarrhea, no lower extremity pain , does not have any changes in his mentation. PHYSICAL EXAMINATION: Blood pressure is 208/180, heart rate of 140, respiratory rate of 16, saturation of 98% on 2 L nasal cannula. General: This is an elderly male. He is lying in bed, in mild distress in the recovery unit. Pupils are equal, round, and reactive to light. Atraumatic, normocephalic. Oral mucosa is moist. There is no nystagmus. Heart: There is no chest wall tenderness, irregularly irregular, tachycardic, no murmurs. Lungs: There is no tachypnea, no use of accessory muscles. Lungs are clear to auscultation bilaterally with no wheezing, rales, or rhonchi. Abdomen: Bowel sounds are normoactive in all 4 quadrants. Abdomen is soft, nontender, nondistended. Extremities: There is no lower extremity edema, no calf tenderness. Dorsalis pedis is 2+ bilaterally. He is able to wiggle his toes bilaterally. Neurologic: He is alert and oriented x3. Speech is clear and coherent. Tongue is midline. No facial droop. IMPRESSION AND PLAN: This is a 67-year-old male with past medical history of atrial fibrillation, diabetes, hypothyroidism, admitted to the hospital because of lumbar fusion. 1. Lumbar fusion surgery: At this point, management per the primary team, pain control per primary team. At this point, for DVT prophylaxis, I will order sequential compression device. Once the patient's risk of bleeding postop is minimal, we can initiate anticoagulation/DVT prophylaxis. 2. Atrial fibrillation: Currently, the patient is having atrial fibrillation with a rapid ventricular response. This partly is due to his pain secondary to surgery. Pain medication has been ordered by the primary team. At this point, I have ordered labetalol 5 mg to help with the heart rate control, monitor the patient's heart rate on telemetry. Has a Watchman, no anticoagulation 3. Elevated blood pressure: The patient does not have the diagnosis of hypertension. At this point, we will monitor the blood pressure likely secondary to postop, I have given 1 dose of labetalol. We will monitor. 4. Diabetes: The patient takes Ozempic. We will continue that for now and I have ordered insulin sliding scale for the patient. 5. Hypothyroidism: Continue levothyroxine. 6. Additional management and plan as the hospital course progresses. Thank you for this consultation. We will follow the patient. [id number] #: [id number] ERINN
[2018-09-21] MEDS ORDERED: oxyCODONE TAB* 5 MG TAB PO PRN (20:59)
[2018-09-21] MEDS ORDERED: Senna TAB PO SCH (21:00)
[2018-09-21] MEDS: HYDROmorphone INJ1* 1 MG/ML SYRINGE IV SLOW PU PRN (21:57)
[2018-09-21] MEDS: Docusate CAP* 100 MG PO SCH (23:01)
[2018-09-21] MEDS: Gabapentin CAP(*) 300 MG PO SCH (23:01)
[2018-09-21] MEDS: Atenolol TAB* 25 MG PO SCH (23:02)
[2018-09-21] MEDS: Insulin LISPRO* 1 UNITS UNIT SUBCUT SCH (23:08)
--- NOTE | 2018-09-21 23:31 | OP ---
DATE OF OPERATION: 09/21/18 - ROOM #ICU-08 DATE OF : 50 SURGEON: Salma Ta MD. OVERHEAD CLEANER MAINTAINER: JEFFREY Najera. The case was done with the assistance of surgical PA because of the complexity of the case. ANESTHESIA: General. PRE-OP DIAGNOSES: Degenerative disk disease, spondylolisthesis, and synovial cyst with stenosis. POST-OP DIAGNOSES: Degenerative disk disease, spondylolisthesis, and synovial cyst with stenosis. OPERATIVE PROCEDURE: The patient underwent L3-S1 arthrodesis with right L3-4 and L4-5 MIS TLIF with L5-S1 posterolateral fusion with L3, L4, L5, and S1 pedicle screw placement with resection of right synovial cyst at L3-4 with iliac crest bone graft from a separate fascial incision, DBX, intraoperative electrophysiological monitoring and intraoperative navigation. ESTIMATED BLOOD LOSS: 100 cc. COMPLICATIONS: None. INDICATION: The patient is a very pleasant 67-year-old gentleman with a history of diabetes, AFib, status post placement of a watchman device, obesity, who had a previous laminectomy in [place] with postop MRSA infection, healed with a Hemovac, who came a few months ago with L3-4 stenosis. It was elected at that time to undergo a right L3-4 minimally invasive decompression. The patient did extremely well initially but unfortunately had increased back pain and right more than left lower extremity pain. MRI revealed right L3-4 facet cyst as well as L4-5 spondylolisthesis with multilevel neuroforaminal stenosis. The patient was offered the option of the above procedure after exhausting conservative treatment modalities. Discussed with the patient and his in detail the expectations, limitations, and possible complications of the procedure with complications including, but not limited to, bleeding, infection, risk of injury to adjacent structures, coma, paralysis, , need for additional procedures, anesthesia risk, stroke, blindness, cancer, instability, hardware failure, adjacent level disease, pseudoarthrosis, spinal fluid leak, anesthesia risk, postoperative hematoma, loss of bladder or bowel control, intraabdominal organ injury, excessive bleeding, need for return to the OR, pulmonary embolism , heart attack. The patient and his understood and were agreeable to proceed with surgery. Informed consent was obtained. They also understood that his condition may not improve and in fact may get worse after surgery and that he may need to have additional procedures in the future. They also understood that operative plan may be modified according to intraoperative findings and conditions and that the case may be abandoned or done in more than 1 stages. DESCRIPTION OF PROCEDURE: The patient was brought to the operating room and was placed under general anesthesia by the anesthesia team. He was carefully positioned prone on the Nolan table and all bony prominences were meticulously padded. His skin was prepped and draped in the standard fashion. After appropriate surgical pause and patient identification, the midline incision from the previous surgery was identified and was extended cephalad and caudal to allow for adequate exposure in the subcutaneous plane. Self- retaining retractor was introduced into the field and after undermining of the skin, a small separate incision on the fascia was performed over the left iliac crest. Corex needle was used to harvest bone graft, and through the same incision, the pin for navigation star was inserted. Intraoperative O-arm imaging was obtained and the patient's data was transferred to the navigation platform under stereotactic navigation. The pedicle screws at S1, L5, L4, L3 bilaterally were inserted with the assistance of high-speed drill, awl tip tap, navigated screwdriver. Then attention was brought to perform a TLIF at the right L4-5. A small incision over the fascia was performed and the tubular retractor was inserted over a series of dilators. Microscope was brought into the field and the remnants of the previous laminectomy on the right side were identified with hypertrophied facets. High-speed drill was used to perform medial facetectomy and with the assistance of Kerrison punches, the right L5 pedicle was skeletonized in the medial and the superior aspect. After gentle medial retraction of the nerve root and the thecal sac and after performing extended foraminotomies, the disk space was prepared using the standard diskectomy. After using a 15- surgical blade, we incised the annular fibrosis and a series of dilators were used as well as Kerrison punches and curettes to prepare the endplates. After appropriate sizing and after filling the interbody space with locally harvested bone graft during the medial facetectomy as well as bone from the iliac crest and DBX, an Elevate 9-mm height expandable cage was inserted after it had been filled with a mixture of the above graft material. This was expanded, and after confirmation of meticulous hemostasis and copious irrigation and meticulous inspection, the tubular retractor was removed, and the dorsal fascia defect was approximated with 0 interrupted Vicryl sutures. A similar procedure was performed for the L3-4 disk space. After the medial facetectomy, the facet cyst on the right 3-4 facet was identified as expected from the preoperative MRI, and after careful coagulation and dissection from the thecal sac, the facet cyst was resected in its entirety en bloc and was sent for specimen. Significant amount of scar tissue was encountered during the exposure in both the disk spaces at the laminectomies sites because of the previous history of surgical intervention. A second 8 mm Elevate cage was then inserted after lysis of adhesion and after the disk space was prepared and filled with the graft mixture. The Elevate cage was filled prior to insertion. Then the tubular retractor was again removed after confirmation of meticulous hemostasis, meticulous inspection, and copious irrigation, and the dorsal fascia defect was approximated with 0 Vicryl sutures. A smaller 18-mm METRx tubular retractor system was then introduced through a lateral incision with the assistance of intraoperative navigation in order to expose the lateral aspect of the L5-S1 facet and at a plane parallel to the facet. Under microscopic magnification, and after exposing the facet, a high-speed drill was used to decorticate the articulate surfaces of the facet and a mixture of locally harvested bone graft, iliac crest bone graft, and DBX were placed for the arthrodesis. Then, after measurement of the em size, 2 cobalt chrome rods were passed through the same fascial incisions and secured with screw head caps. A second O- arm imaging was performed and confirmed excellent placement of all hardware with the exception of the left L5 pedicle screw, which was found to be slightly laterally and it was elected to reposition this for optimal placement. After removing the em, the left L5 pedicle screw was repositioned and that was replaced and secured with screw head caps. A third O-arm imaging was obtained and it confirmed excellent placement of all hardware. Then, the screw head caps were secured in place. Extension towels were removed as well as the navigation star and the incision was closed by layers. The defect of the iliac crest was filled with DBX. The dorsal fascia defects were approximated with 0 interrupted Vicryl sutures. The incision was then copiously irrigated and 1 g of vancomycin was used since the patient had a previous staph infection during his first operation. The incision was then closed by layers over 2 Jake drains, which were tunneled through a separate stab wound incisions. 0 interrupted inverted Vicryl suture was used to approximate the subcutaneous tissue while 2-0 inverted interrupted Vicryl suture was used to approximate the subcutaneous tissue up to the level of the skin. The skin was then approximated with 0 Prolene running sutures as well as mattress sutures to achieve excellent position of the skin edges. The incision then was covered with Xeroform and sterile dressings. At the end of the procedure, all counts were reported to be correct. The patient remained hemodynamically stable throughout the case and intraoperative electrophysiological monitoring was stable throughout the case. The patient was then turned supine, was extubated, and was transferred to Recovery in excellent condition. The case was done with the assistance of surgical PA because of the complexity of the case. [id number]/CPS #: [id number] ERINN
[2018-09-21] MEDS ORDERED: Acetaminophen TAB* 325 MG PO PRN (23:35)
[2018-09-21] MEDS ORDERED: Diltiazem IV push/loading dose 5 MG/ML 5 ML vial (25 mg) IV SLOW PU ONE (23:45)
[2018-09-22] MEDS: GRAPE SEED EXTRACT PO SCH ×3 (00:29→20:43)
[2018-09-22] MEDS ORDERED: Diltiazem IV VIAL* 125 MG in NS 0.9% 100 ML* 100 ML IV SCH (00:30)
[2018-09-22] MEDS ORDERED: Diltiazem TAB* 30 MG ONE (01:33)
[2018-09-22] MEDS: Diltiazem TAB* 30 MG PO SCH ×5 (01:34→23:53)
[2018-09-22] MEDS: oxyCODONE TAB* 5 MG TAB PO PRN ×5 (02:40→22:44)
--- NOTE | 2018-09-22 04:19 | PN ---
Hospitalist Progress Note Date of Service: 09/22/18 Alerted by nursing staff to HR on tele in 120s-150s, in Afib. Patient known to have afib. HR did not decrease with IV labetalol. Patient has metoprolol listed as allergy. Given that patient is postoperative, 4S floor will not administer diltiazem and patient required transfer to ICU for diltiazem load and drip. Patient evaluated in ICU prior to diltiazem drip being initiated. EKG prior to diltiazem administration demonstrates afib with calculated HR 81-149. Patient feels well. Denies chest pain, lightheadedness/dizziness, difficulty breathing, palpitations. PE General: elderly white male laying upright in bed appearing in NAD Eyes: perrl, eomi Neck: supple Cardio: irregularly irregular rhythm; tachycardic; no murmurs appreciated; pedal pulses and radial pulses intact bilaterally Extremities: no clubbing, cyanosis, edema Neuro: a&o x3
[2018-09-22] MEDS: HYDROmorphone INJ1* 1 MG/ML SYRINGE IV SLOW PU PRN ×3 (04:20→15:56)
[2018-09-22] MEDS: Levothyroxine TAB* 100 MCG TAB PO SCH (06:02)
--- NOTE | 2018-09-22 07:21 | PN ---
Subjective Date of Service: 09/22/18 Interval History: Was transferred to ICU overnight due to Atrial Fibrillation with RVR, Was started on cardizem drip and given PO Cardizem. Currently the HR in the 90's, off of cardizem drip. Patient reports to me that he is having pain at the back, which is controlled with pain medications. Reports no chest pain, no palpitations, no shortness of breath. Family History: Unchanged from Admission Social History: Unchanged from Admission Past Medical History: Unchanged from Admission Objective Active Medications: Acetaminophen (Tylenol Tab*) 650 mg PO Q6H PRN PRN Reason: PAIN Atenolol (Tenormin Tab*) 12.5 mg PO BEDTIME [facility] Last Admin: 09/21/18 23:02 Dose: 12.5 mg Atorvastatin Calcium (Lipitor*) 80 mg PO QAM GABE Cetirizine HCl (Zyrtec*) 10 mg PO QAM GABE Dextrose (D50w Syringe 50 Ml*) 12.5 gm IV PUSH .FOR FS < 60 - SS PRN PRN Reason: FS < 60 Diltiazem HCl (Cardizem Tab*) 30 mg PO Q6HR [facility] Last Admin: 09/22/18 06:03 Dose: 30 mg Docusate Sodium (Colace Cap*) 100 mg PO BID [facility] Last Admin: 09/21/18 23:01 Dose: 100 mg Duloxetine HCl (Cymbalta Cap*) 30 mg PO QPM [facility] Fluticasone Propionate (Flonase Nasal [place] 50mcg*) 2 spray BOTH NARES QAM GABE Gabapentin (Neurontin Cap(*)) 600 mg PO BEDTIME [facility] Last Admin: 09/21/18 23:01 Dose: 600 mg Hydromorphone HCl (Dilaudid Inj1s*) 0.5 mg IV SLOW PU Q6H PRN PRN Reason: PAIN - UNCONTROLLED Stop: 09/22/18 18:00 Last Admin: 09/22/18 04:20 Dose: 0.5 mg Diltiazem HCl 125 mg/ Sodium (Chloride) 125 mls @ 5 mls/hr IV Q24H [facility]; Protocol Last Admin: 09/22/18 05:18 Dose: Not Given Insulin Human Lispro (Humalog*) 0 units SUBCUT ACHS [facility]; Protocol Last Admin: 09/21/18 23:08 Dose: 2 unit Levothyroxine Sodium (Synthroid Tab*) 100 mcg PO 0600 [facility] Last Admin: 09/22/18 06:02 Dose: 100 mcg Magnesium Hydroxide (Milk Of Magnesia Liq*) 30 ml PO Q6H PRN PRN Reason: CONSTIPATION Multivitamins/Minerals (Theragran/Minerals Tab*) 1 tab PO QPM [facility] Grape Seed Extract (Capsules) 2 cap PO BID [facility] Last Admin: 09/22/18 00:29 Dose: Not Given (Semaglutide [ (Ozempic] 0.5 Mg)) 0.5 mg SQ WEEKLY [facility] Ondansetron HCl (Zofran Inj*) 4 mg IV Q6H PRN PRN Reason: NAUSEA/VOMITING Oxycodone HCl (Roxycodone Tab*) 10 mg PO Q4H PRN PRN Reason: PAIN - MODERATE TO SEVERE Last Admin: 09/22/18 02:40 Dose: 5 mg Oxycodone HCl (Roxycodone Tab*) 15 mg PO Q4H PRN PRN Reason: PAIN - SEVERE Oxycodone HCl (Roxycodone Tab*) 5 mg PO Q4H PRN PRN Reason: PAIN - MODERATE Last Admin: 09/22/18 00:39 Dose: 5 mg Pantoprazole Sodium (Protonix Tab*) 40 mg PO QPM [facility] Senna (Senokot Tab*) 2 tab PO BEDTIME [facility] Last Admin: 09/22/18 00:05 Dose: 2 tab Vital Signs - 8 hr 09/21/18 09/22/18 09/22/18 23:41 00:29 00:30 Temperature 97.4 F 97.6 F Pulse Rate 110 104 122 Respiratory 17 14 23 Rate Blood Pressure 127/58 108/78 108/78 (mmHg) O2 Sat by Pulse 96 96 96 Oximetry 09/22/18 09/22/18 09/22/18 00:31 00:39 00:46 Temperature Pulse Rate 104 91 Respiratory 17 13 15 Rate Blood Pressure 115/73 105/78 (mmHg) O2 Sat by Pulse 94 97 Oximetry 09/22/18 09/22/18 09/22/18 01:00 01:01 01:16 Temperature Pulse Rate 109 96 101 Respiratory 10 20 19 Rate Blood Pressure 111/84 102/61 (mmHg) O2 Sat by Pulse 94 97 95 Oximetry 09/22/18 09/22/1819 01:31 01:46 02:00 Temperature Pulse Rate 105 102 103 Respiratory 9 12 15 Rate Blood Pressure 90/68 113/83 (mmHg) O2 Sat by Pulse 96 96 96 Oximetry 09/22/18 09/22/18 09/22/18 02:01 02:16 02:46 Temperature Pulse Rate 94 103 109 Respiratory 11 15 22 Rate Blood Pressure 102/80 103/69 134/105 (mmHg) O2 Sat by Pulse 96 97 97 Oximetry 09/22/18 09/22/18 09/22/18 03:00 03:01 03:16 Temperature Pulse Rate 102 98 95 Respiratory 10 8 11 Rate Blood Pressure 140/86 138/82 (mmHg) O2 Sat by Pulse 97 97 97 Oximetry 09/22/18 09/22/18 09/22/18 03:31 03:45 03:59 Temperature 97.0 F Pulse Rate 94 96 Respiratory 11 8 Rate Blood Pressure 112/82 138/83 (mmHg) O2 Sat by Pulse 97 97 Oximetry 09/22/18 09/22/18 09/22/18 04:00 04:01 04:20 Temperature Pulse Rate 92 107 Respiratory 22 22 15 Rate Blood Pressure 94/80 (mmHg) O2 Sat by Pulse 96 97 Oximetry 09/22/18 09/22/18 09/22/18 05:00 05:48 06:00 Temperature Pulse Rate 87 84 Respiratory 8 18 15 Rate Blood Pressure 96/68 124/71 (mmHg) O2 Sat by Pulse 95 96 Oximetry Oxygen Devices in Use Now: Nasal Cannula Appearance: Obese male, well developed, lying in bed, not in distress Eyes: PERRLA Respiratory: Clear to Auscultation Cardiovascular: - - irregularly irregular. no murmurs, trace lower extremity edema. Abdominal: NL Sounds; No Tenderness; No Distention, No Hepatosplenomegaly Lymphatic: - Extremities: - - dorsalis pedis 2+ bilaterally, able to move legs. Neurological: Alert and Oriented x 3 Microbiology and Other Data: Microbiology 09/22/18 01:50 Nasal Screen MRSA (PCR) - Final Nasal Mrsa Not Detected Assess/Plan/Problems-Billing Assessment: 67 year old Male with history of atrial fibrillation, hypothyrodism, Diabetes, admitted for lumbar fusion surgery. Consult for medical management. - Patient Problems (1) Atrial fibrillation with RVR Current Visit: No Status: Acute Code(s): I48.91 - UNSPECIFIED ATRIAL FIBRILLATION SNOMED Code(s): 391346330147903 Comment: Rapid ventriculr response - resolved, off cardizem drip, likely became tachycardic post op due to pain. continue atenolol, cardizem PO added overnight- will continue Has a Watchman device- per patient was told no need for anticoagulation (2) DVT prophylaxis Current Visit: No Status: Acute Code(s): LAH8443 - SNOMED Code(s): 035447642 Comment: - SCD - Can start heparin SubQ once bleeding risk post surgery is minimal, per patient in the past - he had back surgery- post op was complicated by development of hematoma (3) Diabetes mellitus Current Visit: No Status: Chronic Code(s): E11.9 - TYPE 2 DIABETES MELLITUS WITHOUT COMPLICATIONS SNOMED Code(s): 59580844 Comment: Sliding scale insulin (4) Hypothyroid Current Visit: No Status: Chronic Code(s): E03.9 - HYPOTHYROIDISM, UNSPECIFIED SNOMED Code(s): 06656578 Comment: -Continue levothyroxine Status and Disposition: Transfer to Surgical stay unit, off cardizem drip,
[2018-09-22] MEDS ORDERED: Senna TAB PO PRN (08:07)
[2018-09-22] MEDS ORDERED: Polyethylene Glycol 3350* 17 GM PACKET PO PRN (08:07)
[2018-09-22] MEDS: Insulin LISPRO* 1 UNITS UNIT SUBCUT SCH ×4 (08:11→20:56)
[2018-09-22] MEDS ORDERED: Docusate CAP* 100 MG PO SCH (09:00)
[2018-09-22] MEDS: Cetirizine* 10 MG TAB PO SCH (09:05)
[2018-09-22] MEDS: Atorvastatin* 80 MG TAB PO SCH (09:05)
[2018-09-22] MEDS: Docusate CAP* 100 MG PO SCH ×2 (09:05→20:43)
[2018-09-22] MEDS: Fluticasone NASAL SPRAY 50MCG* 16 gm SPRAY BTL BOTH NARES SCH (09:05)
--- NOTE | 2018-09-22 10:10 | PN ---
Progress Note - Progress Note Date of Service: 09/22/18 SOAP: Subjective: 67 y/o male post post L3 - S1 Lumbar surgery with arthrodesis POD # 1. Patient had tachycardia episode over night and was sent to ICU. Presently denies chest pain, SOB and palpitations. Medicine has been following patient for his AFIB, started him on Cardizem drip and was able to stabilize his heart rate. The RADHA drains had significant output #1 put out 140 ml and #2 90 over night. He reports having muscle ache from procedure, but has notice improvement with his radicular symptoms. Patient reports that he is now able move his toes on the right, which he was unable to do before. Objective: General: Patient laying bed comfortable, NAD. Nuero: GCS 15, A&0 X 3, EOM intact, CN II - XII grossly intact. Motor strength UPE 5/5 bilat. LE motor strength 5/5 bilat through out, sensation intake. Assessment: 67 y/o male post lumbar fusion with arthrodesis of L3 - S1 POD #1, experienced episode of tachycardia overnight, stabilized by medicine team. Patient is recovering well and appears to be stable. Plan: 1) Continue tele monitoring 2) Follow medicine recommendations 3) Get AP / Lateral standing X rays of L spine 4) Out of bed to chair 5) Continue to monitor drain out 6) Walk with PT/OT
[2018-09-22] MEDS: Magnesium Hydroxide LIQ* 30 ML UDC PO PRN (12:11)
[2018-09-22] MEDS ORDERED: Bisacodyl SUPP* 10 MG SUPP PR PRN (17:18)
[2018-09-22] MEDS: DULoxetine DR CAP* 30 MG CAP.DR PO SCH (18:00)
[2018-09-22] MEDS: Multivitamins/Minerals TAB PO SCH (18:00)
[2018-09-22] MEDS: Pantoprazole TAB * 40 MG TAB PO SCH (18:00)
[2018-09-22] MEDS ORDERED: HYDROmorphone INJ1* 1 MG/ML SYRINGE IV SLOW PU PRN (18:57)
--- NOTE | 2018-09-22 19:03 | PN ---
Progress Note - Progress Note Date of Service: 09/22/18 Note: INPATIENT PAIN-PROGRESS He states he was in a lot of pain today. He did get 2 doses of IV dilaudid but did not receive 15 mg of oxycodone until just now. Remains in a fib. Has not had a bowel movement Current Medications Acetaminophen (Tylenol Tab*) 650 mg PO Q6H PRN PRN Reason: PAIN Atenolol (Tenormin Tab*) 12.5 mg PO BEDTIME [facility] Last Admin: 09/21/18 23:02 Dose: 12.5 mg Atorvastatin Calcium (Lipitor*) 80 mg PO QAM [facility] Last Admin: 09/22/18 09:05 Dose: 80 mg Bisacodyl (Dulcolax Supp*) 10 mg MS DAILY PRN PRN Reason: CONSTIPATION Last Admin: 09/22/18 18:44 Dose: 10 mg Cetirizine HCl (Zyrtec*) 10 mg PO QAM [facility] Last Admin: 09/22/18 09:05 Dose: 10 mg Dextrose (D50w Syringe 50 Ml*) 12.5 gm IV PUSH .FOR FS < 60 - SS PRN PRN Reason: FS < 60 Diltiazem HCl (Cardizem Tab*) 30 mg PO Q6HR [facility] Last Admin: 09/22/18 18:00 Dose: 30 mg Docusate Sodium (Colace Cap*) 100 mg PO BID [facility] Last Admin: 09/22/18 09:05 Dose: 100 mg Duloxetine HCl (Cymbalta Cap*) 30 mg PO QPM [facility] Last Admin: 09/22/18 18:00 Dose: 30 mg Fluticasone Propionate (Flonase Nasal [place] 50mcg*) 2 spray BOTH NARES QAM [facility] Last Admin: 09/22/18 09:05 Dose: 2 spray Gabapentin (Neurontin Cap(*)) 600 mg PO BEDTIME [facility] Last Admin: 09/21/18 23:01 Dose: 600 mg Hydromorphone HCl (Dilaudid Inj*) 0.5 mg IV SLOW PU Q8H PRN PRN Reason: PAIN - UNCONTROLLED Stop: 09/23/18 12:00 Insulin Human Lispro (Humalog*) 0 units SUBCUT [facility]; Protocol Last Admin: 09/22/18 18:01 Dose: 3 unit Lactulose (Lactulose*) 30 ml PO Q6H PRN PRN Reason: CONSTIPATION Levothyroxine Sodium (Synthroid Tab*) 100 mcg PO 0600 [facility] Last Admin: 09/22/18 06:02 Dose: 100 mcg Magnesium Hydroxide (Milk Of Magnesia Liq*) 30 ml PO Q6H PRN PRN Reason: CONSTIPATION Last Admin: 09/22/18 12:11 Dose: 30 ml Multivitamins/Minerals (Theragran/Minerals Tab*) 1 tab PO QPM [facility] Last Admin: 09/22/18 18:00 Dose: 1 tab Pto Nf Med* Grape Seed Extract Capsules 2 cap PO BID [facility] Last Admin: 09/22/18 09:32 Dose: Not Given (Semaglutide [ (Ozempic] 0.5 Mg)) 0.5 mg SQ WEEKLY [facility] Ondansetron HCl (Zofran Inj*) 4 mg IV Q6H PRN PRN Reason: NAUSEA/VOMITING Oxycodone HCl (Roxycodone Tab*) 10 mg PO Q4H PRN PRN Reason: PAIN - MODERATE TO SEVERE Last Admin: 09/22/18 12:05 Dose: 10 mg Oxycodone HCl (Roxycodone Tab*) 15 mg PO Q4H PRN PRN Reason: PAIN - SEVERE Last Admin: 09/22/18 18:13 Dose: 15 mg Oxycodone HCl (Roxycodone Tab*) 5 mg PO Q4H PRN PRN Reason: PAIN - MODERATE Last Admin: 09/22/18 00:39 Dose: 5 mg Pantoprazole Sodium (Protonix Tab*) 40 mg PO QPM [facility] Last Admin: 09/22/18 18:00 Dose: 40 mg Polyethylene Glycol/Electrolytes (Miralax*) 17 gm PO DAILY PRN PRN Reason: CONSTIPATION Last Admin: 09/22/18 09:05 Dose: 17 gm Senna (Senokot Tab*) 1 tab PO BEDTIME PRN PRN Reason: CONSTIPATION Vital Signs Temp Pulse Resp BP Pulse Ox 98.4 F 92 16 118/54 97 09/22/18 15:31 09/22/18 15:31 09/22/18 18:13 09/22/18 15:31 09/22/18 15:31 EXAM: LUNGS: Clear HEART: Irregularly irregular ABDOMEN: Distended NEUROLOGIC: Moves all 4 extremities ASSESSMENT: 1. L3/4, L4/5, TLIF with L5/S1 posterolateral fusion, pedicle screw placement at L3, L4, L5, S1 2. Constipation PLAN: Continue oxycodone 10-15 mg for pain, will continue IV dilaudid for 12 more hours. Added Lactulose for constipation, on gabapentin and duloxetine. Will follow
[2018-09-22] MEDS: Gabapentin CAP(*) 300 MG PO SCH (20:42)
[2018-09-22] MEDS: Atenolol TAB* 25 MG PO SCH (20:43)
[2018-09-23] MEDS: Levothyroxine TAB* 100 MCG TAB PO SCH (05:33)
[2018-09-23] MEDS: oxyCODONE TAB* 5 MG TAB PO PRN ×4 (06:14→21:33)
[2018-09-23] MEDS: Diltiazem TAB* 30 MG PO SCH ×3 (06:15→17:41)
--- NOTE | 2018-09-23 07:32 | PN ---
Subjective Date of Service: 09/23/18 Interval History: Overnight tachycardia- cardizem dose increased. This morning he reports no chest pain, no palpitations, no shortness of breath. Reports back pain is better controlled today/overnight. Family History: Unchanged from Admission Social History: Unchanged from Admission Past Medical History: Unchanged from Admission Objective Active Medications: Acetaminophen (Tylenol Tab*) 650 mg PO Q6H PRN PRN Reason: PAIN Atenolol (Tenormin Tab*) 12.5 mg PO BEDTIME [facility] Last Admin: 09/22/18 20:43 Dose: 12.5 mg Atorvastatin Calcium (Lipitor*) 80 mg PO QAM [facility] Last Admin: 09/22/18 09:05 Dose: 80 mg Bisacodyl (Dulcolax Supp*) 10 mg [place] DAILY PRN PRN Reason: CONSTIPATION Last Admin: 09/22/18 18:44 Dose: 10 mg Cetirizine HCl (Zyrtec*) 10 mg PO QAM [facility] Last Admin: 09/22/18 09:05 Dose: 10 mg Dextrose (D50w Syringe 50 Ml*) 12.5 gm IV PUSH .FOR FS < 60 - SS PRN PRN Reason: FS < 60 Diltiazem HCl (Cardizem Tab*) 45 mg PO Q6HR [facility] Last Admin: 09/23/18 06:15 Dose: 45 mg Docusate Sodium (Colace Cap*) 100 mg PO BID [facility] Last Admin: 09/22/18 20:43 Dose: 100 mg Duloxetine HCl (Cymbalta Cap*) 30 mg PO QPM [facility] Last Admin: 09/22/18 18:00 Dose: 30 mg Fluticasone Propionate (Flonase Nasal [place] 50mcg*) 2 spray BOTH NARES QAM [facility] Last Admin: 09/22/18 09:05 Dose: 2 spray Gabapentin (Neurontin Cap(*)) 600 mg PO BEDTIME [facility] Last Admin: 09/22/18 20:42 Dose: 600 mg Hydromorphone HCl (Dilaudid Inj1s*) 0.5 mg IV SLOW PU Q8H PRN PRN Reason: PAIN - UNCONTROLLED Stop: 09/23/18 12:00 Insulin Human Lispro (Humalog*) 0 units SUBCUT [facility]; Protocol Last Admin: 09/22/18 20:56 Dose: 2 unit Lactulose (Lactulose*) 30 ml PO Q6H PRN PRN Reason: CONSTIPATION Levothyroxine Sodium (Synthroid Tab*) 100 mcg PO 0600 [facility] Last Admin: 09/23/18 05:33 Dose: 100 mcg Magnesium Hydroxide (Milk Of Magnesia Liq*) 30 ml PO Q6H PRN PRN Reason: CONSTIPATION Last Admin: 09/22/18 12:11 Dose: 30 ml Multivitamins/Minerals (Theragran/Minerals Tab*) 1 tab PO QPM [facility] Last Admin: 09/22/18 18:00 Dose: 1 tab Pto Nf Med* Grape Seed Extract Capsules 2 cap PO BID [facility] Last Admin: 09/22/18 20:43 Dose: 2 cap (Semaglutide [ (Ozempic] 0.5 Mg)) 0.5 mg SQ WEEKLY [facility] Ondansetron HCl (Zofran Inj*) 4 mg IV Q6H PRN PRN Reason: NAUSEA/VOMITING Oxycodone HCl (Roxycodone Tab*) 10 mg PO Q4H PRN PRN Reason: PAIN - MODERATE TO SEVERE Last Admin: 09/22/18 12:05 Dose: 10 mg Oxycodone HCl (Roxycodone Tab*) 15 mg PO Q4H PRN PRN Reason: PAIN - SEVERE Last Admin: 09/23/18 06:14 Dose: 15 mg Oxycodone HCl (Roxycodone Tab*) 5 mg PO Q4H PRN PRN Reason: PAIN - MODERATE Last Admin: 09/22/18 00:39 Dose: 5 mg Pantoprazole Sodium (Protonix Tab*) 40 mg PO QPM [facility] Last Admin: 09/22/18 18:00 Dose: 40 mg Polyethylene Glycol/Electrolytes (Miralax*) 17 gm PO DAILY PRN PRN Reason: CONSTIPATION Last Admin: 09/22/18 09:05 Dose: 17 gm Senna (Senokot Tab*) 1 tab PO BEDTIME PRN PRN Reason: CONSTIPATION Last Admin: 09/22/18 20:43 Dose: 1 tab Vital Signs - 8 hr 09/22/18 09/22/18 09/23/18 23:43 23:52 01:00 Temperature 99.2 F Pulse Rate 116 116 Respiratory 17 16 Rate Blood Pressure 144/60 (mmHg) O2 Sat by Pulse 94 Oximetry 09/23/18 09/23/18 03:48 06:14 Temperature 98.4 F Pulse Rate 108 Respiratory 17 16 Rate Blood Pressure 112/63 (mmHg) O2 Sat by Pulse 94 Oximetry Oxygen Devices in Use Now: Nasal Cannula Appearance: Obese male lying in bed, not in distress Respiratory: Clear to Auscultation, - - no tachypnea, no use of accessory muscles. Cardiovascular: - - irregularly irregular. no chest wall tenderness Neurological: Alert and Oriented x 3, - - able to move both legs, sensation intact. Microbiology and Other Data: Microbiology 09/22/18 01:50 Nasal Screen MRSA (PCR) - Final Nasal Mrsa Not Detected Assess/Plan/Problems-Billing Assessment: 67 year old Male with history of atrial fibrillation, hypothyrodism, Diabetes, admitted for lumbar fusion surgery. Consult for medical management. - Patient Problems (1) Atrial fibrillation with RVR Current Visit: No Status: Acute Code(s): I48.91 - UNSPECIFIED ATRIAL FIBRILLATION SNOMED Code(s): 631368160603318 Comment: Rapid ventriculr response - resolved, off cardizem drip. continue atenolol, cardizem increased to 45mg Q6hrs overnight to control heart rate. Has a Watchman device- per patient was told no need for anticoagulation (2) DVT prophylaxis Current Visit: No Status: Acute Code(s): JFK8186 - SNOMED Code(s): 420947020 Comment: - SCD - Can start heparin SubQ once bleeding risk post surgery is minimal, per patient in the past - he had back surgery- post op was complicated by development of hematoma (3) Diabetes mellitus Current Visit: No Status: Chronic Code(s): E11.9 - TYPE 2 DIABETES MELLITUS WITHOUT COMPLICATIONS SNOMED Code(s): 69106943 Comment: Sliding scale insulin fingerstick in the 110-180 range. (4) Hypothyroid Current Visit: No Status: Chronic Code(s): E03.9 - HYPOTHYROIDISM, UNSPECIFIED SNOMED Code(s): 45018556 Comment: -Continue levothyroxine
[2018-09-23] MEDS: GRAPE SEED EXTRACT PO SCH ×2 (09:24→21:34)
[2018-09-23] MEDS: Docusate CAP* 100 MG PO SCH ×2 (09:24→21:34)
[2018-09-23] MEDS: Cetirizine* 10 MG TAB PO SCH (09:24)
[2018-09-23] MEDS: Atorvastatin* 80 MG TAB PO SCH (09:24)
[2018-09-23] MEDS: Fluticasone NASAL SPRAY 50MCG* 16 gm SPRAY BTL BOTH NARES SCH (09:24)
[2018-09-23] MEDS: Insulin LISPRO* 1 UNITS UNIT SUBCUT SCH ×4 (09:25→21:41)
[2018-09-23] MEDS: Magnesium Hydroxide LIQ* 30 ML UDC PO PRN (10:21)
--- NOTE | 2018-09-23 11:42 | PN ---
Progress Note - Progress Note Date of Service: 09/23/18 SOAP: Subjective: 67 y/o male s/p L3 - S1 fusion POD #2 doing well, had episode of tachycardia, medicine increased Cardizem drip which stabilized his hear rate. He had some increased pain after attempting work PT, his medications were adjusted by Dr. Stewart, his pain is now better controlled. This morning his drains were removed, his dressings were changed with at bedside. Today he has been able to walk with PT and he feels more steady on his feet today. Overally patient is doing well. Objective: Vital Signs - 12 hr Temp Pulse Resp BP Pulse Ox 09/23/18 11:40 97.8 F 113 19 102/39 93 09/23/18 10:20 20 09/23/18 10:15 20 09/23/18 08:28 20 09/23/18 08:00 20 09/23/18 07:37 98.7 F 97 15 115/38 93 09/23/18 06:14 16 09/23/18 03:48 98.4 F 108 17 112/63 94 09/23/18 01:00 16 09/22/18 23:52 116 General: Patient sitting edge of bed bed comfortable being assisted by PT, NAD. Nuero: GCS 15, A&0 X 3, EOM intact, CN II - XII grossly intact. Motor strength UPE 5/5 bilat. LE motor strength 5/5 bilat through out, sensation intake. Derm: Wound C/D/I Bruises on thighs are improving have decreased in size since yesterday. Assessment: 67 y/o male s/p L3 - S1 fusion POD #2 patient is feeling better more active today. His hear rate is being better controlled with increase Cardizem, also pain is better controlled today. Patient is more stable with ambulation was able to walk the stairs with PT. He is possible ready for discharge. Plan: Continue follow medicine recommendations Continue to follow pain management recommendations Discharge planning
[2018-09-23] MEDS: DULoxetine DR CAP* 30 MG CAP.DR PO SCH (17:41)
[2018-09-23] MEDS: Pantoprazole TAB * 40 MG TAB PO SCH (17:41)
[2018-09-23] MEDS: Multivitamins/Minerals TAB PO SCH (17:41)
[2018-09-23 20:54] LABS: Urine Appearance Clear; Urine Bilirubin Negative (Negative); Urine Blood Negative (Negative); Urine Color Yellow; Urine Glucose Negative (Negative); Urine Ketones Negative (Negative); Urine Nitrite Negative (Negative); Urine Protein Negative (Negative); Urine Specific Gravity 1.027 (1.010-1.030); Urine Urobilinogen Negative (Negative)
[2018-09-23] MEDS ORDERED: Atenolol TAB* 25 MG PO SCH (21:00)
[2018-09-23 21:07] LABS: ABS Eosinophils 0.2 10^3/ul (0-0.6); ABS Lymphocytes 1.5 10^3/ul (1.0-4.8); ABS Monocytes 1.2 10^3/ul (0-0.8); ABS Neutrophils 8.5 10^3/ul (1.5-7.7); Eosinophil % 1.6 %; Hematocrit 38 % (42-52); Hemoglobin 12.9 g/dL (14.0-18.0); Lymphocyte % 13.4 %; Mean Corpuscular HGB Conc 34 g/dL (31-36); Mean Corpuscular Hemoglobin 29 pg (27-31); Mean Corpuscular Volume 86 fL (80-94); Mean Platelet Volume 9.7 fL (7.4-10.4); Platelet Count 151 10^3/uL (150-450); Red Blood Count 4.46 10^6 /uL (4.18-5.48); Red Cell Distribution Width 15 % (10-15); White Blood Count 11.5 10^3/uL (3.5-10.8)
[2018-09-23 21:22] LABS: BUN/Creatinine Ratio 25.5 (8-20); Calcium 8.6 mg/dL (8.6-10.3); EGFR African American 84.3 (>60); EGFR Non-African American 69.7 (>60); Potassium 4.2 mmol/L (3.5-5.0)
[2018-09-23] MEDS: NS 0.9% 1000 ML** 1,000 ML IV SCH (21:25)
[2018-09-23] MEDS: Gabapentin CAP(*) 300 MG PO SCH (21:33)
[2018-09-24] MEDS: Diltiazem TAB* 30 MG PO SCH ×2 (00:04→06:09)
[2018-09-24] MEDS: Levothyroxine TAB* 100 MCG TAB PO SCH (05:37)
[2018-09-24] MEDS: oxyCODONE TAB* 5 MG TAB PO PRN ×2 (06:08→16:17)
[2018-09-24] MEDS: NS 0.9% 1000 ML** 1,000 ML IV SCH (07:57)
[2018-09-24] MEDS: Fluticasone NASAL SPRAY 50MCG* 16 gm SPRAY BTL BOTH NARES SCH (08:21)
[2018-09-24] MEDS: Atorvastatin* 80 MG TAB PO SCH (08:21)
[2018-09-24] MEDS: GRAPE SEED EXTRACT PO SCH (08:21)
[2018-09-24] MEDS: Docusate CAP* 100 MG PO SCH (08:21)
[2018-09-24] MEDS: Cetirizine* 10 MG TAB PO SCH (08:21)
--- NOTE | 2018-09-24 08:30 | PN ---
Subjective Date of Service: 09/24/18 Interval History: Fever overnight X one episode. Blood cultures, CXR, UA ordered. Currently no fever, no chills, does not have a cough, no burning with urination. HR at times is tachycardic. No chest pain, no palpitations. Family History: Unchanged from Admission Social History: Unchanged from Admission Past Medical History: Unchanged from Admission Objective Active Medications: Acetaminophen (Tylenol Tab*) 650 mg PO Q6H PRN PRN Reason: PAIN Last Admin: 09/23/18 19:57 Dose: 650 mg Atenolol (Tenormin Tab*) 25 mg PO BEDTIME [facility] Last Admin: 09/23/18 21:32 Dose: 25 mg Atorvastatin Calcium (Lipitor*) 80 mg PO QAM [facility] Last Admin: 09/24/18 08:21 Dose: 80 mg Bisacodyl (Dulcolax Supp*) 10 mg [place] DAILY PRN PRN Reason: CONSTIPATION Last Admin: 09/22/18 18:44 Dose: 10 mg Cetirizine HCl (Zyrtec*) 10 mg PO QAM [facility] Last Admin: 09/24/18 08:21 Dose: 10 mg Dextrose (D50w Syringe 50 Ml*) 12.5 gm IV PUSH .FOR FS < 60 - SS PRN PRN Reason: FS < 60 Diltiazem HCl (Cardizem Tab*) 90 mg PO BID [facility] Docusate Sodium (Colace Cap*) 100 mg PO BID [facility] Last Admin: 09/24/18 08:21 Dose: 100 mg Duloxetine HCl (Cymbalta Cap*) 30 mg PO QPM [facility] Last Admin: 09/23/18 17:41 Dose: 30 mg Fluticasone Propionate (Flonase Nasal [place] 50mcg*) 2 spray BOTH NARES QAM [facility] Last Admin: 09/24/18 08:21 Dose: 2 spray Gabapentin (Neurontin Cap(*)) 600 mg PO BEDTIME [facility] Last Admin: 09/23/18 21:33 Dose: 600 mg Sodium Chloride (Ns 0.9% 1000 Ml) 1,000 mls @ 100 mls/hr IV PER RATE [facility] Last Admin: 09/24/18 07:57 Dose: 100 mls/hr Insulin Human Lispro (Humalog*) 0 units SUBCUT [facility]; Protocol Last Admin: 09/23/18 21:41 Dose: 2 unit Lactulose (Lactulose*) 30 ml PO Q6H PRN PRN Reason: CONSTIPATION Last Admin: 09/23/18 12:35 Dose: 30 ml Levothyroxine Sodium (Synthroid Tab*) 100 mcg PO 0600 [facility] Last Admin: 09/24/18 05:37 Dose: 100 mcg Magnesium Hydroxide (Milk Of Magnesia Liq*) 30 ml PO Q6H PRN PRN Reason: CONSTIPATION Last Admin: 09/23/18 10:21 Dose: 30 ml Multivitamins/Minerals (Theragran/Minerals Tab*) 1 tab PO QPM [facility] Last Admin: 09/23/18 17:41 Dose: 1 tab Pto Nf Med* Grape Seed Extract Capsules 2 cap PO BID [facility] Last Admin: 09/24/18 08:21 Dose: 2 cap (Semaglutide [ (Ozempic] 0.5 Mg)) 0.5 mg SQ WEEKLY [facility] Ondansetron HCl (Zofran Inj*) 4 mg IV Q6H PRN PRN Reason: NAUSEA/VOMITING Oxycodone HCl (Roxycodone Tab*) 10 mg PO Q4H PRN PRN Reason: PAIN - MODERATE TO SEVERE Last Admin: 09/22/18 12:05 Dose: 10 mg Oxycodone HCl (Roxycodone Tab*) 15 mg PO Q4H PRN PRN Reason: PAIN - SEVERE Last Admin: 09/24/18 06:08 Dose: 15 mg Oxycodone HCl (Roxycodone Tab*) 5 mg PO Q4H PRN PRN Reason: PAIN - MODERATE Last Admin: 09/22/18 00:39 Dose: 5 mg Pantoprazole Sodium (Protonix Tab*) 40 mg PO QPM [facility] Last Admin: 09/23/18 17:41 Dose: 40 mg Polyethylene Glycol/Electrolytes (Miralax*) 17 gm PO DAILY PRN PRN Reason: CONSTIPATION Last Admin: 09/22/18 09:05 Dose: 17 gm Senna (Senokot Tab*) 1 tab PO BEDTIME PRN PRN Reason: CONSTIPATION Last Admin: 09/22/18 20:43 Dose: 1 tab Vital Signs - 8 hr 09/24/18 09/24/18 09/24/18 03:15 06:08 07:28 Temperature 98.8 F 98.3 F Pulse Rate 83 85 Respiratory 17 16 18 Rate Blood Pressure 107/56 112/43 (mmHg) O2 Sat by Pulse 92 92 Oximetry 09/24/18 08:25 Temperature Pulse Rate Respiratory 18 Rate Blood Pressure (mmHg) O2 Sat by Pulse Oximetry Appearance: obese male sitting on bed, not in distress Eyes: PERRLA Respiratory: Clear to Auscultation Cardiovascular: - - No chest wall tenderness, irregular irregular, no murmurs. trace lower extremity edema. Abdominal: NL Sounds; No Tenderness; No Distention, No Hepatosplenomegaly Neurological: Alert and Oriented x 3 Result Diagrams: 09/23/18 20:55 09/23/18 20:55 Microbiology and Other Data: Microbiology 09/22/18 01:50 Nasal Screen MRSA (PCR) - Final Nasal Mrsa Not Detected Assess/Plan/Problems-Billing Assessment: 67 year old Male with history of atrial fibrillation, hypothyrodism, Diabetes, admitted for lumbar fusion surgery. Consult for medical management. - Patient Problems (1) Atrial fibrillation with RVR Current Visit: No Status: Acute Code(s): I48.91 - UNSPECIFIED ATRIAL FIBRILLATION SNOMED Code(s): 865146400495923 Comment: Rapid ventriculr response - resolved, off cardizem drip. atenolol dose increased to 25mg at bedtime. cardizem changed to 90mg BID. (2) DVT prophylaxis Current Visit: No Status: Acute Code(s): FVC4284 - SNOMED Code(s): 237162769 Comment: - SCD (3) Diabetes mellitus Current Visit: No Status: Chronic Code(s): E11.9 - TYPE 2 DIABETES MELLITUS WITHOUT COMPLICATIONS SNOMED Code(s): 92305186 Comment: Sliding scale insulin fingerstick in the 110-150 range. (4) Hypothyroid Current Visit: No Status: Chronic Code(s): E03.9 - HYPOTHYROIDISM, UNSPECIFIED SNOMED Code(s): 51224776 Comment: -Continue levothyroxine (5) Fever Current Visit: Yes Status: Acute Code(s): R50.9 - FEVER, UNSPECIFIED SNOMED Code(s): 243804695 Comment: fever X one episode overnight. U/A negative, CXR negative. Blood culture sent, WBC 11.5- could be due to post-op, monitor off antibiotics. Status and Disposition: ,
[2018-09-24] MEDS: Insulin LISPRO* 1 UNITS UNIT SUBCUT SCH ×2 (09:03→12:54)
--- NOTE | 2018-09-24 10:41 | PN ---
Progress Note - Progress Note Date of Service: 09/24/18 SOAP: Subjective: Patient is POD # 3 is doing better this morning. He spiked a fever over night, was given Tylenol and has remained afebrile. Medicine did a work and has ordered labs. Also hear rate has been well controlled. Presently denies MCCLURE, nausea vomiting, CP or SOB. His pain has been better controlled with change in medication. Patient is voiding and ambulating, feels more steady on his feet. He has no new complaints at this time. Objective: Vital Signs - 12 hr Temp Pulse Resp BP Pulse Ox 09/24/18 08:25 18 09/24/18 08:00 18 09/24/18 07:28 98.3 F 85 18 112/43 92 09/24/18 06:08 16 09/24/18 03:15 98.8 F 83 17 107/56 92 09/23/18 23:30 16 09/23/18 23:14 98.2 F 98 16 115/49 94 General: Patient sitting edge of bed bed comfortable being assisted by PT, NAD. Nuero: GCS 15, A&0 X 3, EOM intact, CN II - XII grossly intact. Motor strength UPE 5/5 bilat. LE motor strength 5/5 bilat through out, sensation intake. Derm: Wound C/D/I Bruises on thighs continue to improve Assessment: 67 y/o male post L3 - S1 fusion doing well, will possible go home today. Plan: Follow up with Medicine recommendations Pain control as needed Discharge planning.
[2018-09-24] MEDS ORDERED: Diltiazem TAB* 30 MG PO SCH ×2 (12:00→21:00)
[2018-09-24] MEDS ORDERED: Diltiazem TAB* 30 MG PO ONE (12:44)
[2018-09-24 15:51] VITALS: BP 136/66
[2018-09-25] MEDS ORDERED: (Semaglutide [Ozempic] 0.5 MG) SQ SCH (09:00)
== END 2018-09-24 16:15 | disposition home health service (06) | DRG 460 ==
LOC: INTOOBSV 09-21 05:40 → AA 09-21 05:40 → SSU 09-21 21:30 → AA 09-21 21:30 → ICU 09-21 23:41 → OBSVTOIN 09-22 13:04 → SSU 09-22 13:05
PROVIDERS: ADMIT Neurological Surgery; ATTEND Neurological Surgery
PROC: 0QB30ZZ Excision of Left Pelvic Bone, Open Approach (ICD-10-PCS; 2018-09-21)
PROC: 0SB20ZZ Excision of Lumbar Vertebral Disc, Open Approach (ICD-10-PCS; 2018-09-21)
PROC: 0QB00ZZ Excision of Lumbar Vertebra, Open Approach (ICD-10-PCS; 2018-09-21)
PROC: 0SG10AJ Fusion of 2 or more Lumbar Vertebral Joints with Interbody Fusion Device, Posterior Approach, Anterior Column, Open Approach (ICD-10-PCS; principal; 2018-09-21 07:30)
DX: M51.36 Other intervertebral disc degeneration, lumbar region (principal); Z68.41 Body mass index [BMI] 40.0-44.9, adult; M48.061 Spinal stenosis, lumbar region without neurogenic claudication; M43.16 Spondylolisthesis, lumbar region; M71.38 Other bursal cyst, other site; I48.91 Unspecified atrial fibrillation; E11.9 Type 2 diabetes mellitus without complications; I10 Essential (primary) hypertension; E66.9 Obesity, unspecified; E03.9 Hypothyroidism, unspecified; K59.00 Constipation, unspecified; R50.9 Fever, unspecified; Z88.8 Allergy status to other drugs, medicaments and biological substances; Z79.84 Long term (current) use of oral hypoglycemic drugs; Z79.891 Long term (current) use of opiate analgesic; Z79.899 Other long term (current) drug therapy; Z80.9 Family history of malignant neoplasm, unspecified
CPT/HCPCS: 36415; 71046; 72100; 76000; 80048; 81003; 83605; 85025; 87040; 87641; 88304; 93005; A9270-GY; G0378; G8978-GP-CJ; G8979-GP-CI; J0330; J0690; J1100; J1170; J2001; J2250; J2405; J2704; J3010; J3370; J3490

== ENCOUNTER 2023-03-15 13:35 | Observation (INO) ==
[2023-03-15] MEDS ORDERED: Iodixanol (CONTRAST) 320 MG/ML 100 ML SDV IV ONE (14:08)
[2023-03-15 14:14] LABS: ABS Basophils 0.1 10^3/uL (0.0-0.1); ABS Eosinophils 0.1 10^3/uL (0.0-0.5); ABS Lymphocytes 1.8 10^3/uL (1.0-4.8); ABS Monocytes 0.7 10^3/uL (0.0-1.1); ABS Neutrophils 7.3 10^3/uL (1.5-7.6); ABS Nucleated RBC 0.01 10^3/ul; Eosinophil % 1.2 %; Hematocrit 48.5 % (38-53); Hemoglobin 16.3 g/dL (13.2-16.3); Lymphocyte % 18.3 %; Mean Corpuscular Hemoglobin 29.5 pg (27-33); Mean Corpuscular Hgb Conc 33.7 g/dL (31-36); Mean Corpuscular Volume 87.4 fL (80-97); Mean Platelet Volume 10.7 fL (7.5-11.2); Nucleated Red Blood Cells % 0.1 %/100WBC (0.0-0.8); Platelet Count 194 10^3/uL (150-450); Red Blood Count 5.55 10^6/uL (4.06-5.63); Red Cell Distribution Width 16.3 % (12-17); White Blood Count 10.1 10^3/uL (3.6-10.2)
[2023-03-15 14:41] LABS: Activated Partial Thrombo Time 34.1 seconds (26.0-38.0); INR 1.08 (0.83-1.13)
[2023-03-15 14:43] LABS: Albumin 4.1 g/dL (3.2-5.2); Albumin/Globulin Ratio 1.3 (1-3); Calcium 9.5 mg/dL (8.6-10.3); Creatinine, Serum 1.51 mg/dL (0.67-1.17); Direct Bilirubin 0.1 mg/dL (0.03-0.18); Globulin 3.2 g/dL (2-4); HDL Cholesterol 36.3 mg/dL; Indirect Bilirubin 0.6 mg/dL (0.3-1.0); Potassium 4.2 mmol/L (3.5-5.0); Total Bilirubin 0.7 mg/dL (0.2-1.0); Total Protein 7.3 g/dL (6.4-8.9); eGFR CKD-EPI 48.8 (>60)
[2023-03-15 16:45] LABS: Urine Appearance Clear; Urine Bilirubin Negative (Negative); Urine Blood Negative (Negative); Urine Color Yellow; Urine Glucose 3+(>=500 mg/dL) (Negative); Urine Ketones Negative (Negative); Urine Nitrite Negative (Negative); Urine Protein Negative (Negative); Urine Specific Gravity 1.035 (1.002-1.030); Urine Urobilinogen Negative (Negative)
[2023-03-15] MEDS ORDERED: Albuterol HFA INHALER 8 gm MDI INH PRN (16:45)
[2023-03-15] MEDS ORDERED: Levalbuterol 1.25MG/0.5ML NEB.SOL INH PRN (16:45)
[2023-03-15] MEDS ORDERED: Dextrose 50% Syringe 50 ml 25 GM/50 ML SYRINGE IV PUSH PRN (16:47)
[2023-03-15] MEDS: DULoxetine DR 30 mg CAP PO SCH (17:55)
[2023-03-15] MEDS ORDERED: Lactated Ringers 1000 ml BAG 1,000 ML IV SCH (18:00)
[2023-03-15] MEDS: Aspirin EC 81 mg TAB.EC (enteric coated) PO SCH (19:21)
[2023-03-15] MEDS: Insulin GLARGINE 100 un/ml 10 ml VIAL SUBCUT SCH (21:18)
[2023-03-16 00:08] LABS: Calcium 8.8 mg/dL (8.6-10.3); Creatinine, Serum 1.29 mg/dL (0.67-1.17); Potassium 3.7 mmol/L (3.5-5.0); eGFR CKD-EPI 58.9 (>60)
[2023-03-16 06:29] LABS: ABS Eosinophils 0.2 10^3/uL (0.0-0.5); ABS Lymphocytes 1.1 10^3/uL (1.0-4.8); ABS Monocytes 0.6 10^3/uL (0.0-1.1); ABS Nucleated RBC 0.01 10^3/ul; Eosinophil % 1.9 %; Hematocrit 44.5 % (38-53); Hemoglobin 14.8 g/dL (13.2-16.3); Lymphocyte % 13.8 %; Mean Corpuscular Hemoglobin 28.9 pg (27-33); Mean Corpuscular Hgb Conc 33.3 g/dL (31-36); Mean Corpuscular Volume 86.8 fL (80-97); Mean Platelet Volume 10.5 fL (7.5-11.2); Nucleated Red Blood Cells % 0.1 %/100WBC (0.0-0.8); Platelet Count 155 10^3/uL (150-450); Red Blood Count 5.12 10^6/uL (4.06-5.63); White Blood Count 7.9 10^3/uL (3.6-10.2)
[2023-03-16 06:48] LABS: Calcium 8.6 mg/dL (8.6-10.3); Creatinine, Serum 1.2 mg/dL (0.67-1.17); Potassium 3.7 mmol/L (3.5-5.0); eGFR CKD-EPI 64.3 (>60)
[2023-03-16] MEDS: Mometasone/Formoter 100/5 MDI INH SCH ×2 (08:18→19:27)
[2023-03-16] MEDS ORDERED: Potassium Chloride LIQUID 20 MEQ/15 ML LIQUID PO ONE (08:47)
[2023-03-16] MEDS ORDERED: Influenza vaccine *QUAD* *2023-24* 0.5 ML SYRINGE IM ONE (09:00)
[2023-03-16] MEDS: Aspirin EC 81 mg TAB.EC (enteric coated) PO SCH (09:35)
[2023-03-16] MEDS: DULoxetine DR 30 mg CAP PO SCH (09:35)
[2023-03-16] MEDS: Empagliflozin 25 MG TAB PO SCH (09:35)
[2023-03-16] MEDS: Insulin GLARGINE 100 un/ml 10 ml VIAL SUBCUT SCH (21:12)
[2023-03-17 07:05] LABS: ABS Eosinophils 0.1 10^3/uL (0.0-0.5); ABS Lymphocytes 1.4 10^3/uL (1.0-4.8); ABS Monocytes 0.6 10^3/uL (0.0-1.1); ABS Neutrophils 5.5 10^3/uL (1.5-7.6); ABS Nucleated RBC 0.01 10^3/ul; Eosinophil % 1.7 %; Hemoglobin 14.4 g/dL (13.2-16.3); Lymphocyte % 18.1 %; Mean Corpuscular Hemoglobin 29.1 pg (27-33); Mean Corpuscular Hgb Conc 33.6 g/dL (31-36); Mean Corpuscular Volume 86.6 fL (80-97); Mean Platelet Volume 10.3 fL (7.5-11.2); Nucleated Red Blood Cells % 0.2 %/100WBC (0.0-0.8); Platelet Count 147 10^3/uL (150-450); Red Blood Count 4.96 10^6/uL (4.06-5.63); White Blood Count 7.6 10^3/uL (3.6-10.2)
[2023-03-17 07:46] LABS: Calcium 8.4 mg/dL (8.6-10.3); Creatinine, Serum 1.23 mg/dL (0.67-1.17); Potassium 4.1 mmol/L (3.5-5.0); eGFR CKD-EPI 62.4 (>60)
[2023-03-17] MEDS: Mometasone/Formoter 100/5 MDI INH SCH (07:46)
[2023-03-17] MEDS ORDERED: Influenza vaccine *QUAD* *2023-24* 0.5 ML SYRINGE IM ONE (09:00)
[2023-03-17] MEDS: Aspirin EC 81 mg TAB.EC (enteric coated) PO SCH (09:03)
[2023-03-17] MEDS: Empagliflozin 25 MG TAB PO SCH (09:04)
[2023-03-17] MEDS: DULoxetine DR 30 mg CAP PO SCH (09:05)
[2023-03-17 15:30] VITALS: BP 133/85
== END 2023-03-17 15:45 | disposition home or self-care (01) ==
LOC: EDHOLD 13:35 → ED 13:35 → SUATTDRO 15:22 → MEDTELE 18:26
PROVIDERS: ADMIT Hospitalist; ATTEND Internal Medicine

== ENCOUNTER 2023-04-03 09:25 | Observation (INO) ==
[2023-04-03 10:55] LABS: ABS Basophils 0.1 10^3/uL (0.0-0.1); ABS Eosinophils 0.1 10^3/uL (0.0-0.5); ABS Lymphocytes 1.2 10^3/uL (1.0-4.8); ABS Neutrophils 9.9 10^3/uL (1.5-7.6); ABS Nucleated RBC 0.01 10^3/ul; Eosinophil % 1.1 %; Hematocrit 46.9 % (38-53); Hemoglobin 15.9 g/dL (13.2-16.3); Lymphocyte % 10.1 %; Mean Corpuscular Hemoglobin 29.2 pg (27-33); Mean Corpuscular Hgb Conc 33.8 g/dL (31-36); Mean Corpuscular Volume 86.3 fL (80-97); Nucleated Red Blood Cells % 0.1 %/100WBC (0.0-0.8); Platelet Count 167 10^3/uL (150-450); Red Blood Count 5.44 10^6/uL (4.06-5.63); Red Cell Distribution Width 15.7 % (12-17); White Blood Count 12.3 10^3/uL (3.6-10.2)
[2023-04-03] MEDS ORDERED: Morphine 4 MG/ML VIAL (1 ml) IV ONE ×2 (11:13→16:47)
[2023-04-03] MEDS ORDERED: Ondansetron 4 mg VIAL 2 MG/ML 2 ml VIAL IV ONE (11:13)
[2023-04-03 11:20] LABS: Albumin/Globulin Ratio 1.4 (1-3); Calcium 9.1 mg/dL (8.6-10.3); Creatinine, Serum 1.64 mg/dL (0.67-1.17); Globulin 2.9 g/dL (2-4); Magnesium 1.9 mg/dL (1.9-2.7); Potassium 4.7 mmol/L (3.5-5.0); Total Bilirubin 0.7 mg/dL (0.2-1.0); Total Protein 6.9 g/dL (6.4-8.9); eGFR CKD-EPI 44.2 (>60)
[2023-04-03 11:27] LABS: Urine Appearance Clear; Urine Bilirubin Negative (Negative); Urine Blood Negative (Negative); Urine Color Yellow; Urine Glucose Negative (Negative); Urine Ketones Trace (Negative); Urine Nitrite Negative (Negative); Urine Protein Negative (Negative); Urine Urobilinogen Negative (Negative)
[2023-04-03] MEDS ORDERED: NS 0.9% 1000 ml BAG 1,000 ML IV ONE ×2 (12:28→15:26)
[2023-04-03] MEDS ORDERED: Iodixanol (CONTRAST) 320 MG/ML 100 ML SDV IV ONE (12:29)
[2023-04-03] MEDS ORDERED: Ondansetron 4 mg VIAL 2 MG/ML 2 ml VIAL IV PRN (17:15)
[2023-04-03] MEDS ORDERED: NF:IPRATROPIUM BR (NF)0.06% NASAL 1 SPRAY BTL BOTH NARES PRN (17:19)
[2023-04-03] MEDS ORDERED: Dextrose 50% Syringe 50 ml 25 GM/50 ML SYRINGE IV PUSH PRN (17:20)
[2023-04-03 18:03] LABS: Rapid COVID-19 Molecular Undetected (Undetected)
[2023-04-03 18:35] LABS: Influenza A Molecular Negative (Negative); Influenza B Molecular Negative (Negative)
[2023-04-03] MEDS: Lactated Ringers 1000 ml BAG 1,000 ML IV SCH (21:05)
[2023-04-04] MEDS: Lactated Ringers 1000 ml BAG 1,000 ML IV SCH (03:49)
[2023-04-04 06:47] LABS: Calcium 8.3 mg/dL (8.6-10.3); Creatinine, Serum 1.25 mg/dL (0.67-1.17); Magnesium 1.8 mg/dL (1.9-2.7); Potassium 3.9 mmol/L (3.5-5.0); eGFR CKD-EPI 61.2 (>60)
[2023-04-04] MEDS ORDERED: Mometasone/Formoter 200/5 MDI INH SCH (07:00)
[2023-04-04] MEDS ORDERED: Aspirin EC 81 mg TAB.EC (enteric coated) PO SCH (09:00)
[2023-04-04] MEDS ORDERED: DULoxetine DR 30 mg CAP PO SCH (09:00)
[2023-04-04 10:11] VITALS: BP 161/83
== END 2023-04-04 11:10 | disposition home or self-care (01) ==
LOC: EDHOLD 09:25 → ED 09:25 → MED 20:14
PROVIDERS: ADMIT Student in an Organized Health Care Education/Training Program; ATTEND Student in an Organized Health Care Education/Training Program

== ENCOUNTER 2023-07-29 05:29 | Observation (INO) ==
[~2023-07-29 05:29] MED LIST changes: -Buffered Lidocaine 0.9% SYRIN* 5 ML/SYR SYRINGE INTRADERM ONE; -Famotidine IV* 10 MG/ML 2 ML (20 mg) IV ONE; +Naloxone 0.4 mg VIAL 0.4 mg/ml 1 ml VIAL IV PRN; +Ondansetron 4 mg VIAL 2 MG/ML 2 ml VIAL IV PRN; -Vancomycin per Pharmacy* NOTE FOLLOW UP PRN; -Vancomycin(*) 2,000 MG in NS 0.9% 500 ML* 500 ML IVPB ONE
[2023-07-29] MEDS ORDERED: cefTRIAXone 2 gm/50 mL D5W 2 GM/50 ML BAG IV ONE (06:17)
[2023-07-29] MEDS: Lactated Ringers 1000 ml BAG 1,000 ML IV SCH ×2 (06:19→12:59)
[2023-07-29] MEDS: Buffered Lidocaine 1% SYRIN 1 ml INTRADERM ONE (06:19)
[2023-07-29 06:26] LABS: Rapid COVID-19 Molecular Undetected (Undetected)
[2023-07-29] MEDS ORDERED: Dexamethasone IV 4 MG/ML VIAL 1 ml VIAL ONE (06:39)
[2023-07-29] MEDS ORDERED: fentaNYL 100 mcg/2 ml 50 MCG/ML VIAL ONE ×3 (06:39→10:00)
[2023-07-29] MEDS ORDERED: Rocuronium 50 mg VIAL 10 mg/ml 5 ml VIAL (50 mg) ONE (06:39)
[2023-07-29] MEDS ORDERED: Ondansetron 4 mg VIAL 2 MG/ML 2 ml VIAL ONE (06:39)
[2023-07-29] MEDS ORDERED: Lidocaine 2% PF 5 ML VIAL ONE (06:39)
[2023-07-29] MEDS ORDERED: Midazolam 2 mg/2 ml VIAL 1 mg/ml 2 ml VIAL (2 mg) ONE (06:40)
[2023-07-29] MEDS ORDERED: Esmolol 10 MG/ML 10 ML (100 mg) IV ONE (07:42)
[2023-07-29] MEDS ORDERED: Furosemide 20 mg/2 ml IV VIAL ONE ×3 (08:10→09:15)
[2023-07-29] MEDS ORDERED: hydrALAZINE 20 mg/ml 1 ML Vial IV ONE (08:16)
[2023-07-29] MEDS ORDERED: Labetalol IV 5 MG/ML 20 ml VIAL ONE (08:36)
[2023-07-29] MEDS ORDERED: Lidocaine 2% JELLY 6 ML Topical TOPICAL ONE (09:56)
[2023-07-29] MEDS: fentaNYL 100 mcg/2 ml 50 MCG/ML VIAL IV PRN (10:03)
[2023-07-29 10:19] LABS: Calcium 8.2 mg/dL (8.6-10.3); Creatinine, Serum 0.99 mg/dL (0.67-1.17); Potassium 4.6 mmol/L (3.5-5.0); eGFR CKD-EPI 80.9 (>60)
[2023-07-29] MEDS ORDERED: HYDROmorphone 1 MG/1 ML SYRINGE ONE (10:47)
[2023-07-29] MEDS: HYDROmorphone 0.5 MG/0.5 ML SYRINGE IV SLOW PU PRN (10:47)
[2023-07-29] MEDS ORDERED: Dextrose 50% Syringe 50 ml 25 GM/50 ML SYRINGE IV PUSH PRN (11:25)
[2023-07-29 12:09] LABS: Magnesium 1.9 mg/dL (1.9-2.7)
[2023-07-29 12:24] LABS: TSH Ultra Thyroid Stim Horm 0.67 mcIU/mL (0.34-5.60)
[2023-07-29] MEDS: DULoxetine DR 30 mg CAP PO SCH (12:32)
[2023-07-29] MEDS: Mometasone/Formoter 200/5 MDI INH SCH (19:31)
[2023-07-30 06:42] LABS: ABS Lymphocytes 0.8 10^3/uL (1.0-4.8); ABS Neutrophils 9.4 10^3/uL (1.5-7.6); ABS Nucleated RBC 0.01 10^3/ul; Eosinophil % 0.3 %; Hematocrit 39.4 % (38-53); Lymphocyte % 6.9 %; Mean Corpuscular Hgb Conc 32.9 g/dL (31-36); Mean Platelet Volume 10.5 fL (7.5-11.2); Nucleated Red Blood Cells % 0.1 %/100WBC (0.0-0.8); Platelet Count 183 10^3/uL (150-450); Red Blood Count 4.47 10^6/uL (4.06-5.63); Red Cell Distribution Width 15.3 % (12-17); White Blood Count 11.3 10^3/uL (3.6-10.2)
[2023-07-30 07:01] LABS: Calcium 8.4 mg/dL (8.6-10.3); Creatinine, Serum 1.06 mg/dL (0.67-1.17); Magnesium 1.9 mg/dL (1.9-2.7); Potassium 4.3 mmol/L (3.5-5.0); eGFR CKD-EPI 74.6 (>60)
[2023-07-30] MEDS: cefTRIAXone 2 gm/50 mL D5W 2 GM/50 ML BAG IV SCH (09:48)
[2023-07-30 10:12] VITALS: BP 134/62
== END 2023-07-30 13:10 | disposition home or self-care (01) ==
LOC: OR 05:29 → SSU 05:29
PROVIDERS: ADMIT Urology; ATTEND Urology

== ENCOUNTER 2024-01-07 10:07 | Observation (INO) ==
[2024-01-07 10:42] LABS: ABS Basophils 0.1 10^3/uL (0.0-0.1); ABS Eosinophils 0.3 10^3/uL (0.0-0.5); ABS Lymphocytes 1.9 10^3/uL (1.0-4.8); ABS Monocytes 0.7 10^3/uL (0.0-1.1); ABS Neutrophils 8.5 10^3/uL (1.5-7.6); Eosinophil % 2.3 %; Hematocrit 44.3 % (38-53); Hemoglobin 14.7 g/dL (13.2-16.3); Lymphocyte % 16.6 %; Mean Corpuscular Hemoglobin 29.2 pg (27-33); Mean Corpuscular Hgb Conc 33.2 g/dL (31-36); Platelet Count 205 10^3/uL (150-450); Red Blood Count 5.03 10^6/uL (4.06-5.63); Red Cell Distribution Width 15.1 % (12-17); White Blood Count 11.4 10^3/uL (3.6-10.2)
[2024-01-07 10:57] LABS: INR 1.2 (0.85-1.14)
[2024-01-07 11:31] LABS: Albumin 3.9 g/dL (3.2-5.2); Albumin/Globulin Ratio 1.9 (1-3); Calcium 8.8 mg/dL (8.6-10.3); Creatinine, Serum 0.92 mg/dL (0.67-1.17); Globulin 2.1 g/dL (2-4); Potassium 4.4 mmol/L (3.5-5.0); Total Bilirubin 0.8 mg/dL (0.2-1.0); eGFR CKD-EPI 87.8 (>60)
[2024-01-07 12:07] LABS: High Sensitivity Troponin 1 Hr 4 pg/mL (<20)
[2024-01-07] MEDS: Iodixanol 320 (CONTRAST) 100 ML SDV IV ONE (14:22)
[2024-01-07] MEDS ORDERED: Sulfur Hexaflouride MICROSPHR 25 MG VIAL IV PRN ×3 (18:20→19:22)
[2024-01-07] MEDS ORDERED: IPRATROPIUM BR (NF)0.06% NASAL 1 SPRAY BTL BOTH NARES PRN (18:50)
[2024-01-07] MEDS: Enoxaparin 40 MG/0.4 ML SYR SUBCUT SCH (21:39)
[2024-01-07] MEDS: Albuterol/Ipratropium NEB.SOL (2.5/0.5 MG) 3 ML NEB.SOLN INH SCH (22:41)
[2024-01-08] MEDS: Albuterol/Ipratropium NEB.SOL (2.5/0.5 MG) 3 ML NEB.SOLN INH SCH (03:15)
[2024-01-08 06:16] LABS: Hematocrit 43.5 % (38-53); Hemoglobin 14.4 g/dL (13.2-16.3); Mean Corpuscular Hemoglobin 29.2 pg (27-33); Mean Corpuscular Hgb Conc 33.2 g/dL (31-36); Mean Corpuscular Volume 88.1 fL (80-97); Mean Platelet Volume 10.4 fL (7.5-11.2); Platelet Count 169 10^3/uL (150-450); Red Blood Count 4.95 10^6/uL (4.06-5.63); Red Cell Distribution Width 14.9 % (12-17)
[2024-01-08 06:56] LABS: Albumin 3.7 g/dL (3.2-5.2); Albumin/Globulin Ratio 1.9 (1-3); Calcium 8.8 mg/dL (8.6-10.3); Creatinine, Serum 0.89 mg/dL (0.67-1.17); Potassium 4.2 mmol/L (3.5-5.0); Total Bilirubin 0.8 mg/dL (0.2-1.0); Total Protein 5.7 g/dL (6.4-8.9); eGFR CKD-EPI 90.5 (>60)
[2024-01-08] MEDS: DULoxetine DR 30 mg CAP PO SCH (07:52)
[2024-01-08] MEDS ORDERED: Sulfur Hexaflouride MICROSPHR 25 MG VIAL ONE (14:33)
[2024-01-08 17:27] VITALS: BP 127/93
[2024-01-12] MEDS ORDERED: SEMAGLUTIDE SUBCUT SCH (19:00)
[2024-01-12] MEDS ORDERED: INJECTOR SUBCUT SCH (19:00)
== END 2024-01-08 18:05 | disposition home or self-care (01) ==
LOC: ED 10:07 → EDHOLD 10:07 → MEDTELE 21:19
PROVIDERS: ADMIT Internal Medicine; ATTEND Internal Medicine